=== PATIENT | female | born 1940 | race Caucasian/White ===

== ENCOUNTER 2017-11-17 21:33 | Inpatient (IN) | payer OTHER, MEDICARE ==
[~2017-11-17] VITALS: Ht 152.4 cm; Wt 60.8 kg
[~2017-11-17 21:33] MED LIST: AMLODIPINE-BEN1 EAC3 PO; ATORVASTATIN CA40 M1 PO; LISINOPRIL10 M1 PO; METOPROLOL SUCC25 M1 PO; METOPROLOL TART25 M1 PO; OMEPRAZOLE20 M2 PO; PAROXETINE HC37.5 MG PO; PREDNISONE10 M2 PO
--- NOTE | 2017-11-17 21:35 | ED GENERAL ADULT ---
History of Present Illness General Chief Complaint: General Adult Stated Complaint: RESP DISTRESS Source: EMS Exam Limitations: patient's age, clinical condition, poor historian, physical impairment Vital Signs & Intake/Output Vital Signs & Intake/Output Vital Signs Date Time Temp Pulse Resp B/P B/P Pulse O2 O2 Flow FiO2 Mean Ox Delivery Rate 11/17 2333 97.6 87 18 114/67 94 Nasal 2.0L Cannula 11/17 2305 Nasal 2.0L Cannula 11/17 2145 97.0 63 40 167/65 96 Nasal 2.0L Cannula ED Intake and Output 11/18 0000 11/17 1200 Intake Total 0 Output Total Balance 0 Intake, Oral 0 Patient 145 lb Weight Weight Estimated Measurement Method Allergies Coded Allergies: amoxicillin (From AUGMENTIN) (THRUSH 05/11/16) clavulanic acid (From AUGMENTIN) (THRUSH 05/11/16) Reconcile Medications Acetaminophen (Tylenol Extra Strength) 500 MG TABLET 2 TAB PO Q8 PRN PAIN ( Reported) Atorvastatin Calcium 40 MG TABLET 1 TAB PO DAILY CHOLESTEROL (Reported) Fluticasone/Vilanterol (Breo Ellipta 100-25 Mcg INH) 100 MCG-25 MCG/DOSE BLST.W.DEV 1 INHA PO DAILY COPD (Reported) Gabapentin 100 MG CAPSULE 2 TAB PO TID PAIN (Reported) Lisinopril 10 MG TABLET 1 TAB PO DAILY blood pressure Metoprolol Succinate 25 MG TAB 0.5 TAB PO DAILY HEART Omeprazole 20 MG CAPSULE.DR 1 CAP PO DAILY BOWEL ULCER (Reported) Oxycodone HCl 5 MG TABLET 1 TAB PO QHS PAIN (Reported) Paroxetine HCl 40 MG TABLET 1 TAB PO DAILY MOOD (Reported) Sennosides (Senna) 8.6 MG TABLET 2 TAB PO BID CONSTIPATION (Reported) Tramadol HCl 50 MG TABLET 1 TAB PO BIDP PRN PAIN (Reported) Triage Nurses Notes Reviewed? yes Onset: Abrupt Duration: hour(s): Timing: recent history HPI: 11/17/17 10 PM 77-year-old female was brought to the emergency department from the senior care for difficulty breathing and diaphoresis. According to EMS the patient was profoundly short of breath earlier today. There was no chest pain or fever. She has a past medical history of a perforated duodenal ulcer. She is also status post OR. Her EKG showed a new left bundle branch block. I initially reviewed this with Dr. Houston; who suggested that the patient be cared for by Dr. Orlando as he had seen her on the last admission. I did speak with Dr. Orlando and then later with Dr. Yang who reviewed the EKG and agreed with the plan of care and will follow the patient. Past History Travel History Traveled to [place] past 21 day No Medical History Any Pertinent Medical History? 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 No Review of Systems Review of Systems Constitutional: Denies: fever. EENTM: Reports: no symptoms. Respiratory: Reports: cough, short of breath. Cardiovascular: Denies: chest pain. GI: Denies: abdominal pain. Genitourinary: Reports: no symptoms. Musculoskeletal: Reports: no symptoms. Skin: Denies: rash. Neurological/Psychological: Reports: no symptoms. Hematologic/Endocrine: Reports: no symptoms. Immunologic/Allergic: Reports: no symptoms. Physical Exam Physical Exam General Appearance: alert, awake, anxious, moderate distress Head: atraumatic, normal appearance Eyes: Bilateral: normal appearance, PERRL, EOMI. Ears, Nose, Throat: normal pharynx, normal ENT inspection Neck: supple Respiratory: accessory muscle use, respiratory distress, poor air entry Cardiovascular: tachycardia Peripheral Pulses: 3+ radial (R), 3+ radial (L) Gastrointestinal: soft, non-tender Back: decreased range of motion Extremities: pedal edema Neurologic/Psych: awake, alert, oriented x 3 Skin: intact, normal color, warm/dry Core Measures ACS in differential dx? Yes CVA/TIA Diagnosis: No Sepsis Present: No Sepsis Focused Exam Completed? No Progress Differential Diagnoses I considered the following diagnoses in my evaluation of the patient: [Sepsis, acute non-ST segment elevation OR, pneumonia, pulmonary embolism] Plan of Care: Orders Procedure Date/time Status LACTIC ACID 11/18 0043 Active Patient Data 11/18 0000 Active ARTERIAL BLOOD GAS (GEN) 11/17 2142 Active Saline Lock 11/17 2142 Active BLOOD CULTURE 11/17 2142 Active TROPONIN LEVEL 11/17 2142 Complete LACTIC ACID 11/17 2142 Complete D-DIMER 11/17 2142 Complete COMPREHENSIVE METABOLIC PANEL 11/17 2142 Complete CBC WITHOUT DIFFERENTIAL 11/17 2142 Complete B-TYPE NATRIURETIC PEP (BNP) 11/17 2142 Complete EKG 11/17 2133 Active BLOOD CULTURE 11/17 199 Active Laboratory Tests 11/17/172305: D-Dimer High Sensitivty 9 H 11/17/17 2300: pH 7.36, pCO2 30 L, pO2 76 L, HCO3 17 L, ABG O2 Sat (Measured) 92.0 L, Carboxyhemoglobin 1.5, O2 Concentration % 2L, O2 Delivery Method NC, Phlebotomy Draw Site RIGHT BRACHIAL 11/17/172149: Anion Gap 16, Estimated GFR > 60, BUN/Creatinine Ratio 16.3, Glucose 278 H, Lactic Acid 6.7 H, Calcium 8.8, Total Bilirubin 0.5, AST 31, ALT 20, Alkaline Phosphatase 86, Troponin I 0.60 *H, Gef-S-Zgbvpaghucx Pept 99782 H, Total Protein 6.9, Albumin 3.8, Globulin 3.1, Albumin/Globulin Ratio 1.2, CBC w Diff NO MAN DIFF REQ, RBC 4.17 L, MCV 86.2, MCH 27.3, MCHC 31.7 L, RDW 18.7 H, MPV 8.9, Gran % 58.5, Lymphocytes % 31.4, Monocytes % 7.7, Eosinophils % 1.8, Basophils % 0.6, Absolute Granulocytes 6.4, Absolute Lymphocytes 3.5 H, Absolute Monocytes 0.8 H, Absolute Eosinophils 0.2, Absolute Basophils 0.1 Microbiology 11/17 2305 BLOOD: Blood Culture - RECD 11/17 2254 BLOOD: Blood Culture - RECD CXR Impression: no acute abnormality (CHF, pleural effusion) Initial ED EKG: wandering atrial pacemaker, new left bundle branch block Prior EKG: changed Departure Departure Disposition: STILL A PATIENT Condition: Stable Clinical Impression Primary Impression: CHF (congestive heart failure) Secondary Impressions: Acute non-ST segment elevation myocardial infarction, Lactic acidosis Referrals: Patient Has No Primary Care Dr Departure Forms: Customer Survey General Discharge Information Admission Note Spoke With: Shruthi Momin MD Documentation of Exam: Documentation of any treatments & extenuating circumstances including Concerns Regarding Discharge (functional status, medication knowledge or non-compliance, living conditions, etc.) that warrant an admission rather than observation: [The patient needs admission for CTA, ICU level care, oxygen, cardiology consultation , follow the cultures, repeat lactic acid, anticoagulation.] I discussed with the housestaff the plan for aspirin suppository, heparin, Plavix, and CTA. The patient is being admitted to the ICU. The patient did receive an albuterol and Atrovent nebulizer. IV Lasix, nitroglycerin paste. Her symptoms dramatically improved with improved. The patient refused aspirin secondary to her prior perforated ulcer. I discussed with the housestaff that this should be given by suppository and to discuss with the patient. I do not feel the lactic acid level was related to sepsis, as she is afebrile, has a positive troponin, and a substantially elevated d-dimer. Critical Care Note Critical Care Note Critical Care Time: 30-74 min
--- NOTE | 2017-11-17 22:04 | RADIOLOGY REPORT ---
EXAMINATION: XR PORTABLE CHEST CLINICAL INFORMATION: Shortness of breath. COMPARISON: Chest x-ray 05/20/2016 TECHNIQUE: Portable frontal view of the chest was obtained. 9:42 PM FINDINGS: There is mild pulmonary vascular congestion with prominence of the central hilar vessels and increased lung markings. There is haziness at lung bases probably from early pulmonary edema. There is a right pleural effusion blunting the right costophrenic angle. There is no change of the cardiomediastinal contour. There are vascular wall calcifications of aorta. IMPRESSION: There is pulmonary vascular congestion with haziness at lung bases from early pulmonary edema. There is a right pleural effusion.
[2017-11-17 22:09] LABS: ABSOLUTE BASOPHIL COUNT 0.1 /CUMM (0.0-0.2); ABSOLUTE EOSINOPHIL COUNT 0.2 /CUMM (0.0-0.7); ABSOLUTE GRANULOCYTE CT 6.4 /CUMM (1.4-6.5); ABSOLUTE LYMPH COUNT 3.5 /CUMM (1.2-3.4); ABSOLUTE MONOCYTE COUNT 0.8 /CUMM (0.10-0.60); BASOPHIL % 0.6 % (0.0-2.0); EOSINOPHIL % 1.8 % (0-5); GRANULOCYTE % 58.5 % (42.2-75.2); MEAN CORPUSCULAR HGB 27.3 PG (27.0-31.0); MEAN CORPUSCULAR HGB CONC 31.7 G/DL (33.0-37.0); MEAN CORPUSCULAR VOLUME 86.2 FL (81.0-99.0); MEAN PLATELET VOLUME 8.9 FL (7.4-10.4); PLATELET COUNT 266 /CUMM (130-400); RBC DISTRIBUTION WIDTH 18.7 % (11.5-14.5); RED BLOOD CELL CT 4.17 /CUMM (4.20-5.40)
[2017-11-17] MEDS ORDERED: OMEPRAZOLE20 M2 PO (22:46)
[2017-11-17] MEDS ORDERED: BREO ELLIPTA 11 EACH PO (22:47)
[2017-11-17] MEDS ORDERED: SENNA8.6 M3 PO (22:48)
[2017-11-17] MEDS ORDERED: PAROXETINE HCL40 M1 PO (22:48)
[2017-11-17] MEDS ORDERED: TRAMADOL HCL50 M1 PO (22:49)
[2017-11-17] MEDS ORDERED: TYLENOL EXTRA500 M2 PO (22:49)
[2017-11-17] MEDS ORDERED: GABAPENTIN100 M2 PO (22:50)
[2017-11-17] MEDS ORDERED: OXYCODONE HCL5 M1 PO (22:50)
--- NOTE | 2017-11-18 00:36 | History & Physical ---
Augusto Villasenor MD 11/18/17 0000: General Information and HPI History of Present Illness: 77-year-old woman with past medical history of perforated duodenal ulcer, coronary artery disease status post stent 2, hypertension, hyperlipidemia, osteoarthritis, and depression sent in from [facility] for evaluation of chest pain and shortness breath. Patient reports waking up today in her normal state of health. She had a lunch consisting of general tsos chicken which was very salty. Shortly after dinner she reported sudden onset shortness of breath with left arm pain. She characterized the pain as a 4/10 waxing/waning discomfort with radiation to her left shoulder. The pain was not positional and did not change with respiration. She denied any recent orthopnea, heartburn, or PND. She sleeps flat in bed at night with 2 pillows due to neck discomfort. Review of systems She otherwise denies any headache, fever, chills, blurred/double vision, lightheadedness/dizziness, current chest pain, palpitations, cough, nausea, vomiting, diarrhea, urinary complaints. Past medical history-as above Allergies-Augmentin Medications-reconciled in electronic medical record Family medical history-unknown Surgical history-cardiac stent 2, cholecystectomy Social history Patient denies smoking for the past year and half where she has been a long-term resident at [facility] but prior to this "smoked for a long time".. She denies drinking alcohol or using recreational drugs. She is compliant with her medications which are provided to her at the facility. She ambulates with assistance of a wheelchair and denies any falls in the past year. 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 Fredi Bojorquez and she hasn't seen him in "a while ". Allergies/Medications Allergies: Coded Allergies: amoxicillin (From AUGMENTIN) (THRUSH 05/11/16) clavulanic acid (From AUGMENTIN) (THRUSH 05/11/16) Home Med list Acetaminophen (Tylenol Extra Strength) 500 MG TABLET 2 TAB PO Q8 PRN PAIN ( Reported) Atorvastatin Calcium 40 MG TABLET 1 TAB PO DAILY CHOLESTEROL (Reported) Fluticasone/Vilanterol (Breo Ellipta 100-25 Mcg INH) 100 MCG-25 MCG/DOSE BLST.W.DEV 1 INHA PO DAILY COPD (Reported) Gabapentin 100 MG CAPSULE 2 TAB PO TID PAIN (Reported) Lisinopril 10 MG TABLET 1 TAB PO DAILY blood pressure Metoprolol Succinate 25 MG TAB 0.5 TAB PO DAILY HEART Omeprazole 20 MG CAPSULE.DR 1 CAP PO DAILY BOWEL ULCER (Reported) Oxycodone HCl 5 MG TABLET 1 TAB PO QHS PAIN (Reported) Paroxetine HCl 40 MG TABLET 1 TAB PO DAILY MOOD (Reported) Sennosides (Senna) 8.6 MG TABLET 2 TAB PO BID CONSTIPATION (Reported) Tramadol HCl 50 MG TABLET 1 TAB PO BIDP PRN PAIN (Reported) Past History Travel History Traveled to [place] past 21 day No Medical History Neurological: NONE EENT: NONE Cardiovascular: CAD, hypertension, hyperlipidemia Respiratory: NONE Gastrointestinal: NONE Hepatic: NONE Renal: NONE Musculoskeletal: osteoarthritis Psychiatric: depression Endocrine: NONE Blood Disorders: NONE Cancer(s): NONE 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 Extended Care Facility Who Do You Live With? alone Services at Home: None Primary Language: Faroese Smoking Status: Former Smoker ETOH Use: denies use Living Will? yes Power of Stone Breaker/HCP? yes Name of POA/HCP: Sinan Rossi Functional Ability ADLs Independent: toileting. Needs Assist: eating, bathing. Ambulation: walker IADLs Independent: finances, medication admin. Needs Assist: shopping, food prep, transportation. Review of Systems Review of Systems Constitutional: Reports: see HPI. Exam & Diagnostic Data Last 24 Hrs of Vital Signs/I&O Vital Signs Date Time Temp Pulse Resp B/P B/P Pulse O2 O2 Flow FiO2 Mean Ox Delivery Rate 11/18 0029 98.3 91 18 119/52 98 Room Air 11/17 2333 97.6 87 18 114/67 94 Nasal 2.0L Cannula 11/17 2305 Nasal 2.0L Cannula 11/175 97.0 63 40 167/65 96 Nasal 2.0L Cannula Intake & Output 11/18 0800 11/18 0000 11/17 1600 Intake Total 0 Output Total Balance 0 Intake, Oral 0 Patient 65.771 kg Weight Weight Estimated Measurement Method Physical Exam General Appearance Alert, Oriented X3, Cooperative Skin No Rashes, No Breakdown, No Significant Lesion Skin Temp/Moisture Exam: Warm/Dry Sepsis Skin Exam (color): Normal for Ethnicity HEENT Atraumatic, PERRLA, EOMI, Mucous Membr. moist/pink Neck Supple Cardiovascular Normal S1, Normal S2, irregular rate Lungs Normal airflow, right lower lobe crackles Abdomen Normal Bowel Sounds, Soft, No Tenderness Neurological Normal Speech, Strength at 5/5 X4 Ext, Normal Tone, Sensation Intact, Cranial Nerves 3-12 NL Extremities No Clubbing, No Cyanosis, trace pedal edema Vascular Normal Pulses, Pulses Symmetrical Sepsis Peripheral Pulse Location: Dorsalis Pedis Sepsis Peripheral Pulse Exam: Normal Sepsis Cap Refill Exam: <2 Sec Last 24 Hrs of Labs/Ilya: Laboratory Tests 11/18/17 0030: Lactic Acid Pending 11/17/172305: D-Dimer High Sensitivty 2058 H 11/17/170: pH 7.36, pCO2 30 L, pO2 76 L, HCO3 17 L, ABG O2 Sat (Measured) 92.0 L, Carboxyhemoglobin 1.5, O2 Concentration % 2L, O2 Delivery Method NC, Phlebotomy Draw Site RIGHT BRACHIAL 11/17/172149: Anion Gap 16, Estimated GFR > 60, BUN/Creatinine Ratio 16.3, Glucose 278 H, Lactic Acid 6.7 H, Calcium 8.8, Total Bilirubin 0.5, AST 31, ALT 20, Alkaline Phosphatase 86, Troponin I 0.60 *H, Xlv-X-Rztnycfxawj Pept 97244 H, Total Protein 6.9, Albumin 3.8, Globulin 3.1, Albumin/Globulin Ratio 1.2, CBC w Diff NO MAN DIFF REQ, RBC 4.17 L, MCV 86.2, MCH 27.3, MCHC 31.7 L, RDW 18.7 H, MPV 8.9, Gran % 58.5, Lymphocytes % 31.4, Monocytes % 7.7, Eosinophils % 1.8, Basophils % 0.6, Absolute Granulocytes 6.4, Absolute Lymphocytes 3.5 H, Absolute Monocytes 0.8 H, Absolute Eosinophils 0.2, Absolute Basophils 0.1 Microbiology 11/17 2305 BLOOD: Blood Culture - RECD 11/17 2254 BLOOD: Blood Culture - RECD Assessment/Plan Assessment: 77 year old woman with multiple medical problems significant for coronary artery disease, cardiac stents, hypertension, and hyperlipidemia with a prolonged hospitalization in May 2016 for a perforated duodenal ulcer requiring emergent exploratory laparotomy seen for evaluation of acute onset chest pain with shortness breath. Given that patient's chest pain and shortness of breath were of sudden onset in a patient whom is not very active with elevated troponin, new left bundle branch block, elevated BMP, elevated d-dimer, and elevated lactic acid it is very possible patient suffered an acute pulmonary embolism resulting in acute cardiac strain. Clinically patient meets criteria for acute coronary syndrome; given her new left bundle branch block it is difficult to assess for STEMI vs NSTEMI. Stat CTA chest with PE protocol is to be obtained. Resident Buyer Dr. Preston Yang was contacted from the ED by Dr. Isai Ross whom reportedly recommended starting patient on a heparin drip and loading with Plavix, aspirin, statin, diuresis, and antibiotics if necessary. Given patient' s history of duodenal ulcer patient is declining to take aspirin for fear of further bleeding. Heparin drip and Plavix are started. Patient is to be seen by cardiology in the morning. Echocardiogram should be obtained. Problem List -Chest pain with elevated troponin, probale acute coronary syndrome -Shortness of breath with elevated D-Dimer, possible pulmonary embolism -New Left Bundle Branch Block -CHF exacerbation -Elevated lactic acid -CAD s/p stent x2 -Hypertension -Hyperlipidemia -Depression -Osteoarthritis Plan -Admit to ICU -Strict I & Os -Daily weights -Guaic all stools -TRC with Nebs PRN -Supplemental oxygen, goal > 92%, taper as tolerated -Telemetry monitoring -Lasix 40 mg IV Daily -Plavix 300 mg PO ONCE -Heparin GGT -Protonix 40 mg IV Daily -Continue home meds: atorvastatin, breo, gabapentin, lisinopril, metoprolol, omeprazole, paroxetine, senna, oxycodone, tramadol -Cardiology consult with Dr. Yang/Johanny -Daily BMP -Trend troponin/EKG until peak or three negative sets -Trend lactic acid -Echocardiogram -Obtain CTA with PE Protocol -Pain control with acetaminophen, oxycodone, morphine -NPO for possible cardiac cath -DVT PPx with heparin GGT / ALPS -FULL CODE As Ranked By This Provider Problem List: 1. CHF (congestive heart failure) 2. Acute non-ST segment elevation myocardial infarction Core Measures/Misc (04/26) Acute Coronary Syndrome ACS Diagnosis: Yes Last Known EF % 65 No ASA d/t Medication Refused Congestive Heart Failure Congestive Heart Failure Diagnosis Yes Last Known EF % 65 Cerebrovascular Accident CVA/TIA Diagnosis: No VTE (View Protocol) VTE Risk Factors Age>40 No Mechanical VTE Prophylaxis d/t N/A MechProphylax Ordered No VTE Pharm Prophylaxis d/t NA PharmProphylax ordered Sepsis (View protocol) Sepsis Present: No Shruthi Momin 11/18/17 0458: Attending MD Review Statement Attending Statement Attending MD Statement: examined this patient, discuss w/resident/PA/CASE ASSEMBLER, agreed w/resident/PA/CASE ASSEMBLER, reviewed EMR data (avail), reviewed images, amended to note Attending Assessment/Plan: CC: acute respiratory distress PMH: CAD S/P GA S/P stent, COPD, HTN, HLD, depression, OA, history of perforated duodenal s/p abdo exploration Patient was sent from [facility] for acute respiratory distress. Patient states that she had Montserratian for lunch and Tajik sandwich for dinner and later in the evening noticed respiratory difficulty, breathing very hard. She felt generalized malaise, fatigue, whole body aches and left-sided arm discomfort radiating to left shoulder. Currently she denies any chest pain or discomfort, shoulder pain or arm pain. Patient states that she had been having productive cough since last 1 week with clear sputum but denies any pleuritic nature of chest pain, nasal congestion or discharge, chest congestion, fever, chills, nausea, vomiting, diarrhea, orthopnea or PND. She is wheelchair-bound, could not complete her physical therapy after her previous extended hospitalization, since then bedbound. Vitals: Afebrile, pulse 63, RR 40 on arrival improved to 18, blood pressure 167/ 65, saturating 96% on 2 L nasal cannula. On exam: A O 3, cooperative, no acute distress, neck supple, JVD elevated, no lymphadenopathy, mucosa moist, no focal neurological deficit, no dependent edema , no obvious skin rashes or inflammation CVS: S1-S2, RRR. RS: Crackles bases and midlung zone. Abdomen: Soft, NT, ND, bowel sounds present. CXR: There is pulmonary vascular congestion with haziness at lung bases from early pulmonary edema. There is a right pleural effusion. CTA chest: 1. No pulmonary embolism. 2. Small bilateral pleural effusions. Right lower lobe consolidation and groundglass opacity suspicious for pneumonia. Assessment and plan 77-year-old female with extensive past medical history presented in ER for acute shortness of breath that has happened this evening. Patient was at her usual state of health until dinnertime, had minimal cough with clear sputum production and no complaints then developed acute shortness of breath, generalized malaise, fatigue and left arm and shoulder discomfort which disappeared after coming to ER. Her shortness of breath is much better after treatment in ER. She has elevated JVD, bilateral crackles right more than left, no obvious leg swellings. Labs does not show significant leukocytosis but has mild acidosis with increased lactate, elevated troponin to 0.60 and elevated proBNP 11,800 with d-dimer 9. Her ABG showed respiratory alkalosis with metabolic acidosis. Chest x-ray suggestive of effusion. But acute respiratory symptoms and elevated d-dimer and she being wheelchair-bound CTA chest was obtained which excluded pulmonary embolism and shows groundglass opacification and right lobe suspicion of pneumonia. Currently patient is afebrile, no significant leukocytosis and very minimal cough so we will hold off antibiotics for now. Patient appears to have acute coronary syndrome, given her new left bundle branch block, ST segment changes are difficult to assess for STEMI. Patient will require earlier coronary cath than later given her risk factors. Resident Buyer was called from ER who suggested ICU admission, heparin drip and Plavix. Patient cannot take aspirin because of her perforated duodenal ulcer which required surgery, high risk of bleeding again. + NSTEMI + Lactic acidosis most likely secondary to ACS + Pulmonary edema + Respiratory alkalosis with metabolic acidosis + History of CAD S/P GA S/P stent + History of COPD, HTN, HLD, depression, OA, history of perforated duodenal - Admit to ICU - Continuous telemetry monitoring - Serial troponin and EKGs - 2-D echo in a.m. - Cardiology consult in a.m. - Continue Plavix, atorvastatin, beta vinnie - Continue heparin drip - Lasix 40 mg IV daily - Protonix 40 mg IV daily - Strict I's and O's - Daily weights - Nothing by mouth - Continue O2 by nasal cannula - Start azithromycin and ceftriaxone if significant leukocytosis or fever spike - Critical care consult in a.m. - TRC nebs TTS 30 min
[2017-11-18 01:26] LABS: PTT 27 SEC (25-37)
--- NOTE | 2017-11-18 01:48 | CT SCAN REPORT ---
EXAMINATION: CT ANGIOGRAM OF THE CHEST WITH AND WITHOUT CONTRAST (CT PULMONARY ANGIOGRAM FOR PE) CLINICAL INFORMATION: Acute shortness of breath. EKG change. Positive d-dimer. Chest pain. COMPARISON: 11/17/2017 and 09/12/2016. TECHNIQUE: Prior to contrast administration, noncontrast localization images were obtained. Subsequently, multidetector volumetric imaging was performed from the thoracic inlet to below the diaphragms following the administration of 65 mL Optiray 320 intravenous contrast. No contrast reaction reported. Sagittal, coronal, and MIP oblique sagittal reformatted images were obtained on the CT workstation, uploaded to PACS, and reviewed. Total exam dose-length product 449 mGy-cm. FINDINGS: QUALITY OF STUDY/CONTRAST BOLUS: Satisfactory PULMONARY ARTERIES: No central or segmental pulmonary emboli. THORACIC AORTA: No aneurysm or dissection. Atherosclerotic calcifications present. LUNG: The central airways are patent. Mild centrilobular emphysema. Small bilateral pleural effusions. Patchy consolidation within the right lower lobe with interspersed groundglass opacities. No pneumothorax. Mild interlobular septal thickening. There is an unchanged right middle lobe 0.5 cm pulmonary nodule, series 2 image 245. MEDIASTINUM: The heart is normal in size. Small pericardial effusion. Coronary artery calcifications present. No mediastinal lymphadenopathy. No evidence of septal bowing or right heart strain. CHEST WALL/AXILLA: No axillary or internal mammary lymphadenopathy. OSSEOUS STRUCTURES: No acute or suspicious osseous abnormality. Multilevel degenerative changes of the spine. UPPER ABDOMEN: Cholecystectomy. Vascular calcifications present. No reflux of contrast into the hepatic veins to suggest elevated right heart pressures. IMPRESSION: 1. No pulmonary embolism. 2. Small bilateral pleural effusions. Right lower lobe consolidation and groundglass opacity suspicious for pneumonia. VTE: negative
[2017-11-18 03:00] VITALS: BP 130/74
--- NOTE | 2017-11-18 05:00 | Admission Certification ---
Admission Certification Certification Statement - As attending physician, I certify that at the time of - admission, based on clinical presentation, severity of - symptoms, need for further diagnostic testing and - therapeutic interventions, and risk of adverse outcomes - without in-hospital treatment, in my clinical assessment, - this patient requires an acute hospital stay for a minimum - of two nights or longer. I have also considered psychsocial - factors such as support system, advanced age, financial - issues, cognitive issues, and failed out-patient treatments, - past re-admission history, safety of patient, and lack of - compliance as applicable. Specific rationale supporting this admission is: NSTEMI, pulmonary edema
[2017-11-18 05:29] LABS: ABSOLUTE BASOPHIL COUNT 0 /CUMM (0.0-0.2); ABSOLUTE EOSINOPHIL COUNT 0 /CUMM (0.0-0.7); ABSOLUTE GRANULOCYTE CT 6.9 /CUMM (1.4-6.5); ABSOLUTE LYMPH COUNT 0.5 /CUMM (1.2-3.4); ABSOLUTE MONOCYTE COUNT 0.7 /CUMM (0.10-0.60); BASOPHIL % 0.1 % (0.0-2.0); EOSINOPHIL % 0.2 % (0-5); GRANULOCYTE % 84.3 % (42.2-75.2); MEAN CORPUSCULAR HGB 27.1 PG (27.0-31.0); MEAN CORPUSCULAR HGB CONC 31.8 G/DL (33.0-37.0); MEAN CORPUSCULAR VOLUME 85.4 FL (81.0-99.0); MEAN PLATELET VOLUME 8.3 FL (7.4-10.4); PLATELET COUNT 235 /CUMM (130-400); RBC DISTRIBUTION WIDTH 19.5 % (11.5-14.5); RED BLOOD CELL CT 3.64 /CUMM (4.20-5.40); WHITE BLOOD CELL COUNT 8.1 /CUMM (4.8-10.8)
[2017-11-18 08:00] VITALS: BP 123/61
--- NOTE | 2017-11-18 08:34 | PN- Resident CRCU ---
Objective Exam General Appearance: alert
--- NOTE | 2017-11-18 08:43 | Cons- CRCU ---
General Information and HPI Allergies/Medications Allergies: Coded Allergies: amoxicillin (From AUGMENTIN) ([facility] 05/11/16) clavulanic acid (From AUGMENTIN) ([facility] 05/11/16) Home Med List: Acetaminophen (Tylenol Extra Strength) 500 MG TABLET 2 TAB PO Q8 PRN PAIN ( Reported) Atorvastatin Calcium 40 MG TABLET 1 TAB PO DAILY CHOLESTEROL (Reported) Fluticasone/Vilanterol (Breo Ellipta 100-25 Mcg INH) 100 MCG-25 MCG/DOSE BLST.W.DEV 1 INHA PO DAILY COPD (Reported) Gabapentin 100 MG CAPSULE 2 TAB PO TID PAIN (Reported) Lisinopril 10 MG TABLET 1 TAB PO DAILY blood pressure Metoprolol Succinate 25 MG TAB 0.5 TAB PO DAILY HEART Omeprazole 20 MG CAPSULE.DR 1 CAP PO DAILY BOWEL ULCER (Reported) Oxycodone HCl 5 MG TABLET 1 TAB PO QHS PAIN (Reported) Paroxetine HCl 40 MG TABLET 1 TAB PO DAILY MOOD (Reported) Sennosides (Senna) 8.6 MG TABLET 2 TAB PO BID CONSTIPATION (Reported) Tramadol HCl 50 MG TABLET 1 TAB PO BIDP PRN PAIN (Reported) Past History Travel History Traveled to [place] past 21 day No Medical History Neurological: NONE EENT: NONE Cardiovascular: CAD, hypertension, hyperlipidemia Respiratory: NONE Gastrointestinal: NONE Hepatic: NONE Renal: NONE Musculoskeletal: osteoarthritis Psychiatric: depression Endocrine: NONE Blood Disorders: NONE Cancer(s): NONE MANAGER RISK/Reproductive: NONE Surgical History Surgical History: cholecystectomy (laparoscopic 16 years ago), D&C's coronary angio/stent x2 Psychosocial History Where Do You Live? Extended Care Facility Who Do You Live With? alone Services at Home: None Primary Language: Georgian Smoking Status: Former Smoker ETOH Use: denies use Living Will? yes Power of Outbound Sales Consultant/HCP? yes Name of POA/HCP: Sinan Rossi Functional Ability ADLs Independent: toileting. Needs Assist: eating, bathing. Ambulation: walker IADLs Independent: finances, medication admin. Needs Assist: shopping, food prep, transportation. Assessment/Plan CRCU Consult Acknowledgment - Thank you for your consult request.
--- NOTE | 2017-11-18 08:51 | PN- Resident CRCU ---
Ernestina Johnson 11/18/17 0850: Subjective HPI/CRCU Issues: She is doing well this morning. Did not have any chest pain, or shortness of breath. Vitals remained stable overnight. She is currently on 2 L supplemental oxygen. Overnight, she did have an acute elevation in troponin level, with persistent EKG changes of left axis deviation, left bundle branch block, Q waves in inferior leads. As per the overnight team, the epic beacon analyst was aware of the new left bundle branch block. 24 Hour Events: Vitals- temperature 98.5, pulse rate 74-94, normal sinus rhythm, BP 1:30/74, 2 L nasal cannula oxygen saturation in the range of 94-98%. Ins and outs have not been calculated so far. Objective Vital Signs & I&O Last 8 Hrs of Vitals and I&O: - Exam General Appearance: awake Other Physical Findings: General Exam: AAOx3, No acute distress, Skin: No rashes, no breakdown;HEENT: PERRLA, EOMI;Neck: Supple, No JVD; No cervical lymphadenopathy;CVS: Reg Rate, Normal S1,S2, No MGR;Resp: decreased air entry, b/l rales ;Abdomen: Soft, No tenderness, Normal Bowel Sounds;Neuro: Normal Speech, Strength 4/5 b/l x lower extremities, Sensation intact, CN III-XII NL, Reflexes 2+;Extremities: No cyanosis, no pedal edema Current Medications: Current Medications Sig/Sergey Start time Last Medication Dose Route Stop Time Status Admin Acetaminophen 1,000 MG Q6P PRN 11/18 0015 AC 11/18 IV 1110 Albuterol Sulfate 3 ML Q4P PRN 11/18 0915 AC INH Albuterol Sulfate 3 ML ONCE ONE 11/17 2145 DC 11/17 INH 11/17 214 2214 Aspirin 325 MG ONCE ONE 11/18 0930 DC 11/18 PO 11/18 0931 1109 Atorvastatin Calcium 40 MG DAILY 11/18 1000 AC 11/18 PO 1106 Clopidogrel Bisulfate 75 MG DAILY 11/19 1000 AC PO Clopidogrel Bisulfate 300 MG ONCE ONE 11/18 0045 DC 11/18 PO 11/18 0046 0151 Furosemide 40 MG DAILY 11/18 1000 AC 11/18 IV 1107 Furosemide 0 .STK-MED ONE 11/17 2253 DC IV Furosemide 20 MG ONCE ONE 11/17 2230 DC 11/17 IV PUSH 11/17 2230 2308 Gabapentin 200 MG TID 11/18 1000 AC 11/18 PO 1106 Heparin Sodium/ 25,000 UNIT Q24H 11/18 0045 AC 11/18 Dextrose IV 0145 Dextrose/Water 500 ML Ipratropium [place] 2.5 ML Q6P PRN 11/18 1100 AC INH Ipratropium [place] 2.5 ML ONCE ONE 11/17 2145 DC 11/17 INH 11/17 2146 2213 Lisinopril 10 MG DAILY 11/18 1000 AC 11/18 PO 1107 Metoprolol Succinate 12.5 MG DAILY 11/18 1000 DC PO Metoprolol Tartrate 12.5 MG BID 11/18 1100 AC PO Morphine Sulfate 2 MG Q4P PRN 11/18 0930 AC IV Morphine Sulfate 2 MG Q4P PRN 11/18 0015 DC IV Nitroglycerin 0 .STK-MED ONE 11/17 2253 DC TOP Nitroglycerin 1 GM ONCE ONE 11/17 2230 DC 11/17 TOP 11/17 2230 2308 Oxycodone HCl 0 .STK-MED ONE 11/18 0201 DC PO Oxycodone HCl 5 MG .[QHS] 11/18 0115 AC 11/18 PO 0159 Pantoprazole Sodium 40 MG DAILY 11/18 1000 AC 11/18 IV 1107 Paroxetine HCl 40 MG DAILY 11/18 1000 AC 11/18 PO 1106 Senna/Docusate Sodium 2 TAB DAILY 11/18 1000 AC 11/18 PO 1109 Impression/Plan Impression/Problem List Impression: Ms Juan is a 77 -year-old woman with a past history of coronary artery disease status post PCI stents (1999), hypertension, hyperlipidemia, perforated duodenal ulcer, depression was brought from [facility] after she was found to have acute onset of dyspnea after she had her lunch. She also was concerned about chest discomfort severity 11/17, radiation to left shoulder. At the time of admission-temperature 97.0, pulse rate 63, respiration 40, blood pressure 167/65, pulse ox 96% on 2 L oxygen. Pertinent Findings the BP is 11.0-->8.1 (58.5--> 84.3% granulocytes), hemoglobin 11.4, hematocrit 36.0, platelet 266. Sodium 136, potassium 4.6, bicarbonate 17 (likely metabolic acidosis. Lactic acid), lactic acid 6.7-->2.6-->1.8. Since she has a new LBBB, which would make the evaluation of ST segment evaluation difficult, would treat this as OH until proven otherwise. Follow-up EKGs revealed left bundle branch block, with left axis deviation. Problem list: 1. Acute pulmonary edema 2. New left bundle branch block 3. Lactic acidosis 4. Chronic low back pain 5. History of COPD 6. History of perforated duodenal ulcer Etiology case is likely due to acute OH that may have caused congestive heart failure likely systolic leading to acute pulmonary edema. She has a new left bundle branch block, unsure if she developed recently or has had it in a little while. Until proven otherwise, this has to be treated as myocardial infarction; although she does not have any symptoms of chest pain at this time. Other etiologies such as acute on chronic congestive heart failure is considered in differentials. She also has an evidence of pleural effusion on the right side with radiological findings suggestive of consolidation or pneumonitis; since she does not have any evidence of any infection at this time would not treat her for pneumonia. She was given a loading dose of Plavix and aspirin this morning after discussing with Dr. Yang. Plan: 1. Acute pulmonary edema-could be due to OH given her recent left bundle branch block, making evaluation of ST segment elevation difficult to interpret. She was given Lasix 20 mg while in the ER. She continues to have oxygen saturation in the range of 96-98% on 2 L oxygen, and currently asymptomatic. She was given 1 dose of IV Lasix 40 mg in the a.m, will change to p.o. Lasix in the a.m. after discussing with the strickler attendant. Echocardiogram to be obtained to evaluate systolic versus diastolic heart failure in her case.Continue supplemental oxygen for now, and wean as tolerated. If she develops any fever, or s/s of infection would treat w/ abx. 2. New left bundle branch block-unsure if the patient had a new left bundle branch block or has had it in the recent past. Serial EKGs and troponins until they peak. Last troponin I 2.49.-->2.29. As per the patient, she would like to try conservative management at this time with medications only. If she has any worsening symptoms such as chest pain or shortness of breath, would discuss with epic beacon analyst about transferring to a higher level of care for possible catheterization. Hold daily aspirin, and continue Plavix as per Dr. Orlando. Continue nitro patch with 12 hour on and off.'s. Continue lisinopril 10 mg daily;continue metoprolol 12.5 mg p.o. twice daily since she does not have any active symptoms of CHF at this time. Continue IV heparin for the next 48 hours. 3. History of COPD-continue TRC nebs, including ipratropium and short-acting beta-vinnie. 4. Housekeepin. DVT prophylaxis-IV heparin 2. GI prophylaxis-IV Protonix. 3. CODE STATUS-full code. Problem List: 1. Lactic acidosis 2. CHF (congestive heart failure) 3. Hypertension 4. Coronary artery disease 5. Hyperlipidemia 6. Depression Pain Ratin Tomorrow's Labs & Rationales: back Plan DVT/Prophylaxis: pharmacological Naty MITCHELL,[facility] 11/18/17 1017: Attending MD Review Statement Attending Sign Off Attending Cosign Statement: I have: examined this patient, reviewed [facility] EMR data, personally reviewd images, discussd w/resident/PA/SHORT FILLER BUNCH MACHINE OPERATOR, discussed mgmt plan w/nico, discussed mgmt plan w/CM, discussed mgmt plan w/pt, agreed w/resident/PA/SHORT FILLER BUNCH MACHINE OPERATOR, amended to note. Other Findings: Seen and examined independently. Agree with above history and exam SIGNIFICANT DATA reviewed as noted above BUN/creatinine stable baseline bicarbonate normal, and her anion gap was slightly elevated upon admission but seems to have narrowed. Patient did have lactic acidosis upon admission which has rapidly corrected after she has been admitted to the hospital and resuscitated. She does have chronic anemia with hemoglobin of 9.9 with no significant left shift upon admission with 58% granulocytes. Her INR was not done but her d-dimer was elevated. ABG done upon admission did not reveal hypercarbia showed mild metabolic acidosis with respiratory alkalosis. Cultures so far pending. CTA as noted above. Patient was sleeping when I saw her - but was answering questions appropriately. This is a lady with previous history of duodenal ulcer, coronary artery disease with previous stent, hypertension, hyperlipidemia, osteoarthritis, depression, now is in the shoulder which he, came in for chest discomfort chest pain which started last night. Pain has been waxing and waning since she came in. After she came into the hospital she was found to have a new left bundle branch block and data elevated troponin suggestive of non-ST segment elevation OH now is in intensive care. She did undergo I's chest CT which showed no pulmonary embolism , bilateral small pleural effusion with right lower lobe atelectasis versus groundglass opacity suspicious for pneumonia. But clinically she does not seem to have bacterial pneumonitis at this time. No clear history so far suggestive of aspiration. She has had previous history of small lung nodules, COPD, hypertension, hyperlipidemia and multiple other issues as noted above. ISSUES Non-ST segment elevation OH, chest pain, new left bundle branch block, lady with previous coronary artery disease with stent, now chest pain-free. Patient has now been started on heparin drip and has had received aspirin, low-dose beta vinnie, statin. Patient already has received a loading dose of 300 mg of clopidogrel * Acute pulmonary edema due to ischemic heart disease. Probably acute systolic heart failure with bilateral pleural effusion. Patient has received Lasix and seems to have diuresed and improved. * Metabolic acidosis due to lactic acidosis due to low flow state from acute OH. No evidence suggestive of septic shock. Patient does have a right lower lobe infiltrate which is probably atelectasis, pleural effusion no clinical evidence of bacterial pneumonitis however aspiration may need to be ruled out we'll watch her off antibiotics * Previous history of COPD with no clinical evidence suggestive of significant COPD exacerbation. * Chronic low back pain, chronic anxiety and depression, hypertension, hyperlipidemia appears to be stable * Previous history of perforated duodenal ulcer with no evidence suggestive of active GI bleed. However patient is now on triple medications for anticoagulation including heparin, Plavix, aspirin hence we will treat her aggressively with proton pump inhibitor. RECOMMENDATION * Cardiology is aware * Continue heparin drip * Continue aspirin per cardiology * Hold further Plavix * Continue high-dose statin, low dose betablocker, and if bp permits only use low dose aci * Continue 1 more dose of Lasix today * Intravenous proton pump inhibitor * Discontinue oxycodone and use morphine as needed for her back pain and for her chest pain * Change her to immediate release metoprolol and use low-dose twice a day * Echocardiogram * Continue her other medications * Keep her nothing by mouth in anticipation of probable cardiac cath due to her new findings including left bundle branch block acute pulmonary edema and elevated troponin. * Hold off on antibiotics and intravenous steroids, Use prn ipratropium nebs tid prn for wheezing and hold albuterol nebs unless pt is wheezing significantly * Cont po paxil Patient is critically ill total time spent 40 minutes
[2017-11-18 10:22] LABS: PTT 52 SEC (25-37)
--- NOTE | 2017-11-18 11:22 | Discharge Summary ---
Visit Information Visit Dates Admission Date: 11/18/17 Discharge Date: 11/19/2017 Hospital Course Course Attending Physician: Shruthi Momin MD Primary Care Physician: Lowell MITCHELL,Manuel Louie Consulting Request: Consulting Specialty: Cardiology Hospital Course: Ms Juan is a 77 -year-old woman with a past history of coronary artery disease (s/p RI with culprit PCI/BMS x1; and follow-up PCI/BMS 1 for non-culprit vessel in 1999), hypertension, hyperlipidemia, perforated duodenal ulcer, depression was brought from [facility] after she was found to have acute onset of dyspnea after she had her lunch. She also was concerned about chest discomfort severity 11/17, radiation to left shoulder. She was last admitted to in 05/2016 for sepsis secondary to duodenal ulcer perforation with peritonitis/pneumoperitoneum that required emergent laparotomy with some postoperative short runs of nonsustained ventricular tachycardia (NSVT ) after which she was started on beta vinnie therapy. At the time of admission-temperature 97.0, pulse rate 63, respiration 40, blood pressure 167/65, pulse ox 96% on 2 L oxygen. Pertinent Findings the BP is 11.0-->8.1 (58.5--> 84.3% granulocytes), hemoglobin 11.4, hematocrit 36.0, platelet 266. Sodium 136, potassium 4.6, bicarbonate 17 (likely metabolic acidosis. Lactic acid), lactic acid 6.7-->2.6-->1.8. Since she has a new LBBB, which would make the evaluation of ST segment evaluation difficult, would treat this as RI until proven otherwise. Follow-up EKGs revealed left bundle branch block, with left axis deviation. Echocardiogram 11/18/17 revealed Mild left ventricular dilatation. Mild concentric left ventricular hypertrophy. Mildly reduced global left ventricular systolic function with mildly to moderately hypokinetic septum. Abnormal septal motion consistent with left bundle branch block. Mildly abnormal left ventricular ejection fraction estimated at 40%. Abnormal relaxation filling pattern of the left ventricle for age (stage 1 diastolic dysfunction). Normal right ventricular size and function. Normal right atrial size. Mild to moderate left atrial dilatation. Mild mitral stenosis. Trace mitral regurgitation. No hemodynamically significant aortic stenosis. Mild aortic regurgitation. Trace tricuspid regurgitation. Borderline pulmonary hypertension. Trace pulmonic regurgitation. Dilated inferior vena cava. Problem list: 1. Acute pulmonary edema 2. New left bundle branch block 3. Lactic acidosis 4. Chronic low back pain 5. History of COPD 6. History of perforated duodenal ulcer. She was admitted to ICU given an acute pulmonary edema and possible new LBBB. Etiologywas thought to be due to acute RI that may have caused congestive heart failure likely systolic leading to acute pulmonary edema. She has a new left bundle branch block, unsure if she developed recently or has had it in a little while. Other etiologies such as acute decompensation of chronic congestive heart failure(HFrEF). Troponin I peaked at 2.49-->2.29. She was given a loading dose of Plavix 300 mg po on 11/18/2017, followed by another dose of 300 mg by mouth on 11/19/2017 and aspirin 325 mg. As per the patient, she wanted to try conservative management first, before making a decision to have an active intervention done. Since she had worsening symptoms, with acute onset of dyspnea overnight it was thought prudent to be transfered to a higher level of care for possible catheterization which the patient was agreeable to. Daily ASA was held given her h/o perforated duodenal ulcer, but continued on Plavix. She was started on metoprolol 12.5 mg bid, lisinipril 10 mg daily, and statin. She was also continued on IV heparin, and was planned to be continued for the next 24 hrs. She was also continued on iv PPI given her h/o of perforated duodenal ulcer. She also has an evidence of pleural effusion on the right side with radiological findings suggestive of consolidation or pneumonitis; since she does not have any evidence of any infection at this time would not treat her for pneumonia. In regards to her h/o COPD, she was continued on ipratropium and short acting beta blockers. Vitals remained stable while she was in the hospital. Allergies: Coded Allergies: amoxicillin (From AUGMENTIN) ([facility] 05/11/16) clavulanic acid (From AUGMENTIN) ([facility] 05/11/16) Pertinent Lab Results: Echocardiogram; Mild left ventricular dilatation. Mild concentric left ventricular hypertrophy. Mildly reduced global left ventricular systolic function with mildly to moderately hypokinetic septum. Abnormal septal motion consistent with left bundle branch block. Mildly abnormal left ventricular ejection fraction estimated at 40%. Abnormal relaxation filling pattern of the left ventricle for age (stage 1 diastolic dysfunction). Normal right ventricular size and function. Normal right atrial size. Mild to moderate left atrial dilatation. Mild mitral stenosis. Trace mitral regurgitation. No hemodynamically significant aortic stenosis. Mild aortic regurgitation. Trace tricuspid regurgitation. Borderline pulmonary hypertension. Trace pulmonic regurgitation. Dilated inferior vena cava. Mikhail Orlando M.D. (Electronically Signed) Final Date: 18 November 2017 13:18 CAT - CTA CHEST-PULMONARY EMBOLISM 1. No pulmonary embolism. 2. Small bilateral pleural effusions. Right lower lobe consolidation and groundglass opacity suspicious for pneumonia. VTE: negative RAD - XRY-PORTABLE CHEST XRAYv 11/17/17 There is pulmonary vascular congestion with haziness at lung bases from early pulmonary edema. There is a right pleural effusion. Disposition Summary Disposition Principal Diagnosis: HFrEF Additional Diagnosis: New LBBB Discharge Disposition: other general hospital Discharge Instructions General Discharge Information Code Status: Full Code Patient's Diet: CHF diet Patient's Activity: as tolerated Follow-Up Instructions/Appts: Please follow-up with your primary care provider within the week of discharge Please follow-up with your clinical account liaison within a week of discharge Medications at Discharge Discharge Medications: Stop taking the following medications: Oxycodone HCl (Oxycodone HCl) 5 MG TABLET ORAL TAKE AT BEDTIME Continue taking these medications: Atorvastatin Calcium (Atorvastatin Calcium) 40 MG TABLET 1 Tablet ORAL DAILY Qty = 14 Comments: Last Taken: 11/19/17 Time: 09:40 am Lisinopril (Lisinopril) 10 MG TABLET 1 Tablet ORAL DAILY Days = 30 Comments: Last Taken: 11/19/17 Time: 09:40 am Metoprolol Succinate (Metoprolol Succinate) 25 MG TAB 0.5 Tablet ORAL DAILY Days = 30 Comments: Last Taken: 11/18/17 Time: 09:17 pm Omeprazole (Omeprazole) 20 MG CAPSULE.DR 1 Capsule ORAL DAILY Fluticasone/Vilanterol (Breo Ellipta 100-25 Mcg INH) 100 MCG-25 MCG/DOSE BLST.W.DEV 1 Inhalant ORAL DAILY Paroxetine HCl (Paroxetine HCl) 40 MG TABLET 1 Tablet ORAL DAILY Qty = 30 Comments: Last Taken: 11/19/17 Time: 09:40 am Sennosides (Senna) 8.6 MG TABLET 2 Tablet ORAL TWICE DAILY Comments: Last Taken: 11/19/17 Time: 09:40 am Tramadol HCl (Tramadol HCl) 50 MG TABLET 1 Tablet ORAL 2 x Daily as needed as needed for PAIN Acetaminophen (Tylenol Extra Strength) 500 MG TABLET 2 Tablet ORAL EVERY 8 HOURS as needed for PAIN Gabapentin (Gabapentin) 100 MG CAPSULE 2 Tablet ORAL THREE TIMES DAILY Comments: Last Taken:11/19/17 Time: 02:00 pm Start taking the following new medications: Ipratropium [place] (Ipratropium [place]) 0.2 MG/ML (0.02 %) SOLUTION 2.5 [place] Inhale through mouth EVERY SIX HOURS NEEDED as needed for WHEEZING Qty = 30 Refills = 1 Comments: Last Taken: 11/19/17 Time: 09:40 am Albuterol Sulfate (Albuterol Sulfate) 2.5 MG/3 ML (0.083 %) VIAL.NEB 3 [place] Inhale through mouth EVERY 4 HOURS NEEDED as needed for WHEEZING Qty = 30 No Refills Comments: Last Taken:11/19/17 Time: 09:40 am Clopidogrel Bisulfate (Plavix) 75 MG TABLET 75 Milligram ORAL DAILY Qty = 30 No Refills Comments: 300 mg Last Taken:11/19/17 Time: 03:20 pm Nitroglycerin (Nitroglycerin Patch) 0.4 MG/HOUR PATCH.TD24 0.4 Milligram On the skin DAILY Qty = 10 No Refills Comments: Last REMOVED at: 11/19/17 Time: 07:00 am Due to be PLACED: 11/19/17 Time: 07:00 pm Heparin Sod,Porcine/0.9 % NaCl (Heparin-Ns 25,000 Units/250 Ml) 25,000 UNIT/250 ML (100 UNIT/ML) IV.SOLN 0 INTRAVEN DAILY Qty = 3 No Refills Instructions: PER PROTOCOL PTT < 45 sec 60units/kg bolus-increase 4 units/kg/hr-recheck PTT 6hr PTT 45-55 sec 30 units/kg-increase 2 units/kg/hr-recheck PTT 6 hr PTT 56-80 sec No change- No change- recheck PTT 12 hrs PTT 81-100 sec No change- decrease 2 units/kg/hr-recheck 6 hr PTT > 100 sec- stop drip for 60sec-decrease 4 units/kg/hr-recheck 6hr Comments: Last Taken: 11/19/17 Time: 09:40 am Copies To: Johanny MITCHELL,Mikhail Fine; Lowell MITCHELL,Manuel Louie Attending MD Review Statement Documenting Attending: Naty MITCHELL,Bryant Fine
--- NOTE | 2017-11-18 11:33 | Cons- Cardiology ---
General Information and HPI Consulting Request Date of Consult: 11/18/17 Requested By: hSruthi Momin MD Reason for Consult: Positive troponin I. Source of Information: patient, old records Exam Limitations: poor historian History of Present Illness: Mrs. Margoth Juan is a 77 years old female with history of depression, osteoarthritis, hypertension, hyperlipidemia, coronary artery disease (s/p GA with culprit PCI/BMS x1; and follow-up PCI/BMS 1 for non- culprit vessel) who presented via ambulance from her ECF ([facility]) to the [facility] with complaints of shortness of breath and associated left arm discomfort after having Turkish food for lunch followed by an Malay head grinder for dinner that she states were very salty. The left arm discomfort was described as a waxing and waning, "ache" of mild ("4 /10") intensity without exacerbation or amelioration with change in position or respiration. In the ED the arm discomfort and shortness of breath resolved, but she did have evidence of a "new" LBBB on her ECG. Mrs. Juan was last hospitalized here (05/11-05/28/2016) for sepsis following "spontaneous" duodenal ulcer perforation with peritonitis/pneumoperitoneum that required emergent laparotomy with some postoperative short runs of nonsustained ventricular tachycardia (NSVT) the prompted initiation of beta vinnie therapy. An echocardiogram was performed during that hospitalization (05/19/2016) that revealed a small left ventricle with mild to moderate concentric left ventricular hypertrophy, no regional wall motion abnormalities, and preserved systolic function (EF > 65%), normal right ventricular size and function, normal atrial size, some age-related valvular changes, no pericardial effusion, and a normal size aortic root with Doppler findings of mild aortic and trace tricuspid regurgitation, no evidence of pulmonary hypertension, and stage I diastolic dysfunction. The plan was for outpatient follow-up and an imaging stress test for the NSVT, as outlined in our progress note from 05/19/2016, however, she was lost to follow-up after discharge. Allergies/Medications Allergies: Coded Allergies: amoxicillin (From AUGMENTIN) (THRUSH 05/11/16) clavulanic acid (From AUGMENTIN) (THRUSH 05/11/16) Home Med List: Acetaminophen (Tylenol Extra Strength) 500 MG TABLET 2 TAB PO Q8 PRN PAIN ( Reported) Albuterol Sulfate 2.5 MG/3 ML (0.083 %) VIAL.NEB 3 ML INH Q4P PRN WHEEZING Atorvastatin Calcium 40 MG TABLET 1 TAB PO DAILY CHOLESTEROL (Reported) Clopidogrel Bisulfate (Plavix) 75 MG TABLET 75 MG PO DAILY HEART HEALTH Fluticasone/Vilanterol (Breo Ellipta 100-25 Mcg INH) 100 MCG-25 MCG/DOSE BLST.W.DEV 1 INHA PO DAILY COPD (Reported) Gabapentin 100 MG CAPSULE 2 TAB PO TID PAIN (Reported) Heparin Sod,Porcine/0.9 % NaCl (Heparin-Ns 25,000 Units/250 Ml) 25,000 UNIT/250 ML (100 UNIT/ML) IV.SOLN 0 IV DAILY heart heatlh PER PROTOCOL PTT < 45 sec 60units/kg bolus-increase 4 units/kg/hr-recheck PTT 6hr PTT 45-55 sec 30 units/kg-increase 2 units/kg/hr-recheck PTT 6 hr PTT 56-80 sec No change- No change- recheck PTT 12 hrs PTT 81-100 sec No change- decrease 2 units/kg/hr-recheck 6 hr PTT > 100 sec- stop drip for 60sec-decrease 4 units/kg/hr-recheck 6hr Ipratropium [place] 0.2 MG/ML (0.02 %) SOLUTION 2.5 ML INH Q6P PRN WHEEZING Lisinopril 10 MG TABLET 1 TAB PO DAILY blood pressure Metoprolol Succinate 25 MG TAB 0.5 TAB PO DAILY HEART Nitroglycerin (Nitroglycerin Patch) 0.4 MG/HOUR PATCH.TD24 0.4 MG TOP DAILY DAILY Omeprazole 20 MG CAPSULE.DR 1 CAP PO DAILY BOWEL ULCER (Reported) Oxycodone HCl 5 MG TABLET 1 TAB PO QHS PAIN (Reported) Paroxetine HCl 40 MG TABLET 1 TAB PO DAILY MOOD (Reported) Sennosides (Senna) 8.6 MG TABLET 2 TAB PO BID CONSTIPATION (Reported) Tramadol HCl 50 MG TABLET 1 TAB PO BIDP PRN PAIN (Reported) Review of Systems Review of Systems: A 14 point system review was obtained and was noncontributory, other than as above. Past History Travel History Traveled to [place] past 21 day No Medical History Neurological: NONE EENT: NONE Cardiovascular: CAD, hypertension, hyperlipidemia Respiratory: NONE Gastrointestinal: NONE Hepatic: NONE Renal: NONE Musculoskeletal: osteoarthritis Psychiatric: depression Endocrine: NONE Blood Disorders: NONE Cancer(s): NONE ARTIST WOODBLOCK/Reproductive: NONE Surgical History Surgical History: cholecystectomy (laparoscopic 16 years ago), D&C's coronary angio/stent x2 Psychosocial History Where Do You Live? Extended Care Facility Who Do You Live With? alone Services at Home: None Primary Language: Amharic Smoking Status: Former Smoker ETOH Use: denies use Living Will? yes Power of Securities Clerk/HCP? yes Name of POA/HCP: Sinan Rossi Functional Ability ADLs Independent: toileting. Needs Assist: eating, bathing. Ambulation: walker IADLs Independent: finances, medication admin. Needs Assist: shopping, food prep, transportation. Exam & Diagnostic Data Vital Signs and I&O Vital Signs Date Time Temp Pulse Resp B/P B/P Pulse O2 O2 Flow FiO2 Mean Ox Delivery Rate 11/18 1107 100 133/48 11/18 0908 97 Nasal 2.0L Cannula 11/18 0905 Nasal 2.0L Cannula 11/18 0337 97 Nasal 2.0L Cannula 11/18 0300 98.5 94 18 130/74 98 Nasal 2.0L Cannula 11/18 0300 98 Nasal 2.0L Cannula 11/18 0228 98.0 80 18 140/61 95 Nasal 2.0L Cannula 11/18 0029 98.3 91 18 119/52 98 Room Air 11/17 2333 97.6 87 18 114/67 94 Nasal 2.0L Cannula 11/17 2305 Nasal 2.0L Cannula 11/17 2145 97.0 63 40 167/65 96 Nasal 2.0L Cannula Intake & Output 11/18 1600 11/18 0800 11/18 0000 11/17 1600 11/17 0800 11/17 0000 Intake Total 71 0 Output Total 400 Balance -329 0 Intake, IV 71 Intake, Oral 0 Output, Urine 400 Patient 134 lb 145 lb Weight Weight Estimated Measurement Method Physical Exam: Well-developed, well-nourished elderly female in no acute distress with nasal oxygen in place. Vital signs: See above. HEENT: Normocephalic, atraumatic, EOMI, moist mucous membranes. Neck: No JVD, no bruits. Lungs: Decreased breath sounds at the bases and otherwise clear to auscultation bilaterally. Heart: S1, S2 with soft (grade 1/6) systolic murmur. No gallop or rub. Abdomen: Soft, nontender, positive bowel sounds. Extremities: No edema. Labs/Ilya Results: Laboratory Tests 11/19 11/19 11/19 0940 0205 0205 Chemistry Sodium (137 - 145 mmol/L) 137 Potassium (3.5 - 5.1 mmol/L) 4.1 Chloride (98 - 107 mmol/L) 102 Carbon Dioxide (22 - 30 mmol/L) 24 Anion Gap (5 - 16) 11 BUN (7 - 17 mg/dL) 19 H Creatinine (0.5 - 1.0 mg/dL) 0.8 Estimated GFR (>60 ml/min) > 60 Glucose (65 - 99 mg/dL) 74 Calcium (8.4 - 10.2 mg/dL) 8.2 L Phosphorus (2.5 - 4.5 mg/dL) 4.6 H Magnesium (1.6 - 2.3 mg/dL) 1.9 Total Bilirubin (0.2 - 1.3 mg/dL) 0.4 AST (14 - 36 U/L) 38 H ALT (9 - 52 U/L) 33 Troponin I (< 0.11 ng/ml) 1.01 *H Cancelled 1.21 *H Albumin (3.5 - 5.0 g/dL) 3.0 L Coagulation APTT (25 - 37 SEC) 83 H 95 H Hematology CBC w Diff NO MAN DIFF REQ WBC (4.8 - 10.8 /CUMM) 5.8 RBC (4.20 - 5.40 /CUMM) 3.52 L Hgb (12.0 - 16.0 G/DL) 9.6 L Hct (37 - 47 %) 29.8 L MCV (81.0 - 99.0 FL) 84.6 MCH (27.0 - 31.0 PG) 27.4 MCHC (33.0 - 37.0 G/DL) 32.4 L RDW (11.5 - 14.5 %) 19.4 H Plt Count (130 - 400 /CUMM) 222 MPV (7.4 - 10.4 FL) 8.4 Gran % (42.2 - 75.2 %) 78.2 H Lymphocytes % (20.5 - 51.1 %) 9.4 L Monocytes % (1.7 - 9.3 %) 11.6 H Eosinophils % (0 - 5 %) 0.5 Basophils % (0.0 - 2.0 %) 0.3 Absolute Granulocytes (1.4 - 6.5 /CUMM) 4.5 Absolute Lymphocytes (1.2 - 3.4 /CUMM) 0.5 L Absolute Monocytes (0.10 - 0.60 /CUMM) 0.7 H Absolute Eosinophils (0.0 - 0.7 /CUMM) 0 Absolute Basophils (0.0 - 0.2 /CUMM) 0 11/18 11/18 11/18 11/18 1830 1040 0830 0700 Chemistry Lactic Acid Cancelled Troponin I (< 0.11 ng/ml) 2.24 *H Coagulation APTT (25 - 37 SEC) 89 H 52 H 11/18 11/18 0430 0400 Chemistry Sodium (137 - 145 mmol/L) 137 Potassium (3.5 - 5.1 mmol/L) 4.9 Chloride (98 - 107 mmol/L) 100 Carbon Dioxide (22 - 30 mmol/L) 25 Anion Gap (5 - 16) 11 BUN (7 - 17 mg/dL) 16 Creatinine (0.5 - 1.0 mg/dL) 0.8 Estimated GFR (>60 ml/min) > 60 Glucose (65 - 99 mg/dL) 103 H Lactic Acid (0.7 - 2.1 mmol/L) 1.8 Calcium (8.4 - 10.2 mg/dL) 8.4 Phosphorus (2.5 - 4.5 mg/dL) 4.6 H Magnesium (1.6 - 2.3 mg/dL) 2.1 Total Bilirubin (0.2 - 1.3 mg/dL) 0.3 AST (14 - 36 U/L) 37 H ALT (9 - 52 U/L) 33 Troponin I (< 0.11 ng/ml) 2.49 *H Cancelled Albumin (3.5 - 5.0 g/dL) 3.1 L TSH &T3 &Free T4 Intrp (0.270 - 4.20 uIU/mL) 0.894 Hematology CBC w Diff MAN DIFF ORDERED WBC (4.8 - 10.8 /CUMM) 8.1 RBC (4.20 - 5.40 /CUMM) 3.64 L Hgb (12.0 - 16.0 G/DL) 9.9 L Hct (37 - 47 %) 31.0 L MCV (81.0 - 99.0 FL) 85.4 MCH (27.0 - 31.0 PG) 27.1 MCHC (33.0 - 37.0 G/DL) 31.8 L RDW (11.5 - 14.5 %) 19.5 H Plt Count (130 - 400 /CUMM) 235 MPV (7.4 - 10.4 FL) 8.3 Gran % (42.2 - 75.2 %) 84.3 H Lymphocytes % (20.5 - 51.1 %) 6.7 L Monocytes % (1.7 - 9.3 %) 8.7 Eosinophils % (0 - 5 %) 0.2 Basophils % (0.0 - 2.0 %) 0.1 Absolute Granulocytes (1.4 - 6.5 /CUMM) 6.9 H Segmented Neutrophils (42.2 - 75.2 %) 88 H Absolute Lymphocytes (1.2 - 3.4 /CUMM) 0.5 L Lymphocytes (20.5 - 51.1 %) 8 L Monocytes (1.7 - 9.3 %) 3 Absolute Monocytes (0.10 - 0.60 /CUMM) 0.7 H Absolute Eosinophils (0.0 - 0.7 /CUMM) 0 Basophils (0.0 - 2.0 %) 1 Absolute Basophils (0.0 - 0.2 /CUMM) 0 Platelet Estimate (ADEQUATE) ADEQUATE Polychromasia 1+ Hypochromic-Microcytic 1+ Poikilocytosis 1+ Ovalocytes 1+ Other Body Source Fld Total RBCs Counted (%) 100 11/18 11/18 11/18 11/18 0400 0115 0100 0030 Chemistry Hemoglobin A1c (4.2 - 5.8 %) 5.4 Lactic Acid (0.7 - 2.1 mmol/L) Cancelled 2.6 H Coagulation APTT Cancelled 11/17 11/17 2306 2300 Blood Gas pH (7.35 - 7.45 PH) 7.36 pCO2 (35 - 45 TORR) 30 L pO2 (80 - 100 TORR) 76 L HCO3 (21 - 28 MEQ/L) 17 L ABG O2 Sat (Measured) (>96.0 %) 92.0 L Carboxyhemoglobin (1.5 - 5.0 %) 1.5 O2 Concentration % 2L O2 Delivery Method NC Coagulation APTT (25 - 37 SEC) 27 D-Dimer High Sensitivty (0 - 243 ng/ml) 2058 H Miscellaneous Phlebotomy Draw Site RIGHT BRACHIAL 11/17 2149 Chemistry Sodium (137 - 145 mmol/L) 136 L Potassium (3.5 - 5.1 mmol/L) 4.6 Chloride (98 - 107 mmol/L) 102 Carbon Dioxide (22 - 30 mmol/L) 17 L Anion Gap (5 - 16) 16 BUN (7 - 17 mg/dL) 13 Creatinine (0.5 - 1.0 mg/dL) 0.8 Estimated GFR (>60 ml/min) > 60 BUN/Creatinine Ratio (7 - 25 %) 16.3 Glucose (65 - 99 mg/dL) 278 H Lactic Acid (0.7 - 2.1 mmol/L) 6.7 H Calcium (8.4 - 10.2 mg/dL) 8.8 Total Bilirubin (0.2 - 1.3 mg/dL) 0.5 AST (14 - 36 U/L) 31 ALT (9 - 52 U/L) 20 Alkaline Phosphatase (<127 U/L) 86 Troponin I (< 0.11 ng/ml) 0.60 *H Elk-Q-Titmcapuuvt Pept (<125 pg/mL) 09323 H Total Protein (6.3 - 8.2 g/dL) 6.9 Albumin (3.5 - 5.0 g/dL) 3.8 Globulin (1.9 - 4.2 gm/dL) 3.1 Albumin/Globulin Ratio (1.1 - 2.2 %) 1.2 Hematology CBC w Diff NO MAN DIFF REQ WBC (4.8 - 10.8 /CUMM) 11.0 H RBC (4.20 - 5.40 /CUMM) 4.17 L Hgb (12.0 - 16.0 G/DL) 11.4 L Hct (37 - 47 %) 36.0 L MCV (81.0 - 99.0 FL) 86.2 MCH (27.0 - 31.0 PG) 27.3 MCHC (33.0 - 37.0 G/DL) 31.7 L RDW (11.5 - 14.5 %) 18.7 H Plt Count (130 - 400 /CUMM) 266 MPV (7.4 - 10.4 FL) 8.9 Gran % (42.2 - 75.2 %) 58.5 Lymphocytes % (20.5 - 51.1 %) 31.4 Monocytes % (1.7 - 9.3 %) 7.7 Eosinophils % (0 - 5 %) 1.8 Basophils % (0.0 - 2.0 %) 0.6 Absolute Granulocytes (1.4 - 6.5 /CUMM) 6.4 Absolute Lymphocytes (1.2 - 3.4 /CUMM) 3.5 H Absolute Monocytes (0.10 - 0.60 /CUMM) 0.8 H Absolute Eosinophils (0.0 - 0.7 /CUMM) 0.2 Absolute Basophils (0.0 - 0.2 /CUMM) 0.1 Diagnostic Data EKG Results 11/17/2017: Suspect sinus rhythm, first-degree AV block, LBBB. "New" LBBB since previous tracing from 05/20/2016. CXR Results 11/17/2017: There is pulmonary vascular congestion with haziness at lung bases from early pulmonary edema. There is a right pleural effusion. Assessment/Plan Assessment/Plan 77 [id number]-f-w/ hx of depression, OA, HTN, HLD, CAD (s/p remote GA with PCI/BMS x2 ), who presented w/ c/o SOB & assoc L arm discomfort after earlier having a salty lunch/dinner that improved in the ED, but who was discovered to have a "new" LBBB on ECG and an initial modest troponin I elevation (0.6 ng/ml) that has elevated further (2.49 ng/ml). Fortunately, she her breathing improved following IV diuretic therapy ( furosemide 20 mg 1) and she has been left arm and chest discomfort free since being in the ED, but her presentation is worrisome. The case was discussed with the ED attending (Dominguez Ross D.O.) and she was started on IV UFH and, as mentioned, received IV diuretic therapy and aspirin 325 mg 1. I discussed management options with Mrs. Juan, including transfer for cardiac catheterization, but she would prefer that we attempt medical therapy prior to an invasive strategy. Recommendations: * Continue ICU admission, follow-up troponins, repeat ECG. * Continue IV UFH for 48 hours. * She was previously advised against antiplatelet therapy with aspirin, given her GI issues, but would place on antiplatelet therapy with clopidogrel for probably one year. * Continue long-acting nitrates with a 10-12 hour nitrate free interval. * Continue outpatient cardiac medications (statin, DENISSE inhibitor, beta vinnie). * Echocardiogram to reassess left ventricular function, wall motion, degree of LVH, etc. * Check glycosylated hemoglobin A1c, free T4, TSH, fasting lipid panel, etc. * DVT prophylaxis being addressed by IV anti-thrombin therapy. Further recommendations will follow, Thank you. Consult Acknowledgment - Thank you for your consult request.
--- NOTE | 2017-11-18 13:18 | ECHOCARDIOGRAM REPORT ---
MEGHAN MA Age: 77 : 1940 Gender: F Exam Date: 11/18/2017 10:16 Exam Location: [facility] Ht (in): 62 Wt (lb): 145 BSA: 1.71 BP: 119 / 57 Ordering Physician: Augusto Villasenor MD Referring Physician: Augusto Villasenor MD Technologist: Jose E Navarro [facility] Room Number: 113 Indications: HEART FAILURE Rhythm: Sinus Technical Quality: Fair FINDINGS Left Ventricle Mild left ventricular dilatation. Mild concentric left ventricular hypertrophy. Mildly reduced global left ventricular systolic function with mildly to moderately hypokinetic septum. Abnormal septal motion consistent with left bundle branch block. Mildly abnormal left ventricular ejection fraction estimated at 40%. Abnormal relaxation filling pattern of the left ventricle for age (stage 1 diastolic dysfunction). Right Ventricle Normal right ventricular size and function. Right Atrium Normal right atrial size. Left Atrium Mild to moderate left atrial dilatation. Mitral Valve Mild mitral annular calcification. Mitral valve thickened. Mild mitral stenosis. Trace mitral regurgitation. Aortic Valve Trileaflet aortic valve. Diffuse mild thickening of the aortic valve cusps with mildly reduced excursion. No hemodynamically significant aortic stenosis. Mild aortic regurgitation. Tricuspid Valve Structurally normal tricuspid valve. Trace tricuspid regurgitation. Borderline pulmonary hypertension. Right ventricular systolic pressure is borderline estimated to be elevated at 35 mmHg. Pulmonic Valve Pulmonic valve not well visualized. Trace pulmonic regurgitation. Pericardium No pericardial effusion. Great Vessels Normal size aortic root. Dilated inferior vena cava. CONCLUSIONS Mild left ventricular dilatation. Mild concentric left ventricular hypertrophy. Mildly reduced global left ventricular systolic function with mildly to moderately hypokinetic septum. Abnormal septal motion consistent with left bundle branch block. Mildly abnormal left ventricular ejection fraction estimated at 40%. Abnormal relaxation filling pattern of the left ventricle for age (stage 1 diastolic dysfunction). Normal right ventricular size and function. Normal right atrial size. Mild to moderate left atrial dilatation. Mild mitral stenosis. Trace mitral regurgitation. No hemodynamically significant aortic stenosis. Mild aortic regurgitation. Trace tricuspid regurgitation. Borderline pulmonary hypertension. Trace pulmonic regurgitation. Dilated inferior vena cava. Mikhail Orlando M.D. (Electronically Signed) Final Date: 18 November 2017 13:18 MEASUREMENTS (Male / Female) Normal Values 2D ECHO LV Diastolic Diameter PLAX 5.8 cm 4.2 - 5.9 / 3.9 - 5.3 cm LV Systolic Diameter PLAX 4.3 cm 2.1 - 4.0 cm LV Fractional Shortening PLAX 25.9 % 25 - 46 % LV Ejection Fraction 2D Teich 50.1 % IVS Diastolic Thickness 1.1 cm LVPW Diastolic Thickness 1.1 cm LV Relative Wall Thickness 0.4 RV Internal Dim ED PLAX 2.6 cm 1.9 - 3.8 cm LVOT Diameter 1.7 cm Aortic Root Diameter 3.4 cm LA Systolic Diameter LX 4.8 cm 3.0 - 4.0 / 2.7 - 3.8 cm LA Volume 61.0 cm 18 - 58 / 22 - 52 cm Ascending Aorta Diameter 3.4 cm DOPPLER AV Peak Velocity 181.0 cm/s AV Peak Gradient 13.1 mmHg AV Mean Velocity 122.0 cm/s AV Mean Gradient 7.0 mmHg AV Velocity Time Integral 38.4 cm AI Deceleration [place] 270.0 cm/s AI Peak Velocity 408.0 cm/s AI Pressure Half Time 441.0 ms AI Peak Gradient 66.6 mmHg LVOT Peak Velocity 71.0 cm/s LVOT Peak Gradient 2.0 mmHg LVOT Mean Velocity 46.2 cm/s LVOT Mean Gradient 1.0 mmHg LVOT Velocity Time Integral 15.6 cm LVOT Stroke Volume 35.4 cm AV Area Cont Eq vti 0.9 cm AV Area Cont Eq pk 0.9 cm MV Peak Velocity 168.0 cm/s MV Peak Gradient 11.3 mmHg MV Mean Velocity 79.2 cm/s MV Mean Gradient 3.0 mmHg Mitral E Point Velocity 94.9 cm/s Mitral A Point Velocity 163.0 cm/s Mitral E to A Ratio 0.6 MV PHT Velocity 97.7 cm/s MV Deceleration [place] 276.0 cm/s MV Pressure Half Time 106.2 ms MV Area PHT 2.1 cm MV Deceleration Time 475.0 ms TR Peak Velocity 251.0 cm/s TR Peak Gradient 25.2 mmHg Right Atrial Pressure 10.0 mmHg Pulmonary Artery Systolic Pressu 35.2 mmHg Right Ventricular Systolic Press 35.2 mmHg PV Peak Velocity 125.0 cm/s PV Peak Gradient 6.3 mmHg PV Mean Velocity 79.9 cm/s PV Mean Gradient 3.0 mmHg PV Velocity Time Integral 28.5 cm LV E' Lateral Velocity 3.8 cm/s Mitral E to LV E' Lateral Ratio 25.0 LV E' Septal Velocity 4.8 cm/s Mitral E to LV E' Septal Ratio 19.9
[2017-11-18 16:00] VITALS: BP 133/70
[2017-11-18] MEDS ORDERED: IPRATROPIU0.2 MG/1 M INH (18:47)
[2017-11-18] MEDS ORDERED: ALBUTEROL2.5 MG/3 M INH (18:47)
[2017-11-18] MEDS ORDERED: PLAVIX75 M1 PO (18:47)
--- NOTE | 2017-11-18 18:50 | Patient Discharge Instructions ---
Discharge Instructions General Discharge Information You were seen/treated for: Chest pain, shortness of breath Watch for these problems: 1. Acute onset of chest pain, shortness of breath #2 lightheadedness, dizziness Special Instructions: Please see your primary care physician within one week of discharge Please see your trim machine operator within one week of discharge Acute Coronary Syndrome Inclusion Criteria At DC or during hospital stay patient has or had the following: ACS DIAGNOSIS Yes Discharge Core Measures Meds if any: Prescribed or Continued at Discharge DENISSE/ARB if EF <40% Yes Aspirin No (intolerant, given plavix) Beta-Joel Yes Statin Yes Meds if any: NOT Prescribed or Continued at Discharge Congestive Heart Failure Inclusion Criteria At DC or during hospital stay patient has or had the following: CHF DIAGNOSIS Yes Discharge Core Measures Meds if any: Prescribed or Continued at Discharge DENISSE/ARB for EF <40% Yes Meds if any: NOT Prescribed or Continued at Discharge Cerebrovascular accident Inclusion Criteria At DC or during hospital stay patient has or had the following: CVA/TIA Diagnosis No Discharge Core Measures Meds if any: Prescribed or Continued at Discharge Meds if any: NOT Prescribed or Continued at Discharge Venous thromboembolism Inclusion Criteria VTE Diagnosis No VTE Type NONE VTE Confirmed by (Test) NONE Discharge Core Measures - Per Current guidelines, there needs to be overlap - treatment for the first 5 days of Warfarin therapy. - If discharged on Warfarin prior to 5 days of - overlap therapy, the patient will need to be - assessed for post discharge needs including - *Post discharge parental anticoagulation - *Warfarin and/or parental anticoagulation education - *Follow up date to check INR post discharge At least 5 days overlap therapy as Inpatient No Meds if any: Prescribed or Continued at Discharge Note: Overlap Therapy is Warfarin and Anticoagulant Meds if any: NOT Prescribed or Continued at Discharge
[2017-11-18] MEDS ORDERED: HEPARIN-NS25000 UNIT IV (18:57)
[2017-11-18] MEDS ORDERED: NITROGLYCERIN1 EACH TOP (19:27)
[2017-11-18 20:05] LABS: PTT 89 SEC (25-37)
[2017-11-19] VITALS: BP 147/56
[2017-11-19 02:39] LABS: ABSOLUTE BASOPHIL COUNT 0 /CUMM (0.0-0.2); ABSOLUTE EOSINOPHIL COUNT 0 /CUMM (0.0-0.7); ABSOLUTE GRANULOCYTE CT 4.5 /CUMM (1.4-6.5); ABSOLUTE LYMPH COUNT 0.5 /CUMM (1.2-3.4); ABSOLUTE MONOCYTE COUNT 0.7 /CUMM (0.10-0.60); BASOPHIL % 0.3 % (0.0-2.0); EOSINOPHIL % 0.5 % (0-5); GRANULOCYTE % 78.2 % (42.2-75.2); HEMATOCRIT 29.8 % (37-47); MEAN CORPUSCULAR HGB 27.4 PG (27.0-31.0); MEAN CORPUSCULAR HGB CONC 32.4 G/DL (33.0-37.0); MEAN CORPUSCULAR VOLUME 84.6 FL (81.0-99.0); MEAN PLATELET VOLUME 8.4 FL (7.4-10.4); PLATELET COUNT 222 /CUMM (130-400); RBC DISTRIBUTION WIDTH 19.4 % (11.5-14.5); RED BLOOD CELL CT 3.52 /CUMM (4.20-5.40); WHITE BLOOD CELL COUNT 5.8 /CUMM (4.8-10.8)
[2017-11-19 02:56] LABS: PTT 95 SEC (25-37)
[2017-11-19 08:00] VITALS: BP 158/86
--- NOTE | 2017-11-19 08:21 | PN- Resident CRCU ---
Ernestina Johnson 11/19/17 0815: Subjective HPI/CRCU Issues: She is comfortable. No new complaints. Overnight, she was short of breath and was given 1 dose of Lasix. EKG and troponin was done which revealed new T-wave inversions in V2-V3. And persistent ST segment elevation in V2-V3, with persistent left bundle branch block making ST segment elevation evaluation difficult 24 Hour Events: T-max 98.7, heart rate 55-82, normal sinus rhythm, respiration between 16-22, blood pressure 119-145/diastolic 56-74, currently on 3 L nasal cannula- supplemental oxygen with oxygen saturation between 95-98%, received 40 mg IV furosemide around 10 AM, and 20 mg furosemide around 2 AM. Total input 861 mL, output 550 mL. She has been incontinent, and unable to measure the output easily. Objective Vital Signs & I&O Last 8 Hrs of Vitals and I&O: - Exam General Appearance: awake Other Physical Findings: General Exam: AAOx3, No acute distress, Skin: No rashes, no breakdown;HEENT: PERRLA, EOMI;Neck: Supple, No JVD; No cervical lymphadenopathy;CVS: Reg Rate, Normal S1,S2, No MGR;Resp: decreased air entry, b/l rales ;Abdomen: Soft, No tenderness, Normal Bowel Sounds;Neuro: Normal Speech, Strength 4/5 b/l x lower extremities, Sensation intact, CN III-XII NL, Reflexes 2+;Extremities: No cyanosis, no pedal edema Current Medications: Current Medications Sig/Sergey Start time Last Medication Dose Route Stop Time Status Admin Acetaminophen 1,000 MG Q6P PRN 11/18 0015 AC 11/19 IV 0151 Albuterol Sulfate 3 ML Q4P PRN 11/18 0915 AC INH Aspirin 325 MG ONCE ONE 11/18 0930 DC 11/18 PO 11/18 0931 1109 Atorvastatin Calcium 40 MG DAILY 11/18 1000 AC 11/18 PO 1106 Clopidogrel Bisulfate 75 MG DAILY 11/19 1000 AC PO Furosemide 20 MG ONCE ONE 11/19 0215 DC 11/19 IV 11/19 0216 0221 Furosemide 40 MG DAILY 11/18 1000 AC 11/18 IV 1107 Gabapentin 200 MG TID 11/18 1000 AC 11/18 PO 2115 Heparin Sodium/ 25,000 UNIT Q24H 11/18 0045 AC 11/18 Dextrose IV 0145 Dextrose/Water 500 ML Ipratropium [place] 2.5 ML Q6P PRN 11/18 1100 AC INH Lisinopril 10 MG DAILY 11/19 1000 CAN PO Lisinopril 10 MG DAILY 11/18 1000 AC 11/18 PO 1107 Metoprolol Succinate 12.5 MG DAILY 11/18 1000 DC PO Metoprolol Tartrate 12.5 MG BID 11/18 1100 DC 11/18 PO 2117 Morphine Sulfate 2 MG Q4P PRN 11/18 0930 AC IV Nitroglycerin 0.4 MG DAILY 11/18 1809 AC 11/18 TOP 1900 Oxycodone HCl 5 MG AT BEDTIME 11/18 2200 CAN PO Oxycodone HCl 5 MG .[QHS] 11/18 0115 DC 11/18 PO 0159 Pantoprazole Sodium 40 MG DAILY 11/18 1000 AC 11/18 IV 1107 Paroxetine HCl 40 MG DAILY 11/18 1000 AC 11/18 PO 1106 Senna/Docusate Sodium 2 TAB DAILY 11/18 1000 AC 11/18 PO 1109 Impression/Plan Impression/Problem List Impression: Ms Juan is a 77 -year-old woman with a past history of coronary artery disease status post PCI stents (1999), hypertension, hyperlipidemia, perforated duodenal ulcer, depression was [facility] after she was found to have acute onset of dyspnea after she had her lunch. She also was concerned about chest discomfort severity 11/17, radiation to left shoulder. At the time of admission-temperature 97.0, pulse rate 63, respiration 40, blood pressure 167/65, pulse ox 96% on 2 L oxygen. Pertinent Findings the BP is 11.0-->8.1 (58.5--> 84.3% granulocytes), hemoglobin 11.4, hematocrit 36.0, platelet 266. Sodium 136, potassium 4.6, bicarbonate 17 (likely metabolic acidosis. Lactic acid), lactic acid 6.7-->2.6-->1.8. Echo: Mild left ventricular dilatation. Mild concentric left ventricular hypertrophy. Mildly reduced global left ventricular systolic function with mildly to moderately hypokinetic septum. Abnormal septal motion consistent with left bundle branch block. Mildly abnormal left ventricular ejection fraction estimated at 40%. Abnormal relaxation filling pattern of the left ventricle for age (stage 1 diastolic dysfunction). Normal right ventricular size and function. Normal right atrial size. Mild to moderate left atrial dilatation. Mild mitral stenosis. Trace mitral regurgitation. No hemodynamically significant aortic stenosis. Mild aortic regurgitation. Trace tricuspid regurgitation. Borderline pulmonary hypertension. Trace pulmonic regurgitation. Dilated inferior vena cava. Since she has a new LBBB, which would make the evaluation of ST segment evaluation difficult, would treat this as MA until proven otherwise. Follow-up EKGs revealed left bundle branch block, with left axis deviation. Problem list: 1. Acute pulmonary edema 2. New left bundle branch block 3. Lactic acidosis 4. Chronic low back pain 5. History of COPD 6. History of perforated duodenal ulcer Etiology case is likely due to acute MA that may have caused congestive heart failure likely systolic leading to acute pulmonary edema. She has a new left bundle branch block, unsure if she developed recently or has had it in a little while. Until proven otherwise, this has to be treated as myocardial infarction; although she does not have any symptoms of chest pain at this time. Other etiologies such as acute on chronic congestive heart failure is considered in differentials. She also has an evidence of pleural effusion on the right side with radiological findings suggestive of consolidation or pneumonitis; since she does not have any evidence of any infection at this time would not treat her for pneumonia. She was given a loading dose of Plavix and aspirin this morning after discussing with Dr. Yang. Plan: 1. Acute pulmonary edema-could be due to MA given her recent left bundle branch block, making evaluation of ST segment elevation difficult to interpret. She was given Lasix 20 mg while in the ER. She continues to have oxygen saturation in the range of 96-98% on 2 L oxygen, and currently asymptomatic. She was given 1 dose of IV Lasix 40 mg in the a.m, will change to p.o. Lasix in the a.m. after discussing with the soda fountain operator. Echocardiogram to be obtained to evaluate systolic versus diastolic heart failure in her case.Continue supplemental oxygen for now, and wean as tolerated. If she develops any fever, or s/s of infection would treat w/ abx. 2. New left bundle branch block-unsure if the patient had a new left bundle branch block or has had it in the recent past. Serial EKGs and troponins until they peak. Last troponin I 2.49.-->2.29. As per the patient, she would like to try conservative management at this time with medications only. If she has any worsening symptoms such as chest pain or shortness of breath, would discuss with batch mixing truck driver about transferring to a higher level of care for possible catheterization. Hold daily aspirin, and continue Plavix as per Dr. Orlando. Continue nitro patch with 12 hour on and off.'s. Continue lisinopril 10 mg daily;continue metoprolol 12.5 mg p.o. twice daily since she does not have any active symptoms of CHF at this time. Continue IV heparin for the next 48 hours. A decision was made to transfer the pt to [facility] for a possible catheterization. As per Dr. Orlando, administered another dose of plavix 300 mg x1 for a total of 600mg plavix loading dose. 3. History of COPD-continue C nebs, including ipratropium and short-acting beta-vinnie. Housekeepin. DVT prophylaxis-IV heparin 2. GI prophylaxis-IV Protonix. 3. CODE STATUS-full code. Problem List: 1. Lactic acidosis 2. Acute non-ST segment elevation myocardial infarction 3. CHF (congestive heart failure) Pain Ratin Tomorrow's Labs & Rationales: cbc icu bundle Plan DVT/Prophylaxis: pharmacological Code Status: Full Code Naty MITCHELL,[facility] 11/19/17 1344: Attending MD Review Statement Attending Sign Off Attending Cosign Statement: I have: examined this patient, reviewed [facility] EMR data, personally reviewd images, discussd w/resident/PA/[employer], discussed mgmt plan w/nico, discussed mgmt plan w/CM, discussed mgmt plan w/pt, agreed w/resident/PA/[employer], amended to note. Other Findings: Events and data reviewed Did go into pulm edema ISSUES Non-ST segment elevation MA, chest pain, new left bundle branch block, lady with previous coronary artery disease with stent, now chest pain-free. Patient has now been started on heparin drip and has had received aspirin, low-dose beta vinnie, statin. Patient already has received a loading dose of 300 mg of clopidogrel * REcurrent Acute pulmonary edema due to ischemic heart disease. acute systolic heart failure with bilateral pleural effusion. Patient has received Lasix and being considered for cath * Resolved Metabolic acidosis due to lactic acidosis due to low flow state from acute MA. No evidence suggestive of sepsis. Patient does have a right lower lobe infiltrate which is probably atelectasis, pleural effusion no clinical evidence of bacterial pneumonitis however aspiration may need to be ruled out we 'll watch her off antibiotics * Previous history of COPD with no clinical evidence suggestive of significant COPD exacerbation. * Chronic low back pain, chronic anxiety and depression, hypertension, hyperlipidemia appears to be stable * Previous history of perforated duodenal ulcer with no evidence suggestive of active GI bleed. However patient is now on triple medications for anticoagulation including heparin, Plavix, aspirin hence we will treat her aggressively with proton pump inhibitor. RECOMMENDATION * Cardiology is aware prob cath * Continue heparin drip * Continue aspirin per cardiology * Continue high-dose statin, low dose betablocker, * Continue 1 more dose of Lasix today * Intravenous proton pump inhibitor * morphine as needed for her back pain and for her chest pain * Keep her nothing by mouth in anticipation of probable cardiac cath due to her new findings including left bundle branch block acute pulmonary edema and elevated troponin. * Hold off on antibiotics and intravenous steroids, Use prn ipratropium nebs tid prn for wheezing and hold albuterol nebs unless pt is wheezing significantly * Cont po paxil Patient is critically ill total time spent 40 minutes
--- NOTE | 2017-11-19 09:07 | RADIOLOGY REPORT ---
XR PORTABLE CHEST CLINICAL INFORMATION: Worsening shortness of breath. COMPARISON: Chest CT 11/18/2017 and chest x-ray 11/17/2017. TECHNIQUE: Portable frontal view of the chest was obtained. FINDINGS: Possibly worsening small left pleural effusion with adjacent airspace opacity though assessment is limited given that the patient's hand overlies the left lung base. Hazy opacity at the right lung base is similar to the previous study though there has been a decrease in size of the previously seen small right pleural effusion. There is central vascular congestion. Suspect a few Jahaira B lines within the periphery of the right lung suggesting a component of pulmonary edema. There is no pneumothorax. Cardiac silhouette is enlarged and unchanged. Osseous structures are stable IMPRESSION: - Possibly worsening small left pleural effusion with adjacent airspace opacity though assessment is limited given that the patient's hand overlies the left lung base. - Similar hazy right basilar airspace opacity with a decrease in size of the previously seen small right pleural effusion. - Suspect a few Jahaira B lines within the periphery of the right lung suggesting a component of pulmonary edema.
[2017-11-19 10:39] LABS: PTT 83 SEC (25-37)
--- NOTE | 2017-11-19 12:03 | PN- Cardiology ---
Subjective Subjective: No specific complaints. Denies chest discomfort or shortness of breath. Objective Vital Signs and I&Os Vital Signs Date Time Temp Pulse Resp B/P B/P Pulse O2 O2 Flow FiO2 Mean Ox Delivery Rate 11/19 1056 94 Nasal 2.0L Cannula 11/19 0939 56 158/86 11/19 0400 96 Nasal 2.0L Cannula 11/19 0000 97 Nasal 2.0L Cannula 11/19 0000 98.7 59 18 147/56 97 Nasal 2.0L Cannula 11/18 2117 72 119/62 11/18 2000 96 Nasal 2.0L Cannula 11/18 1910 95 Nasal 2.0L Cannula 11/18 1600 98.0 72 20 133/70 98 Nasal 2.0L Cannula 11/18 1200 68 130/80 11/18 1200 98 Nasal 2.0L Cannula Intake & Output 11/19 1600 11/19 0800 11/19 0000 11/18 1600 11/18 0800 11/18 0000 Intake Total 126 400 200 71 0 Output Total 550 700 400 Balance -424 400 -500 -329 0 Intake, IV 126 80 71 Intake, Oral 0 320 200 0 Number 0 0 Bowel Movements Output, Urine 550 700 400 Patient 134 lb 145 lb Weight Weight Estimated Measurement Method Physical Exam: Well-developed, ill-appearing elderly female in no acute distress with nasal oxygen in place. Vital signs: See above. Neck: No JVD, no bruits. Lungs: Decreased breath sounds at the bases bilaterally. Heart: S1, S2 with grade 1/6 systolic murmur. Extremities: No edema. Current Medications: Current Medications Sig/Sergey Start time Last Medication Dose Route Stop Time Status Admin Acetaminophen 1,000 MG Q6P PRN 11/18 0015 AC 11/19 IV 1004 Albuterol Sulfate 3 ML Q4P PRN 11/18 0815 AC INH Atorvastatin Calcium 40 MG DAILY 11/18 1000 AC 11/19 PO 0939 Clopidogrel Bisulfate 75 MG DAILY 11/19 1000 AC PO Furosemide 20 MG ONCE ONE 11/19 0215 DC 11/19 IV 11/19 0216 0221 Furosemide 40 MG DAILY 11/18 1000 AC 11/19 IV 0940 Gabapentin 200 MG TID 11/18 1000 AC 11/19 PO 0938 Heparin Sodium/ 25,000 UNIT Q24H 11/18 0045 AC 11/19 Dextrose IV 0940 Dextrose/Water 500 ML Ipratropium [place] 2.5 ML Q6P PRN 11/18 1100 AC INH Lisinopril 10 MG DAILY 11/19 1000 CAN PO Lisinopril 10 MG DAILY 11/18 1000 AC 11/19 PO 0939 Metoprolol Tartrate 12.5 MG BID 11/18 1100 DC 11/18 PO 2117 Morphine Sulfate 2 MG Q4P PRN 11/18 0930 AC IV Nitroglycerin 0.4 MG DAILY 11/18 1809 AC 11/18 TOP 1900 Oxycodone HCl 5 MG AT BEDTIME 11/18 2200 CAN PO Oxycodone HCl 5 MG .[QHS] 11/18 0115 DC 11/18 PO 0159 Pantoprazole Sodium 40 MG DAILY 11/18 1000 AC 11/19 IV 0940 Paroxetine HCl 40 MG DAILY 11/18 1000 AC 11/19 PO 0938 Senna/Docusate Sodium 2 TAB DAILY 11/18 1000 AC 11/19 PO 0938 Results Last 48 Hrs of Labs/Mics: Laboratory Tests 11/19/17 0940: Troponin I 1.01 *H, APTT 83 H 11/19/17 0205: Troponin I Cancelled 11/19/17 0205: Anion Gap 11, Estimated GFR > 60, Glucose 74, Calcium 8.2 L, Phosphorus 4.6 H, Magnesium 1.9, Total Bilirubin 0.4, AST 38 H, ALT 33, Troponin I 1.21 *H, Albumin 3.0 L, APTT 95 H, CBC w Diff NO MAN DIFF REQ, RBC 3.52 L, MCV 84.6, MCH 27.4, MCHC 32.4 L, RDW 19.4 H, MPV 8.4, Gran % 78.2 H, Lymphocytes % 9.4 L, Monocytes % 11.6 H, Eosinophils % 0.5, Basophils % 0.3, Absolute Granulocytes 4.5, Absolute Lymphocytes 0.5 L, Absolute Monocytes 0.7 H, Absolute Eosinophils 0, Absolute Basophils 0 11/18/17 1830: APTT 89 H 11/18/17 1040: Troponin I 2.24 *H 11/18/17 0830: APTT 52 H 11/18/17 0700: Lactic Acid Cancelled 11/18/17 0430: Anion Gap 11, Estimated GFR > 60, Glucose 103 H, Lactic Acid 1.8, Calcium 8.4, Phosphorus 4.6 H, Magnesium 2.1, Total Bilirubin 0.3, AST 37 H, ALT 33, Troponin I 2.49 *H, Albumin 3.1 L, TSH &T3 &Free T4 Intrp 0.894, CBC w Diff MAN DIFF ORDERED, RBC 3.64 L, MCV 85.4, MCH 27.1, MCHC 31.8 L, RDW 19.5 H, MPV 8.3, Gran % 84.3 H, Lymphocytes % 6.7 L, Monocytes % 8.7, Eosinophils % 0.2, Basophils % 0.1, Absolute Granulocytes 6.9 H, Segmented Neutrophils 88 H, Absolute Lymphocytes 0.5 L, Lymphocytes 8 L, Monocytes 3, Absolute Monocytes 0.7 H, Absolute Eosinophils 0, Basophils 1, Absolute Basophils 0, Platelet Estimate ADEQUATE, Polychromasia 1+, Hypochromic-Microcytic 1+, Poikilocytosis 1 +, Ovalocytes 1+, Fld Total RBCs Counted 100 11/18/17 0400: Troponin I Cancelled 11/18/17 0400: Hemoglobin A1c 5.4 11/18/17 0115: APTT Cancelled 11/18/17 0100: Lactic Acid Cancelled 11/18/17 0030: Lactic Acid 2.6 H 11/17/17 2306: APTT 27, D-Dimer High Sensitivty 2058 H 11/17/17 2300: pH 7.36, pCO2 30 L, pO2 76 L, HCO3 17 L, ABG O2 Sat (Measured) 92.0 L, Carboxyhemoglobin 1.5, O2 Concentration % 2L, O2 Delivery Method NC, Phlebotomy Draw Site RIGHT BRACHIAL 11/17/170: Anion Gap 16, Estimated GFR > 60, BUN/Creatinine Ratio 16.3, Glucose 278 H, Lactic Acid 6.7 H, Calcium 8.8, Total Bilirubin 0.5, AST 31, ALT 20, Alkaline Phosphatase 86, Troponin I 0.60 *H, [id number] Pept 16802 H, Total Protein 6.9, Albumin 3.8, Globulin 3.1, Albumin/Globulin Ratio 1.2, CBC w Diff NO MAN DIFF REQ, RBC 4.17 L, MCV 86.2, MCH 27.3, MCHC 31.7 L, RDW 18.7 H, MPV 8.9, Gran % 58.5, Lymphocytes % 31.4, Monocytes % 7.7, Eosinophils % 1.8, Basophils % 0.6, Absolute Granulocytes 6.4, Absolute Lymphocytes 3.5 H, Absolute Monocytes 0.8 H, Absolute Eosinophils 0.2, Absolute Basophils 0.1 Microbiology 11/18 429 UPPER RESP: Surveillance Culture - COMP 11/18 429 GI: Surveillance Culture - COMP 11/19 219 NASOPHARYN: Influenza Virus A & B Rapid Smear - COMP Recent Imaging Studies: CXR 11/19/2017: - Possibly worsening small left pleural effusion with adjacent airspace opacity though assessment is limited given that the patient's hand overlies the left lung base. - Similar hazy right basilar airspace opacity with a decrease in size of the previously seen small right pleural effusion. - Suspect a few Jahaira B lines within the periphery of the right lung suggesting a component of pulmonary edema. Echocardiogram 11/18/2017: - Mild left ventricular dilatation. Mild concentric left ventricular hypertrophy. Mildly reduced global left ventricular systolic function with mildly to moderately hypokinetic septum. Abnormal septal motion consistent with left bundle branch block. Mildly abnormal left ventricular ejection fraction estimated at 40%. Abnormal relaxation filling pattern of the left ventricle for age (stage 1 diastolic dysfunction). - Normal right ventricular size and function. - Normal right atrial size. Mild to moderate left atrial dilatation. - Mild mitral stenosis. Trace mitral regurgitation. No hemodynamically significant aortic stenosis. Mild aortic regurgitation. Trace tricuspid regurgitation. Borderline pulmonary hypertension. Trace pulmonic regurgitation. - Dilated inferior vena cava. Assessment/Plan Assessment/Plan 77 [id number]/ hx of depression, OA, HTN, HLD, CAD (s/p remote OH with PCI/BMS x2 ), who presented w/ c/o SOB & assoc L arm discomfort after earlier having a salty lunch/dinner that improved in the ED, but who was discovered to be in heart failure, to have a "new" LBBB on ECG, and a troponin I elevation that is now trending downward after peaking at 2.49 ng/ml and left ventricular dysfunction by echocardiography. Unfortunately, her CXR appears worse, despite a modest diuresis and her electrocardiogram reveals concordant precordial T-wave abnormalities. Will give additional diuresis. Maintain magnesium at or above 2.0 mEq per liter. Check all stools for occult blood. Will discuss the timing of intervention with our interventionalist (Preston Yang M.D., PhD). Continue on present medications. Continue telemetry? Not applicable (In ICU.)
[2017-11-19 15:45] VITALS: BP 146/70
[2017-11-20] MEDS ORDERED: ASPIRIN EC81 M1 PO (14:45)
[2017-11-20] MEDS ORDERED: METOPROLOL TART25 M1 PO (14:47)
== END 2017-11-19 15:48 | disposition short-term general hospital (02) | DRG 280 ==
LOC: ERH 21:33 → ERHI 11-18 01:16 → CRI 11-18 01:16 → ENRESERV 11-18 02:35 → CRI 11-18 03:29
PROVIDERS: Emergency Medicine; Internal Medicine; Internal Medicine Endocrinology, Diabetes & Metabolism; Internal Medicine Interventional Cardiology
DX: I21.4 Non-ST elevation (NSTEMI) myocardial infarction (principal); I50.21 Acute systolic (congestive) heart failure; E87.2 Acidosis; J44.9 Chronic obstructive pulmonary disease, unspecified; I11.0 Hypertensive heart disease with heart failure; I44.7 Left bundle-branch block, unspecified; I25.10 Atherosclerotic heart disease of native coronary artery without angina pectoris; Z95.5 Presence of coronary angioplasty implant and graft; F32.9 Major depressive disorder, single episode, unspecified; E78.5 Hyperlipidemia, unspecified; I25.2 Old myocardial infarction
CPT/HCPCS: CCU; 36415; 71045; 82436; 87040; 87804; 87804-59; 93005; 93010; 93306; 96374; 96375; 99291; J0131; J1644; J1940; J7060

== ENCOUNTER 2017-12-03 02:05 | Inpatient (IN) | payer OTHER, MEDICARE ==
[~2017-12-03] VITALS: Ht 152.4 cm; Wt 58.7 kg
[~2017-12-03 02:05] MED LIST changes: +ALBUTEROL2.5 MG/3 M INH; +ASPIRIN EC81 M1 PO; +BREO ELLIPTA 11 EACH PO; +GABAPENTIN100 M2 PO; +HEPARIN-NS25000 UNIT IV; +IPRATROPIU0.2 MG/1 M INH; +NITROGLYCERIN1 EACH TOP; +OXYCODONE HCL5 M1 PO; +PAROXETINE HCL40 M1 PO; +PLAVIX75 M1 PO; +SENNA8.6 M3 PO; +TRAMADOL HCL50 M1 PO; +TYLENOL EXTRA500 M2 PO
[2017-12-03 02:58] LABS: ABSOLUTE BASOPHIL COUNT 0.1 /CUMM (0.0-0.2); ABSOLUTE EOSINOPHIL COUNT 0.2 /CUMM (0.0-0.7); ABSOLUTE GRANULOCYTE CT 5.9 /CUMM (1.4-6.5); ABSOLUTE LYMPH COUNT 3.7 /CUMM (1.2-3.4); ABSOLUTE MONOCYTE COUNT 0.6 /CUMM (0.10-0.60); BASOPHIL % 0.5 % (0.0-2.0); EOSINOPHIL % 1.8 % (0-5); GRANULOCYTE % 56.8 % (42.2-75.2); HEMATOCRIT 32.9 % (37-47); MEAN CORPUSCULAR HGB 27.3 PG (27.0-31.0); MEAN CORPUSCULAR HGB CONC 32.3 G/DL (33.0-37.0); MEAN CORPUSCULAR VOLUME 84.5 FL (81.0-99.0); MEAN PLATELET VOLUME 8.5 FL (7.4-10.4); PLATELET COUNT 473 /CUMM (130-400); RBC DISTRIBUTION WIDTH 18.4 % (11.5-14.5); RED BLOOD CELL CT 3.89 /CUMM (4.20-5.40); WHITE BLOOD CELL COUNT 10.4 /CUMM (4.8-10.8)
--- NOTE | 2017-12-03 03:06 | RADIOLOGY REPORT ---
EXAMINATION: XR PORTABLE CHEST CLINICAL INFORMATION: Shortness of breath, cough COMPARISON: 11/20/2017 TECHNIQUE: Portable frontal view of the chest was obtained. FINDINGS: Lung volumes are symmetric. Left perihilar airspace opacity is present, new from prior. There is mild interstitial prominence towards the right base, similar to prior. No evidence of pneumothorax or significant pleural effusion. The cardiac silhouette remains prominent. Calcification is present at the aortic arch. Degenerative changes are noted in the left glenohumeral joint. IMPRESSION: Left perihilar airspace opacity, suspicious for pneumonia in the proper clinical setting. Radiographic followup after treatment/resolution of symptoms is recommended.
--- NOTE | 2017-12-03 03:25 | ED DYSPNEA/ASTHMA COMPLAINT ---
History of Present Illness General Chief Complaint: Dyspnea (COPD, CHF, Other) Stated Complaint: SOB Source: patient, old records, EMS Exam Limitations: no limitations Vital Signs & Intake/Output Vital Signs & Intake/Output Vital Signs Date Time Temp Pulse Resp B/P B/P Pulse O2 O2 Flow FiO2 Mean Ox Delivery Rate 12/03 0402 102 24 124/62 97 Nasal 4.0L Cannula 12/03 0257 98 BIPAP 12/03 0232 99 BIPAP 40% 12/03 0214 129 98 12/03 021 98.1 120 24 150/80 98 BIPAP Allergies Coded Allergies: amoxicillin (From AUGMENTIN) ([facility]RUSH 05/11/16) clavulanic acid (From AUGMENTIN) (THRUSH 05/11/16) Reconcile Medications Acetaminophen (Tylenol Extra Strength) 500 MG TABLET 2 TAB PO Q6 PRN PAIN ( Reported) Albuterol Sulfate 2.5 MG/3 ML (0.083 %) VIAL.NEB 3 ML INH Q4P PRN WHEEZING Aspirin (Ecotrin*) 81 MG TABLET.DR 1 TAB PO DAILY HEART HEALTH (Reported) Atorvastatin Calcium 40 MG TABLET 1 TAB PO DAILY CHOLESTEROL (Reported) Clopidogrel Bisulfate (Plavix) 75 MG TABLET 75 MG PO DAILY HEART HEALTH Fluticasone/Vilanterol (Breo Ellipta 100-25 Mcg INH) 100 MCG-25 MCG/DOSE BLST.W.DEV 1 INHA PO DAILY COPD (Reported) Gabapentin 100 MG CAPSULE 2 TAB PO TID PAIN (Reported) Ipratropium Planada 0.2 MG/ML (0.02 %) SOLUTION 2.5 ML INH Q6P PRN WHEEZING Lisinopril 10 MG TABLET 1 TAB PO DAILY blood pressure Metoprolol Tartrate 25 MG TABLET 0.5 TAB PO BID HEART (Reported) Omeprazole 20 MG CAPSULE.DR 1 CAP PO DAILY BOWEL ULCER (Reported) Paroxetine HCl 40 MG TABLET 1 TAB PO QPM MOOD (Reported) Sennosides (Senna) 8.6 MG TABLET 1 TAB PO QPM CONSTIPATION (Reported) Tramadol HCl 50 MG TABLET 1 TAB PO Q8P PRN PAIN (Reported) Triage Note: PT BIBA FROM [facility] FOR SOB STARTING 1 HR AGO. PT PALE AND DIAPHORETIC, ARRIVED ON CPAP. PER EMS PT SATS 80S ON RA ON THEIR ARRIVAL. PT AOX3 AT THIS TIME. HX STENT PLACEMENT LAST WEEK. Triage Nurses Notes Reviewed? yes Onset: Just prior to arrival Duration: hour(s):, constant Timing: recent history Severity: severe Activities at Onset: sleep Prior Episodes/Possible Cause: occasional episodes Associated Symptoms: cough, weakness LMP (ages 10-50): post menopausal : No Patient currently breastfeeds: No HPI: One hour prior to admission patient complains of progressive shortness of breath found to be hypoxic started on CPAP. She reports having a cough over the last day of clear phlegm. She denies fever chills nausea vomiting diarrhea abdominal pain chest pain headache dysuria rash bleeding. Past History Travel History Traveled to [place] past 21 day No Medical History Any Pertinent Medical History? 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 No Review of Systems Review of Systems Constitutional: Reports: no symptoms. EENTM: Reports: no symptoms. Respiratory: Reports: see HPI, short of breath, sputum production. Cardiovascular: Reports: no symptoms. GI: Reports: no symptoms. Genitourinary: Reports: no symptoms. Musculoskeletal: Reports: no symptoms. Skin: Reports: no symptoms. Neurological/Psychological: Reports: no symptoms. Hematologic/Endocrine: Reports: no symptoms. Immunologic/Allergic: Reports: no symptoms. All Other Systems: Reviewed and Negative Physical Exam Physical Exam General Appearance: well developed/nourished, alert, awake, anxious, severe distress Head: atraumatic, normal appearance Eyes: Bilateral: normal appearance, PERRL, EOMI. Ears, Nose, Throat: normal pharynx, normal ENT inspection, moist mucus membranes Neck: normal inspection, supple, full range of motion, no midline tenderness Respiratory: chest non-tender, decreased breath sounds, crackles, respiratory distress Cardiovascular: regular rate/rhythm, normal peripheral pulses, tachycardia, norml femoral pulses equa Peripheral Pulses: 4+ carotid (R), 4+ carotid (L) Gastrointestinal: normal bowel sounds, soft, non-tender, no organomegaly Extremities: normal inspection, normal capillary refill, normal range of motion, no edema Neurologic/Psych: no motor/sensory deficits, awake, alert, oriented x 3, sheet rock layer II- XII nml as tested Skin: intact, normal color, warm/dry Lymphatic: no anterior cervical tom Core Measures ACS in differential dx? No CVA/TIA Diagnosis No Sepsis Present: No Sepsis Focused Exam Completed? No Progress Differential Diagnosis: asthma, bronchitis, CHF, COPD, pneumonia Plan of Care: Orders Procedure Date/time Status Heart Healthy Diet 12/03 B Active ARTERIAL BLOOD GAS (GEN) 12/03 358 Active OXYGEN SETUP (GEN) 12/03 349 Active Saline Lock 12/03 349 Active Admit to inpatient 12/03 349 Active Vital Signs 12/03 349 Active Activity/Ambulation 12/03 349 Active Code Status 12/03 349 Active BLOOD CULTURE 12/03 030 Active TROPONIN LEVEL 12/03 225 Complete MAGNESIUM 12/03 225 Complete COMPREHENSIVE METABOLIC PANEL 12/03 225 Complete CBC WITHOUT DIFFERENTIAL 12/03 225 Complete B-TYPE NATRIURETIC PEP (BNP) 12/03 225 Complete EKG 12/03 214 Active BIPAP 12/03 213 Complete Laboratory Tests 12/03/17 0225: Anion Gap 21 H, Estimated GFR > 60, BUN/Creatinine Ratio 17.5, Glucose 262 H, Calcium 8.3 L, Magnesium 2.0, Total Bilirubin 0.4, AST 25, ALT 15, Alkaline Phosphatase 107, Troponin I 0.06, [id number] Pept 47122 H, Total Protein 6.5, Albumin 3.1 L, Globulin 3.4, Albumin/Globulin Ratio 0.9 L, CBC w Diff NO MAN DIFF REQ, RBC 3.89 L, MCV 84.5, MCH 27.3, MCHC 32.3 L, RDW 18.4 H, MPV 8.5, Gran % 56.8, Lymphocytes % 35.4, Monocytes % 5.5, Eosinophils % 1.8, Basophils % 0.5, Absolute Granulocytes 5.9, Absolute Lymphocytes 3.7 H, Absolute Monocytes 0.6, Absolute Eosinophils 0.2, Absolute Basophils 0.1 Microbiology 12/03 033 BLOOD: Blood Culture - RECD 12/03 031 BLOOD: Blood Culture - RECD Diagnostic Imaging: Viewed by Me: Radiology Read. Discussed w/RAD: Radiology Read. CXR Impression: Left perihilar airspace opacity, suspicious for pneumonia in the proper clinical setting. Radiographic followup after treatment/resolution of symptoms is recommended. Initial ED EKG: rate (sinus tachycardia), LBBB Prior EKG: unchanged Rhythm Strip: sinus tachycardia Departure Departure Disposition: STILL A PATIENT Condition: Stable Clinical Impression Primary Impression: Pneumonia Secondary Impressions: COPD with acute exacerbation Referrals: Lowell MITCHELL,Manuel Louie (PCP/Family) Departure Forms: Customer Survey General Discharge Information Admission Note Spoke With: Shruthi Momin MD Documentation of Exam: Documentation of any treatments & extenuating circumstances including Concerns Regarding Discharge (functional status, medication knowledge or non-compliance, living conditions, etc.) that warrant an admission rather than observation: Supplemental oxygen IV antibiotics cardiac monitoring follow cultures serial EKG serial lab exam pulmonary evaluation continuing care discharge planning Critical Care Note Critical Care Note Critical Care Time: 30-74 min (40) Documentation of any treatments & extenuating circumstances including Concerns Regarding Discharge (functional status, medication knowledge or non-compliance, living conditions, etc.) that warrant an admission rather than observation: Supplemental oxygen IV antibiotics follow cultures serial lab exam pulmonary evaluation continuing care discharge planning Critical Care Note Critical Care Note Critical Care Time: 30-74 min (40)
--- NOTE | 2017-12-03 04:58 | History & Physical ---
Luz Bhatia MD 12/03/17 0457: General Information and HPI MD Statement: I have seen and personally examined MEGHAN MA and documented this H&P. The patient is a 77 year old F who presented with a patient stated chief complaint of [shortness of breath]. Source of Information: patient, old records, EMS Exam Limitations: poor historian History of Present Illness: Patient is a 77-year-old female with past medical history CAD status post NH with PCI and bare metal stents 2 in 1999, hypertension, hyperlipidemia, perforated duodenal ulcer, recent hospitalization on 11/18 initially admitted to the ICU and then transferred for cardiac catheterization presenting this admission with acute dyspnea brought in by rehabilitation center. Patient is a poor historian and information was limited. Patient was brought in from [facility] after complaining of shortness of breath and was found to be diaphoretic, wheezing with pulse ox of 88% on room air. Patient states that she has been having worsening shortness of breath over the past few days along with a productive cough with clear sputum. Patient denies any chest pain or chest pressure. Reports that fever prior to coming in however temperature was 99.6 at the rehabilitation center. Denies chills, abdominal pain, nausea/vomiting, headache, dysuria. Reports feeling tired and having to use 2 pillows to sleep. Patient was recently admitted on 11/18 for acute pulmonary edema, new left bundle branch block, transferred to [facility] for cardiac cath and stent. Patient's senior test engineer is Dr. Orlando. 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 alone Services at Home: None Primary Language: Polish ETOH Use: denies use Living Will? yes Power of Occupational Health Physiotherapist/HCP? yes Name of POA/HCP: Sinan Rossi Functional Ability ADLs Independent: toileting. Needs Assist: eating, bathing. Ambulation: walker IADLs Independent: finances, medication admin. Needs Assist: shopping, food prep, transportation. Review of Systems Review of Systems Constitutional: Reports: see HPI (limited- poor historian). Cardiovascular: Reports: see HPI. Respiratory: Reports: see HPI. Musculoskeletal: Reports: no symptoms. Neurological/Psychological: Reports: see HPI. Exam & Diagnostic Data Last 24 Hrs of Vital Signs/I&O Vital Signs Date Time Temp Pulse Resp B/P B/P Pulse O2 O2 Flow FiO2 Mean Ox Delivery Rate 12/03 1130 100 Nasal 3.0L Cannula 12/03 1130 97.4 116 18 136/90 98 Nasal 3.0L Cannula 12/03 1106 107 120/70 12/03 0820 93 Nasal 5.0L Cannula 12/03 0640 98.1 73 20 110/66 97 Nasal 4.0L Cannula 12/03 0601 97.8 92 20 107/56 98 Nasal 3.0L Cannula 12/03 0439 101 24 113/65 98 Nasal 4.0L Cannula 12/03 0402 102 24 124/62 97 Nasal 4.0L Cannula 12/03 0257 98 BIPAP 12/03 0232 99 BIPAP 40% 12/03 0214 129 98 12/03 0214 98.1 120 24 150/80 98 BIPAP Intake & Output 12/03 1600 12/03 0800 12/03 0000 Intake Total Output Total Balance Patient 129 lb Weight Weight Bed scale Measurement Method Physical Exam General Appearance Alert, Oriented X3, Cooperative, Moderate Distress Skin Temp/Moisture Exam: Cool/Diaphoretic Sepsis Skin Exam (color): livedo reticularis in extremities HEENT Atraumatic, PERRLA, EOMI, dry mucosal membranes Neck No JVD Cardiovascular Regular Rate, Normal S1, Normal S2 Lungs bilateral wheezing and crackles Abdomen Normal Bowel Sounds, Soft, No Tenderness Neurological Normal Speech, Strength at 5/5 X4 Ext, Normal Tone, Sensation Intact, Cranial Nerves 3-12 NL, Reflexes 2+ Extremities extremities cool and clammy to touch, pulses palpable bilaterally Assessment/Plan Assessment: Patient is a 77-year-old female with past medical history CAD status post NH with PCI and bare metal stents 2 in 1999, hypertension, hyperlipidemia, perforated duodenal ulcer, recent hospitalization on 11/18 initially admitted to the ICU and then transferred for cardiac catheterization presenting this admission with acute dyspnea brought in by rehabilitation center. Patient will be admitted to telemetry for management of the followin. Acute hypoxic respiratory failure likely secondary to suspected pneumonia, rule out pulmonary embolism 2. Rule out ACS 3. Acute on chronic CHF Plan: Admitted to telemetry with continuous monitoring Serial EKG and troponins Cardiology consult IV vancomycin and ceftaz Trend lactic acid Repeat CBC and BEP Follow-up blood cultures Oxygen supplementation, wean off as tolerated TRC and DuoNeb's D-dimer elevated, follow-up CTA chest Follow-up with patient's [id number] and morning Hold antihypertensive medications IV fluids held due elevated acute CHF IV lasix held due to hypotension, lactic acidosis DVT PPx: heparin SQ, ALPs Diet: Heart Healthy Code: Full code As Ranked By This Provider Problem List: 1. Pneumonia 2. Lactic acidosis 3. CHF (congestive heart failure) Core Measures/Misc (04/26) Acute Coronary Syndrome ACS Diagnosis: No Congestive Heart Failure Congestive Heart Failure Diagnosis No Cerebrovascular Accident CVA/TIA Diagnosis: No VTE (View Protocol) VTE Risk Factors Age>40 No Mechanical VTE Prophylaxis d/t N/A MechProphylax Ordered No VTE Pharm Prophylaxis d/t NA PharmProphylax ordered Sepsis (View protocol) Sepsis Present: No Shruthi Momin 12/03/17 0525: Attending MD Review Statement Attending Statement Attending MD Statement: examined this patient, discuss w/resident/PA/SUPERVISOR HOME ECONOMICS, agreed w/resident/PA/SUPERVISOR [employer], reviewed EMR data (avail), reviewed images, amended to note Attending Assessment/Plan: CC: Shortness of breath PMH: CAD S/P NH S/P stent, COPD, HTN, HLD, depression, OA, history of perforated duodenal s/p abdo exploration Patient was admitted from November 18 to November 19 for acute pulmonary edema and NSTEMI. New LBBB at that time and left ventricular hypokinesis, patient was transferred for PCI.after the procedure patient was discharged to rehabilitation. According to her she has not been feeling well since the time of discharge, she feels very tired and lethargic, has cough with expectoration and progressive worsening of shortness of breath. Today she developed acute worsening of shortness of breath, looked diaphoretic so EMS was called from rehabilitation and patient was sent to ER. Patient appears in mild to moderate respiratory discomfort and unable to provide all the details. Patient denied any fever at facility but felt extremely cold today. Currently she denies any chest pain, chest tightness, pleuritic nature of chest pain. She endorses orthopnea. Vitals: Temperature 98.1, pulse 129, RR 24, blood pressure 150/80, saturating 98 % on BiPAP at the time of arrival then 98% on on 4 L. On exam: A O 3, cooperative, moderate respiratory distress, accessory muscles in use, neck supple, JVD elevated, no lymphadenopathy, mucosa dry, no focal neurological deficit, no dependent edema, no obvious skin rashes or inflammation CVS: S1-S2, RRR. RS: Bilateral crackles with wheezing. Abdomen: Soft, NT, ND, bowel sounds present. Extremities cold and clammy, peripheral pulses palpable, questionable livedo and extremities CXR: Left perihilar airspace opacity, suspicious for pneumonia in the proper clinical setting. Radiographic followup after treatment/resolution of symptoms is recommended. Assessment and plan 77-year-old female with above-mentioned past medical history and recent NSTEMI s /p stent approximately a week back was, presented in ER from rehabilitation for acute worsening of shortness of breath, appeared diaphoretic and clammy. Patient was placed on BiPAP and was transferred to ER. Patient received nebulization, antibiotics with symptomatic improvement. Currently patient appears in moderate respiratory distress but talking in full sentences. She states that she has not been feeling well since the time of discharge, tired and lethargic, productive cough, shortness of breath. She is not been ambulating much and mostly resting because of the lethargy and tiredness. History is limited. On examination she has mildly elevated JVD, bilateral crackles but extremities are cold and clammy mucosa dry. She did not have a fever spike but she was tachycardic and tachypneic. Chest x-ray suggestive of pneumonia. She does not have any significant leukocytosis. She has mild anion gap metabolic acidosis and her proBNP is elevated to 17,800 as compared to previous admission: 11,800. ABG confirms mild metabolic acidosis. Lactic acid 7.8. Patient appears to have healthcare associated pneumonia, at the same time acute coronary syndrome and asymmetric pulmonary edema cannot be excluded. Patient symptomatically improved with nebulization and antibiotics we will continue the same treatment, hold off diuresis for now, closely evaluate, no hydration for now. + Possible healthcare associated pneumonia + Rule out acute coronary syndrome + Acute on chronic heart failure + History of CAD S/P NH S/P stent, COPD, HTN, HLD, depression, OA, history of perforated duodenal s/p abdo exploration - Admit to telemetry - Continuous telemetry monitoring - Serial troponins and ECGs - IV vancomycin and Ceptaz - Scheduled and when necessary nebulization treatment - Continue aspirin and Plavix and statin - Hold antihypertensives lisinopril and metoprolol - No diuresis for now, reevaluate for volume status and hypoxia - No IV fluids for now given the suspicion of volume overload : repeat lactate , if still juan josé then gentle hydration with Normal Sailne and patient may benefit from transfering to ICU for closer monitoring - Cardiology consult - Check d-dimer, if positive patient may need CTA chest (not ambulating, acute worsening of respiratory distress) Patient suggests that her [id number] should be called in morning to update her clinical status. Jasvir Pritchard 12/03/17 0621: General Information and HPI Allergies/Medications Home Med list Acetaminophen (Tylenol Extra Strength) 500 MG TABLET 2 TAB PO Q6 PRN PAIN ( Reported) Albuterol Sulfate 2.5 MG/3 ML (0.083 %) VIAL.NEB 3 ML INH Q4P PRN WHEEZING Aspirin (Ecotrin*) 81 MG TABLET.DR 1 TAB PO DAILY HEART HEALTH (Reported) Atorvastatin Calcium 40 MG TABLET 1 TAB PO DAILY CHOLESTEROL (Reported) Ceftazidime 1 GRAM VIAL 1,000 MG IV IQ8 pneumonia Clopidogrel Bisulfate (Plavix) 75 MG TABLET 75 MG PO DAILY HEART HEALTH Fluticasone/Vilanterol (Breo Ellipta 100-25 Mcg INH) 100 MCG-25 MCG/DOSE BLST.W.DEV 1 INHA PO DAILY COPD (Reported) Gabapentin 100 MG CAPSULE 2 TAB PO TID PAIN (Reported) Heparin Sod,Porcine/0.9 % NaCl (Heparin 25,000 Unit/500 Ml-Ns) 25,000 UNIT/500 ML (50 UNIT/ML) IV.SOLN 12 MCG IV CONTINOUS INFUSION acs Ipratropium [place] 0.2 MG/ML (0.02 %) SOLUTION 2.5 ML INH Q6P PRN WHEEZING Metoprolol Tartrate 25 MG TABLET 0.5 TAB PO BID HEART (Reported) Omeprazole 20 MG CAPSULE.DR 1 CAP PO DAILY BOWEL ULCER (Reported) Paroxetine HCl 40 MG TABLET 1 TAB PO QPM MOOD (Reported) Sennosides (Senna) 8.6 MG TABLET 1 TAB PO QPM CONSTIPATION (Reported) Tramadol HCl 50 MG TABLET 1 TAB PO Q8P PRN PAIN (Reported) Vancomycin HCl 1 GRAM VIAL 1 G IV DAILY pneumonia Resident Review Statement Resident Statement: examined this patient, discussed with sales and marketing intern, agreed with sales and marketing intern, reviewed EMR data (avail), discussed with nursing, discussed with case mgmt, reviewed images, amended to note Other Findings: This is 77-year-old female with medical history of coronary artery disease with recent NH status post RCA stenting, COPD not on home oxygen, hypertension, hyperlipidemia, depression, osteoarthritis, history of perforated ulcer status post exploration. Patient presented to the emergency department via EMS from patient reports she due to shortness of breath and desaturated to 88%. Patient poor historian, she states that she feels very weak, fatigue and tired and also Due to the patient's shortness of breath. patient complains of progressive shortness of breath found to be hypoxic started on CPAP. She also report having a productive cough with clear sputum with some mild expiratory wheezing. Patient was [facility] to the hospital where she underwent cardiac catheterization that was on November 19. On the emergency department patient's received a dose of azithromycin, Fortaz and the chest x-ray showed a sign of left pneumonia, also proBNP was elevated with a anion gap lactic acidosis. Her most recent echocardiogram that post on on the previous admission showed ejection fraction of 40% with abnormal wall motion that most consistent with a left bundle branch block. Physical examination, lab and imaging as above. Problem list: -Possible HCAP -Rule out acute coronary syndrome -Acute on chronic HFrEF. -Anion gap Lactic acidosis Plan: -Admit patient to telemetry floor -Vitals every shift, monitor in and out -Started the patient on Fortaz and albuterol vancomycin -Follow blood culture obtained urine culture, strep and Legionella antigen, rapid flu -Serial troponins and EKG -Hold off on any oral fluids for now -Hold off any diuretic for now -Continue aspirin and Plavix -TRC nebs as needed -We'll hold her antihypertensive medication during reports borderline blood pressure -Cardiology consultation in a.m. -Trend lactic acid -Obtain d-dimer elevated CTA to rule out PE -Heart healthy diet, platelet oral intake -Pain pathway -DVT prophylaxis subcutaneous heparin -Full code
--- NOTE | 2017-12-03 05:28 | Admission Certification ---
Admission Certification Certification Statement - As attending physician, I certify that at the time of - admission, based on clinical presentation, severity of - symptoms, need for further diagnostic testing and - therapeutic interventions, and risk of adverse outcomes - without in-hospital treatment, in my clinical assessment, - this patient requires an acute hospital stay for a minimum - of two nights or longer. I have also considered psychsocial - factors such as support system, advanced age, financial - issues, cognitive issues, and failed out-patient treatments, - past re-admission history, safety of patient, and lack of - compliance as applicable. Specific rationale supporting this admission is: Pneumonia
[2017-12-03 05:58] LABS: ABSOLUTE BASOPHIL COUNT 0 /CUMM (0.0-0.2); ABSOLUTE EOSINOPHIL COUNT 0 /CUMM (0.0-0.7); ABSOLUTE GRANULOCYTE CT 16.4 /CUMM (1.4-6.5); ABSOLUTE LYMPH COUNT 0.7 /CUMM (1.2-3.4); ABSOLUTE MONOCYTE COUNT 1.3 /CUMM (0.10-0.60); BASOPHIL % 0.2 % (0.0-2.0); EOSINOPHIL % 0 % (0-5); HEMATOCRIT 31.4 % (37-47); MEAN CORPUSCULAR HGB 27.3 PG (27.0-31.0); MEAN CORPUSCULAR HGB CONC 32.2 G/DL (33.0-37.0); MEAN CORPUSCULAR VOLUME 84.8 FL (81.0-99.0); MEAN PLATELET VOLUME 7.9 FL (7.4-10.4); PLATELET COUNT 393 /CUMM (130-400); RBC DISTRIBUTION WIDTH 18.5 % (11.5-14.5)
[2017-12-03 06:09] LABS: WHITE BLOOD CELL COUNT 18.4 /CUMM (4.8-10.8)
[2017-12-03 06:40] VITALS: BP 110/66
--- NOTE | 2017-12-03 07:36 | CT SCAN REPORT ---
EXAMINATION: CTA CHEST PE STUDY CLINICAL INFORMATION: desat to 88% , SOB , tachycardia COMPARISON: Prior studies including the chest x-ray from yesterday and the CT pulmonary embolism study from 11/18/2017. TECHNIQUE: Prior to contrast administration, noncontrast localization images were obtained. After the administration of 95 ml of Optiray 320 IV contrast, contiguous thin slice helical images were obtained through the thorax. Reformatted MIP images in the coronal and sagittal planes were obtained at the acquisition workstation. DLP: 349 mGy-cm. FINDINGS: The bolus timing on this study was acceptable for visualization of the pulmonary arterial tree. There are no intraluminal pulmonary arterial filling defects present within the central vessels to suggest pulmonary embolism. The distal branch vessels are obscured by motion artifact but no definitive intraluminal filling defects seen. Patchy bilateral airspace disease is seen with more focal consolidation in the left upper lobe and left lower lobe. Airspace disease is new from the prior study and in the acute setting infectious causes are strongly favored. Aspiration cannot be excluded with this appearance 1.6 cm pulmonary nodule in the medial aspect of the right lower lobe again seen. On the prior study this is partially obscured by basilar atelectasis. Additional stable 5 mm right middle lobe pulmonary nodule again noted. Small left greater than right pleural effusions. Vascular calcification seen within the aorta and coronary vessels. No bulky hilar or mediastinal adenopathy appreciated The heart is normal in size with stable enlarged prominence of the left ventricle. No evidence of ventricular septal bowing or right heart strain. The mediastinum and great vessels are normal. There is no pericardial effusion or pericardial thickening. Limited evaluation of the upper abdominal viscera is unremarkable. IMPRESSION: New patchy airspace disease seen more so in the left lung. Infectious etiology is strongly suspected in this setting. No evidence for central pulmonary emboli. Distal branch vessels are partially obscured by motion artifact but no discrete filling defects identified. VTE: Negative
--- NOTE | 2017-12-03 07:42 | Event Note ---
Event Note Event Note: [facility] team in telemetry floor, who initially presented with weakness, dyspnea and SpO2 88% at nursing facility ([facility] . Follow-up note: Subjective: Patient seems very lethargic, tired and is breathing fast. She is able to speak in short sentences. Objective: gen- ill-looking, lady, tachypneic, using her accessory muscles as well, JVD present, dry mucosa RS- b/l ronchi and basal crackles heard, no wheezes CVS- S1 S2 no murmur appreciated by me, no orthostats checked (pt cannot stand up rt now) abd- soft, non-tender neuro- grossly intact, no gait checked ext- WNL, pulses normal b/l Pertinent labs/images: Leukocytosis 10.4-->18.4, no bands; anemia 10.1 Na/K normal, but initial anion gap 21-->11; BUN/Cr 14/0.8-->19/0.9 trop: 0.06-->151-->209 Lactic acid: 7.8-->1.7-->1.3 EKG: LBBB old, with high QTc 600+. Patient received Azithromycin, Ceftaz, and Vancomycin in the ED in line for PNA. She was initially on BiPAP and later converted to Nasal Canula. (3-4L/min) Assessment and plan: 77 yo F with pmh of CAD s/p NE s/p stent (earlier this month), HFrEF (EF 40% on 11/18/17), COPD, HTN, HLD, OA, depression, h/o perforated duodenal s/p abd exploration, was brought in from nursing facility for acute dyspnea and hypoxia (SpO2 88% RA). She was found to be in sepsis, with leukocytosis, tachypnea, CXR showing opacities, and a recent exposure to hospitals, she was treated with IV antibiotics for healthcare associated pneumonia. Her O2 saturation was 88% on RA on presentation so was placed on BiPAP initially, and later changed to nasal canula. She also presented with lactic acidosis of 7.8 which trended down to 1.7 and 1.3 without much intervention. She was on lower side of BP and had clinical picture of acute CHF (JVD, b/l crackles and dyspnea) although her CXR was not very evident of it, so Lasix was not given either. Of note, she recently had right coronary stenting (November 2017) and her EF by TTE BEFORE the procedure was low (40%). She started having atrial fibrillation this morning around 7:30 am after her coming back from CTA chest. She was on sinus rhythm prior to this. Later this morning, her lab results came back with troponin value of 0.06 to 151 (high). She was tired/fatigued, but denied chest pain or pressure. She was breathing deep and fast, so a repeat trop was sent which came back 209. Her stat EKG has old LBBB and new atrial fibrialltion with T-wave inversions on V6 and no- specific ST-T changes. Ironworker Apprentice was notified immediately and the decision to transfer made to [facility], and the accepting grain farmworker would be Dr Preston Yang. Her regular grain farmworker is Dr Mikhail Orlando at [facility], [place], [place]. Family member Mateus Rossi ([phone]) was called twice but we received a message that he (his number) is NOT accepting any calls at this time, so only [facility] was infomed about the patient's transfer to [facility]. #Rest of her home medications will be continued, except anti-HTN meds given her BP on the lower side and dehydration. #Diet: Heart healthy diet #DVT ppx: SQ heparin #Code status: Full code
--- NOTE | 2017-12-03 11:26 | Discharge Summary ---
Visit Information Visit Dates Admission Date: 12/03/17 Discharge Date: 12/03/17 Hospital Course Course Attending Physician: Abiodun Hernandez MD Primary Care Physician: Manuel Etienne MD Hospital Course: 77 yo F with pmh of CAD s/p ND s/p stent (earlier this month), HFrEF (EF 40% on 11/18/17), COPD, HTN, HLD, OA, depression, h/o perforated duodenal s/p abd exploration, was brought in from nursing facility for acute dyspnea and hypoxia (SpO2 88% RA). She was found to be in sepsis, with leukocytosis, tachypnea, CXR showing opacities, and a recent exposure to hospitals, she was treated with IV antibiotics for healthcare associated pneumonia. Her O2 saturation was 88% on RA on presentation so was placed on BiPAP initially, and later changed to nasal canula. She also presented with lactic acidosis of 7.8 which trended down to 1.7 and 1.3 without much intervention. She was on lower side of BP and had clinical picture of acute CHF (JVD, b/l crackles and dyspnea) although her CXR was not very evident of it, so Lasix was not given either. Of note, she recently had right coronary stenting (November 2017) and her EF by TTE BEFORE the procedure was low (40%). She started having atrial fibrillation this morning around 7:30 am after her coming back from [facility] chest. She was on sinus rhythm prior to this. Later this morning, her lab results came back with troponin value of 0.06 to 151 (high). She was tired/fatigued, but denied chest pain or pressure. She was breathing deep and fast, so a repeat trop was sent which came back 209. Her stat EKG has old LBBB and new atrial fibrialltion with T-wave inversions on V6 and some non- specific ST-T changes. Spiritual Counselor was notified immediately and given her extensive cardiac history and high risk for ACS, the decision to transfer made to [facility], and the accepting miller head would be Dr Preston Yang. Her regular miller head is Dr Mikhail Orlando at [place], [place]. Allergies: Coded Allergies: amoxicillin (From AUGMENTIN) ([facility] 05/11/16) clavulanic acid (From AUGMENTIN) ([facility] 05/11/16) Pertinent Lab Results: Laboratory Tests 12/03 12/03 12/03 12/03 1045 0830 0830 0549 Chemistry Lactic Acid (0.7 - 2.1 mmol/L) 1.3 1.7 Creatine Kinase (30 - 135 U/L) 6612 H Troponin I (< 0.11 ng/ml) 209.00 *H 151.00 *H 12/03 12/03 0549 0415 Blood Gas pH (7.35 - 7.45 PH) 7.39 pCO2 (35 - 45 TORR) 33 L pO2 (80 - 100 TORR) 118 H HCO3 (21 - 28 MEQ/L) 20 L ABG O2 Sat (Measured) (>96.0 %) 98.0 P-50 (Temp Corrected) N Carboxyhemoglobin (1.5 - 5.0 %) 0.3 L O2 Concentration % 4L O2 Delivery Method N/C Chemistry Sodium (137 - 145 mmol/L) 141 Potassium (3.5 - 5.1 mmol/L) 4.1 Chloride (98 - 107 mmol/L) 105 Carbon Dioxide (22 - 30 mmol/L) 25 Anion Gap (5 - 16) 11 BUN (7 - 17 mg/dL) 19 H Creatinine (0.5 - 1.0 mg/dL) 0.9 Estimated GFR (>60 ml/min) > 60 BUN/Creatinine Ratio (7 - 25 %) 21.1 Hematology CBC w Diff MAN DIFF ORDERED WBC (4.8 - 10.8 /CUMM) 18.4 H RBC (4.20 - 5.40 /CUMM) 3.70 L Hgb (12.0 - 16.0 G/DL) 10.1 L Hct (37 - 47 %) 31.4 L MCV (81.0 - 99.0 FL) 84.8 MCH (27.0 - 31.0 PG) 27.3 MCHC (33.0 - 37.0 G/DL) 32.2 L RDW (11.5 - 14.5 %) 18.5 H Plt Count (130 - 400 /CUMM) 393 MPV (7.4 - 10.4 FL) 7.9 Gran % (42.2 - 75.2 %) 89.0 H Lymphocytes % (20.5 - 51.1 %) 3.9 L Monocytes % (1.7 - 9.3 %) 6.9 Eosinophils % (0 - 5 %) 0 Basophils % (0.0 - 2.0 %) 0.2 Absolute Granulocytes (1.4 - 6.5 /CUMM) 16.4 H Segmented Neutrophils (42.2 - 75.2 %) 90 H Band Neutrophils (0.0 - 5.0 %) 1 Absolute Lymphocytes (1.2 - 3.4 /CUMM) 0.7 L Lymphocytes (20.5 - 51.1 %) 4 L Monocytes (1.7 - 9.3 %) 5 Absolute Monocytes (0.10 - 0.60 /CUMM) 1.3 H Absolute Eosinophils (0.0 - 0.7 /CUMM) 0 Absolute Basophils (0.0 - 0.2 /CUMM) 0 Platelet Estimate (ADEQUATE) ADEQUATE Polychromasia 1+ Hypochromic-Microcytic 1+ Poikilocytosis 1+ Target Cells RARE Ovalocytes 1+ Elliptocytes FEW Miscellaneous Phlebotomy Draw Site LEFT RADIAL Other Body Source Fld Total RBCs Counted (%) 100 12/03 0225 Chemistry Sodium (137 - 145 mmol/L) 139 Potassium (3.5 - 5.1 mmol/L) 4.0 Chloride (98 - 107 mmol/L) 102 Carbon Dioxide (22 - 30 mmol/L) 17 L Anion Gap (5 - 16) 21 H BUN (7 - 17 mg/dL) 14 Creatinine (0.5 - 1.0 mg/dL) 0.8 Estimated GFR (>60 ml/min) > 60 BUN/Creatinine Ratio (7 - 25 %) 17.5 Glucose (65 - 99 mg/dL) 262 H Lactic Acid (0.7 - 2.1 mmol/L) 7.8 H Calcium (8.4 - 10.2 mg/dL) 8.3 L Magnesium (1.6 - 2.3 mg/dL) 2.0 Total Bilirubin (0.2 - 1.3 mg/dL) 0.4 AST (14 - 36 U/L) 25 ALT (9 - 52 U/L) 15 Alkaline Phosphatase (<127 U/L) 107 Troponin I (< 0.11 ng/ml) 0.06 Dpl-F-Tuubjthucic Pept (<125 pg/mL) 00660 H Total Protein (6.3 - 8.2 g/dL) 6.5 Albumin (3.5 - 5.0 g/dL) 3.1 L Globulin (1.9 - 4.2 gm/dL) 3.4 Albumin/Globulin Ratio (1.1 - 2.2 %) 0.9 L Coagulation D-Dimer High Sensitivty (0 - 243 ng/ml) 2728 H Hematology CBC w Diff NO MAN DIFF REQ WBC (4.8 - 10.8 /CUMM) 10.4 RBC (4.20 - 5.40 /CUMM) 3.89 L Hgb (12.0 - 16.0 G/DL) 10.6 L Hct (37 - 47 %) 32.9 L MCV (81.0 - 99.0 FL) 84.5 MCH (27.0 - 31.0 PG) 27.3 MCHC (33.0 - 37.0 G/DL) 32.3 L RDW (11.5 - 14.5 %) 18.4 H Plt Count (130 - 400 /CUMM) 473 H MPV (7.4 - 10.4 FL) 8.5 Gran % (42.2 - 75.2 %) 56.8 Lymphocytes % (20.5 - 51.1 %) 35.4 Monocytes % (1.7 - 9.3 %) 5.5 Eosinophils % (0 - 5 %) 1.8 Basophils % (0.0 - 2.0 %) 0.5 Absolute Granulocytes (1.4 - 6.5 /CUMM) 5.9 Absolute Lymphocytes (1.2 - 3.4 /CUMM) 3.7 H Absolute Monocytes (0.10 - 0.60 /CUMM) 0.6 Absolute Eosinophils (0.0 - 0.7 /CUMM) 0.2 Absolute Basophils (0.0 - 0.2 /CUMM) 0.1 Disposition Summary Disposition Principal Diagnosis: Acute Coronary Syndrome; Healthcare associated pneumonia Additional Diagnosis: CAD s/p ND s/p stent (earlier this month), HFrEF (EF 40% on 11/18/17), COPD, HTN, HLD, OA, depression, h/o perforated duodenal s/p abd exploration Discharge Disposition: other general hospital Discharge Instructions General Discharge Information Code Status: Full Code Patient's Diet: heart healthy Patient's Activity: as tolerated Follow-Up Instructions/Appts: patient is being transfered to other hospital for further possible interventions /management. needs to follow up accordingly. Medications at Discharge Discharge Medications: Stop taking the following medications: Lisinopril (Lisinopril) 10 MG TABLET ORAL DAILY Days = 30 Continue taking these medications: Atorvastatin Calcium (Atorvastatin Calcium) 40 MG TABLET 1 Tablet ORAL DAILY Qty = 14 Comments: DID NOT RECEIVE TODAY Omeprazole (Omeprazole) 20 MG CAPSULE.DR 1 Capsule ORAL DAILY Comments: Last Taken: 12/03/17 Time: 9:00 AM Fluticasone/Vilanterol (Breo Ellipta 100-25 Mcg INH) 100 MCG-25 MCG/DOSE BLST.W.DEV 1 Inhalant ORAL DAILY Comments: DID NOT RECEIVE IN HOSPITAL Paroxetine HCl (Paroxetine HCl) 40 MG TABLET 1 Tablet ORAL Every night Qty = 30 Comments: DID NOT RECEIVE TODAY Sennosides (Senna) 8.6 MG TABLET 1 Tablet ORAL Every night Comments: DID NOT RECEIVE TODAY Tramadol HCl (Tramadol HCl) 50 MG TABLET 1 Tablet ORAL EVERY 8 HOURS NEEDED as needed for PAIN Comments: DID NOT RECEIVE TODAY Acetaminophen (Tylenol Extra Strength) 500 MG TABLET 2 Tablet ORAL EVERY SIX HOURS as needed for PAIN Comments: Last Taken: 12/03/17 Time: 0900 Gabapentin (Gabapentin) 100 MG CAPSULE 2 Tablet ORAL THREE TIMES DAILY Comments: Last Taken: 12/03/17 Time: 9:00 AM Ipratropium [place] (Ipratropium Denver) 0.2 MG/ML (0.02 %) SOLUTION 2.5 Milliliters Inhale through mouth EVERY SIX HOURS NEEDED as needed for WHEEZING Qty = 30 Comments: Last Taken: 12/03/17 Time: 2:00 AM Albuterol Sulfate (Albuterol Sulfate) 2.5 MG/3 ML (0.083 %) VIAL.NEB 3 Milliliters Inhale through mouth EVERY 4 HOURS NEEDED as needed for WHEEZING Qty = 30 Comments: Last Taken: 12/03/17 Time: 2:00 AM Clopidogrel Bisulfate (Plavix) 75 MG TABLET 75 Milligram ORAL DAILY Qty = 30 Comments: 300 mg Last Taken:12/03/17 Time: 9:00 AM Aspirin (Ecotrin*) 81 MG TABLET.DR 1 Tablet ORAL DAILY Comments: Last Taken: 12/03/17 Time: 9:00 AM Metoprolol Tartrate (Metoprolol Tartrate) 25 MG TABLET 0.5 Tablet ORAL TWICE DAILY Comments: Last Taken: 12/03/17 Time: 11:00 AM Start taking the following new medications: Ceftazidime (Ceftazidime) 1 GRAM VIAL 1,000 Milligram INTRAVEN IV EVERY 8 HOURS Qty = 1 No Refills Comments: Last Taken: 12/03/17 Time: 3:00 AM Vancomycin HCl (Vancomycin HCl) 1 GRAM VIAL 1 G INTRAVEN DAILY Qty = 1 No Refills Comments: Last Taken: 12/03/17 Time: 6:00 AM Heparin Sod,Porcine/0.9 % NaCl (Heparin 25,000 Unit/500 Ml-Ns) 25,000 UNIT/500 ML (50 UNIT/ML) IV.SOLN 12 Microgram INTRAVEN CONTINUOUS INFUSION Qty = 1 No Refills Comments: CURRENTLY INFUSING Copies To: Johanny MITCHELL,Mikhail Fine; Lowell MITCHELL,Manuel Louie Attending MD Review Statement Documenting Attending: David MITCHELL,Abiodun Other Findings: Patient transferred to [facility] facility for cardiac catheterisaition concern for type 1 ND and in stent stenosis. Dr Yang closely following patient.
[2017-12-03 11:30] VITALS: BP 136/90
[2017-12-03] MEDS ORDERED: VANCOMYCIN HCL1 G1 IV (11:37)
[2017-12-03] MEDS ORDERED: [UNRECOGNIZED DRUG - CODE] IV (11:37)
[2017-12-03] MEDS ORDERED: CEFTAZIDIME1 G2 IV (11:37)
--- NOTE | 2017-12-03 11:39 | Patient Discharge Instructions ---
Discharge Instructions General Discharge Information You were seen/treated for: HEALTH CARE ASSOCIATED PNEUMONIA MYOCARDIAL INFARCTION Special Instructions: PLZ F/U WITH PRIMARY CARE PHYSICIAN AND CARDIOLOGY AFTER DISCHARGE Diet Recommended Diet: Heart Healthy, NPO FOR NOW Activity Additional ACTIVITY Info: TOLERATED Acute Coronary Syndrome Inclusion Criteria At DC or during hospital stay patient has or had the following: ACS DIAGNOSIS Yes Discharge Core Measures Meds if any: Prescribed or Continued at Discharge DENISSE/ARB if EF <40% Yes Aspirin Yes Beta-Joel Yes Statin Yes Meds if any: NOT Prescribed or Continued at Discharge Congestive Heart Failure Inclusion Criteria At DC or during hospital stay patient has or had the following: CHF DIAGNOSIS No Discharge Core Measures Meds if any: Prescribed or Continued at Discharge Meds if any: NOT Prescribed or Continued at Discharge Cerebrovascular accident Inclusion Criteria At DC or during hospital stay patient has or had the following: CVA/TIA Diagnosis No Discharge Core Measures Meds if any: Prescribed or Continued at Discharge Meds if any: NOT Prescribed or Continued at Discharge Venous thromboembolism Inclusion Criteria VTE Diagnosis No VTE Type NONE VTE Confirmed by (Test) NONE Discharge Core Measures - Per Current guidelines, there needs to be overlap - treatment for the first 5 days of Warfarin therapy. - If discharged on Warfarin prior to 5 days of - overlap therapy, the patient will need to be - assessed for post discharge needs including - *Post discharge parental anticoagulation - *Warfarin and/or parental anticoagulation education - *Follow up date to check INR post discharge At least 5 days overlap therapy as Inpatient No Meds if any: Prescribed or Continued at Discharge Note: Overlap Therapy is Warfarin and Anticoagulant Meds if any: NOT Prescribed or Continued at Discharge
--- NOTE | 2017-12-03 12:33 | Cons- Cardiology ---
General Information and HPI Consulting Request Date of Consult: 12/03/17 Requested By: Abiodun Hernandez MD Reason for Consult: Shortness of breath. Source of Information: patient, old records Exam Limitations: clinical condition, poor historian History of Present Illness: Mrs. Margoth Juan is a 77 years old female with a history of depression, osteoarthritis, hypertension, hyperlipidemia, and coronary artery disease (s/p remote GA w/ culprit PCI/BMS x1 to LAD; and follow-up PCI/BMS 1 for non-culpret LCx stenosis) and recent hospitalization here (11/17-11/19/2017) for shortness of breath and left arm discomfort with positive troponin I, prompting transfer to [facility] where she underwent PCI/LANE (Resolute) of an 80% LCx AV groove artery stenosis with 0% residual stenosis on 11/19/2017 who presented via ambulance from her ECF ([facility]) to the [facility] on 12/03/2017 with complaints of weakness and shortness of breath with room air O2 saturations in the 80s and CXR/Chest CTA consistent with pneumonia who we are asked to evaluate in regard to a markedly elevated troponin I level without any associated chest discomfort. The cardiac catheterization from 11/19/2017 revealed the following: LM-patent, LAD-diffuse luminal irregularities and patency at prior stent site, LCx-80% stenosis in the AV groove after the takeoff of the M1 and M2 branches, RCA- dominant with ectasia and diffuse luminal irregularities, and LV gram-not done. She was initially admitted to telemetry and after returning from a negative CT angiogram and was found to be in atrial fibrillation with a rapid ventricular response. Mrs. Juan was also hospitalized here (05/11-05/28/2016) for sepsis following "spontaneous" duodenal ulcer perforation with peritonitis/pneumoperitoneum that required emergent laparotomy with some postoperative short runs of nonsustained ventricular tachycardia (NSVT) that prompted initiation of beta vinnie therapy. The plan was for outpatient follow-up and an imaging stress test for the NSVT, as outlined in our progress note from 05/19/2016, however, she was lost to follow-up after discharge. Allergies/Medications Allergies: Coded Allergies: amoxicillin (From AUGMENTIN) (THRUSH 05/11/16) clavulanic acid (From AUGMENTIN) (THRUSH 05/11/16) Home Med List: Acetaminophen (Tylenol Extra Strength) 500 MG TABLET 2 TAB PO Q6 PRN PAIN ( Reported) Albuterol Sulfate 2.5 MG/3 ML (0.083 %) VIAL.NEB 3 ML INH Q4P PRN WHEEZING Aspirin (Ecotrin*) 81 MG TABLET.DR 1 TAB PO DAILY HEART HEALTH (Reported) Atorvastatin Calcium 40 MG TABLET 1 TAB PO DAILY CHOLESTEROL (Reported) Ceftazidime 1 GRAM VIAL 1,000 MG IV IQ8 pneumonia Clopidogrel Bisulfate (Plavix) 75 MG TABLET 75 MG PO DAILY HEART HEALTH Fluticasone/Vilanterol (Breo Ellipta 100-25 Mcg INH) 100 MCG-25 MCG/DOSE BLST.W.DEV 1 INHA PO DAILY COPD (Reported) Gabapentin 100 MG CAPSULE 2 TAB PO TID PAIN (Reported) Heparin Sod,Porcine/0.9 % NaCl (Heparin 25,000 Unit/500 Ml-Ns) 25,000 UNIT/500 ML (50 UNIT/ML) IV.SOLN 12 MCG IV CONTINOUS INFUSION acs Ipratropium [place] 0.2 MG/ML (0.02 %) SOLUTION 2.5 ML INH Q6P PRN WHEEZING Metoprolol Tartrate 25 MG TABLET 0.5 TAB PO BID HEART (Reported) Omeprazole 20 MG CAPSULE.DR 1 CAP PO DAILY BOWEL ULCER (Reported) Paroxetine HCl 40 MG TABLET 1 TAB PO QPM MOOD (Reported) Sennosides (Senna) 8.6 MG TABLET 1 TAB PO QPM CONSTIPATION (Reported) Tramadol HCl 50 MG TABLET 1 TAB PO Q8P PRN PAIN (Reported) Vancomycin HCl 1 GRAM VIAL 1 G IV DAILY pneumonia Review of Systems Review of Systems: A 14 point system review was obtained and was noncontributory, other than as above. Past History Travel History Traveled to [place] past 21 day No Medical History Neurological: NONE EENT: NONE Cardiovascular: CAD, hypertension, hyperlipidemia, CARDIAC STENT X1 11/19/17 Respiratory: NONE Gastrointestinal: NONE Hepatic: NONE Renal: NONE Musculoskeletal: osteoarthritis Psychiatric: depression Endocrine: NONE Blood Disorders: NONE Cancer(s): NONE DIRECTOR MEDIA/Reproductive: NONE Surgical History Surgical History: cholecystectomy (laparoscopic 16 years ago), D&C's coronary angio/stent x2 Psychosocial History Where Do You Live? Senior Living Facility Who Do You Live With? alone Services at Home: None Primary Language: Gibraltarian Smoking Status: Unknown If Ever Smoked ETOH Use: denies use Living Will? yes Power of Leach Cell Operator/HCP? yes Name of POA/HCP: Sinan Farnsworthour Functional Ability ADLs Independent: toileting. Needs Assist: eating, bathing. Ambulation: walker IADLs Independent: finances, medication admin. Needs Assist: shopping, food prep, transportation. Exam & Diagnostic Data Vital Signs and I&O Vital Signs Date Time Temp Pulse Resp B/P B/P Pulse O2 O2 Flow FiO2 Mean Ox Delivery Rate 12/03 1106 107 120/70 12/03 0820 93 Nasal 5.0L Cannula 12/03 0640 98.1 73 20 110/66 97 Nasal 4.0L Cannula 12/03 0601 97.8 92 20 107/56 98 Nasal 3.0L Cannula 12/03 0439 101 24 113/65 98 Nasal 4.0L Cannula 12/03 0402 102 24 124/62 97 Nasal 4.0L Cannula 12/03 0257 98 BIPAP 12/03 0232 99 BIPAP 40% 12/03 0214 129 98 12/03 0214 98.1 120 24 150/80 98 BIPAP Intake & Output 12/03 1600 12/03 0800 12/03 0000 12/02 1600 12/02 0800 12/02 0000 Intake Total Output Total Balance Patient 129 lb Weight Weight Bed scale Measurement Method Physical Exam: Chronically ill-appearing elderly female in mild respiratory distress with nasal oxygen in place. Vital signs: See above. HEENT: Normocephalic, atraumatic, EOMI, and slightly dry mucous membranes. Neck: No JVD, no bruits. Lungs: Bibasilar crackles/rhonchi. Heart: S1, S2. Abdomen: Soft, nontender, positive bowel sounds. Extremities: No edema. Labs/Ilya Results: Laboratory Tests 12/03 12/03 12/03 12/03 1045 0830 0830 0549 Chemistry Lactic Acid (0.7 - 2.1 mmol/L) 1.3 1.7 Creatine Kinase (30 - 135 U/L) 6612 H Troponin I (< 0.11 ng/ml) 209.00 *H 151.00 *H 12/03 12/03 0549 0415 Blood Gas pH (7.35 - 7.45 PH) 7.39 pCO2 (35 - 45 TORR) 33 L pO2 (80 - 100 TORR) 118 H HCO3 (21 - 28 MEQ/L) 20 L ABG O2 Sat (Measured) (>96.0 %) 98.0 P-50 (Temp Corrected) N Carboxyhemoglobin (1.5 - 5.0 %) 0.3 L O2 Concentration % 4L O2 Delivery Method N/C Chemistry Sodium (137 - 145 mmol/L) 141 Potassium (3.5 - 5.1 mmol/L) 4.1 Chloride (98 - 107 mmol/L) 105 Carbon Dioxide (22 - 30 mmol/L) 25 Anion Gap (5 - 16) 11 BUN (7 - 17 mg/dL) 19 H Creatinine (0.5 - 1.0 mg/dL) 0.9 Estimated GFR (>60 ml/min) > 60 BUN/Creatinine Ratio (7 - 25 %) 21.1 Hematology CBC w Diff MAN DIFF ORDERED WBC (4.8 - 10.8 /CUMM) 18.4 H RBC (4.20 - 5.40 /CUMM) 3.70 L Hgb (12.0 - 16.0 G/DL) 10.1 L Hct (37 - 47 %) 31.4 L MCV (81.0 - 99.0 FL) 84.8 MCH (27.0 - 31.0 PG) 27.3 MCHC (33.0 - 37.0 G/DL) 32.2 L RDW (11.5 - 14.5 %) 18.5 H Plt Count (130 - 400 /CUMM) 393 MPV (7.4 - 10.4 FL) 7.9 Gran % (42.2 - 75.2 %) 89.0 H Lymphocytes % (20.5 - 51.1 %) 3.9 L Monocytes % (1.7 - 9.3 %) 6.9 Eosinophils % (0 - 5 %) 0 Basophils % (0.0 - 2.0 %) 0.2 Absolute Granulocytes (1.4 - 6.5 /CUMM) 16.4 H Segmented Neutrophils (42.2 - 75.2 %) 90 H Band Neutrophils (0.0 - 5.0 %) 1 Absolute Lymphocytes (1.2 - 3.4 /CUMM) 0.7 L Lymphocytes (20.5 - 51.1 %) 4 L Monocytes (1.7 - 9.3 %) 5 Absolute Monocytes (0.10 - 0.60 /CUMM) 1.3 H Absolute Eosinophils (0.0 - 0.7 /CUMM) 0 Absolute Basophils (0.0 - 0.2 /CUMM) 0 Platelet Estimate (ADEQUATE) ADEQUATE Polychromasia 1+ Hypochromic-Microcytic 1+ Poikilocytosis 1+ Target Cells RARE Ovalocytes 1+ Elliptocytes FEW Miscellaneous Phlebotomy Draw Site LEFT RADIAL Other Body Source Fld Total RBCs Counted (%) 100 12/03 0225 Chemistry Sodium (137 - 145 mmol/L) 139 Potassium (3.5 - 5.1 mmol/L) 4.0 Chloride (98 - 107 mmol/L) 102 Carbon Dioxide (22 - 30 mmol/L) 17 L Anion Gap (5 - 16) 21 H BUN (7 - 17 mg/dL) 14 Creatinine (0.5 - 1.0 mg/dL) 0.8 Estimated GFR (>60 ml/min) > 60 BUN/Creatinine Ratio (7 - 25 %) 17.5 Glucose (65 - 99 mg/dL) 262 H Lactic Acid (0.7 - 2.1 mmol/L) 7.8 H Calcium (8.4 - 10.2 mg/dL) 8.3 L Magnesium (1.6 - 2.3 mg/dL) 2.0 Total Bilirubin (0.2 - 1.3 mg/dL) 0.4 AST (14 - 36 U/L) 25 ALT (9 - 52 U/L) 15 Alkaline Phosphatase (<127 U/L) 107 Troponin I (< 0.11 ng/ml) 0.06 [id number] Pept (<125 pg/mL) 11664 H Total Protein (6.3 - 8.2 g/dL) 6.5 Albumin (3.5 - 5.0 g/dL) 3.1 L Globulin (1.9 - 4.2 gm/dL) 3.4 Albumin/Globulin Ratio (1.1 - 2.2 %) 0.9 L Coagulation D-Dimer High Sensitivty (0 - 243 ng/ml) 2728 H Hematology CBC w Diff NO MAN DIFF REQ WBC (4.8 - 10.8 /CUMM) 10.4 RBC (4.20 - 5.40 /CUMM) 3.89 L Hgb (12.0 - 16.0 G/DL) 10.6 L Hct (37 - 47 %) 32.9 L MCV (81.0 - 99.0 FL) 84.5 MCH (27.0 - 31.0 PG) 27.3 MCHC (33.0 - 37.0 G/DL) 32.3 L RDW (11.5 - 14.5 %) 18.4 H Plt Count (130 - 400 /CUMM) 473 H MPV (7.4 - 10.4 FL) 8.5 Gran % (42.2 - 75.2 %) 56.8 Lymphocytes % (20.5 - 51.1 %) 35.4 Monocytes % (1.7 - 9.3 %) 5.5 Eosinophils % (0 - 5 %) 1.8 Basophils % (0.0 - 2.0 %) 0.5 Absolute Granulocytes (1.4 - 6.5 /CUMM) 5.9 Absolute Lymphocytes (1.2 - 3.4 /CUMM) 3.7 H Absolute Monocytes (0.10 - 0.60 /CUMM) 0.6 Absolute Eosinophils (0.0 - 0.7 /CUMM) 0.2 Absolute Basophils (0.0 - 0.2 /CUMM) 0.1 Diagnostic Data EKG Results 12/03/2017: Sinus tachycardia with APCs, large Q waves and ST segment elevation in leads III and aVF and high lateral ST segment depression. CXR Results 12/03/2017: Left perihilar airspace opacity, suspicious for pneumonia in the proper clinical setting. Radiographic followup after treatment/resolution of symptoms is recommended. Other Results Chest CTA 12/03/2017: New patchy airspace disease seen more so in the left lung. Infectious etiology is strongly suspected in this setting. No evidence for central pulmonary emboli. Distal branch vessels are partially obscured by motion artifact but no discrete filling defects identified. VTE: Negative Assessment/Plan Assessment/Plan [id number] w/ hx depression, OA, HTN, HLD, & CAD (s/p remote GA w/ culprit PCI/ BMS x1 to LAD; and follow-up PCI/BMS 1 for non-culpret LCx stenosis) and recent adm (11/17-11/19/2017) w/ SOB & L arm discomfort prompting transfer to [facility] where she underwent PCI/LANE (Resolute) of an 80% LCx AV groove artery stenosis with 0% residual stenosis on 11/19/2017 and who presented via ambulance from her ECF to the ED on 12/02/2017 w/ c/o of weakness & SOB w/ room air O2 saturations in the 80s and who we are asked to evaluate in regard to a markedly elevated troponin I level w/o any assoc chest discomfort. Suspect that her presentation is secondary to in stent stenosis which will require coronary intervention which was discussed with our interventionalist ( Preston Yang MD, PhD). Additionally, she has a suspected pneumonia with antimicrobial therapy initiated , negative Quik Flu AB, and cultures pending. Recommendations: * ICU transfer, follow-up troponins, follow-up ECGs. * Transfer from ICU to [facility] for emergent cardiac catheterization by her interventionalist, Preston Yang MD, PhD. * Continue IV heparin, dual antiplatelet therapy, statin, beta-vinnie, DENISSE inhibitor, etc. for now. * Stat echocardiogram. * Continue TRC/oxygen, antimicrobial therapy, etc. as per hospitalist. * DVT prophylaxis being addressed by the IV heparin. Consult Acknowledgment - Thank you for your consult request.
--- NOTE | 2017-12-03 12:51 | Event Note ---
Event Note Event Note: Ms Juan was transferred to the ICU briefly for hemodynamic monitoring, after it was found that she had elevated troponins upot 150. She was in mild distress when we saw her, and vitals remained stable. Arrangements were being made to transfer her to [facility], for a possible cardiac cath. Evaluated by Dr. Orlando and Dr. Yang. Echocardiogram was done. Reviewing the electrocardiograms, she developed t wave inversions in lateral leads. But wouldnt explain the level of troponin elevation that she currently has. She apparently had stents placed in both circs, which would explain why the EKGs could be silent, if her Left LCx was involved this time. Cosnent forms signed for her to be transfered. Explained to her about the managment plan.
--- NOTE | 2017-12-04 08:07 | ECHOCARDIOGRAM REPORT ---
MEGHAN MA Age: 77 : 1940 Gender: F Exam Date: 12/03/2017 11:23 Exam Location: [facility] Ht (in): 60 Wt (lb): 129 BSA: 1.59 BP: 106 / 64 Ordering Physician: SYMONE AHN MD Referring Physician: SYMONE AHN MD Technologist: Jose E Navarro RDCS Room Number: 113 Indications: SHORTNESS OF BREATH Rhythm: Technical Quality: fair FINDINGS Left Ventricle Normal left ventricular size and wall thickness. Moderately decreased systolic function with severe inferior and anteroseptal hypokinesis superimposed on global hypokinesis. The ejection fraction is visually estimated at 35-40%. Right Ventricle The right ventricle is normal in size and function. Right Atrium The right atrium is normal in size. Left Atrium The left atrium is moderately enlarged. The interatrial septum is intact. Mitral Valve The mitral valve is normal in structure and function. There is moderate mitral regurgitation. Aortic Valve Structurally normal aortic valve without significant sclerosis or stenosis. There is mild aortic regurgitation. Tricuspid Valve The tricuspid valve is normal in structure and function. There is mild tricuspid regurgitation. Pulmonary artery systolic pressure is mildly elevated to 40mmHg. Pulmonic Valve Structurally normal pulmonic valve. There is no pulmonic regurgitation. Pericardium Normal pericardium without effusion. No pleural effusion. Great Vessels Normal aortic root dimension. The aortic arch and great vessels are well seen and are normal. CONCLUSIONS 1. Moderately decreased EF of 35-40% with regional wall motion abnormalities as above. 2. Moderate left atrial enlargement. 3. Moderate mitral regurgitation. 4. Mild tricuspid regurgitation. 5. Mild aortic regurgitation. Preston Yang M.D. (Electronically Signed) Final Date: 04 December 2017 08:06 MEASUREMENTS (Male / Female) Normal Values 2D ECHO LV Diastolic Diameter PLAX 5.6 cm 4.2 - 5.9 / 3.9 - 5.3 cm LV Systolic Diameter PLAX 4.4 cm 2.1 - 4.0 cm LV Fractional Shortening PLAX 21.4 % 25 - 46 % LV Ejection Fraction 2D Teich 42.9 % IVS Diastolic Thickness 1.1 cm LVPW Diastolic Thickness 1.0 cm LV Relative Wall Thickness 0.4 RV Internal Dim ED PLAX 3.3 cm 1.9 - 3.8 cm LVOT Diameter 1.8 cm Aortic Root Diameter 3.3 cm LA Systolic Diameter LX 4.5 cm 3.0 - 4.0 / 2.7 - 3.8 cm Ascending Aorta Diameter 3.3 cm DOPPLER AV Peak Velocity 108.0 cm/s AV Peak Gradient 4.7 mmHg AV Mean Velocity 65.0 cm/s AV Mean Gradient 2.0 mmHg AV Velocity Time Integral 15.0 cm LVOT Peak Velocity 84.2 cm/s LVOT Peak Gradient 2.8 mmHg LVOT Mean Velocity 49.3 cm/s LVOT Mean Gradient 1.0 mmHg LVOT Velocity Time Integral 14.2 cm LVOT Stroke Volume 36.1 cm AV Area Cont Eq vti 2.4 cm AV Area Cont Eq pk 2.0 cm MV Peak Velocity 152.0 cm/s MV Peak Gradient 9.2 mmHg MV Mean Velocity 90.9 cm/s MV Mean Gradient 4.0 mmHg Mitral E Point Velocity 114.0 cm/s Mitral A Point Velocity 103.0 cm/s Mitral E to A Ratio 1.1 MV PHT Velocity 149.0 cm/s MV Deceleration Morgan 751.0 cm/s MV Pressure Half Time 59.5 ms MV Area PHT 3.7 cm MV Deceleration Time 204.0 ms MR Peak Velocity 389.0 cm/s MR Peak Gradient 60.5 mmHg TR Peak Velocity 295.0 cm/s TR Peak Gradient 34.8 mmHg Right Atrial Pressure 5.0 mmHg Pulmonary Artery Systolic Pressu 39.8 mmHg Right Ventricular Systolic Press 39.8 mmHg PV Peak Velocity 102.0 cm/s PV Peak Gradient 4.2 mmHg PV Mean Velocity 65.2 cm/s PV Mean Gradient 2.0 mmHg PV Velocity Time Integral 16.0 cm LV E' Lateral Velocity 3.7 cm/s Mitral E to LV E' Lateral Ratio 30.8 LV E' Septal Velocity 4.0 cm/s Mitral E to LV E' Septal Ratio 28.5
== END 2017-12-03 12:15 | disposition short-term general hospital (02) | DRG 871 ==
LOC: ERH 02:05 → ERHI 03:50 → ENRESERV 05:37 → CRI 06:30 → 1NO 06:30 → CRI 11:15
PROVIDERS: Emergency Medicine; Student in an Organized Health Care Education/Training Program
DX: A41.9 Sepsis, unspecified organism (principal); J18.9 Pneumonia, unspecified organism; J96.01 Acute respiratory failure with hypoxia; I21.9 Acute myocardial infarction, unspecified; I50.23 Acute on chronic systolic (congestive) heart failure; E87.2 Acidosis; I11.0 Hypertensive heart disease with heart failure; I48.91 Unspecified atrial fibrillation; J44.1 Chronic obstructive pulmonary disease with (acute) exacerbation; T82.855A Stenosis of coronary artery stent, initial encounter; I25.10 Atherosclerotic heart disease of native coronary artery without angina pectoris; Z95.5 Presence of coronary angioplasty implant and graft; Z90.49 Acquired absence of other specified parts of digestive tract; E78.5 Hyperlipidemia, unspecified; F32.9 Major depressive disorder, single episode, unspecified; Z98.61 Coronary angioplasty status; I44.7 Left bundle-branch block, unspecified; Z79.82 Long term (current) use of aspirin; Z79.51 Long term (current) use of inhaled steroids; Z88.1 Allergy status to other antibiotic agents; R00.0 Tachycardia, unspecified; M19.91 Primary osteoarthritis, unspecified site
CPT/HCPCS: CCU; 36592; 71045; 82436; 87040; 87086; 87449; 87450; 87804; 87804-59; 93005; 93010; 93306; 94799; 96374; 96375; 99291; J0713; J1644; J3370; J3490; J7040

== ENCOUNTER 2017-12-21 05:40 | Inpatient (IN) | payer OTHER, MEDICARE ==
[~2017-12-21] VITALS: Ht 152.4 cm; Wt 46.7 kg
[~2017-12-21 05:40] MED LIST changes: +CEFTAZIDIME1 G2 IV; +METOPROLOL SUC100 M2 PO; +VANCOMYCIN HCL1 G1 IV; +[UNRECOGNIZED DRUG - CODE] IV
--- NOTE | 2017-12-21 05:49 | ED DYSPNEA/ASTHMA COMPLAINT ---
History of Present Illness General Chief Complaint: Dyspnea (COPD, CHF, Other) Stated Complaint: BIBA SOB Source: patient Exam Limitations: no limitations Vital Signs & Intake/Output Vital Signs & Intake/Output Vital Signs Date Time Temp Pulse Resp B/P B/P Pulse O2 O2 Flow FiO2 Mean Ox Delivery Rate 12/21 0605 97 Nasal 3.0L Cannula 12/21 0550 18 97 Nasal 3.0L Cannula 12/21 0548 97.7 81 18 155/74 89 Room Air Allergies Coded Allergies: amoxicillin (From AUGMENTIN) (THRUSH 12/21/17) clavulanic acid (From AUGMENTIN) (THRUSH 12/21/17) Reconcile Medications Acetaminophen (Tylenol Extra Strength) 500 MG TABLET 2 TAB PO Q6 PRN PAIN ( Reported) Albuterol Sulfate 2.5 MG/3 ML (0.083 %) VIAL.NEB 3 ML INH Q4P PRN WHEEZING Aspirin (Ecotrin*) 81 MG TABLET.DR 1 TAB PO DAILY HEART HEALTH (Reported) Atorvastatin Calcium 40 MG TABLET 1 TAB PO DAILY CHOLESTEROL (Reported) Ceftazidime 1 GRAM VIAL 1,000 MG IV IQ8 pneumonia Clopidogrel Bisulfate (Plavix) 75 MG TABLET 75 MG PO DAILY HEART HEALTH Fluticasone/Vilanterol (Breo Ellipta 100-25 Mcg INH) 100 MCG-25 MCG/DOSE BLST.W.DEV 1 INHA PO DAILY COPD (Reported) Gabapentin 100 MG CAPSULE 2 TAB PO TID PAIN (Reported) Heparin Sod,Porcine/0.9 % NaCl (Heparin 25,000 Unit/500 Ml-Ns) 25,000 UNIT/500 ML (50 UNIT/ML) IV.SOLN 12 MCG IV CONTINOUS INFUSION acs Ipratropium [place] 0.2 MG/ML (0.02 %) SOLUTION 2.5 ML INH Q6P PRN WHEEZING Metoprolol Tartrate 25 MG TABLET 0.5 TAB PO BID HEART (Reported) Omeprazole 20 MG CAPSULE.DR 1 CAP PO DAILY BOWEL ULCER (Reported) Paroxetine HCl 40 MG TABLET 1 TAB PO QPM MOOD (Reported) Sennosides (Senna) 8.6 MG TABLET 1 TAB PO QPM CONSTIPATION (Reported) Tramadol HCl 50 MG TABLET 1 TAB PO Q8P PRN PAIN (Reported) Vancomycin HCl 1 GRAM VIAL 1 G IV DAILY pneumonia Triage Note: PT BIBA FROM [facility] C/O SOB X1 HR UPON ECF VITALS. PT IS A&0X3. PT ARRIVED ON 2LNC. ON RA 89% 02. PT STATES SHE HAS BEEN OFF THE 02 FOR A FEW DAYS BECAUSE SATS HAVE BEEN GOOD. PT ABLE TO SPEAK FULL SENTENCES WITHOUT DIFFICULTY. DR HICKMAN AT BEDSIDE FOR EVAL Triage Nurses Notes Reviewed? yes Onset: Gradual Duration: minute(s): Timing: recent history Severity: moderate Activities at Onset: none, sleep Prior Episodes/Possible Cause: occasional episodes Modifying Factors: Improves With: rest. Associated Symptoms: cough, wheezing HPI: 77 yo woman h/o copd, h/o cardiac stent re-done at [facility] 2-3 weeks ago, presents with 40 minutes of wheezing, cough, dyspnea while sleeping from the ECF. 911 called. 02 sat 71% on room air, with improvement to 96% on 6 LNC. She has no fever, chills, chest pain, swelling of lower extremities. She is otherwise well. Past History Travel History Traveled to [place] past 21 day No Medical History Any Pertinent Medical History? 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 No Review of Systems Review of Systems Constitutional: Reports: no symptoms. EENTM: Reports: no symptoms. Respiratory: Reports: no symptoms. Cardiovascular: Reports: no symptoms. GI: Reports: no symptoms. Genitourinary: Reports: no symptoms. Musculoskeletal: Reports: no symptoms. Skin: Reports: no symptoms. Neurological/Psychological: Reports: no symptoms. Hematologic/Endocrine: Reports: no symptoms. Immunologic/Allergic: Reports: no symptoms. All Other Systems: Reviewed and Negative Physical Exam Physical Exam General Appearance: well developed/nourished, moderate distress Head: atraumatic, normal appearance Eyes: Bilateral: normal appearance. Ears, Nose, Throat: normal pharynx, normal ENT inspection Neck: normal inspection, supple, full range of motion Respiratory: wheezing, prolonged expiratory phase Cardiovascular: regular rate/rhythm Gastrointestinal: normal bowel sounds, soft, non-tender, no organomegaly Extremities: normal inspection, normal capillary refill, normal range of motion, no edema Neurologic/Psych: no motor/sensory deficits, awake, alert, oriented x 3 Skin: intact, normal color, warm/dry Core Measures ACS in differential dx? No CVA/TIA Diagnosis No Sepsis Present: No Sepsis Focused Exam Completed? No Progress Differential Diagnosis: asthma, bronchitis, CHF, COPD, pneumonia Plan of Care: Orders Procedure Date/time Status Patient Data 12/21 1644 Active Admit to inpatient 12/21 0650 Active AEROSOL (GEN) 12/21 0626 Complete ARTERIAL BLOOD GAS (GEN) 12/21 0550 Complete BLOOD CULTURE 12/21 0550 Active TROPONIN LEVEL 12/21 0550 Complete LIPASE 12/21 0550 Complete HEPATIC FUNCTION PANEL 12/21 0550 Complete CBC WITHOUT DIFFERENTIAL 12/21 0550 Complete B-TYPE NATRIURETIC PEP (BNP) 12/21 0550 Complete BASIC METABOLIC PANEL 12/21 0550 Complete AMYLASE 12/21 0550 Complete EKG 12/21 0543 Active Laboratory Tests 12/21/17 0610: pH 7.39, pCO2 36, pO2 95, HCO3 21, ABG O2 Sat (Measured) 96.0, Carboxyhemoglobin 0.5 L, O2 Concentration % 3.5L, O2 Delivery Method NC, Phlebotomy Draw Site LEFT BRACHIAL 12/21/17 0555: Anion Gap 14, Estimated GFR > 60, BUN/Creatinine Ratio 28.8 H, Glucose 186 H, Calcium 8.1 L, Total Bilirubin 0.2, Direct Bilirubin 0.2, AST 32, ALT 20, Alkaline Phosphatase 90, Troponin I 0.74 *H, [id number]-D-Hhbvvcmytlx Pept 63365 H, Total Protein 6.4, Albumin 2.9 L, Amylase 99, Lipase 542 H, CBC w Diff MAN DIFF ORDERED, RBC 3.51 L, MCV 85.1, MCH 26.3 L, MCHC 30.9 L, RDW 19.1 H, MPV 8.0, Gran % 83.9 H, Lymphocytes % 10.0 L, Monocytes % 2.1, Eosinophils % 3.9, Basophils % 0.1, Absolute Granulocytes 9.5 H, Segmented Neutrophils 85 H, Absolute Lymphocytes 1.1 L, Lymphocytes 8 L, Monocytes 2, Absolute Monocytes 0.2, Eosinophils 3, Absolute Eosinophils 0.4, Basophils 2, Absolute Basophils 0, Platelet Estimate INCREASED, Polychromasia 1+, Hypochromic-Microcytic 1+, Poikilocytosis 1+, Ovalocytes 1+, Elliptocytes FEW, Fld Total RBCs Counted 100 Microbiology 12/21 621 BLOOD: Blood Culture - RECD 12/21 554 BLOOD: Blood Culture - RECD Diagnostic Imaging: Viewed by Me: Radiology Read. Discussed w/RAD: Radiology Read. CXR Impression: PATIENT: MEGHAN MA PRESENT AGE: 77 PATIENT ACCOUNT NO: [id number] : 42 LOCATION: [facility] ORDERING PHYSICIAN: Andrew Hickman MD SERVICE DATE: 12/21/17 EXAM TYPE: RAD - XRY- PORTABLE CHEST XRAY EXAMINATION: CHEST 1 VIEW CLINICAL INFORMATION: Dyspnea. Hypoxia. COMPARISON: December 03, 2017. TECHNIQUE: An AP view of the chest is provided. FINDINGS: The cardiac silhouette is not enlarged. The mediastinal and hilar contours are unremarkable. There are neither pleural effusions nor pneumothoraces. There is been development of ill-defined patchy mixed interstitial and airspace opacity throughout the majority of the left hemithorax with preserved aeration at the left lung base. There is mild streaky opacification at the right lung base. The osseous structures are stable. IMPRESSION: Interval development of diffuse mixed interstitial airspace opacification throughout the left lung suspicious for atypical pneumonia. DICTATED BY: Shailesh Maxwell MD DATE/TIME DICTATED:12/21/17619 MOTOR AND CONTROLS TESTER:MARCOS DATE/TIME TRANSCRIBED:12/21/17619 CONFIDENTIAL, DO NOT COPY WITHOUT APPROPRIATE AUTHORIZATION. <Electronically signed in Other Vendor System> SIGNED BY: Shailesh Maxwell MD 12/21/17624 Initial ED EKG: AFIB, LBBB, negative sgarbossa criteria when compared to prior Departure Departure Disposition: STILL A PATIENT Condition: Stable Clinical Impression Primary Impression: COPD exacerbation Secondary Impressions: Elevated troponin Referrals: Lowell MITCHELL,Manuel Louie (PCP/Family) Departure Forms: Customer Survey General Discharge Information Admission Note Spoke With: Naty MITCHELL,Bryant Fine Documentation of Exam: Documentation of any treatments & extenuating circumstances including Concerns Regarding Discharge (functional status, medication knowledge or non-compliance, living conditions, etc.) that warrant an admission rather than observation: PT WITH elevated troponin in context of atypical pneumonia/copd exacerbation... now stable on 2-3 l nc 02... elevated troponin is likely in decline from the troponin of 200 in November 2017.... pt since has had cardiac stent revision. pt given aspirin... will hold heparin given pt's eliquis and plavix and unchanged ekg... discussed with dr. xavier. Critical Care Note Critical Care Note Critical Care Time: 30-74 min
[2017-12-21 06:11] LABS: ABSOLUTE BASOPHIL COUNT 0 /CUMM (0.0-0.2); ABSOLUTE EOSINOPHIL COUNT 0.4 /CUMM (0.0-0.7); ABSOLUTE GRANULOCYTE CT 9.5 /CUMM (1.4-6.5); ABSOLUTE LYMPH COUNT 1.1 /CUMM (1.2-3.4); ABSOLUTE MONOCYTE COUNT 0.2 /CUMM (0.10-0.60); BASOPHIL % 0.1 % (0.0-2.0); EOSINOPHIL % 3.9 % (0-5); GRANULOCYTE % 83.9 % (42.2-75.2); HEMATOCRIT 29.9 % (37-47); MEAN CORPUSCULAR HGB 26.3 PG (27.0-31.0); MEAN CORPUSCULAR HGB CONC 30.9 G/DL (33.0-37.0); MEAN CORPUSCULAR VOLUME 85.1 FL (81.0-99.0); PLATELET COUNT 429 /CUMM (130-400); RBC DISTRIBUTION WIDTH 19.1 % (11.5-14.5); RED BLOOD CELL CT 3.51 /CUMM (4.20-5.40); WHITE BLOOD CELL COUNT 11.3 /CUMM (4.8-10.8)
--- NOTE | 2017-12-21 06:25 | RADIOLOGY REPORT ---
EXAMINATION: CHEST 1 VIEW CLINICAL INFORMATION: Dyspnea. Hypoxia. COMPARISON: December 03, 2017. TECHNIQUE: An AP view of the chest is provided. FINDINGS: The cardiac silhouette is not enlarged. The mediastinal and hilar contours are unremarkable. There are neither pleural effusions nor pneumothoraces. There is been development of ill-defined patchy mixed interstitial and airspace opacity throughout the majority of the left hemithorax with preserved aeration at the left lung base. There is mild streaky opacification at the right lung base. The osseous structures are stable. IMPRESSION: Interval development of diffuse mixed interstitial airspace opacification throughout the left lung suspicious for atypical pneumonia.
--- NOTE | 2017-12-21 07:41 | History & Physical ---
Telly MITCHELL,Melissa 12/21/17 0740: General Information and HPI MD Statement: I have seen and personally examined MEGHAN MA and documented this H&P. The patient is a 77 year old F who presented with a patient stated chief complaint of []. Source of Information: old records, EMS, FACILITY Exam Limitations: unable to give history, clinical condition History of Present Illness: Patient is a 77-year-old female with past medical history significant for COPD, Paroxysmal A.fib, CAD s/p MO recent stenting twice in , HFrEF, COPD, HTN , HLD, OA, depression, SBO s/p repair presented to [facility] after found to have sudden onset of diaphoresis, dyspneic saturating 70% on RA only improved to 81% on 3L supplementation. She was also found to be tachypneic with RR 30, BP 160/90 mmHg. She was sent to ER as her saturation did not improve with supplementation. By the time of my interview - patient is very sleepy and unable to provide any history. She reports she is short of breath and could not recall more. Baseline She was recently discharged with oxygen to [facility], taperred off by thursday. She is off oxygen since last thursday. Usually wheel chair bound with assist of two. Continent with her urine and bowel movements. Active till lately. Reportedly complaint with medications. Allergies/Medications Allergies: Coded Allergies: amoxicillin (From AUGMENTIN) (THRUSH 12/21/17) clavulanic acid (From AUGMENTIN) (THRUSH 12/21/17) Home Med list Acetaminophen (Tylenol Extra Strength) 500 MG TABLET 2 TAB PO TID PAIN ( Reported) Apixaban (Eliquis) 5 MG TABLET 1 TAB PO BID BLOOD THINNER (Reported) Atorvastatin Calcium 40 MG TABLET 1 TAB PO QPM CHOLESTEROL (Reported) Clopidogrel Bisulfate (Plavix) 75 MG TABLET 75 MG PO DAILY HEART HEALTH Fluticasone/Vilanterol (Breo Ellipta 100-25 Mcg INH) 100 MCG-25 MCG/DOSE BLST.W.DEV 1 INHA PO DAILY COPD (Reported) Furosemide 40 MG TABLET 1 TAB PO DAILY WATER RETENTION (Reported) Lactobacillus Acidophilus (Acidophilus) 1 EACH CAPSULE 1 CAP PO BID GI ( Reported) Lisinopril 2.5 MG TABLET 1 TAB PO DAILY HEART (Reported) Metoprolol Succinate 100 MG TAB.ER.24H 1 TAB PO DAILY HEART (Reported) Omeprazole 20 MG CAPSULE.DR 1 CAP PO DAILY BOWEL ULCER (Reported) Paroxetine HCl 40 MG TABLET 1 TAB PO DAILY MOOD (Reported) Sennosides (Senna) 8.6 MG TABLET 2 TAB PO BID CONSTIPATION (Reported) Compliance With Home Meds: FAIR Past History Travel History Traveled to [place] past 21 day No Medical History Any Pertinent Medical History? 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 Acute [facility] Who Do You Live With? alone Services at Home: None Primary Language: Luxembourgish Living Will? yes Power of Body Former/HCP? yes Name of POA/HCP: Sinan Rossi Functional Ability ADLs Independent: toileting. Needs Assist: eating, bathing. Ambulation: walker IADLs Independent: finances, medication admin. Needs Assist: shopping, food prep, transportation. Review of Systems Review of Systems Constitutional: Reports: see HPI. EENTM: Reports: see HPI. Exam & Diagnostic Data Last 24 Hrs of Vital Signs/I&O Vital Signs Date Time Temp Pulse Resp B/P B/P Pulse O2 O2 Flow FiO2 Mean Ox Delivery Rate 12/21 0605 97 Nasal 3.0L Cannula 12/21 0550 18 97 Nasal 3.0L Cannula 12/21 0548 97.7 81 18 155/74 89 Room Air Intake & Output 12/21 0800 12/21 0000 12/20 1600 Intake Total Output Total Balance Patient 68.039 kg Weight Weight Reported by Patient Measurement Method Physical Exam General Appearance Alert, Mild Distress Skin No Rashes, breakdown at the left lateral ankle region Skin Temp/Moisture Exam: Warm/Dry HEENT Atraumatic, PERRLA, EOMI Neck Supple Cardiovascular Normal S1, Normal S2, No Murmurs Lungs decreased breath sounds bilateral bases, L > R. Abdomen Normal Bowel Sounds, Soft, No Tenderness Extremities No Clubbing, No Cyanosis, No Edema, area of small skin breakdown and ulceration on left lateral ankle region Vascular Normal Pulses Body Front and Back (Adult) 1) small ulceration Last 24 Hrs of Labs/Ilya: Laboratory Tests 12/21/17 0610: pH 7.39, pCO2 36, pO2 95, HCO3 21, ABG O2 Sat (Measured) 96.0, Carboxyhemoglobin 0.5 L, O2 Concentration % 3.5L, O2 Delivery Method NC, Phlebotomy Draw Site LEFT BRACHIAL 12/21/17 0555: Anion Gap 14, Estimated GFR > 60, BUN/Creatinine Ratio 28.8 H, Glucose 186 H, Calcium 8.1 L, Magnesium 1.8, Total Bilirubin 0.2, Direct Bilirubin 0.2, AST 32 , ALT 20, Alkaline Phosphatase 90, Troponin I 0.74 *H, Dnv-Y-Ruqhvtlvzby Pept 16475 H, Total Protein 6.4, Albumin 2.9 L, Amylase 99, Lipase 542 H, CBC w Diff MAN DIFF ORDERED, RBC 3.51 L, MCV 85.1, MCH 26.3 L, MCHC 30.9 L, RDW 19.1 H, MPV 8.0, Gran % 83.9 H, Lymphocytes % 10.0 L, Monocytes % 2.1, Eosinophils % 3.9, Basophils % 0.1, Absolute Granulocytes 9.5 H, Segmented Neutrophils 85 H, Absolute Lymphocytes 1.1 L, Lymphocytes 8 L, Monocytes 2, Absolute Monocytes 0.2, Eosinophils 3, Absolute Eosinophils 0.4, Basophils 2, Absolute Basophils 0, Platelet Estimate INCREASED, Polychromasia 1+, Hypochromic -Microcytic 1+, Poikilocytosis 1+, Ovalocytes 1+, Elliptocytes FEW, Fld Total RBCs Counted 100 Microbiology 12/21 902 URINE ROUT: Legionella Antigen - ORD 12/21 902 URINE ROUT: Streptococcus pneumoniae Antigen (M - ORD 12/21 902 LOWER RESP: Respiratory Culture - ORD 12/21 902 LOWER RESP: Gram Stain - ORD 12/21 899 UPPER RESP: Surveillance Culture - RECD 12/21 899 GI: Surveillance Culture - RECD 12/21 621 BLOOD: Blood Culture - RECD 12/21 554 BLOOD: Blood Culture - RECD Assessment/Plan Assessment: Patient is a 77-year-old female with past medical history significant for COPD not on oxygen, CAD s/p MO recent stenting twice in , HFrEF, COPD, HTN, HLD, OA, depression, SBO s/p repair presented to [facility] after found to have sudden onset of diaphoresis, dyspneic saturating 70% on RA only improved to 81% on 3L supplementation. She was also found to be tachypneic with RR 30, BP 160/90 mmHg. VS at admission are Temp 97.7, Pulse 81, BP 155/74mmHg, 89% on 3L oxygen. Labs did show white count of 11.3 with left shift (segmented neutrophils 85) , H &H 9.2/29.9, platelets 429, chem panel Na 142, K 3.8, cl 105, BUN/Cr 23/0.8, Trop 0.74. ProBNP 13k. EKG - A.flutter/fib with LBBB, no new ST T wave changes, Imaging with CXR significant for Interval development of diffuse mixed interstitial airspace opacification throughout the left lung suspicious for atypical pneumonia. Differential Patient did have sudden onset of symptoms - it could be aspiration, interstitial disease, heart failure, atypical pneumonia - multilobar. Plan Admitted to ICU Problem list 1. Diffuse mixed interstitial airspace opacification 2. Elevated Troponin 3. Paroxysmal A.fib 4. CAD s/p MO recent stenting twice in and HFrEF 5. COPD not on oxygen 6. HTN 7. HLD 8. OA 9. Depression Diffuse mixed interstitial airspace opacification Differential includes - atypical pna, worsening of cardiopulmonary disease in the setting of HFrEF and pulm HTN. Sudden onset dyspnea could be due to severe orthopnea, chemical pneumonitis due to microaspriation. * A single dose of azithromycin and ceftriaxone along with stress dose of steroids given in ER * IV furosemide - elevated proBNP * Sputum culture/legionella/strep antigen to rule out remote possibility of infection * Aspiration precautions * TRC/Nebs Paroxysmal A.fib Patient is in A.fib now, NSR in november. 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 * Continue apixaban and metoprolol for now * Serial trops and EKG * Cardiology - on board. Elevated Troponin Likley demand. * serial EKG and Trop * Cardio consult - for further evaluation * ECHO COPD not on oxygen Patient was on Breo, albuterol * TRC/Nebs CAD s/p MO recent stenting twice in - EF 40% Patient is currently on ASA, plavix, metoprolol 100mg daily, lisinopril 2.5mg daily, Atorvastatin 40mg daily. * we will continue for now. OA On tylenol. we will continue. Depression On paroxetine, we will continue. DVT prophylaxis Eliquis Code status Full code - she had a living will and it states full code As Ranked By This Provider Problem List: 1. Elevated troponin 2. CHF (congestive heart failure) 3. Depression 4. Osteoarthritis Core Measures/Misc (04/26) Acute Coronary Syndrome ACS Diagnosis: Yes Congestive Heart Failure Congestive Heart Failure Diagnosis Yes Last Known EF % 40 Cerebrovascular Accident CVA/TIA Diagnosis: No VTE (View Protocol) VTE Risk Factors Acute Medical Illness No Mechanical VTE Prophylaxis d/t N/A MechProphylax Ordered No VTE Pharm Prophylaxis d/t NA PharmProphylax ordered Sepsis (View protocol) Sepsis Present: No Naty MITCHELL,[facility] 12/21/17 1351: Attending MD Review Statement Attending Statement Attending MD Statement: examined this patient, discuss w/resident/PA/ENVIRONMENTAL PERMITTING SPECIALIST, agreed w/resident/PA/ENVIRONMENTAL PERMITTING SPECIALIST, discussed with family, reviewed EMR data (avail), discussed with nursing, discussed with case mgmt, reviewed images, amended to note Attending Assessment/Plan: Full note as above ISsues Acute dyspnea with hypoxia c/w HFrEF Has chronic lung disease without emphysema with poor performance status Elevated troponin mild REC IV lasix bid Cont other meds PT is on anticoag and antiplatelet rx Watch crit No need for steroid or antibiotics for now Will follow TTS 37 mins
[2017-12-21] MEDS ORDERED: FUROSEMIDE40 M1 PO (07:50)
[2017-12-21] MEDS ORDERED: ELIQUIS5 M1 PO (07:50)
[2017-12-21] MEDS ORDERED: LISINOPRIL2.5 M1 PO (07:51)
[2017-12-21] MEDS ORDERED: ACIDOPHILUS1 EACH PO (07:54)
[2017-12-21 09:00] VITALS: BP 110/64
--- NOTE | 2017-12-21 11:48 | Cons- Cardiology ---
General Information and HPI Consulting Request Date of Consult: 12/21/17 Requested By: Bryant Alfonso MD Reason for Consult: Positive troponin I. Source of Information: patient, old records Exam Limitations: poor historian History of Present Illness: Mrs. Margoth Juan is a 77 years old female with a history of depression, osteoarthritis, hypertension, hyperlipidemia, paroxysmal atrial fibrillation, and coronary artery disease (s/p remote AR w/ culprit PCI/BMS x1 to LAD; and follow-up PCI/BMS 1 for non-culpret LCx stenosis; PCI/LANE [[facility] ] of an 80% LCx AV groove artery stenosis on 11/19/2017; in stent restenosis of LCx AV groove artery s/p POBA on 12/03/2017) who presented 12/21/2017 with complaints of weakness and shortness of breath with an elevated troponin I level without any associated chest discomfort. The cardiac catheterization from 12/03/2017 revealed the following: LM-patent, LAD-diffuse luminal irregularities and patency at prior stent site, LCx-100% occlusion at the beginning of the previously placed stent with normal flow into the M1, RCA-dominant with ectasia and diffuse luminal irregularities, and LV gram-not done. Mrs. Juan was also hospitalized here (05/11-05/28/2016) for sepsis following "spontaneous" duodenal ulcer perforation with peritonitis/pneumoperitoneum that required emergent laparotomy with some postoperative short runs of nonsustained ventricular tachycardia (NSVT) that prompted initiation of beta vinnie therapy and planned outpatient follow-up and an imaging stress test for the NSVT, as outlined in our progress note from 05/19/2016, however, she was lost to follow- up after discharge. Allergies/Medications Allergies: Coded Allergies: amoxicillin (From AUGMENTIN) (THRUSH 12/21/17) clavulanic acid (From AUGMENTIN) (THRUSH 12/21/17) Home Med List: Acetaminophen (Tylenol Extra Strength) 500 MG TABLET 2 TAB PO TID PAIN ( Reported) Apixaban (Eliquis) 5 MG TABLET 1 TAB PO BID BLOOD THINNER (Reported) Atorvastatin Calcium 40 MG TABLET 1 TAB PO QPM CHOLESTEROL (Reported) Clopidogrel Bisulfate (Plavix) 75 MG TABLET 75 MG PO DAILY HEART HEALTH Fluticasone/Vilanterol (Breo Ellipta 100-25 Mcg INH) 100 MCG-25 MCG/DOSE BLST.W.DEV 1 INHA PO DAILY COPD (Reported) Furosemide 40 MG TABLET 1 TAB PO DAILY WATER RETENTION (Reported) Lactobacillus Acidophilus (Acidophilus) 1 EACH CAPSULE 1 CAP PO BID GI ( Reported) Lisinopril 2.5 MG TABLET 1 TAB PO DAILY HEART (Reported) Metoprolol Succinate 100 MG TAB.ER.24H 1 TAB PO DAILY HEART (Reported) Omeprazole 20 MG CAPSULE.DR 1 CAP PO DAILY BOWEL ULCER (Reported) Paroxetine HCl 40 MG TABLET 1 TAB PO DAILY MOOD (Reported) Sennosides (Senna) 8.6 MG TABLET 2 TAB PO BID CONSTIPATION (Reported) Review of Systems Review of Systems: 14 point system review was obtained and was noncontributory, other than as above. 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 Acute Rehab Who Do You Live With? alone Services at Home: None Primary Language: Japanese Smoking Status: Unknown If Ever Smoked Living Will? yes Power of Lcac Radar Operator/Navigator/HCP? yes Name of POA/HCP: Sinan Rossi Functional Ability ADLs Independent: toileting. Needs Assist: eating, bathing. Ambulation: walker IADLs Independent: finances, medication admin. Needs Assist: shopping, food prep, transportation. Exam & Diagnostic Data Vital Signs and I&O Vital Signs Date Time Temp Pulse Resp B/P B/P Pulse O2 O2 Flow FiO2 Mean Ox Delivery Rate 12/21 1127 70 109/55 12/21 1056 74 112/54 12/21 1016 Nasal 2.0L Cannula 12/21 0900 98 Nasal 3.5L Cannula 12/21 0900 98.6 76 26 110/64 98 Nasal 3.5L Cannula 12/21 0837 97.6 75 20 106/60 100 Nasal 3.5L Cannula 12/21 0739 97.4 77 20 102/67 100 Nasal 3.5L Cannula 12/21 0615 96 Nasal 3.5L Cannula 12/21 0605 97 Nasal 3.0L Cannula 12/21 0550 18 97 Nasal 3.0L Cannula 12/21 0548 97.7 81 18 155/74 89 Room Air Intake & Output 12/21 0800 12/21 0000 12/20 0812/20 0000 Intake Total Output Total Balance Patient 120 lb 150 lb Weight Weight Bed scale Reported by Patient Measurement Method Physical Exam: Chronically ill-appearing elderly female in mild respiratory distress with nasal oxygen in place. Vital signs: See above. HEENT: Normocephalic, atraumatic, EOMI, and slightly dry mucous membranes. Neck: No JVD, no bruits. Lungs: Poor inspiratory effort, occasional rhonchi. Heart: S1, S2. Abdomen: Soft, nontender, positive bowel sounds. Extremities: No edema. Labs/Ilya Results: Laboratory Tests 12/21 12/21 0610 0555 Blood Gas pH (7.35 - 7.45 PH) 7.39 pCO2 (35 - 45 TORR) 36 pO2 (80 - 100 TORR) 95 HCO3 (21 - 28 MEQ/L) 21 ABG O2 Sat (Measured) (>96.0 %) 96.0 Carboxyhemoglobin (1.5 - 5.0 %) 0.5 L O2 Concentration % 3.5L O2 Delivery Method NC Chemistry Sodium (137 - 145 mmol/L) 142 Potassium (3.5 - 5.1 mmol/L) 3.8 Chloride (98 - 107 mmol/L) 105 Carbon Dioxide (22 - 30 mmol/L) 23 Anion Gap (5 - 16) 14 BUN (7 - 17 mg/dL) 23 H Creatinine (0.5 - 1.0 mg/dL) 0.8 Estimated GFR (>60 ml/min) > 60 BUN/Creatinine Ratio (7 - 25 %) 28.8 H Glucose (65 - 99 mg/dL) 186 H Calcium (8.4 - 10.2 mg/dL) 8.1 L Magnesium (1.6 - 2.3 mg/dL) 1.8 Total Bilirubin (0.2 - 1.3 mg/dL) 0.2 Direct Bilirubin (< 0.4 mg/dL) 0.2 AST (14 - 36 U/L) 32 ALT (9 - 52 U/L) 20 Alkaline Phosphatase (<127 U/L) 90 Troponin I (< 0.11 ng/ml) 0.74 *H [id number] Pept (<125 pg/mL) 93160 H Total Protein (6.3 - 8.2 g/dL) 6.4 Albumin (3.5 - 5.0 g/dL) 2.9 L Amylase (30 - 110 U/L) 99 Lipase (23 - 300 U/L) 542 H Hematology CBC w Diff MAN DIFF ORDERED WBC (4.8 - 10.8 /CUMM) 11.3 H RBC (4.20 - 5.40 /CUMM) 3.51 L Hgb (12.0 - 16.0 G/DL) 9.2 L Hct (37 - 47 %) 29.9 L MCV (81.0 - 99.0 FL) 85.1 MCH (27.0 - 31.0 PG) 26.3 L MCHC (33.0 - 37.0 G/DL) 30.9 L RDW (11.5 - 14.5 %) 19.1 H Plt Count (130 - 400 /CUMM) 429 H MPV (7.4 - 10.4 FL) 8.0 Gran % (42.2 - 75.2 %) 83.9 H Lymphocytes % (20.5 - 51.1 %) 10.0 L Monocytes % (1.7 - 9.3 %) 2.1 Eosinophils % (0 - 5 %) 3.9 Basophils % (0.0 - 2.0 %) 0.1 Absolute Granulocytes (1.4 - 6.5 /CUMM) 9.5 H Segmented Neutrophils (42.2 - 75.2 %) 85 H Absolute Lymphocytes (1.2 - 3.4 /CUMM) 1.1 L Lymphocytes (20.5 - 51.1 %) 8 L Monocytes (1.7 - 9.3 %) 2 Absolute Monocytes (0.10 - 0.60 /CUMM) 0.2 Eosinophils (0 - 5.0 %) 3 Absolute Eosinophils (0.0 - 0.7 /CUMM) 0.4 Basophils (0.0 - 2.0 %) 2 Absolute Basophils (0.0 - 0.2 /CUMM) 0 Platelet Estimate (ADEQUATE) INCREASED Polychromasia 1+ Hypochromic-Microcytic 1+ Poikilocytosis 1+ Ovalocytes 1+ Elliptocytes FEW Miscellaneous Phlebotomy Draw Site LEFT BRACHIAL Other Body Source Fld Total RBCs Counted (%) 100 Diagnostic Data EKG Results 12/21/2017: Sinus rhythm, multiple APCs, & LBBB. Note written change when compared to previous tracing from 12/03/2017. CXR Results 12/21/2017: Interval development of diffuse mixed interstitial airspace opacification throughout the left lung suspicious for atypical pneumonia. Assessment/Plan Assessment/Plan [id number] w/ hx of depression, OA, HTN, HLD, PAF, & CAD as described above who presented from her SNF who presented 12/21/2017 w/ c/o weakness & SOB w/ an elevated troponin I level w/o any associated chest discomfort. Suspect the troponin I elevation reflects residual enzyme elevation from her previous STEMI and not an ACS. Recommendations: * ICU admission and follow-up troponins. * Echocardiogram to reassess her left ventricular function in light of her previous STEMI. * Continue her present cardiac medications. * DVT prophylaxis. Further recommendations will follow, * Thank you. Consult Acknowledgment - Thank you for your consult request.
[2017-12-21 16:00] VITALS: BP 124/60
--- NOTE | 2017-12-21 19:03 | ECHOCARDIOGRAM REPORT ---
MEGHAN MA Age: 77 : 1940 Gender: F Exam Date: 12/21/2017 16:49 Exam Location: [facility] Ht (in): 60 Wt (lb): 120 BSA: 1.53 BP: 109 / 55 Ordering Physician: Melissa Varner MD Referring Physician: Mikhail Orlando MD Technologist: Sofie Severino [facility] Room Number: 108 Indications: HEART FAILURE Rhythm: Sinus Technical Quality: Fair FINDINGS Left Ventricle Normal size left ventricle. Mild concentric left ventricular hypertrophy. Abnormal septal motion consistent with left bundle branch block. Markedly hypokinetic to akinetic inferior and lateral castro. Moderately abnormal left ventricular ejection fraction estimated at 25-30%. Mildly increased resting left ventricular outflow tract velocity (1.35 m/s). False chordae in the left ventricle (normal variant). Right Ventricle Normal right ventricular size and function. Right Atrium Normal right atrial size. Left Atrium Mild left atrial dilatation. Mitral Valve Mild mitral annular calcification. Mild mitral regurgitation. Aortic Valve Trileaflet aortic valve. Mild aortic sclerosis. No hemodynamically significant aortic stenosis. Mild aortic regurgitation. Tricuspid Valve Structurally normal tricuspid valve. Mild tricuspid regurgitation. No evidence of pulmonary hypertension. Right ventricular systolic pressure estimated to be within the normal range at 15 mmHg. Pulmonic Valve Pulmonic valve not well visualized, grossly normal. No pulmonic regurgitation. Pericardium No pericardial effusion. Great Vessels Normal size aortic root. Mildly dilated proximal ascending aorta (tube). CONCLUSIONS Normal size left ventricle. Mild concentric left ventricular hypertrophy. Abnormal septal motion consistent with left bundle branch block. Markedly hypokinetic to akinetic inferior and lateral castro. Moderately abnormal left ventricular ejection fraction estimated at 25-30%. Mildly increased resting left ventricular outflow tract velocity (1.35 m/s). Normal right ventricular size and function. Normal right atrial size. Mild left atrial dilatation. Mild mitral regurgitation. Mild aortic regurgitation. Mild tricuspid regurgitation. No evidence of pulmonary hypertension. Mildly dilated proximal ascending aorta (tube). Mikhail Orlando M.D. (Electronically Signed) Final Date: 21 Dec 2017 19:02 MEASUREMENTS (Male / Female) Normal Values 2D ECHO LV Diastolic Diameter PLAX 5.0 cm 4.2 - 5.9 / 3.9 - 5.3 cm LV Systolic Diameter PLAX 4.4 cm 2.1 - 4.0 cm LV Fractional Shortening PLAX 12.0 % 25 - 46 % LV Ejection Fraction 2D Teich 25.8 % IVS Diastolic Thickness 1.3 cm LVPW Diastolic Thickness 1.1 cm LV Relative Wall Thickness 0.5 RV Internal Dim ED PLAX 2.7 cm 1.9 - 3.8 cm LVOT Diameter 1.8 cm Aortic Root Diameter 3.3 cm LA Systolic Diameter LX 4.5 cm 3.0 - 4.0 / 2.7 - 3.8 cm LA Volume 70.0 cm 18 - 58 / 22 - 52 cm Ascending Aorta Diameter 3.7 cm DOPPLER AV Peak Velocity 175.0 cm/s AV Peak Gradient 12.3 mmHg AV Mean Velocity 110.0 cm/s AV Mean Gradient 6.0 mmHg AV Velocity Time Integral 39.3 cm LVOT Peak Velocity 135.0 cm/s LVOT Peak Gradient 7.3 mmHg LVOT Mean Velocity 75.7 cm/s LVOT Mean Gradient 3.0 mmHg LVOT Velocity Time Integral 26.3 cm LVOT Stroke Volume 66.9 cm AV Area Cont Eq vti 1.7 cm AV Area Cont Eq pk 2.0 cm MV Peak Velocity 149.0 cm/s MV Peak Gradient 8.9 mmHg MV Mean Velocity 96.5 cm/s MV Mean Gradient 4.0 mmHg Mitral E Point Velocity 132.0 cm/s Mitral A Point Velocity 129.0 cm/s Mitral E to A Ratio 1.0 MV PHT Velocity 147.0 cm/s MV Deceleration Bacon 393.0 cm/s MV Pressure Half Time 112.2 ms MV Area PHT 2.0 cm MV Deceleration Time 206.0 ms TR Peak Velocity 112.0 cm/s TR Peak Gradient 5.0 mmHg Right Atrial Pressure 10.0 mmHg Pulmonary Artery Systolic Pressu 15.0 mmHg Right Ventricular Systolic Press 15.0 mmHg PV Peak Velocity 127.0 cm/s PV Peak Gradient 6.5 mmHg PV Mean Velocity 84.8 cm/s PV Mean Gradient 3.0 mmHg PV Velocity Time Integral 33.7 cm LV E' Lateral Velocity 4.9 cm/s Mitral E to LV E' Lateral Ratio 27.1 LV E' Septal Velocity 4.1 cm/s Mitral E to LV E' Septal Ratio 32.3
[2017-12-22] VITALS: BP 110/50
[2017-12-22 04:21] LABS: ABSOLUTE BASOPHIL COUNT 0 /CUMM (0.0-0.2); ABSOLUTE EOSINOPHIL COUNT 0 /CUMM (0.0-0.7); ABSOLUTE GRANULOCYTE CT 3.8 /CUMM (1.4-6.5); ABSOLUTE LYMPH COUNT 1.8 /CUMM (1.2-3.4); ABSOLUTE MONOCYTE COUNT 0.7 /CUMM (0.10-0.60); BASOPHIL % 0.4 % (0.0-2.0); EOSINOPHIL % 0.3 % (0-5); GRANULOCYTE % 59.4 % (42.2-75.2); MEAN CORPUSCULAR HGB 26.1 PG (27.0-31.0); MEAN PLATELET VOLUME 7.8 FL (7.4-10.4); PLATELET COUNT 402 /CUMM (130-400); WHITE BLOOD CELL COUNT 6.3 /CUMM (4.8-10.8)
[2017-12-22 04:26] LABS: HEMATOCRIT 24.4 % (37-47)
[2017-12-22 05:45] LABS: ABSOLUTE BASOPHIL COUNT 0 /CUMM (0.0-0.2); ABSOLUTE EOSINOPHIL COUNT 0 /CUMM (0.0-0.7); ABSOLUTE GRANULOCYTE CT 3.5 /CUMM (1.4-6.5); ABSOLUTE LYMPH COUNT 1.8 /CUMM (1.2-3.4); ABSOLUTE MONOCYTE COUNT 0.8 /CUMM (0.10-0.60); BASOPHIL % 0.6 % (0.0-2.0); EOSINOPHIL % 0.7 % (0-5); GRANULOCYTE % 56.5 % (42.2-75.2); MEAN CORPUSCULAR HGB CONC 31.1 G/DL (33.0-37.0); MEAN CORPUSCULAR VOLUME 83.6 FL (81.0-99.0); MEAN PLATELET VOLUME 7.9 FL (7.4-10.4); PLATELET COUNT 381 /CUMM (130-400); RBC DISTRIBUTION WIDTH 18.9 % (11.5-14.5); RED BLOOD CELL CT 2.87 /CUMM (4.20-5.40); WHITE BLOOD CELL COUNT 6.1 /CUMM (4.8-10.8)
--- NOTE | 2017-12-22 07:23 | PN- Resident CRCU ---
Waqar MITCHELL,[facility] 12/22/17 0722: Subjective HPI/CRCU Issues: No acute events overnight. Complaining of superficial chest pain today. There is some skin irritation and excoriation from EKG lead. No cp, sob, or sputum production. Scheduled for lateral decubitus xray however patient had bigeminy and PVC. Will await until patient is more stable. Objective Vital Signs & I&O Last 8 Hrs of Vitals and I&O: Laboratory Tests 12/22/17 0531: CBC w Diff NO MAN DIFF REQ, RBC 2.87 L, MCV 83.6, MCH 26.0 L, MCHC 31.1 L, RDW 18.9 H, MPV 7.9, Gran % 56.5, Lymphocytes % 29.6, Monocytes % 12.6 H, Eosinophils % 0.7, Basophils % 0.6, Absolute Granulocytes 3.5, Absolute Lymphocytes 1.8, Absolute Monocytes 0.8 H, Absolute Eosinophils 0, Absolute Basophils 0 12/22/17 0400: Anion Gap 9, Estimated GFR > 60, BUN/Creatinine Ratio 32.5 H, Calcium Pending, Phosphorus Pending, Magnesium Pending, CBC w Diff NO MAN DIFF REQ, RBC 2.90 L, MCV 84.0, MCH 26.1 L, MCHC 31.0 L, RDW 19.0 H, MPV 7.8, Gran % 59.4, Lymphocytes % 28.3, Monocytes % 11.6 H, Eosinophils % 0.3, Basophils % 0.4, Absolute Granulocytes 3.8, Absolute Lymphocytes 1.8, Absolute Monocytes 0.7 H, Absolute Eosinophils 0, Absolute Basophils 0 12/21/17 1805: Troponin I 1.11 *H 12/21/17 1210: Troponin I 1.24 *H Vital Signs Date Time Temp Pulse Resp B/P B/P Pulse O2 O2 Flow FiO2 Mean Ox Delivery Rate 12/22 0800 97.5 59 20 122/68 97 Nasal 3.0L Cannula 12/22 040 98 Nasal 3.0L Cannula Exam General Appearance: alert, awake, anxious Neck: no JVD noted Respiratory: diffuse left resp crackles and mild wheezing. R coarse breath sounds., area of chest skin excoriation/inflmmation from reaction with lead tape Cardiovascular: afib Gastrointestinal: soft, non-tender, decreased bowel sounds Extremities: 2+ radial pulses, trace LE edema Current Medications: Current Medications Sig/Sergey Start time Last Medication Dose Route Stop Time Status Admin Albuterol Sulfate 3 ML Q4P PRN 12/21 1045 AC INH Apixaban 5 MG BID 12/21 0900 AC 12/21 PO 2104 Atorvastatin Calcium 40 MG 1700 12/21 1700 AC 12/21 PO 1739 Azithromycin 500 MG DAILY 12/22 0900 CAN Sodium Chloride 250 ML IV Clopidogrel Bisulfate 75 MG DAILY 12/21 0900 AC 12/21 PO 1053 Furosemide 40 MG BID 12/21 2100 AC 12/21 IV 2104 Furosemide 40 MG DAILY 12/21 1045 DC 12/21 IV 1129 Furosemide 40 MG DAILY 12/21 0900 DC PO Lactobacillus 1 CAP BID 12/21 0900 AC 12/21 Acidophilus PO 210 Lisinopril 2.5 MG DAILY 12/21 0900 AC 12/21 PO 1127 Metoprolol Succinate 100 MG DAILY 12/21 0900 AC 12/21 PO 1056 Omeprazole 20 MG DAILY AC 12/21 0900 AC 12/22 PO 0704 Paroxetine HCl 40 MG DAILY 12/22 0900 AC PO Potassium Chloride 40 MEQ ONCE ONE 12/22 0900 UNVr PO 12/22 0901 Potassium Chloride 20 MEQ ONCE ONE 12/21 1100 DC 12/21 PO 12/21 1101 1127 Potassium Chloride 10 MEQ Q1H 12/21 0930 DC IV 12/21 1031 Impression/Plan Impression/Problem List Impression: 77-year-old female with past medical history significant for CAD s/p NE recent stenting twice in , COPD not on oxygen, HFrEF, HTN, HLD, OA, depression , SBO s/p repair presented to [facility] after found to have sudden onset of diaphoresis, dyspneic saturating 70% on RA only improved to 81% on 3L supplementation. She was also found to be tachypneic with RR 30, BP 160/90 mmHg. VS at admission are Temp 97.7, Pulse 81, BP 155/74mmHg, 89% on 3L oxygen. Labs did show white count of 11.3 with left shift (segmented neutrophils 85) , H&H 9.2/29.9, platelets 429, chem panel Na 142, K 3.8, cl 105, BUN/Cr 23/0.8, Trop 0.74. ProBNP 13k. EKG - A.flutter/fib with LBBB, no new ST T wave changes. Problem list 1. Diffuse mixed interstitial airspace opacification 2. Elevated Troponin 3. Paroxysmal A.fib 4. CAD s/p NE recent stenting twice in and HFrEF 5. COPD not on oxygen 6. HTN 7. HLD 8. OA 9. Depression 10. Anemia #Acute dyspnea with hypoxia more likely secondary to HR rather than infection Pt presented with sudden onset of diaphoresis and dyspnea, saturating 70% on RA. She improved to 81% on 3L supplementation. Differential includes: atypical pna, worsening HFrEF in the setting of pulm HTN, aspiration,interstitial disease lung disease. Azithromycin and ceftriaxone x1 and 125mg solumedrol were give in the ER. Recently had CAD s/p NE recent stenting twice in November. Reported no chest discomfort upon admission. Initial WBC 11.3 but patient has been afebrile. Probnp elevated 61400. CXR: Interval development of diffuse mixed interstitial airspace opacificatiob throughout the left lung suspicious for atypical pneumonia. Echo revealed abnormal septal motion consistent with left bundle branch block. Markedly hypokinetic to akinetic inferior and lateral castro. Moderately abnormal left ventricular ejection fraction estimated at 25-30%. -f/u lateral decubitus films when patient stable from bigeminy -leukocytosis now resolved -f/u cultures to r/o pna -cont plavix, metoprolol, lisinopril, Atorvastatin -cont lasix IV BID -TRC/Nebs #Elevated Troponin most likely demand Recently had CAD s/p NE recent stenting twice in November. Most likley demand. Trops: 0.74, 1.24, 1.11 -f/u cardio recommendations #Anemia with h/h drop Baseline h/h 9-06/05/30 Current h/h 7.5/24 -> 9.4/29.3 s/p 1 unit -patient refusing manual guaiac test at this time. requesting to wait for BM. -f.u hemooccult -HOLDING apixaban, need cardiology input regarding restart. #Paroxysmal A.fib Currently in afib. -Continue metoprolol -holding apixaban #COPD not on oxygen Patient was on Breo, albuterol -cont TRC/Nebs #Htn -cont metorpolol,lisinopril #OA -On tylenol. we will continue. #Depression -cont paroxetine #GERD -cont omeprazole #DVT prophylaxis -HOLDING Apixaban FOR H/H drop #FULL CODE Problem List: 1. Afib 2. Elevated troponin 3. Anemia 4. History of CHF (congestive heart failure) 5. Acute respiratory failure with hypoxia Pain Ratin Pain Location: superficial chest Tomorrow's Labs & Rationales: cbc icu bundle Plan DVT/Prophylaxis: mechanical Naty MITCHELL,[facility] 12/22/17 1252: Objective Vital Signs & I&O Last 8 Hrs of Vitals and I&O: Intake & Output 12/22 1600 Intake Total Output Total Balance Patient 121 lb Weight Weight Bed scale Measurement Method Attending MD Review Statement Attending Sign Off Attending Cosign Statement: I have: examined this patient, reviewed [employer] EMR data, personally reviewd images, discussd w/resident/PA/RUG MEASURER, discussed mgmt plan w/nico, discussed mgmt plan w/CM, discussed mgmt plan w/pt, agreed w/resident/PA/RUG MEASURER, amended to note. Other Findings: ISsues Acute dyspnea with hypoxia c/w HFrEF Has chronic lung disease without emphysema with poor performance status Elevated troponin mild Incontinent to urine Low ef Anemia REC check stool for heme lasix to continue increase to bid frey check cbc regularly OOB to chair No indication for abx will follow
[2017-12-22 08:00] VITALS: BP 122/68
[2017-12-22 11:52] LABS: ABSOLUTE BASOPHIL COUNT 0 /CUMM (0.0-0.2); ABSOLUTE EOSINOPHIL COUNT 0 /CUMM (0.0-0.7); MEAN PLATELET VOLUME 7.9 FL (7.4-10.4); PLATELET COUNT 379 /CUMM (130-400)
[2017-12-22 11:57] LABS: ABSOLUTE LYMPH COUNT 1.7 /CUMM (1.2-3.4); ABSOLUTE MONOCYTE COUNT 0.8 /CUMM (0.10-0.60); BASOPHIL % 0.6 % (0.0-2.0); EOSINOPHIL % 0.6 % (0-5); GRANULOCYTE % 65.8 % (42.2-75.2); MEAN CORPUSCULAR HGB 27.1 PG (27.0-31.0); MEAN CORPUSCULAR HGB CONC 32.1 G/DL (33.0-37.0); MEAN CORPUSCULAR VOLUME 84.4 FL (81.0-99.0); RBC DISTRIBUTION WIDTH 18.3 % (11.5-14.5); RED BLOOD CELL CT 3.47 /CUMM (4.20-5.40); WHITE BLOOD CELL COUNT 7.6 /CUMM (4.8-10.8)
[2017-12-22 12:01] LABS: HEMATOCRIT 29.3 % (37-47)
--- NOTE | 2017-12-22 14:20 | RADIOLOGY REPORT ---
EXAMINATION: XR PORTABLE CHEST CLINICAL INFORMATION: CHF. Diaphoresis. COMPARISON: 12/21/2017. TECHNIQUE: Portable frontal view of the chest was obtained. FINDINGS: Cardiac leads overlie the chest. The lungs are well expanded. There is redemonstration of a prominent left midlung airspace opacity. Aeration is partially improved since the previous study. Minimal blunting at the right costophrenic angle. No pneumothorax. The cardiomediastinal silhouette is normal in size, with a calcified aorta. IMPRESSION: Persistent left midlung airspace opacity with partially improved aeration since the previous study. The appearance is most suggestive of pneumonia, although asymmetric edema is possible.
[2017-12-22 16:00] VITALS: BP 114/60
--- NOTE | 2017-12-22 18:27 | PN- Cardiology ---
Subjective Subjective: No complaints. Had ventricular bigeminy earlier, but rhythm now improved. Drop in H/H prompted transfusion of 1 unit packed RBCs. Eliquis on hold. Objective Vital Signs and I&Os Vital Signs Date Time Temp Pulse Resp B/P B/P Pulse O2 O2 Flow FiO2 Mean Ox Delivery Rate 12/22 1703 94 Nasal 2.0L Cannula 12/22 1600 97.2 67 26 114/60 98 Nasal 3.0L Cannula 12/22 1600 97 Nasal 3.0L Cannula 12/22 1321 97 Nasal 2.0L Cannula 12/22 1200 98 Nasal 3.0L Cannula 12/22 0948 62 107/69 12/22 0948 63 107/59 12/22 0930 95 Nasal 2.0L Cannula 12/22 0800 97.5 59 20 122/68 97 Nasal 3.0L Cannula 12/22 0800 97 Nasal 3.0L Cannula 12/22 0400 98 Nasal 3.0L Cannula 12/22 0000 98 Nasal 3.0L Cannula 12/22 0000 98.2 68 25 110/50 97 Nasal 3.0L Cannula 12/21 2000 97 Nasal 3.0L Cannula Intake & Output 12/22 1600 12/22 0800 12/22 0000 12/21 1600 12/21 0800 12/21 0000 Intake Total 830 50 360 240 Output Total 550 Balance 280 50 360 240 Intake, Blood 350 Product Intake, IV 0 Intake, Oral 480 50 360 240 Number 0 0 Bowel Movements Output, Urine 550 Patient 121 lb 120 lb 150 lb Weight Weight Bed scale Bed scale Reported by Patient Measurement Method Physical Exam: Chronically ill-appearing elderly female in mild respiratory distress with nasal oxygen in place. Vital signs: See above. HEENT: Normocephalic, atraumatic, EOMI, and slightly dry mucous membranes. Neck: No JVD, no bruits. Lungs: Poor inspiratory effort, occasional rhonchi. Heart: S1, S2. Abdomen: Soft, nontender, positive bowel sounds. Extremities: No edema. Current Medications: Current Medications Sig/Sergey Start time Last Medication Dose Route Stop Time Status Admin Albuterol Sulfate 3 ML Q4P PRN 12/21 1045 AC 12/22 INH 1658 Apixaban 5 MG BID 12/21 0900 DC 12/21 PO 2104 Atorvastatin Calcium 40 MG 1700 12/21 1700 AC 12/22 PO 1746 Clopidogrel Bisulfate 75 MG DAILY 12/21 09 AC 12/22 PO 1017 Furosemide 40 MG BID 12/21 2100 AC 12/22 IV 1017 Lactobacillus 1 CAP BID 12/21 09 AC 12/22 Acidophilus PO 0948 Lisinopril 2.5 MG DAILY 12/21 899 AC 12/22 PO 0948 Magnesium Oxide 400 MG 12/22 DC 12/22 PO 12/22 0931 1109 Metoprolol Succinate 100 MG DAILY 12/21 899 AC 12/22 PO 0948 Omeprazole 20 MG DAILY AC 12/21 09 AC 12/22 PO 0704 Paroxetine HCl 40 MG DAILY 12/22 899 AC 12/22 PO 0914 Potassium Chloride 40 MEQ ONCE ONE 12/22 09 DC 12/22 PO 12/22 0901 1109 Trimethobenzamide HCl 200 MG ONCE ONE 12/22 1330 DC 12/22 IM 12/22 1331 1322 Results Last 48 Hrs of Labs/Mics: Laboratory Tests 12/22/17 1250: Troponin I 0.65 *H, TSH 4.420 H, Free T4 1.09 12/22/17 1130: CBC w Diff NO MAN DIFF REQ, RBC 3.47 L, MCV 84.4, MCH 27.1, MCHC 32.1 L, RDW 18.3 H, MPV 7.9, Gran % 65.8, Lymphocytes % 22.7, Monocytes % 10.3 H, Eosinophils % 0.6, Basophils % 0.6, Absolute Granulocytes 5.0, Absolute Lymphocytes 1.7, Absolute Monocytes 0.8 H, Absolute Eosinophils 0, Absolute Basophils 0 12/22/17 0531: CBC w Diff NO MAN DIFF REQ, RBC 2.87 L, MCV 83.6, MCH 26.0 L, MCHC 31.1 L, RDW 18.9 H, MPV 7.9, Gran % 56.5, Lymphocytes % 29.6, Monocytes % 12.6 H, Eosinophils % 0.7, Basophils % 0.6, Absolute Granulocytes 3.5, Absolute Lymphocytes 1.8, Absolute Monocytes 0.8 H, Absolute Eosinophils 0, Absolute Basophils 0 12/22/17 0400: Anion Gap 9, Estimated GFR > 60, BUN/Creatinine Ratio 32.5 H, Calcium 8.2 L, Phosphorus 3.6, Magnesium 1.7, CBC w Diff NO MAN DIFF REQ, RBC 2.90 L, MCV 84.0 , MCH 26.1 L, MCHC 31.0 L, RDW 19.0 H, MPV 7.8, Gran % 59.4, Lymphocytes % 28.3, Monocytes % 11.6 H, Eosinophils % 0.3, Basophils % 0.4, Absolute Granulocytes 3.8, Absolute Lymphocytes 1.8, Absolute Monocytes 0.7 H, Absolute Eosinophils 0, Absolute Basophils 0 12/21/17 1805: Troponin I 1.11 *H 12/21/17 1210: Troponin I 1.24 *H 12/21/17 0610: pH 7.39, pCO2 36, pO2 95, HCO3 21, ABG O2 Sat (Measured) 96.0, Carboxyhemoglobin 0.5 L, O2 Concentration % 3.5L, O2 Delivery Method NC, Phlebotomy Draw Site LEFT BRACHIAL 12/21/17 0555: Anion Gap 14, Estimated GFR > 60, BUN/Creatinine Ratio 28.8 H, Glucose 186 H, Calcium 8.1 L, Magnesium 1.8, Total Bilirubin 0.2, Direct Bilirubin 0.2, AST 32 , ALT 20, Alkaline Phosphatase 90, Troponin I 0.74 *H, Vph-E-[id number] Pept 91499 H, Total Protein 6.4, Albumin 2.9 L, Amylase 99, Lipase 542 H, CBC w Diff MAN DIFF ORDERED, RBC 3.51 L, MCV 85.1, MCH 26.3 L, MCHC 30.9 L, RDW 19.1 H, MPV 8.0, Gran % 83.9 H, Lymphocytes % 10.0 L, Monocytes % 2.1, Eosinophils % 3.9, Basophils % 0.1, Absolute Granulocytes 9.5 H, Segmented Neutrophils 85 H, Absolute Lymphocytes 1.1 L, Lymphocytes 8 L, Monocytes 2, Absolute Monocytes 0.2, Eosinophils 3, Absolute Eosinophils 0.4, Basophils 2, Absolute Basophils 0, Platelet Estimate INCREASED, Polychromasia 1+, Hypochromic -Microcytic 1+, Poikilocytosis 1+, Ovalocytes 1+, Elliptocytes FEW, Fld Total RBCs Counted 100 Microbiology 12/21 0900 UPPER RESP: Surveillance Culture - COMP 12/21 09 GI: Surveillance Culture - COMP Recent Imaging Studies: CXR 12/22/2017: Persistent left midlung airspace opacity with partially improved aeration since the previous study. The appearance is most suggestive of pneumonia, although asymmetric edema is possible. Echocardiogram 12/21/2017: Normal size left ventricle. Mild concentric left ventricular hypertrophy. Abnormal septal motion consistent with left bundle branch block. Markedly hypokinetic to akinetic inferior and lateral castro. Moderately abnormal left ventricular ejection fraction estimated at 25-30%. Mildly increased resting left ventricular outflow tract velocity (1.35 m/s). Normal right ventricular size and function. Normal right atrial size. Mild left atrial dilatation. Mild mitral regurgitation. Mild aortic regurgitation. Mild tricuspid regurgitation. No evidence of pulmonary hypertension. Mildly dilated proximal ascending aorta (tube). Assessment/Plan Assessment/Plan [id number] w/ hx of depression, OA, HTN, HLD, PAF, & CAD as described above who presented from her SNF who presented 12/21/2017 w/ c/o weakness & SOB w/ an elevated troponin I level w/o any associated chest discomfort. Suspected that the troponin I elevation reflected residual enzyme elevation from her previous STEMI, but would not expect to elevate further. We may be dealing with a type II PR, but will continue to monitor closely. No role for repeat cardiac catheterization at this juncture. Recommendations: * ICU admission and follow-up troponins. * Continue her present cardiac medications, except Eliquis. * Check all stool for occult blood. * Maintain hemoglobin above 8.0 g/dl given known CAD. * DVT prophylaxis. Continue telemetry? Yes
[2017-12-23] VITALS: BP 128/72
[2017-12-23 04:42] LABS: ABSOLUTE BASOPHIL COUNT 0.1 /CUMM (0.0-0.2); ABSOLUTE EOSINOPHIL COUNT 0.1 /CUMM (0.0-0.7); ABSOLUTE GRANULOCYTE CT 5.9 /CUMM (1.4-6.5); ABSOLUTE LYMPH COUNT 1.3 /CUMM (1.2-3.4); ABSOLUTE MONOCYTE COUNT 0.7 /CUMM (0.10-0.60); BASOPHIL % 0.8 % (0.0-2.0); EOSINOPHIL % 1.8 % (0-5); GRANULOCYTE % 72.5 % (42.2-75.2); HEMATOCRIT 29.8 % (37-47); MEAN CORPUSCULAR HGB 27.2 PG (27.0-31.0); MEAN CORPUSCULAR HGB CONC 32.1 G/DL (33.0-37.0); MEAN CORPUSCULAR VOLUME 84.7 FL (81.0-99.0); MEAN PLATELET VOLUME 8.2 FL (7.4-10.4); PLATELET COUNT 375 /CUMM (130-400); RBC DISTRIBUTION WIDTH 17.8 % (11.5-14.5); RED BLOOD CELL CT 3.52 /CUMM (4.20-5.40); WHITE BLOOD CELL COUNT 8.1 /CUMM (4.8-10.8)
--- NOTE | 2017-12-23 07:30 | PN- Resident CRCU ---
See Addendum Subjective HPI/CRCU Issues: No acute events overnight. No pain. No complaints. No SOB or palpitations. States she slept throughout the night. She did receive IV lasix 20mg extra dose last night but does not remember receiving it. Objective Vital Signs & I&O Last 8 Hrs of Vitals and I&O: Laboratory Tests 12/23/17 0347: Anion Gap 9, Estimated GFR > 60, Glucose 87, Calcium 8.3 L, Phosphorus 3.3, Magnesium 1.6, Total Bilirubin 0.3, AST 25, ALT 24, Nya-J-Fdbycrpbgfa Pept Pending, Albumin 2.8 L, CBC w Diff NO MAN DIFF REQ, RBC 3.52 L, MCV 84.7, MCH 27.2, MCHC 32.1 L, RDW 17.8 H, MPV 8.2, Gran % 72.5, Lymphocytes % 16.2 L, Monocytes % 8.7, Eosinophils % 1.8, Basophils % 0.8, Absolute Granulocytes 5.9, Absolute Lymphocytes 1.3, Absolute Monocytes 0.7 H, Absolute Eosinophils 0.1, Absolute Basophils 0.1 12/22/17 1250: Troponin I 0.65 *H, TSH 4.420 H, Free T4 1.09 12/22/17 1130: CBC w Diff NO MAN DIFF REQ, RBC 3.47 L, MCV 84.4, MCH 27.1, MCHC 32.1 L, RDW 18.3 H, MPV 7.9, Gran % 65.8, Lymphocytes % 22.7, Monocytes % 10.3 H, Eosinophils % 0.6, Basophils % 0.6, Absolute Granulocytes 5.0, Absolute Lymphocytes 1.7, Absolute Monocytes 0.8 H, Absolute Eosinophils 0, Absolute Basophils 0 Vital Signs Date Time Temp Pulse Resp B/P B/P Pulse O2 O2 Flow FiO2 Mean Ox Delivery Rate 12/23 0933 58 12/23 0800 97.4 57 23 118/60 97 Nasal 3.0L Cannula 12/23 0800 97 Nasal 3.0L Cannula 12/23 0400 99 Nasal 3.0L Cannula Intake & Output 12/23 1600 Intake Total Output Total Balance Patient 115 lb Weight Weight Bed scale Measurement Method Intake & Output 12/23 1600 Intake Total Output Total Balance Patient 115 lb Weight Weight Bed scale Measurement Method Exam General Appearance: alert, awake Respiratory: L sided wheezing, decreased breath sounds on LM LL and RL bases, diffuse inspiratory rhonchi b/l Cardiovascular: RRR Extremities: skin exocriation on chest from lead, no LE pitting edema Current Medications: Current Medications Sig/Sergey Start time Last Medication Dose Route Stop Time Status Admin Albuterol Sulfate 3 ML Q4P PRN 12/21 1045 AC 12/22 INH 2118 Apixaban 5 MG BID 12/21 0900 DC 12/21 PO 2104 Atorvastatin Calcium 40 MG 1700 12/21 1700 AC 12/22 PO 1746 Clopidogrel Bisulfate 75 MG DAILY 12/21 0900 AC 12/23 PO 0919 Furosemide 20 MG ONCE ONE 12/22 2145 DC 12/22 IV 12/22 2146 2135 Furosemide 40 MG BID 12/21 2100 AC 12/23 IV 0914 Lactobacillus 1 CAP BID 12/21 0900 AC 12/23 Acidophilus PO 0918 Lisinopril 2.5 MG DAILY 12/21 0900 AC 12/23 PO 0918 Magnesium Oxide 400 MG ONE ONE 12/23 0545 DC 12/23 PO 12/23 0546 0608 Metoprolol Succinate 100 MG DAILY 12/21 0900 AC 12/22 PO 0948 Omeprazole 20 MG DAILY AC 12/21 0900 AC 12/23 PO 0608 Paroxetine HCl 40 MG DAILY 12/22 0900 AC 12/23 PO 0919 Trimethobenzamide HCl 200 MG .STK-MED ONE 12/22 192 DC IM 12/22 1930 Trimethobenzamide HCl 200 MG ONCE ONE 12/22 1330 DC 12/22 IM 12/22 1331 1322 Impression/Plan Impression/Problem List Impression: 77-year-old female with past medical history significant for CAD s/p MA recent stenting twice in , COPD not on oxygen, HFrEF, HTN, HLD, OA, depression , SBO s/p repair presented to [place] after found to have sudden onset of diaphoresis, dyspneic saturating 70% on RA only improved to 81% on 3L supplementation. She was also found to be tachypneic with RR 30, BP 160/90 mmHg. VS at admission are Temp 97.7, Pulse 81, BP 155/74mmHg, 89% on 3L oxygen. Labs did show white count of 11.3 with left shift (segmented neutrophils 85) , H&H 9.2/29.9, platelets 429, chem panel Na 142, K 3.8, cl 105, BUN/Cr 23/0.8, Trop 0.74. ProBNP 13k. EKG - A.flutter/fib with LBBB, no new ST T wave changes. Problem list 1. Diffuse mixed interstitial airspace opacification 2. Elevated Troponin 3. Paroxysmal A.fib 4. CAD s/p MA recent stenting twice in and HFrEF 5. COPD not on oxygen 6. HTN 7. HLD 8. OA 9. Depression 10. Anemia #Acute dyspnea with hypoxia more likely secondary to HR rather than infection Pt presented with sudden onset of diaphoresis and dyspnea, saturating 70% on RA. She improved to 81% on 3L supplementation. Differential includes: atypical pna, worsening HFrEF in the setting of pulm HTN, aspiration,interstitial disease lung disease. Azithromycin and ceftriaxone x1 and 125mg solumedrol were give in the ER. Recently had CAD s/p MA recent stenting twice in November. Reported no chest discomfort upon admission. Initial WBC 11.3 but patient has been afebrile and leukocytosis now resolved. Probnp elevated 00955. CXR: Interval development of diffuse mixed interstitial airspace opacificatiob throughout the left lung suspicious for atypical pneumonia. Echo revealed abnormal septal motion consistent with left bundle branch block. Markedly hypokinetic to akinetic inferior and lateral castro. Moderately abnormal left ventricular ejection fraction estimated at 25-30%. Repeat CXR continues to reveal L sided dependent edema consistent with prior CT. Repeat proBNP worst @ 20,500. -f/u cultures to r/o pna -cont plavix, metoprolol, lisinopril, Atorvastatin -cont lasix IV BID -TRC/Nebs #Elevated Troponin most likely residual from her previous STEMI vs demand ischemia. Recently had CAD s/p MA recent stenting twice in November. Trops: 0.74, 1.24, 1.11, 0.65 -f/u cardio recommendations #Anemia with h/h drop Baseline h/h 9-//30 Current h/h 7.5/24 -> 9.4/29.3 s/p 1 unit -patient refusing manual guaiac test at this time. requesting to wait for BM. -f.u hemooccult -HOLDING apixaban, f/u cardiology recommendations regarding restarting #Paroxysmal A.fib Currently in bigeminiy and rate controlled -Continue metoprolol but holding today as she is borderline bradycardic in 50s -holding apixaban until further recommenations from cardiology #COPD not on oxygen Patient was on Breo, albuterol -cont TRC/Nebs #Htn -cont metorpolol,lisinopril #OA -On tylenol. we will continue. #Depression -cont paroxetine #GERD -cont omeprazole #DVT prophylaxis -HOLDING Apixaban FOR H/H drop #FULL CODE Problem List: 1. Acute respiratory failure with hypoxia 2. History of CHF (congestive heart failure) 3. Anemia 4. Elevated troponin Pain Ratin Tomorrow's Labs & Rationales: cbc icu Plan DVT/Prophylaxis: mechanical
[2017-12-23 08:00] VITALS: BP 118/60
[2017-12-23 12:00] VITALS: BP 110/60
[2017-12-23 16:00] VITALS: BP 98/60
--- NOTE | 2017-12-23 19:50 | PN- Cardiology ---
Subjective Subjective: No complaints. Denies any chest discomfort, palpitations, or shortness of breath. Objective Vital Signs and I&Os Vital Signs Date Time Temp Pulse Resp B/P B/P Pulse O2 O2 Flow FiO2 Mean Ox Delivery Rate 12/23 1600 98.6 58 26 98/60 95 Nasal 2.0L Cannula 12/23 1600 95 Nasal 2.0L Cannula 12/23 1245 97 Nasal 2.0L Cannula 12/23 1200 94 Nasal 2.0L Cannula 12/23 1200 98.4 62 26 110/60 94 Nasal 2.0L Cannula 12/23 0933 58 12/23 0800 97.4 57 23 118/60 97 Nasal 3.0L Cannula 12/23 0800 97 Nasal 3.0L Cannula 12/23 0400 99 Nasal 3.0L Cannula 12/23 0000 99 Nasal 3.0L Cannula 12/23 0000 97.7 60 23 128/72 99 Nasal 3.0L Cannula 12/22 2000 93 Nasal 3.0L Cannula Intake & Output 12/23 1600 12/23 0800 12/23 0000 12/22 1600 12/22 0800 12/22 0000 Intake Total 710 200 370 830 50 360 Output Total 625 650 600 550 Balance 85 -450 -230 280 50 360 Intake, Blood 350 Product Intake, IV 10 0 30 0 Intake, Oral 700 200 340 480 50 360 Number 0 0 0 0 Bowel Movements Output, Urine 625 650 600 550 Patient 115 lb 121 lb Weight Weight Bed scale Bed scale Measurement Method Physical Exam: Chronically ill-appearing elderly female in no acute distress with nasal oxygen in place. Vital signs: See above. Neck: No JVD, no bruits. Lungs: Decreased breath sounds bilaterally. Heart: S1, S2 with no murmur, gallop, or rub. Abdomen: Soft, nontender, positive bowel sounds. Extremities: No edema. Current Medications: Current Medications Sig/Sergey Start time Last Medication Dose Route Stop Time Status Admin Albuterol Sulfate 3 ML Q4P PRN 12/21 1045 AC 12/22 INH 2118 Atorvastatin Calcium 40 MG 1700 12/21 1700 AC 12/23 PO 1608 Clopidogrel Bisulfate 75 MG DAILY 12/21 0900 AC 12/23 PO 0919 Furosemide 20 MG ONCE ONE 12/22 2144 DC 12/22 IV 12/22 2145 213 Furosemide 40 MG BID 12/21 2100 AC 05/16 IV 0914 Lactobacillus 1 CAP BID 12/21 899 AC 12/23 Acidophilus PO 917 Lisinopril 2.5 MG DAILY 12/21 899 AC 12/23 PO 0918 Magnesium Oxide 400 MG ONE ONE 12/23 0545 DC 12/23 PO 12/23 0546 0608 Metoprolol Succinate 100 MG DAILY 12/21 899 AC 12/22 PO 0948 Omeprazole 20 MG DAILY AC 12/21 899 AC 12/23 PO 0608 Paroxetine HCl 40 MG DAILY 12/22 899 AC 12/23 PO 0919 Results Last 48 Hrs of Labs/Mics: Laboratory Tests 12/23/17 0347: Anion Gap 9, Estimated GFR > 60, Glucose 87, Calcium 8.3 L, Phosphorus 3.3, Magnesium 1.6, Total Bilirubin 0.3, AST 25, ALT 24, Ydj-Z-Ldieqanfloe Pept 52172 H, Albumin 2.8 L, CBC w Diff NO MAN DIFF REQ, RBC 3.52 L, MCV 84.7, MCH 27.2, MCHC 32.1 L, RDW 17.8 H, MPV 8.2, Gran % 72.5, Lymphocytes % 16.2 L, Monocytes % 8.7, Eosinophils % 1.8, Basophils % 0.8, Absolute Granulocytes 5.9, Absolute Lymphocytes 1.3, Absolute Monocytes 0.7 H, Absolute Eosinophils 0.1, Absolute Basophils 0.1 12/22/17 1250: Troponin I 0.65 *H, TSH 4.420 H, Free T4 1.09 12/22/17 1130: CBC w Diff NO MAN DIFF REQ, RBC 3.47 L, MCV 84.4, MCH 27.1, MCHC 32.1 L, RDW 18.3 H, MPV 7.9, Gran % 65.8, Lymphocytes % 22.7, Monocytes % 10.3 H, Eosinophils % 0.6, Basophils % 0.6, Absolute Granulocytes 5.0, Absolute Lymphocytes 1.7, Absolute Monocytes 0.8 H, Absolute Eosinophils 0, Absolute Basophils 0 12/22/17 0531: CBC w Diff NO MAN DIFF REQ, RBC 2.87 L, MCV 83.6, MCH 26.0 L, MCHC 31.1 L, RDW 18.9 H, MPV 7.9, Gran % 56.5, Lymphocytes % 29.6, Monocytes % 12.6 H, Eosinophils % 0.7, Basophils % 0.6, Absolute Granulocytes 3.5, Absolute Lymphocytes 1.8, Absolute Monocytes 0.8 H, Absolute Eosinophils 0, Absolute Basophils 0 12/22/17 0400: Anion Gap 9, Estimated GFR > 60, BUN/Creatinine Ratio 32.5 H, Calcium 8.2 L, Phosphorus 3.6, Magnesium 1.7, CBC w Diff NO MAN DIFF REQ, RBC 2.90 L, MCV 84.0 , MCH 26.1 L, MCHC 31.0 L, RDW 19.0 H, MPV 7.8, Gran % 59.4, Lymphocytes % 28.3, Monocytes % 11.6 H, Eosinophils % 0.3, Basophils % 0.4, Absolute Granulocytes 3.8, Absolute Lymphocytes 1.8, Absolute Monocytes 0.7 H, Absolute Eosinophils 0, Absolute Basophils 0 Microbiology 12/23 0755 URINE ROUT: Legionella Antigen - COMP 12/23 0755 URINE ROUT: Streptococcus pneumoniae Antigen (M - COMP Recent Imaging Studies: CXR 12/22/2017: Persistent left midlung airspace opacity with partially improved aeration since the previous study. The appearance is most suggestive of pneumonia, although asymmetric edema is possible. Assessment/Plan Assessment/Plan 77-[id number]-w-f w/ hx of depression, OA, HTN, HLD, PAF, & CAD as described above who presented from her SNF who presented 12/21/2017 w/ c/o weakness & SOB w/ an elevated troponin I level w/o any associated chest discomfort. Suspected that the troponin I elevation reflected residual enzyme elevation from her previous STEMI, but would not have expected to elevate further. We are likely dealing with a type II AR, but will continue to monitor closely. No role for repeat cardiac catheterization at this juncture. Continue present management. Continue telemetry? Not applicable (In ICU.)
[2017-12-24] VITALS: BP 104/60
[2017-12-24 05:55] LABS: ABSOLUTE BASOPHIL COUNT 0 /CUMM (0.0-0.2); ABSOLUTE EOSINOPHIL COUNT 0.3 /CUMM (0.0-0.7); ABSOLUTE GRANULOCYTE CT 3.3 /CUMM (1.4-6.5); ABSOLUTE LYMPH COUNT 1.3 /CUMM (1.2-3.4); ABSOLUTE MONOCYTE COUNT 0.6 /CUMM (0.10-0.60); BASOPHIL % 0.5 % (0.0-2.0); EOSINOPHIL % 5.9 % (0-5); GRANULOCYTE % 58.5 % (42.2-75.2); HEMATOCRIT 30.3 % (37-47); MEAN CORPUSCULAR HGB 27.2 PG (27.0-31.0); MEAN CORPUSCULAR HGB CONC 32.1 G/DL (33.0-37.0); MEAN CORPUSCULAR VOLUME 84.7 FL (81.0-99.0); MEAN PLATELET VOLUME 8.2 FL (7.4-10.4); PLATELET COUNT 350 /CUMM (130-400); RBC DISTRIBUTION WIDTH 18.1 % (11.5-14.5); RED BLOOD CELL CT 3.58 /CUMM (4.20-5.40); WHITE BLOOD CELL COUNT 5.6 /CUMM (4.8-10.8)
--- NOTE | 2017-12-24 07:37 | PN- Resident CRCU ---
Waqar MITCHELL,[facility] 12/24/17 0737: Subjective HPI/CRCU Issues: No acute events overnight. Held metoprolol yesterday as HR was in the 50-60s. No complaints. Objective Vital Signs & I&O Last 8 Hrs of Vitals and I&O: Laboratory Tests 12/24/17 0500: Anion Gap 9, Estimated GFR > 60, BUN/Creatinine Ratio 20.0, CBC w Diff NO MAN DIFF REQ, RBC 3.58 L, MCV 84.7, MCH 27.2, MCHC 32.1 L, RDW 18.1 H, MPV 8.2, Gran % 58.5, Lymphocytes % 23.9, Monocytes % 11.2 H, Eosinophils % 5.9 H, Basophils % 0.5, Absolute Granulocytes 3.3, Absolute Lymphocytes 1.3, Absolute Monocytes 0.6, Absolute Eosinophils 0.3, Absolute Basophils 0 Vital Signs Date Time Temp Pulse Resp B/P B/P Pulse O2 O2 Flow FiO2 Mean Ox Delivery Rate 12/24 08 98 Nasal 2.0L Cannula 12/24 08 97.4 60 20 120/70 98 Room Air Intake & Output 12/24 1600 Intake Total 494 Output Total Balance 494 Intake, IV 14 Intake, Oral 480 Patient 114 lb Weight Intake & Output 12/24 1600 Intake Total 494 Output Total Balance 494 Intake, IV 14 Intake, Oral 480 Patient 114 lb Weight Exam General Appearance: alert, awake, mildly anxious Respiratory: mild wheezing b/l. diffuse decreased breath sounds. diffuse rhonchi b/l Cardiovascular: regular rate/rhythm Gastrointestinal: normal bowel sounds, soft, non-tender Extremities: no LE edema, unable to palpate radial pulses. cap refill <2 seconds Current Medications: Current Medications Sig/Sergey Start time Last Medication Dose Route Stop Time Status Admin Albuterol Sulfate 3 ML Q4P PRN 12/21 1045 AC 12/22 INH 2118 Atorvastatin Calcium 40 MG 1700 12/21 1700 AC 12/23 PO 1608 Clopidogrel Bisulfate 75 MG DAILY 12/21 0900 AC 12/24 PO 0853 Furosemide 40 MG BID 12/21 2100 AC 12/24 IV 0854 Lactobacillus 1 CAP BID 12/21 0900 AC 12/24 Acidophilus PO 0853 Lisinopril 2.5 MG DAILY 12/21 0900 AC 12/23 PO 0918 Metoprolol Succinate 100 MG DAILY 12/21 0900 AC 12/22 PO 0948 Omeprazole 20 MG DAILY AC 12/21 0900 AC 12/24 PO 0619 Paroxetine HCl 40 MG DAILY 12/22 0900 AC 12/24 PO 0853 Potassium Chloride 40 MEQ ONCE ONE 12/24 0745 DC 12/24 PO 12/24 0746 0853 Impression/Plan Impression/Problem List Impression: 77-year-old female with past medical history significant for CAD s/p [place] recent stenting twice in , COPD not on oxygen, HFrEF, HTN, HLD, OA, depression , SBO s/p repair presented to [place] after found to have sudden onset of diaphoresis, dyspneic saturating 70% on RA only improved to 81% on 3L supplementation. She was also found to be tachypneic with RR 30, BP 160/90 mmHg. VS at admission are Temp 97.7, Pulse 81, BP 155/74mmHg, 89% on 3L oxygen. Labs did show white count of 11.3 with left shift (segmented neutrophils 85) , H&H 9.2/29.9, platelets 429, chem panel Na 142, K 3.8, cl 105, BUN/Cr 23/0.8, Trop 0.74. ProBNP 13k. EKG - A.flutter/fib with LBBB, no new ST T wave changes. Problem list 1. Diffuse mixed interstitial airspace opacification 2. Elevated Troponin 3. Paroxysmal A.fib 4. CAD s/p FL recent stenting twice in and HFrEF 5. COPD not on oxygen 6. HTN 7. HLD 8. OA 9. Depression 10. Anemia #Acute dyspnea with hypoxia more likely secondary to HR rather than infection Pt presented with sudden onset of diaphoresis and dyspnea, saturating 70% on RA. She improved to 81% on 3L supplementation. Differential includes: atypical pna, worsening HFrEF in the setting of pulm HTN, aspiration,interstitial disease lung disease. Azithromycin and ceftriaxone x1 and 125mg solumedrol were give in the ER. Urinary leigonella and strep pneumo antigens negative. Recently had CAD s/p FL recent stenting twice in November. Reported no chest discomfort upon admission. Initial WBC 11.3 but patient has been afebrile and leukocytosis now resolved. Probnp elevated 25954. CXR: Interval development of diffuse mixed interstitial airspace opacificatiob throughout the left lung suspicious for atypical pneumonia. Echo revealed abnormal septal motion consistent with left bundle branch block. Markedly hypokinetic to akinetic inferior and lateral castro. Moderately abnormal left ventricular ejection fraction estimated at 25-30%. Repeat CXR continues to reveal L sided dependent edema consistent with prior CT. Repeat proBNP worst @ 20,500. -f/u cultures to r/o pna -cont plavix, metoprolol, lisinopril, Atorvastatin -cont lasix IV BID -TRC/Nebs #Elevated Troponin most likely residual from her previous STEMI vs demand ischemia. Recently had CAD s/p FL recent stenting twice in November. Trops: 0.74, 1.24, 1.11, 0.65 -f/u cardio recommendations #Anemia with h/h drop Baseline h/h 9-06/05/30 Current h/h 7.5/24 -> 9.4/29.3 s/p 1 unit -patient refusing manual guaiac test at this time. requesting to wait for BM. -f.u hemooccult -HOLDING apixaban, f/u cardiology recommendations regarding restarting #Paroxysmal A.fib Currently in bigeminiy and rate controlled -Held metroprolol xl yesterday as she was radha in the 50s yesterday. Will restart @ 25 as she was bradys in 50s this AM and currently in the 70s-80s. -holding apixaban until further recommenations from cardiology #COPD not on HOME oxygen Patient was on Breo, albuterol -cont TRC/Nebs #Htn -cont metorpolol,lisinopril #OA -On tylenol. we will continue. #Depression -cont paroxetine #GERD -cont omeprazole #DVT prophylaxis -HOLDING Apixaban FOR H/H drop #FULL CODE Problem List: 1. Acute respiratory failure with hypoxia 2. History of CHF (congestive heart failure) 3. Elevated troponin 4. Anemia 5. Afib Pain Ratin Tomorrow's Labs & Rationales: cbc icu bundle Plan DVT/Prophylaxis: mechanical Naty MITCHELL,[facility] 12/24/17 1351: Attending MD Review Statement Attending Sign Off Attending Cosign Statement: I have: examined this patient, reviewed al EMR data, personally reviewd images, discussd w/resident/PA/ENDOSCOPY TECHNICAN, discussed mgmt plan w/nico, discussed mgmt plan w/CM, discussed mgmt plan w/pt, agreed w/resident/PA/ENDOSCOPY TECHNICAN, amended to note. Other Findings: Chronically ill-appearing elderly female in no acute distress with nasal oxygen in place. Vital signs: See above. Neck: No JVD, no bruits. Lungs: Decreased breath sounds bilaterally. Heart: S1, S2 with no murmur, gallop, or rub. Abdomen: Soft, nontender, positive bowel sounds. Extremities: No edema. Unilateral pulmonary edema improving Ongoing drop in hematocrit status post PRBC. Now hgb 9.7 Ongoing increasing troponin leak ISsues Resolving Acute dyspnea with hypoxia c/w HFrEF, unilateral pulmonary edema which is improving, continue diuresis Has chronic lung disease without emphysema with poor performance status Elevated troponin mild Incontinent to urine Low ef Anemia REC Hemoglobin goal is 8 g as she has ischemic heart lasix to continue increase to bid frey can be dcd check cbc regularly OOB to chair No indication for abx will follow Okay to go to telemetry
[2017-12-24 08:00] VITALS: BP 120/70
[2017-12-24 16:00] VITALS: BP 152/80
--- NOTE | 2017-12-24 18:53 | PN- Cardiology ---
Subjective Subjective: No specific complaints. Feels as though her breathing is better today and when she came in. Objective Vital Signs and I&Os Vital Signs Date Time Temp Pulse Resp B/P B/P Pulse O2 O2 Flow FiO2 Mean Ox Delivery Rate 12/24 1600 97.5 102 18 152/80 98 Room Air 12/24 1451 79 120/76 12/24 1450 74 120/76 12/24 1347 98 Nasal 2.0L Cannula 12/24 1330 62 12/24 0800 98 Nasal 2.0L Cannula 12/24 0800 97.4 60 20 120/70 98 Room Air 12/24 0000 97.2 60 28 104/60 97 Nasal 2.0L Cannula 12/24 0000 97 Nasal 2.0L Cannula 12/23 2030 97 Nasal 2.0L Cannula Intake & Output 12/24 1600 12/24 0800 12/24 0000 12/23 1600 12/23 0800 12/23 0000 Intake Total 1454 100 400 710 200 370 Output Total 450 450 175 625 650 600 Balance 1004 -350 225 85 -450 -230 Intake, IV 14 10 0 30 Intake, Oral 1440 100 400 700 200 340 Number 0 0 0 Bowel Movements Output, Urine 450 450 175 625 650 600 Patient 114 lb 115 lb Weight Weight Bed scale Measurement Method Physical Exam: Chronically ill-appearing elderly female in no acute distress with nasal oxygen in place. Vital signs: See above. Neck: No JVD, no bruits. Lungs: Decreased breath sounds bilaterally. Heart: S1, S2 with no murmur, gallop, or rub. Abdomen: Soft, nontender, positive bowel sounds. Extremities: No edema. Current Medications: Current Medications Sig/Sergey Start time Last Medication Dose Route Stop Time Status Admin Albuterol Sulfate 3 ML Q4P PRN 12/21 1045 AC 12/22 INH 2118 Atorvastatin Calcium 40 MG 1700 12/21 1700 AC 12/24 PO 1709 Clopidogrel Bisulfate 75 MG DAILY 12/21 0900 AC 12/24 PO 0853 Furosemide 40 MG BID 12/21 2100 AC 12/24 IV 0854 Lactobacillus 1 CAP BID 12/21 0900 AC 12/24 Acidophilus PO 0853 Lisinopril 2.5 MG DAILY 12/21 0900 AC 12/24 PO 1450 Metoprolol Succinate 50 MG DAILY 12/25 0900 CAN PO Metoprolol Succinate 25 MG DAILY 12/24 1345 AC 12/24 PO 1451 Metoprolol Succinate 100 MG DAILY 12/21 0900 DC 12/22 PO 0948 Omeprazole 20 MG DAILY AC 12/21 0900 AC 12/24 PO 0619 Paroxetine HCl 40 MG DAILY 12/22 09 AC 12/24 PO 0853 Potassium Chloride 40 MEQ ONCE ONE 12/24 0745 DC 12/24 PO 12/24 0746 0853 Results Last 48 Hrs of Labs/Mics: Laboratory Tests 12/24/17 0500: Anion Gap 9, Estimated GFR > 60, BUN/Creatinine Ratio 20.0, CBC w Diff NO MAN DIFF REQ, RBC 3.58 L, MCV 84.7, MCH 27.2, MCHC 32.1 L, RDW 18.1 H, MPV 8.2, Gran % 58.5, Lymphocytes % 23.9, Monocytes % 11.2 H, Eosinophils % 5.9 H, Basophils % 0.5, Absolute Granulocytes 3.3, Absolute Lymphocytes 1.3, Absolute Monocytes 0.6, Absolute Eosinophils 0.3, Absolute Basophils 0 12/23/17 0347: Anion Gap 9, Estimated GFR > 60, Glucose 87, Calcium 8.3 L, Phosphorus 3.3, Magnesium 1.6, Total Bilirubin 0.3, AST 25, ALT 24, Kan-Q-Uffjprsazjc Pept 37137 H, Albumin 2.8 L, CBC w Diff NO MAN DIFF REQ, RBC 3.52 L, MCV 84.7, MCH 27.2, MCHC 32.1 L, RDW 17.8 H, MPV 8.2, Gran % 72.5, Lymphocytes % 16.2 L, Monocytes % 8.7, Eosinophils % 1.8, Basophils % 0.8, Absolute Granulocytes 5.9, Absolute Lymphocytes 1.3, Absolute Monocytes 0.7 H, Absolute Eosinophils 0.1, Absolute Basophils 0.1 Microbiology 12/23 754 URINE ROUT: Legionella Antigen - COMP 12/23 754 URINE ROUT: Streptococcus pneumoniae Antigen (M - COMP Assessment/Plan Assessment/Plan [id number] w/ hx of depression, OA, HTN, HLD, PAF, & CAD as described above who [facility] from [facility]/2017 w/ c/o weakness & SOB an elevated troponin I level w/o any assoc CP. Suspected that the troponin I elevation reflected residual enzyme elevation from her previous STEMI, but would not expected it toelevate further. We may be dealing with a type II [place], but will continue to monitor closely. No role for repeat cardiac catheterization, at this juncture. Modest diuresis over the past 24 hours. Would repeat CXR in AM. Need to discuss whether or not she wants to be considered for a life vest in anticipation of an AICD requirement, given her compromised left ventricular systolic function Continue telemetry? Not applicable (In ICU.)
[2017-12-24 22:50] VITALS: BP 100/68
[2017-12-25 06:24] VITALS: BP 108/54
--- NOTE | 2017-12-25 07:03 | PN- Housestaff ---
See Addendum Subjective Follow-up For: elevated troponins nstemi cad Tele-Events Since Last Visit: sinus rhythm, no events on telemetry overnight Subjective: no complaints of chest pain or dyspnea no overnight events Review of Systems Constitutional: Reports: see HPI. Objective Last 24 Hrs of Vital Signs/I&O Vital Signs Date Time Temp Pulse Resp B/P B/P Pulse O2 O2 Flow FiO2 Mean Ox Delivery Rate 12/25 0624 97.8 68 20 108/54 97 12/25 0000 Nasal 2.0L Cannula 12/24 2250 97.7 71 20 100/68 98 12/24 1600 97.5 102 18 152/80 98 Room Air 12/24 1451 79 120/76 12/24 1450 74 120/76 12/24 1347 98 Nasal 2.0L Cannula 12/24 1330 62 Intake & Output 12/25 1600 12/25 0800 12/25 0000 Intake Total 140 Output Total Balance 140 Intake, IV 20 Intake, Oral 120 Number 0 Bowel Movements Patient 50.916 kg Weight Physical Exam General Appearance: Alert, Oriented X3, Cooperative, No Acute Distress Cardiovascular: Regular Rate, Normal S1, Normal S2, No Murmurs Lungs: Clear to Auscultation, Normal Air Movement Abdomen: Normal Bowel Sounds, Soft, No Tenderness, No Masses Extremities: No Clubbing, No Cyanosis, No Edema, Normal Pulses Current Medications: Current Medications Sig/Sergey Start time Last Medication Dose Route Stop Time Status Admin Albuterol Sulfate 3 ML Q4P PRN 12/21 1045 AC 12/22 INH 2118 Apixaban 2.5 MG BID 12/25 2100 UNVr PO Atorvastatin Calcium 40 MG 1700 12/21 1700 AC 12/24 PO 1709 Budesonide/ 2 PUF BID 12/25 0900 AC 12/25 Formoterol Fumarate INH 1007 Clopidogrel Bisulfate 75 MG DAILY 12/21 0900 AC 12/25 PO 1006 Furosemide 40 MG BID 12/21 2100 AC 12/25 IV 1006 Lactobacillus 1 CAP BID 12/21 09 AC 12/25 Acidophilus PO 1007 Lisinopril 2.5 MG DAILY 12/21 0900 AC 12/25 PO 1006 Metoprolol Succinate 25 MG DAILY 12/24 1345 AC 12/25 PO 1006 Omeprazole 20 MG DAILY AC 12/21 0900 AC 12/25 PO 1008 Paroxetine HCl 40 MG DAILY 12/22 0900 AC 12/25 PO 1006 Last 24 Hrs of Lab/Ilya Results Last 24 Hrs of Labs/Mics: Laboratory Tests 12/25/17 0633: CBC w Diff NO MAN DIFF REQ, RBC 3.61 L, MCV 85.0, MCH 27.2, MCHC 32.0 L, RDW 18.0 H, MPV 8.4, Gran % 59.7, Lymphocytes % 23.2, Monocytes % 10.9 H, Eosinophils % 5.4 H, Basophils % 0.8, Absolute Granulocytes 3.5, Absolute Lymphocytes 1.4, Absolute Monocytes 0.6, Absolute Eosinophils 0.3, Absolute Basophils 0 Assessment/Plan Assessment: 77 year old female with PMH of depression, HTN, HLD, CAD and paroxysmal atrial fibrillation admitted with complaints of weakness, dyspnea, and elevated troponins. CAD with recent stenting and elevated troponins: Continue plavix, eliquis, atorvastatin, and metoprolol No complaints of chest pain No arrhythmias on telemetry Type II NSTEMI or residual elevation from recent STEMI Recent STEMI with cardiac cath and stent placements in November 2017 Continue plavix Troponins 0.74-> 1.24-> 1.11-> 0.65 Monitor on telemetry Cardiology consulted, follow up recommendations No role for repeat coronary angiography at this time Echocardiogram 12/2017 Normal size left ventricle. Mild concentric left ventricular hypertrophy. Abnormal septal motion consistent with left bundle branch block. Markedly hypokinetic to akinetic inferior and lateral castro. Moderately abnormal left ventricular ejection fraction estimated at 25-30%. Mildly increased resting left ventricular outflow tract velocity (1.35 m/s). Normal right ventricular size and function. Normal right atrial size. Mild left atrial dilatation. Mild mitral regurgitation. Mild aortic regurgitation. Mild tricuspid regurgitation. No evidence of pulmonary hypertension. Mildly dilated proximal ascending aorta (tube). HFrEF: LVEF 25-30% Chest x-ray-mixed interstitial airspace opacity improved with diuresis on repeat chest x-ray probnp 20,000 AICD evaluation May need life vest pending AICD evaluation Continue diuresis with 40mg iv lasix bid Strict I/Os, daily weights pAfib: Currently rate controlled Metroprolol 50mg xl held yesterday for bradycardia in the 50s Restarted at 25mg Eliquis held for anemia Acute blood loss anemia: Transfused 1 u pRBC CBC stable Refused ALEE for guiaic testing Restart eliquis at half dose HTN: Continue metoprolol and lisinopril HLD: Continue atorvastatin COPD: On Breo at home Start symbicort TRC evaluation Heart healthy diet DVT ppx-restart eliquis Full code Problem List: 1. Elevated troponin 2. History of CHF (congestive heart failure) 3. Coronary artery disease 4. Hypertension 5. Hyperlipidemia 6. Anemia Pain Ratin Pain Location: n/a Pain Goal: Pain 4 or less Pain Plan: prn Tomorrow's Labs & Rationales: bep, cbc
[2017-12-25 08:14] LABS: ABSOLUTE BASOPHIL COUNT 0 /CUMM (0.0-0.2); ABSOLUTE EOSINOPHIL COUNT 0.3 /CUMM (0.0-0.7); ABSOLUTE GRANULOCYTE CT 3.5 /CUMM (1.4-6.5); ABSOLUTE LYMPH COUNT 1.4 /CUMM (1.2-3.4); ABSOLUTE MONOCYTE COUNT 0.6 /CUMM (0.10-0.60); BASOPHIL % 0.8 % (0.0-2.0); EOSINOPHIL % 5.4 % (0-5); GRANULOCYTE % 59.7 % (42.2-75.2); HEMATOCRIT 30.7 % (37-47); MEAN CORPUSCULAR HGB 27.2 PG (27.0-31.0); MEAN PLATELET VOLUME 8.4 FL (7.4-10.4); PLATELET COUNT 360 /CUMM (130-400); RED BLOOD CELL CT 3.61 /CUMM (4.20-5.40); WHITE BLOOD CELL COUNT 5.8 /CUMM (4.8-10.8)
--- NOTE | 2017-12-25 10:23 | RADIOLOGY REPORT ---
EXAMINATION: XR PORTABLE CHEST CLINICAL INFORMATION: Shortness of breath. COMPARISON: Chest done on 12/22/2017. TECHNIQUE: Portable frontal view of the chest was obtained. FINDINGS: There is marked improved aeration noted throughout the entire left lung and right lung base since prior study dated 12/22/2017. Residual airspace disease is still noted around the left hilar, perihilar region. The cardiomediastinal silhouette is within normal limits. There is no pleural effusion present. No new abnormality. IMPRESSION: 1. Marked improved aeration throughout the entire left lung and right lung base since the prior study dated 12/22/2017. 2. Residual airspace disease is still noted around the left hilum and perihilar region. Continued follow-up to complete resolution is recommended.
--- NOTE | 2017-12-25 13:08 | Transfer of Care Summary ---
Hospital Course Course Hospital Course: Reason for transfer to ICU: Elevated troponins Acute dyspnea with hypoxia HPI: 77-year-old female with past medical history significant for CAD s/p [place] recent stenting twice in , COPD not on oxygen, HFrEF, HTN, HLD, OA, depression , SBO s/p repair presented to [place] after found to have sudden onset of diaphoresis, dyspneic saturating 70% on RA only improved to 81% on 3L supplementation. She was also found to be tachypneic with RR 30, BP 160/90 mmHg found to have elevated troponins. VS at admission are Temp 97.7, Pulse 81, BP 155/74mmHg, 89% on 3L oxygen. Labs did show white count of 11.3 with left shift (segmented neutrophils 85) , H&H 9.2/29.9, platelets 429, chem panel Na 142, K 3.8, cl 105, BUN/Cr 23/0.8, Trop 0.74. ProBNP 13k. EKG - A.flutter/fib with LBBB, no new ST T wave changes. Problem list 1. Acute hypoxia most likely due to HF rather than infectious process 2. Elevated Troponin 3. Paroxysmal A.fib 4. CAD s/p [place] recent stenting twice in and HFrEF 5. COPD not on oxygen 6. HTN 7. HLD 8. OA 9. Depression 10. Anemia Interval events in the Floor: #Acute dyspnea with hypoxia more likely secondary to HF rather than infection Pt presented with sudden onset of diaphoresis and dyspnea, saturating 70% on RA. She only improved to 81% on 3L supplementation and was admitted to the ICU. Azithromycin and ceftriaxone x1 and 125mg solumedrol were give in the ER for concerns for pna as she had leukocytosis and cxr revealed diffuse mixed interstitial airspace opacification throughout the left lung suspicious for atypical pneumonia. Urinary leigonella and strep pneumo antigens negative. She recently had CAD s/p [place] recent stenting twice in November. Reported no chest discomfort upon admission. Initial WBC 11.3 but patient has been afebrile and leukocytosis now resolved. Probnp elevated 32050. Echo revealed abnormal septal motion consistent with left bundle branch block, markedly hypokinetic to akinetic inferior and lateral castro, and moderately abnormal left ventricular ejection fraction estimated at 25-30%. Repeat CXR continues to reveal L sided dependent edema consistent with prior CT. Repeat proBNP worst @ 20,500. -f/u cultures to r/o pna -cont plavix, metoprolol, lisinopril, Atorvastatin -cont lasix IV BID -TRC/Nebs #Elevated Troponin most likely residual from her previous STEMI vs demand ischemia. Recently had CAD s/p NC recent stenting twice in November. Trops: 0.74, 1.24, 1.11, 0.65 -f/u cardio recommendations #Anemia with h/h drop Baseline h/h 9-06/05/30 Current h/h 7.5/24 -> 9.4/29.3 s/p 1 unit. H/H stable since transfusion. Patient refusing manual guaiac test at this time. requesting to wait for BM. Currently holding apixaban -f.u hemooccult -f/u cardiology recommendations regarding restarting apixaban #Paroxysmal A.fib Currently in bigeminiy and rate controlled Restarted metroprolol xl @ 25mg daily as she found found bradycardic in the AM to the 50s and later improved to 80s. -uptitrate metoprolol xl as approriate. home dose is 100mg daily. #COPD not on HOME oxygen Patient was on Breo, albuterol -cont TRC/Nebs #Htn -cont metorpolol,lisinopril #OA -cont tylenol #Depression -cont paroxetine #GERD -cont omeprazole NIPPV: Yes/ No (details if Yes) Antibiotics: None Catheters/ IV access: Peripheral Things to follow up (Blood Cx, Imaging, ABG etc...): Please see above in events DVT prophylaxis: Holding apixaban for h/h drop Consultants: Cardiology Code status: FULL CODE Family updated: Yes/ No Assessment/Plan: See above
[2017-12-25 14:11] VITALS: BP 92/52
--- NOTE | 2017-12-25 17:03 | PN- Cardiology ---
Subjective Subjective: Continues to feel improved. Objective Vital Signs and I&Os Vital Signs Date Time Temp Pulse Resp B/P B/P Pulse O2 O2 Flow FiO2 Mean Ox Delivery Rate 12/25 1411 97.5 62 20 92/52 97 Nasal 2.0L Cannula 12/25 1006 97.8 68 20 108/54 12/25 1006 97.8 68 20 108/54 12/25 0856 96 Nasal 2.0L Cannula 12/25 0800 94 Nasal 2.0L Cannula 12/25 0624 97.8 68 20 108/54 97 12/25 0000 Nasal 2.0L Cannula 12/24 2250 97.7 71 20 100/68 98 Intake & Output 12/25 1600 12/25 0800 12/25 0000 12/24 1600 12/24 0800 12/24 0000 Intake Total 236 102 2456 100 400 Output Total 450 450 175 Balance 952 961 2094 -350 225 Intake, IV 20 14 Intake, Oral 619 194 7299 100 400 Number 0 0 Bowel Movements Output, Urine 450 450 175 Patient 112 lb 114 lb Weight Physical Exam: Chronically ill-appearing elderly female in no acute distress with nasal oxygen in place. Vital signs: See above. Neck: No JVD, no bruits. Lungs: Decreased breath sounds bilaterally. Heart: S1, S2 with no murmur, gallop, or rub. Abdomen: Soft, nontender, positive bowel sounds. Extremities: No edema. Current Medications: Current Medications Sig/Sergey Start time Last Medication Dose Route Stop Time Status Admin Albuterol Sulfate 3 ML Q4P PRN 12/21 1045 AC 12/22 INH 2118 Apixaban 2.5 MG BID 12/25 2100 DC PO Apixaban 5 MG BID 12/25 2100 AC PO Atorvastatin Calcium 40 MG 1700 12/21 1700 AC 12/25 PO 1618 Budesonide/ 2 PUF BID 12/25 0900 AC 12/25 Formoterol Fumarate INH 1007 Clopidogrel Bisulfate 75 MG DAILY 12/21 0900 AC 12/25 PO 1006 Furosemide 40 MG DAILY 12/26 0900 AC PO Furosemide 40 MG BID 12/21 2100 DC 12/25 IV 1006 Lactobacillus 1 CAP BID 12/21 0900 AC 12/25 Acidophilus PO 1007 Lisinopril 2.5 MG DAILY 12/21 0900 AC 12/25 PO 1006 Metoprolol Succinate 25 MG DAILY 12/24 1345 AC 12/25 PO 1006 Omeprazole 20 MG DAILY AC 12/21 0900 AC 12/25 PO 1008 Paroxetine HCl 40 MG DAILY 12/22 0900 AC 12/25 PO 1006 Patient Medication 1 ED ONE ONE 12/25 1500 DC 12/25 Teaching ED 12/25 1501 1510 Polyethylene Glycol 17 GM DAILY 12/25 1430 AC PO Senna/Docusate Sodium 2 TAB DAILY 12/25 1430 AC 12/25 PO 1510 Results Last 48 Hrs of Labs/Mics: Laboratory Tests 12/25/17 0633: CBC w Diff NO MAN DIFF REQ, RBC 3.61 L, MCV 85.0, MCH 27.2, MCHC 32.0 L, RDW 18.0 H, MPV 8.4, Gran % 59.7, Lymphocytes % 23.2, Monocytes % 10.9 H, Eosinophils % 5.4 H, Basophils % 0.8, Absolute Granulocytes 3.5, Absolute Lymphocytes 1.4, Absolute Monocytes 0.6, Absolute Eosinophils 0.3, Absolute Basophils 0 12/25/17 0500: Sodium Cancelled, Potassium Cancelled, Chloride Cancelled, Carbon Dioxide Cancelled, Anion Gap Cancelled, BUN Cancelled, Creatinine Cancelled, Glucose Cancelled, Calcium Cancelled, Phosphorus Cancelled, Magnesium Cancelled, Total Bilirubin Cancelled, AST Cancelled, ALT Cancelled, Albumin Cancelled 12/24/17 0500: Anion Gap 9, Estimated GFR > 60, BUN/Creatinine Ratio 20.0, CBC w Diff NO MAN DIFF REQ, RBC 3.58 L, MCV 84.7, MCH 27.2, MCHC 32.1 L, RDW 18.1 H, MPV 8.2, Gran % 58.5, Lymphocytes % 23.9, Monocytes % 11.2 H, Eosinophils % 5.9 H, Basophils % 0.5, Absolute Granulocytes 3.3, Absolute Lymphocytes 1.3, Absolute Monocytes 0.6, Absolute Eosinophils 0.3, Absolute Basophils 0 Recent Imaging Studies: CXR 12/25/2017: 1. Marked improved aeration throughout the entire left lung and right lung base since the prior study dated 12/22/2017. 2. Residual airspace disease is still noted around the left hilum and perihilar region. Continued follow-up to complete resolution is recommended. Assessment/Plan Assessment/Plan [id number] w/ hx of depression, OA, HTN, HLD, PAF, & CAD s/p recent OH w/ PCI/ LANE who presented from her [facility] on 12/[facility]/2017 w/ c/o weakness & SOB and an elevated troponin I level w/o any assoc CP. Initially suspected that the troponin I elevation reflected residual enzyme elevation from her previous STEMI, but would not have expected it to elevate further. Likely dealing with a type II OH, but will continue to monitor closely. Fortunately, she continues to slowly improve. Continue present medical regimen (apixaban, atorvastatin, clopidogrel, furosemide, lisinopril, metoprolol). Discussed the pros and cons of life vest placement and she is willing to have one placed. This will be set up. Continue telemetry? Yes
[2017-12-25 22:08] VITALS: BP 118/76
[2017-12-26 06:27] VITALS: BP 106/50
[2017-12-26 08:37] LABS: ABSOLUTE BASOPHIL COUNT 0 /CUMM (0.0-0.2); ABSOLUTE EOSINOPHIL COUNT 0.3 /CUMM (0.0-0.7); ABSOLUTE GRANULOCYTE CT 2.6 /CUMM (1.4-6.5); ABSOLUTE LYMPH COUNT 1.3 /CUMM (1.2-3.4); ABSOLUTE MONOCYTE COUNT 0.6 /CUMM (0.10-0.60); EOSINOPHIL % 6.6 % (0-5); GRANULOCYTE % 52.5 % (42.2-75.2); HEMATOCRIT 31.5 % (37-47); MEAN CORPUSCULAR HGB 27.6 PG (27.0-31.0); MEAN CORPUSCULAR HGB CONC 32.3 G/DL (33.0-37.0); MEAN CORPUSCULAR VOLUME 85.3 FL (81.0-99.0); MEAN PLATELET VOLUME 8.2 FL (7.4-10.4); PLATELET COUNT 341 /CUMM (130-400); RBC DISTRIBUTION WIDTH 18.4 % (11.5-14.5); RED BLOOD CELL CT 3.69 /CUMM (4.20-5.40); WHITE BLOOD CELL COUNT 4.9 /CUMM (4.8-10.8)
--- NOTE | 2017-12-26 08:52 | PN- Housestaff ---
Vamsi Anderson 12/26/17 0852: Subjective Follow-up For: elevated troponins nstemi cad Tele-Events Since Last Visit: Sinus radha 56-48 Subjective: seen and examined patient, offers not complaints, no acute events overnight. Denies fever, chills, shortness of breath, chest pain, active bleeding. Review of Systems Constitutional: Reports: see HPI. Objective Last 24 Hrs of Vital Signs/I&O Vital Signs Date Time Temp Pulse Resp B/P B/P Pulse O2 O2 Flow FiO2 Mean Ox Delivery Rate 12/26 1017 50 106/50 12/26 1017 50 106/50 12/26 0627 50 18 106/50 99 Nasal 2.0L Cannula 12/25 2208 98.8 64 20 118/76 98 12/25 1600 Nasal 2.0L Cannula 12/25 1411 97.5 62 20 92/52 97 Nasal 2.0L Cannula Intake & Output 12/26 1600 12/26 0800 12/26 0000 Intake Total 50 120 Output Total Balance 50 120 Intake, Oral 50 120 Patient 102 lb Weight Physical Exam General Appearance: Alert, Oriented X3, Cooperative, No Acute Distress Cardiovascular: Normal S1, Normal S2, No Murmurs Lungs: Clear to Auscultation, Normal Air Movement Abdomen: Soft, No Tenderness Extremities: No Edema Current Medications: Current Medications Sig/Sergey Start time Last Medication Dose Route Stop Time Status Admin Albuterol Sulfate 3 ML Q4P PRN 12/21 1045 AC 12/22 INH 2118 Apixaban 2.5 MG BID 12/25 2100 DC PO Apixaban 5 MG BID 12/25 2100 AC 12/26 PO 1016 Atorvastatin Calcium 40 MG 1700 12/21 1700 AC 12/25 PO 1618 Budesonide/ 2 PUF BID 12/25 0900 AC 12/26 Formoterol Fumarate INH 1014 Clopidogrel Bisulfate 75 MG DAILY 12/21 0900 AC 12/26 PO 1016 Furosemide 40 MG DAILY 12/26 0900 AC 12/26 PO 1016 Furosemide 40 MG BID 12/21 2100 DC 12/25 IV 1006 Lactobacillus 1 CAP BID 12/21 0900 AC 12/26 Acidophilus PO 1017 Lisinopril 2.5 MG DAILY 12/21 0900 AC 12/26 PO 1017 Metoprolol Succinate 25 MG DAILY 12/24 1345 AC 12/26 PO 1017 Omeprazole 20 MG DAILY AC 12/21 0900 AC 12/25 PO 1008 Paroxetine HCl 40 MG DAILY 12/22 0900 AC 12/26 PO 1016 Patient Medication 1 ED ONE ONE 12/25 1500 DC 12/25 Teaching ED 12/25 1501 1510 Polyethylene Glycol 17 GM DAILY 12/25 1430 AC PO Senna/Docusate Sodium 2 TAB DAILY 12/25 1430 AC 12/26 PO 1017 Last 24 Hrs of Lab/Ilya Results Last 24 Hrs of Labs/Mics: Laboratory Tests 12/26/17 0705: Anion Gap 9, Estimated GFR > 60, BUN/Creatinine Ratio 24.3, Magnesium 1.7, CBC w Diff NO MAN DIFF REQ, RBC 3.69 L, MCV 85.3, MCH 27.6, MCHC 32.3 L, RDW 18.4 H , MPV 8.2, Gran % 52.5, Lymphocytes % 27.0, Monocytes % 12.9 H, Eosinophils % 6.6 H, Basophils % 1.0, Absolute Granulocytes 2.6, Absolute Lymphocytes 1.3, Absolute Monocytes 0.6, Absolute Eosinophils 0.3, Absolute Basophils 0 Assessment/Plan Assessment: 77 year old woman from [facility] with PMH of depression, HTN, HLD, CAD s/p recent LA w / PCI/LANE CAD , PAF, presented from [facility] on initially admitted to ICU for weakness, dyspnea, and elevated troponins. Echo revealed abnormal septal motion consistent with left bundle branch block, markedly hypokinetic to akinetic inferior and lateral castro, and moderately abnormal left ventricular ejection fraction estimated at 25-30%. No issues overnight. HR Sinus bradycardia. CAD with recent stenting and elevated troponins: Continue plavix, eliquis, atorvastatin, and metoprolol Type II NSTEMI or residual elevation from recent STEMI Troponins 0.74-> 1.24-> 1.11-> 0.65 Monitor on telemetry Cardiology consulted, follow up recommendations No role for repeat coronary angiography at this time Anemia with h/h drop Baseline h/h -06/05/30 Current h/h 7.5/24 -> 9.4/29.3 s/p 1 unit. H/H stable since transfusion. restarted apixaban at full dose yesterday guaic all stools HFrEF LVEF 25-30% Chest x-ray-mixed interstitial airspace opacity improved with diuresis on repeat chest x-ray probnp 20,000 will need AICD evaluation, life vest being arranged in the interim Continue diuresis with 40mg po lasix Strict I/Os, daily weights pAfib: Currently rate controlled Metroprolol 50mg xl held yesterday for bradycardia in the 50s Restarted at 25mg HTN: Continue metoprolol and lisinopril HLD: Continue atorvastatin COPD: On Breo at home continue symbicort TRC evaluation Heart healthy diet DVT ppx-restart eliquis Full code Problem List: 1. Acute respiratory failure with hypoxia 2. Acute non-ST segment elevation myocardial infarction 3. History of CHF (congestive heart failure) Pain Ratin Pain Location: na Pain Goal: Pain 4 or less Pain Plan: current regimen Tomorrow's Labs & Rationales: Shailesh Solano MD 12/26/17 1405: Attending MD Review Statement Attending Statement Attending MD Statement: examined this patient, discuss w/resident/PA/PROPERTY ASSISTANT, agreed w/resident/PA/PROPERTY ASSISTANT, reviewed EMR data (avail), amended to note Attending Assessment/Plan: The patient was seen and discussed with house staff. Agree with plan of care. Await decision regarding AICD/Vest?
[2017-12-26 14:03] VITALS: BP 104/60
--- NOTE | 2017-12-26 14:19 | PN- Cardiology ---
Subjective Subjective: Shortness of breath improving. No chest pain. No palpitations. No diaphoresis. No nausea or vomiting. Objective Vital Signs and I&Os Vital Signs Date Time Temp Pulse Resp B/P B/P Pulse O2 O2 Flow FiO2 Mean Ox Delivery Rate 12/26 1403 98.4 69 20 104/60 97 Room Air 12/26 1242 98 Nasal 2.0L Cannula 12/26 1017 50 106/50 12/26 1017 50 106/50 12/26 0800 99 Nasal 2.0L Cannula 12/26 0627 50 18 106/50 99 Nasal 2.0L Cannula 12/25 2208 98.8 64 20 118/76 98 12/25 1600 Nasal 2.0L Cannula Intake & Output 12/26 1600 12/26 0800 12/26 0000 12/25 1600 12/25 0800 12/25 0000 Intake Total 360 50 120 860 140 Output Total Balance 360 50 120 860 140 Intake, IV 20 Intake, Oral 360 50 120 860 120 Number 0 Bowel Movements Patient 102 lb 112 lb Weight Physical Exam: Gen: NAD HEENT: normal Lungs: clear to auscultation, normal resp. effort Heart: RRR, S1, S2, no murmurs Abdomen: Soft, nontender, no masses Extremities: No clubbing, cyanosis, or edema. Neuro: Alert and oriented x 3, cranial nerves intact Current Medications: Current Medications Sig/Sergey Start time Last Medication Dose Route Stop Time Status Admin Albuterol Sulfate 3 ML Q4P PRN 12/21 1045 AC 12/22 INH 2118 Apixaban 2.5 MG BID 12/25 2100 DC PO Apixaban 5 MG BID 12/25 2100 AC 12/26 PO 1016 Atorvastatin Calcium 40 MG 1700 12/21 1700 AC 12/25 PO 1618 Budesonide/ 2 PUF BID 12/25 0900 AC 12/26 Formoterol Fumarate INH 1014 Clopidogrel Bisulfate 75 MG DAILY 12/21 0900 AC 12/26 PO 1016 Furosemide 40 MG DAILY 12/26 09 AC 12/26 PO 1016 Furosemide 40 MG BID 12/21 2100 DC 12/25 IV 1006 Lactobacillus 1 CAP BID 12/21 0900 AC 12/26 Acidophilus PO 1017 Lisinopril 2.5 MG DAILY 12/21 0900 AC 12/26 PO 1017 Metoprolol Succinate 25 MG DAILY 12/24 1345 AC 12/26 PO 1017 Omeprazole 20 MG DAILY AC 12/21 0900 AC 12/25 PO 1008 Paroxetine HCl 40 MG DAILY 12/22 0900 AC 12/26 PO 1016 Patient Medication 1 ED ONE ONE 12/25 1500 DC 12/25 [facility] ED 12/25 1501 1510 Polyethylene Glycol 17 GM DAILY 12/25 1430 AC PO Senna/Docusate Sodium 2 TAB DAILY 12/25 1430 AC 12/26 PO 1017 Results Last 48 Hrs of Labs/Mics: Laboratory Tests 12/26/17 0705: Anion Gap 9, Estimated GFR > 60, BUN/Creatinine Ratio 24.3, Magnesium 1.7, CBC w Diff NO MAN DIFF REQ, RBC 3.69 L, MCV 85.3, MCH 27.6, MCHC 32.3 L, RDW 18.4 H , MPV 8.2, Gran % 52.5, Lymphocytes % 27.0, Monocytes % 12.9 H, Eosinophils % 6.6 H, Basophils % 1.0, Absolute Granulocytes 2.6, Absolute Lymphocytes 1.3, Absolute Monocytes 0.6, Absolute Eosinophils 0.3, Absolute Basophils 0 12/25/17 0633: CBC w Diff NO MAN DIFF REQ, RBC 3.61 L, MCV 85.0, MCH 27.2, MCHC 32.0 L, RDW 18.0 H, MPV 8.4, Gran % 59.7, Lymphocytes % 23.2, Monocytes % 10.9 H, Eosinophils % 5.4 H, Basophils % 0.8, Absolute Granulocytes 3.5, Absolute Lymphocytes 1.4, Absolute Monocytes 0.6, Absolute Eosinophils 0.3, Absolute Basophils 0 12/25/17 0500: Sodium Cancelled, Potassium Cancelled, Chloride Cancelled, Carbon Dioxide Cancelled, Anion Gap Cancelled, BUN Cancelled, Creatinine Cancelled, Glucose Cancelled, Calcium Cancelled, Phosphorus Cancelled, Magnesium Cancelled, Total Bilirubin Cancelled, AST Cancelled, ALT Cancelled, Albumin Cancelled Assessment/Plan Assessment/Plan Assessment: 1. CAD, status post DC 2. Hypertension 3. Paroxysmal atrial fibrillation 4. Elevated troponin, likely secondary to recent DC 5. Acute on chronic systolic heart failure, LVEF 25-30% Plan: * Continue p.o. Lasix * Continue other cardiac medications * Continue telemetry monitoring * LifeVest to be placed prior to discharge Continue telemetry? Yes
[2017-12-26 22:18] VITALS: BP 100/56
[2017-12-27 06:56] VITALS: BP 106/64
--- NOTE | 2017-12-27 09:05 | PN- Housestaff ---
See Addendum Subjective Follow-up For: NSTEMI CHF Tele-Events Since Last Visit: wandering atrial pacemaker Subjective: no new complaints or overnight events Review of Systems Constitutional: Reports: see HPI. Objective Last 24 Hrs of Vital Signs/I&O Vital Signs Date Time Temp Pulse Resp B/P B/P Pulse O2 O2 Flow FiO2 Mean Ox Delivery Rate 12/27 0915 98.2 63 20 106/64 12/27 0913 98.2 63 20 106/64 12/27 0800 94 Nasal 2.0L Cannula 12/27 0656 98.2 63 20 106/64 96 Nasal Cannula 12/27 0000 94 Nasal 2.0L Cannula 12/26 2218 98.4 62 20 100/56 94 Nasal Cannula 12/26 2004 97 Nasal 2.0L Cannula 12/26 1600 98 Nasal 2.0L Cannula 12/26 1403 98.4 69 20 104/60 97 Room Air 12/26 1242 98 Nasal 2.0L Cannula Intake & Output 12/27 1600 12/27 0800 12/27 0000 Intake Total 0 50 Output Total Balance 0 50 Intake, IV 0 Intake, Oral 0 50 Number 1 0 Bowel Movements Patient 47.174 kg Weight Weight Bed scale Measurement Method Physical Exam General Appearance: Alert, Oriented X3, Cooperative, No Acute Distress Cardiovascular: Regular Rate, Normal S1, Normal S2, No Murmurs Lungs: Clear to Auscultation Abdomen: Normal Bowel Sounds, Soft, No Tenderness, No Masses Extremities: No Clubbing, No Cyanosis, No Edema, Normal Pulses Current Medications: Current Medications Sig/Sergey Start time Last Medication Dose Route Stop Time Status Admin Albuterol Sulfate 3 ML Q4P PRN 12/21 1045 AC 12/22 INH 2118 Apixaban 5 MG BID 12/25 2100 AC 12/27 PO 0914 Atorvastatin Calcium 40 MG 1700 12/21 1700 AC 12/26 PO 1623 Budesonide/ 2 PUF BID 12/25 09 AC 12/27 Formoterol Fumarate INH 0914 Clopidogrel Bisulfate 75 MG DAILY 12/21 09 AC 12/27 PO 0913 Furosemide 40 MG DAILY 12/26 0900 AC 12/27 PO 0914 Lactobacillus 1 CAP BID 12/21 09 AC 12/27 Acidophilus PO 09 Lisinopril 2.5 MG DAILY 12/21 09 AC 12/27 PO 0915 Metoprolol Succinate 25 MG DAILY 12/24 1345 AC 12/27 PO 0913 Omeprazole 20 MG DAILY AC 12/21 0900 AC 12/27 PO 0915 Paroxetine HCl 40 MG DAILY 12/22 0900 AC 12/27 PO 0914 Polyethylene Glycol 17 GM DAILY 12/25 1430 AC PO Senna/Docusate Sodium 2 TAB DAILY 12/25 1430 AC 12/26 PO 1017 Tramadol HCl 50 MG ONCE ONE 12/26 2245 DC 12/26 PO 12/26 2246 2235 Last 24 Hrs of Lab/Ilya Results Last 24 Hrs of Labs/Mics: Laboratory Tests 12/27/17 0615: Anion Gap 7, Estimated GFR > 60, BUN/Creatinine Ratio 31.7 H, Magnesium 1.7 Assessment/Plan Assessment: 77 year old female with PMH of depression, HTN, HLD, CAD and paroxysmal atrial fibrillation admitted with complaints of weakness, dyspnea, and elevated troponins. CAD with recent stenting and elevated troponins: Continue plavix, eliquis, atorvastatin, and metoprolol No complaints of chest pain No arrhythmias on telemetry Type II NSTEMI or residual elevation from recent STEMI Recent STEMI with cardiac cath and stent placements in November 2017 Continue plavix, not on aspirin because of history of PUD Troponins 0.74-> 1.24-> 1.11-> 0.65 Monitor on telemetry Cardiology consulted, follow up recommendations No role for repeat coronary angiography at this time Echocardiogram 12/2017 Normal size left ventricle. Mild concentric left ventricular hypertrophy. Abnormal septal motion consistent with left bundle branch block. Markedly hypokinetic to akinetic inferior and lateral castro. Moderately abnormal left ventricular ejection fraction estimated at 25-30%. Mildly increased resting left ventricular outflow tract velocity (1.35 m/s). Normal right ventricular size and function. Normal right atrial size. Mild left atrial dilatation. Mild mitral regurgitation. Mild aortic regurgitation. Mild tricuspid regurgitation. No evidence of pulmonary hypertension. Mildly dilated proximal ascending aorta (tube). HFrEF: LVEF 25-30% Chest x-ray-mixed interstitial airspace opacity improved with diuresis on repeat chest x-ray probnp 20,000 Awaiting life vest vs AICD Continue diuresis with 40mg iv lasix bid Strict I/Os, daily weights pAfib: Currently rate controlled Metroprolol 50mg xl held yesterday for bradycardia in the 50s Restarted at 25mg On eliquis Acute blood loss anemia: Transfused 1 u pRBC CBC stable Restarted eliquis HTN: Continue metoprolol and lisinopril HLD: Continue atorvastatin COPD: On Breo at home Start symbicort TRC evaluation Heart healthy diet DVT ppx-on eliquis Full code Problem List: 1. Acute respiratory failure with hypoxia 2. History of CHF (congestive heart failure) 3. Elevated troponin 4. CHF (congestive heart failure) Pain Ratin Pain Location: n/a Pain Goal: Pain 4 or less Pain Plan: prn Tomorrow's Labs & Rationales: bep
--- NOTE | 2017-12-27 13:54 | PN- Cardiology ---
Subjective Subjective: Feeling well. Shortness of breath improving. No chest pain. No palpitations. No diaphoresis Objective Vital Signs and I&Os Vital Signs Date Time Temp Pulse Resp B/P B/P Pulse O2 O2 Flow FiO2 Mean Ox Delivery Rate 12/27 0915 98.2 63 20 106/64 12/27 0913 98.2 63 20 106/64 12/27 0800 94 Nasal 2.0L Cannula 12/27 0656 98.2 63 20 106/64 96 Nasal Cannula 12/27 0000 94 Nasal 2.0L Cannula 12/26 2218 98.4 62 20 100/56 94 Nasal Cannula 12/26 2004 97 Nasal 2.0L Cannula 12/26 1600 98 Nasal 2.0L Cannula 12/26 1403 98.4 69 20 104/60 97 Room Air Intake & Output 12/27 0800 12/27 0000 12/26 1600 12/26 0812/26 0000 Intake Total 0 50 660 50 120 Output Total Balance 0 50 660 50 120 Intake, IV 0 Intake, Oral 0 50 660 50 120 Number 1 0 1 Bowel Movements Patient 104 lb 102 lb Weight Weight Bed scale Measurement Method Physical Exam: Gen: NAD HEENT: normal Lungs: clear to auscultation, normal resp. effort Heart: RRR, S1, S2, no murmurs Abdomen: Soft, nontender, no masses Extremities: No clubbing, cyanosis, or edema. Neuro: Alert and oriented x 3, cranial nerves intact Current Medications: Current Medications Sig/Sergey Start time Last Medication Dose Route Stop Time Status Admin Albuterol Sulfate 3 ML Q4P PRN 12/21 1045 AC 12/22 INH 2118 Apixaban 5 MG BID 12/25 2100 AC 12/27 PO 0914 Atorvastatin Calcium 40 MG 1700 12/21 1700 AC 12/26 PO 1623 Budesonide/ 2 PUF BID 12/25 09 AC 12/27 Formoterol Fumarate INH 0914 Clopidogrel Bisulfate 75 MG DAILY 12/21 09 AC 12/27 PO 0913 Furosemide 40 MG DAILY 12/26 0900 AC 12/27 PO 0914 Lactobacillus 1 CAP BID 12/21 09 AC 12/27 Acidophilus PO 0913 Lisinopril 2.5 MG DAILY 12/21 09 AC 12/27 PO 0915 Metoprolol Succinate 25 MG DAILY 12/24 1345 AC 05/20 PO 0913 Omeprazole 20 MG DAILY AC 12/21 0900 AC 12/27 PO 0915 Paroxetine HCl 40 MG DAILY 12/22 0900 AC 12/27 PO 0914 Polyethylene Glycol 17 GM DAILY 12/25 1430 AC PO Senna/Docusate Sodium 2 TAB DAILY 12/25 1430 AC 12/26 PO 1017 Tramadol HCl 50 MG ONCE ONE 12/26 2245 DC 12/26 PO 12/26 2246 2235 Results Last 48 Hrs of Labs/Mics: Laboratory Tests 12/27/17 0615: Anion Gap 7, Estimated GFR > 60, BUN/Creatinine Ratio 31.7 H, Magnesium 1.7 12/26/17 0705: Anion Gap 9, Estimated GFR > 60, BUN/Creatinine Ratio 24.3, Magnesium 1.7, CBC w Diff NO MAN DIFF REQ, RBC 3.69 L, MCV 85.3, MCH 27.6, MCHC 32.3 L, RDW 18.4 H , MPV 8.2, Gran % 52.5, Lymphocytes % 27.0, Monocytes % 12.9 H, Eosinophils % 6.6 H, Basophils % 1.0, Absolute Granulocytes 2.6, Absolute Lymphocytes 1.3, Absolute Monocytes 0.6, Absolute Eosinophils 0.3, Absolute Basophils 0 Assessment/Plan Assessment/Plan Assessment: 1. CAD, status post MA 2. Hypertension 3. Paroxysmal atrial fibrillation 4. Elevated troponin, likely secondary to recent MA 5. Acute on chronic systolic heart failure, LVEF 25-30% Plan: * Continue p.o. Lasix * Continue other cardiac medications * Continue telemetry monitoring * LifeVest to be placed prior to discharge Continue telemetry? Yes
[2017-12-27 14:25] VITALS: BP 110/60
[2017-12-27 22:13] VITALS: BP 116/72
[2017-12-28 06:56] VITALS: BP 108/50
--- NOTE | 2017-12-28 07:05 | PN- Housestaff ---
See Addendum Subjective Follow-up For: CHF NSTEMI Tele-Events Since Last Visit: hr 60s-70s Subjective: complaing of fatigue this morning, on 1L oxygen Review of Systems Constitutional: Reports: see HPI. Objective Last 24 Hrs of Vital Signs/I&O Vital Signs Date Time Temp Pulse Resp B/P B/P Pulse O2 O2 Flow FiO2 Mean Ox Delivery Rate 12/28 0940 59 108/50 12/28 0939 59 108/50 12/28 0656 18.0 59 18 108/50 94 Nasal 1.0L Cannula 12/28 0000 Nasal 1.0L Cannula 12/27 2213 98.2 58 18 116/72 92 Nasal 1.0L Cannula 12/27 2009 96 Nasal 1.0L Cannula 12/27 1600 94 Nasal 1.0L Cannula 12/27 1425 98.1 68 20 110/60 96 Nasal 1.0L Cannula 12/27 1358 98 Nasal 1.0L Cannula Intake & Output 12/28 1600 12/28 0800 12/28 0000 Intake Total 50 160 Output Total Balance 50 160 Intake, Oral 50 160 Patient 49.13 kg Weight Weight Bed scale Measurement Method Physical Exam General Appearance: Alert, Oriented X3, Cooperative, No Acute Distress Cardiovascular: Regular Rate, Normal S1, Normal S2, No Murmurs Lungs: diminished bibasilarly Abdomen: Normal Bowel Sounds, Soft, No Tenderness, No Masses Extremities: No Clubbing, No Cyanosis, No Edema, Normal Pulses Current Medications: Current Medications Sig/Sergey Start time Last Medication Dose Route Stop Time Status Admin Albuterol Sulfate 3 ML Q4P PRN 12/21 1045 DC 12/22 INH 2118 Apixaban 5 MG BID 12/25 2100 AC 12/28 PO 0938 Atorvastatin Calcium 40 MG 1700 12/21 1700 AC 12/27 PO 1705 Budesonide/ 2 PUF BID 12/25 0900 AC 12/28 Formoterol Fumarate INH 1001 Clopidogrel Bisulfate 75 MG DAILY 12/21 09 AC 12/28 PO 0939 Furosemide 40 MG DAILY 12/26 0900 AC 12/28 PO 0939 Lactobacillus 1 CAP BID 12/21 09 AC 12/28 Acidophilus PO 0940 Lisinopril 2.5 MG DAILY 12/21 09 AC 12/28 PO 0939 Metoprolol Succinate 25 MG DAILY 05/17 1345 AC 12/28 PO 0940 Omeprazole 20 MG DAILY AC 12/21 0900 AC 12/28 PO 0618 Paroxetine HCl 40 MG DAILY 12/22 0900 AC 12/28 PO 0939 Polyethylene Glycol 17 GM DAILY 12/25 1430 AC PO Senna/Docusate Sodium 2 TAB DAILY 12/25 1430 AC 12/26 PO 1017 Tramadol HCl 50 MG ONCE ONE 12/27 2044 DC 12/27 PO 12/27 Last 24 Hrs of Lab/Ilya Results Last 24 Hrs of Labs/Mics: Laboratory Tests 12/28/17 0630: Anion Gap 6, Estimated GFR > 60, BUN/Creatinine Ratio 24.3 Assessment/Plan Assessment: 77 year old female with PMH of depression, HTN, HLD, CAD and paroxysmal atrial fibrillation admitted with complaints of weakness, dyspnea, and elevated troponins. CAD with recent stenting and elevated troponins: Continue plavix, eliquis, atorvastatin, and metoprolol No complaints of chest pain No arrhythmias on telemetry Type II NSTEMI or residual elevation from recent STEMI Recent STEMI with cardiac cath and stent placements in November 2017 Continue plavix, not on aspirin because of history of PUD Troponins 0.74-> 1.24-> 1.11-> 0.65 Monitor on telemetry Cardiology consulted, follow up recommendations No role for repeat coronary angiography at this time Echocardiogram 12/2017 Normal size left ventricle. Mild concentric left ventricular hypertrophy. Abnormal septal motion consistent with left bundle branch block. Markedly hypokinetic to akinetic inferior and lateral castro. Moderately abnormal left ventricular ejection fraction estimated at 25-30%. Mildly increased resting left ventricular outflow tract velocity (1.35 m/s). Normal right ventricular size and function. Normal right atrial size. Mild left atrial dilatation. Mild mitral regurgitation. Mild aortic regurgitation. Mild tricuspid regurgitation. No evidence of pulmonary hypertension. Mildly dilated proximal ascending aorta (tube). HFrEF: LVEF 25-30% Chest x-ray-mixed interstitial airspace opacity improved with diuresis on repeat chest x-ray probnp 20,000 Awaiting life vest before discharge or AICD Continue diuresis with 40mg iv lasix bid Strict I/Os, daily weights pAfib: Currently rate controlled Toprol reduced from 50mg xl to 25mg xl for bradycardia in the 50s On eliquis Acute blood loss anemia: Transfused 1 u pRBC CBC stable Restarted eliquis HTN: Continue metoprolol and lisinopril HLD: Continue atorvastatin COPD: On Breo at home Start symbicort TRC evaluation Heart healthy diet DVT ppx-on eliquis Full code Awaiting transfer Problem List: 1. Acute respiratory failure with hypoxia 2. History of CHF (congestive heart failure) 3. Elevated troponin Pain Ratin Pain Location: n/a Pain Goal: Pain 4 or less Pain Plan: prn Tomorrow's Labs & Rationales: none
--- NOTE | 2017-12-28 08:45 | Discharge Summary ---
Visit Information Visit Dates Admission Date: 12/21/17 Discharge Date: 12/29/17 Hospital Course Course Attending Physician: Scarlett Delong MD Primary Care Physician: Manuel Etienne MD Hospital Course: 77-year-old woman with past medical history significant for, CAD s/p UT recent stenting twice in , COPD not on oxygen, HFrEF, HTN, HLD, OA, depression , SBO s/p repair admitted to [facility] for sudden onset of diaphoresis, dyspneic and desaturation of 70% on RA VS at admission are Temp 97.7, Pulse 81, BP 155/74mmHg, 89% on 3L oxygen. Labs did show white count of 11.3 with left shift (segmented neutrophils 85) , H&H 9.2/29.9, platelets 429, chem panel Na 142, K 3.8, cl 105, BUN/Cr 23/0.8, Trop 0.74. ProBNP 13k. EKG - A.flutter/fib with LBBB, no new ST T wave changes. Azithromycin and ceftriaxone x1 and 125mg solumedrol were give in the ER for concerns for pna as she had leukocytosis and cxr revealed diffuse mixed interstitial airspace opacification throughout the left lung suspicious for atypical pneumonia. Acute hypoxic respiratory failure Initially admitted to the ICU , Acute dyspnea with hypoxia thought to secondary to HF rather than infection. Urinary leigonella and strep pneumo antigens negative. Transferred to telemetry floor when she was more stable. CAD with recent stenting and elevated troponins: Extensive cardiac history(s/p remote UT w/ culprit PCI/BMS x1 to LAD; and follow -up PCI/BMS 1 for non-culpret LCx stenosis; PCI/LANE [[facility]] of an 80% LCx AV groove artery stenosis on 11/19/2017; in stent restenosis of LCx AV groove artery s/p POBA on 12/03/2017). Cardiac catheterization from 12/03/2017 revealed the following: LM-patent, LAD-diffuse luminal irregularities and patency at prior stent site, LCx-100% occlusion at the beginning of the previously placed stent with normal flow into the M1, RCA-dominant with ectasia and diffuse luminal irregularities, and LV gram-not done. Per Cardiology elevated troponins thought to be most likely residual from her previous STEMI vs demand ischemia and not an ACS. Troponins peaked at 1.24. she was continued plavix, eliquis, atorvastatin, and metoprolol. No role for repeat coronary angiography at this time. Acute on chronic anemia Her baseline h/h 9-10/, dropped to h/h 7.5/24 and was transfused with 1 unit PRBC. Patient declined a rectal exam and further workup at the time of drop in H&H. Apixaban was held for a few days and restarted. H/H remained stable for the rest of her hospital course. Stool was guaic negative. Acute on chronic systolic heart failure Echo Abnormal septal motion consistent with left bundle branch block. Markedly hypokinetic to akinetic inferior and lateral castro. Moderately abnormal left ventricular ejection fraction estimated at 25-30%. Mildly increased resting left ventricular outflow tract velocity (1.35 m/s). False chordae in the left ventricle (normal variant). Chest x-ray-mixed interstitial airspace opacity improved with diuresis on repeat chest x-ray. Probnp 20,000. Will need AICD evaluation. Life vest was arranged in the interim but refused by the patient as [facility] would not accept her with the life vest and patient did not wish to go to any other facility. Dr. Etienne will f/u with the patient regarding further goals of care. Continued diuresis with 40mg po lasix Paroxysmal Atrial fibrillation: Metroprolol 50mg xl held for bradycardia in the 50s, Restarted at 25mg. HTN: Continued metoprolol and lisinopril HLD: Continued atorvastatin COPD: On Breo at home Started on symbicort Allergies: Coded Allergies: amoxicillin (From AUGMENTIN) ([facility] 12/21/17) clavulanic acid (From AUGMENTIN) ([facility] 12/21/17) Significant Procedures: XRY-PORTABLE CHEST XRAY FINDINGS: The cardiac silhouette is not enlarged. The mediastinal and hilar contours are unremarkable. There are neither pleural effusions nor pneumothoraces. There is been development of ill-defined patchy mixed interstitial and airspace opacity throughout the majority of the left hemithorax with preserved aeration at the left lung base. There is mild streaky opacification at the right lung base. The osseous structures are stable. IMPRESSION: Interval development of diffuse mixed interstitial airspace opacification throughout the left lung suspicious for atypical pneumonia. ECHOCARDIOGRAM FINDINGS Left Ventricle Normal size left ventricle. Mild concentric left ventricular hypertrophy. Abnormal septal motion consistent with left bundle branch block. Markedly hypokinetic to akinetic inferior and lateral castro. Moderately abnormal left ventricular ejection fraction estimated at 25-30%. Mildly increased resting left ventricular outflow tract velocity (1.35 m/s). False chordae in the left ventricle (normal variant). Right Ventricle Normal right ventricular size and function. Right Atrium Normal right atrial size. Left Atrium Mild left atrial dilatation. Mitral Valve Mild mitral annular calcification. Mild mitral regurgitation. Aortic Valve Trileaflet aortic valve. Mild aortic sclerosis. No hemodynamically significant aortic stenosis. Mild aortic regurgitation. Tricuspid Valve Structurally normal tricuspid valve. Mild tricuspid regurgitation. No evidence of pulmonary hypertension. Right ventricular systolic pressure estimated to be within the normal range at 15 mmHg. Pulmonic Valve Pulmonic valve not well visualized, grossly normal. No pulmonic regurgitation. Pericardium No pericardial effusion. Great Vessels Normal size aortic root. Mildly dilated proximal ascending aorta (tube). CONCLUSIONS Normal size left ventricle. Mild concentric left ventricular hypertrophy. Abnormal septal motion consistent with left bundle branch block. Markedly hypokinetic to akinetic inferior and lateral castro. Moderately abnormal left ventricular ejection fraction estimated at 25-30%. Mildly increased resting left ventricular outflow tract velocity (1.35 m/s). Normal right ventricular size and function. Normal right atrial size. Mild left atrial dilatation. Mild mitral regurgitation. Mild aortic regurgitation. Mild tricuspid regurgitation. No evidence of pulmonary hypertension. Mildly dilated proximal ascending aorta (tube). Disposition Summary Disposition Principal Diagnosis: Acute on chronic systolic heart failure Additional Diagnosis: CAD with recent stenting and elevated troponins Acute on chronic anemia Paroxysmal Atrial fibrillation Hypertension Discharge Disposition: SNF Discharge Instructions General Discharge Information Code Status: Full Code Patient's Diet: Heart Healthy Patient's Activity: As tolerated Follow-Up Instructions/Appts: Follow-up with primary care physician within 1 week of discharge Follow-up with back tender cylinder within 1 week of discharge We have decreased your dose of metoprolol from 50mg to 25mg Medications at Discharge Discharge Medications: Stop taking the following medications: Metoprolol Succinate (Metoprolol Succinate) 100 MG TAB.ER.24H ORAL DAILY Continue taking these medications: Atorvastatin Calcium (Atorvastatin Calcium) 40 MG TABLET 1 Tablet ORAL Every night Qty = 14 Comments: Last Taken: 12/28/17 Time: 4:30 PM Omeprazole (Omeprazole) 20 MG CAPSULE.DR 1 Capsule ORAL DAILY Comments: Last Taken: 12/29/17 Time: 5:30 AM Fluticasone/Vilanterol (Breo Ellipta 100-25 Mcg INH) 100 MCG-25 MCG/DOSE BLST.W.DEV 1 Inhalant ORAL DAILY Comments: Last Taken: 12/29/17 Time: 10:00 AM SYMBICORT GIVEN SUBSTITUTE Paroxetine HCl (Paroxetine HCl) 40 MG TABLET 1 Tablet ORAL DAILY Qty = 30 Comments: Last Taken: 12/29/17 Time: 10:00 AM Sennosides (Senna) 8.6 MG TABLET 2 Tablet ORAL TWICE DAILY Comments: Last Taken: 12/26/17 Time: 10:15 AM Acetaminophen (Tylenol Extra Strength) 500 MG TABLET 2 Tablet ORAL THREE TIMES DAILY Comments: NOT GIVEN IN HOSPITAL Clopidogrel Bisulfate (Plavix) 75 MG TABLET 75 Milligram ORAL DAILY Qty = 30 Comments: Last Taken: 12/29/17 Time: 10:00 AM Apixaban (Eliquis) 5 MG TABLET 1 Tablet ORAL TWICE DAILY Comments: Last Taken: 12/29/17 Time: 10:00 AM Furosemide (Furosemide) 40 MG TABLET 1 Tablet ORAL DAILY Comments: Last Taken: 12/29/17 Time: 10:00 AM Lisinopril (Lisinopril) 2.5 MG TABLET 1 Tablet ORAL DAILY Comments: Last Taken: 12/29/17 Time: 10:00 AM Lactobacillus Acidophilus (Acidophilus) 1 EACH CAPSULE 1 Capsule ORAL TWICE DAILY Comments: Last Taken: 12/29/17 Time: 10:00 AM Start taking the following new medications: Metoprolol Succ XL (Toprol XL) 25 MG TAB 1 Tablet ORAL DAILY Qty = 30 No Refills Comments: Last Taken: 12/29/17 Time: 10:00 AM Copies To: Johanny MITCHELL,Mikhail Fine; Lowell MITCHELL,Manuel Louie
[2017-12-28] MEDS ORDERED: TOPROL XL25 M1 PO (10:52)
--- NOTE | 2017-12-28 11:02 | Patient Discharge Instructions ---
Discharge Instructions General Discharge Information You were seen/treated for: Worsening shortness of breath Watch for these problems: Severe chest pain, difficulty breathing Special Instructions: Follow-up with primary care physician within 1 week of discharge Follow-up with police judge within 1 week of discharge We have decreased your dose of metoprolol from 50mg to 25mg Diet Continue normal diet: No Recommended Diet: Heart Healthy Acute Coronary Syndrome Inclusion Criteria At DC or during hospital stay patient has or had the following: ACS DIAGNOSIS No Discharge Core Measures Meds if any: Prescribed or Continued at Discharge Meds if any: NOT Prescribed or Continued at Discharge Congestive Heart Failure Inclusion Criteria At DC or during hospital stay patient has or had the following: CHF DIAGNOSIS Yes Discharge Core Measures Meds if any: Prescribed or Continued at Discharge DENISSE/ARB for EF <40% Yes Meds if any: NOT Prescribed or Continued at Discharge Cerebrovascular accident Inclusion Criteria At DC or during hospital stay patient has or had the following: CVA/TIA Diagnosis No Discharge Core Measures Meds if any: Prescribed or Continued at Discharge Meds if any: NOT Prescribed or Continued at Discharge Venous thromboembolism Inclusion Criteria VTE Diagnosis No VTE Type NONE VTE Confirmed by (Test) NONE Discharge Core Measures - Per Current guidelines, there needs to be overlap - treatment for the first 5 days of Warfarin therapy. - If discharged on Warfarin prior to 5 days of - overlap therapy, the patient will need to be - assessed for post discharge needs including - *Post discharge parental anticoagulation - *Warfarin and/or parental anticoagulation education - *Follow up date to check INR post discharge At least 5 days overlap therapy as Inpatient No Meds if any: Prescribed or Continued at Discharge Note: Overlap Therapy is Warfarin and Anticoagulant Meds if any: NOT Prescribed or Continued at Discharge
[2017-12-28 14:41] VITALS: BP 116/60
--- NOTE | 2017-12-28 18:28 | PN- Cardiology ---
Subjective Subjective: No complaints. Denies chest discomfort, palpitations, shortness of breath per Objective Vital Signs and I&Os Vital Signs Date Time Temp Pulse Resp B/P B/P Pulse O2 O2 Flow FiO2 Mean Ox Delivery Rate 12/28 1441 98.0 60 16 116/60 96 Nasal 1.0L Cannula 12/28 0940 59 108/50 12/28 0939 59 108/50 12/28 0800 Nasal 1.0L Cannula 12/28 0656 18.0 59 18 108/50 94 Nasal 1.0L Cannula 12/28 0000 Nasal 1.0L Cannula 12/27 2213 98.2 58 18 116/72 92 Nasal 1.0L Cannula 12/27 2009 96 Nasal 1.0L Cannula Intake & Output 12/28 1600 12/28 0800 12/28 0000 12/27 1600 12/27 0800 12/27 0000 Intake Total 550 50 160 820 0 50 Output Total Balance 550 50 160 820 0 50 Intake, IV 0 Intake, Oral 550 50 160 820 0 50 Number 1 0 Bowel Movements Patient 108 lb 104 lb Weight Weight Bed scale Bed scale Measurement Method Physical Exam: Chronically ill-appearing elderly female in no acute distress with nasal oxygen in place. Vital signs: See above. Neck: No JVD, no bruits. Lungs: Decreased breath sounds bilaterally. Heart: S1, S2 with no murmur, gallop, or rub. Abdomen: Soft, nontender, positive bowel sounds. Extremities: No edema. Current Medications: Current Medications Sig/Sergey Start time Last Medication Dose Route Stop Time Status Admin Albuterol Sulfate 3 ML Q4P PRN 12/21 1045 DC 12/22 INH 2118 Apixaban 5 MG BID 12/25 2100 AC 12/28 PO 0938 Atorvastatin Calcium 40 MG 1700 12/21 1700 AC 12/28 PO 1628 Budesonide/ 2 PUF BID 12/25 0900 AC 12/28 Formoterol Fumarate INH 1001 Clopidogrel Bisulfate 75 MG DAILY 12/21 09 AC 12/28 PO 0939 Docusate Sodium 100 MG BID 12/28 1615 AC PO Furosemide 40 MG DAILY 12/26 09 AC 12/28 PO 0939 Lactobacillus 1 CAP BID 12/21 0900 AC 12/28 Acidophilus PO 0940 Lisinopril 2.5 MG DAILY 12/21 09 AC 12/28 PO 0939 Metoprolol Succinate 25 MG DAILY 12/24 1345 AC 12/28 PO 0940 Omeprazole 20 MG DAILY AC 12/21 0900 AC 12/28 PO 0618 Paroxetine HCl 40 MG DAILY 12/22 0900 AC 12/28 PO 0939 Polyethylene Glycol 17 GM DAILY 12/25 1430 AC PO Senna/Docusate Sodium 2 TAB DAILY 12/25 1430 AC 12/26 PO 1017 Tramadol HCl 50 MG ONCE ONE 12/27 2044 DC 12/27 PO 12/27 Results Last 48 Hrs of Labs/Mics: Laboratory Tests 12/28/17 0630: Anion Gap 6, Estimated GFR > 60, BUN/Creatinine Ratio 24.3 12/27/17 0615: Anion Gap 7, Estimated GFR > 60, BUN/Creatinine Ratio 31.7 H, Magnesium 1.7 Assessment/Plan Assessment/Plan Ms. Juan is a 77-year-old female with long-standing history of coronary artery disease who was recently hospitalized for ST elevation myocardial infarction that led to decreased systolic function and an estimated ejection fraction of 25-30%. The plan was to contact [email or web address] to have a LifeVest placed. The LifeVest should be placed shortly. Mrs. Juan is willing to have this placed and realizes that this will be in place for approximately 3 months at which time we will reassess her left ventricular function to determine if a permanent defibrillator is required. Naturally if her ejection fraction has improved this will not be necessary, but we will continue with medical management in the hope of further improved LV function. Continue present medical regimen. Continue telemetry? Yes
[2017-12-28 22:18] VITALS: BP 124/76
[2017-12-29 06:31] VITALS: BP 116/64
--- NOTE | 2017-12-29 07:13 | PN- Housestaff ---
Heide MITCHELL,[facility] 12/29/17 0713: Subjective Follow-up For: CHF Exacerbation NSTEMI Tele-Events Since Last Visit: Erin Castano HR 54-63 Subjective: Patient states she would like to go home soon and if life vest will make her hospital stay longer she does not want to have the life vest. Otherwise deneis any active complaints. Review of Systems Constitutional: Reports: no symptoms. EENTM: Reports: no symptoms. Cardiovascular: Reports: no symptoms. Respiratory: Reports: no symptoms. Gastrointestinal: Reports: no symptoms. Genitourinary: Reports: no symptoms. Musculoskeletal: Reports: no symptoms. Skin: Reports: no symptoms. Neurological/Psychological: Reports: no symptoms. Hematologic/Endocrine: Reports: no symptoms. Immunologic/Allergic: Reports: no symptoms. Objective Last 24 Hrs of Vital Signs/I&O Vital Signs Date Time Temp Pulse Resp B/P B/P Pulse O2 O2 Flow FiO2 Mean Ox Delivery Rate 12/29 0631 97.9 50 20 116/64 95 Nasal 1.0L Cannula 12/29 0000 Nasal 1.0L Cannula 12/28 2218 98.2 65 20 124/76 94 12/28 1441 98.0 60 16 116/60 96 Nasal 1.0L Cannula 12/28 0940 59 108/50 12/28 0939 59 108/50 Intake & Output 12/29 1600 12/29 0800 12/29 0000 Intake Total 120 120 Output Total Balance 120 120 Intake, Oral 120 120 Patient 103 lb Weight Physical Exam General Appearance: Alert, Oriented X3, Cooperative Skin: No Rashes, No Breakdown Cardiovascular: Regular Rate, Normal S1, Normal S2 Lungs: Normal Air Movement Abdomen: Normal Bowel Sounds, Soft, No Tenderness Extremities: No Clubbing, No Cyanosis, No Edema Current Medications: Current Medications Sig/Sergey Start time Last Medication Dose Route Stop Time Status Admin Apixaban 5 MG BID 12/25 2100 AC 12/28 PO 2026 Atorvastatin Calcium 40 MG 1700 12/21 1700 AC 12/28 PO 1628 Budesonide/ 2 PUF BID 12/25 09 AC 12/28 Formoterol Fumarate INH 2026 Clopidogrel Bisulfate 75 MG DAILY 12/21 09 AC 12/28 PO 0939 Docusate Sodium 100 MG BID 12/28 1615 AC 12/28 PO 2026 Furosemide 40 MG DAILY 12/26 0900 AC 12/28 PO 0939 Lactobacillus 1 CAP BID 12/21 0900 AC 12/28 Acidophilus PO 2026 Lisinopril 2.5 MG DAILY 12/21 0900 AC 12/28 PO 0939 Metoprolol Succinate 25 MG DAILY 12/24 1345 AC 12/28 PO 0940 Omeprazole 20 MG DAILY AC 12/21 0900 AC 12/29 PO 0530 Paroxetine HCl 40 MG DAILY 12/22 0900 AC 12/28 PO 0939 Polyethylene Glycol 17 GM DAILY 12/25 1430 AC PO Senna/Docusate Sodium 2 TAB DAILY 12/25 1430 AC 12/26 PO 1017 Assessment/Plan Assessment: 77 year old female with PMH of depression, HTN, HLD, CAD and paroxysmal atrial fibrillation admitted with complaints of weakness, dyspnea, and elevated troponins. A/P 1. CAD with recent stenting and elevated troponins: * Continue plavix, eliquis, atorvastatin, and metoprolol * No complaints of chest pain * No arrhythmias on telemetry * Type II NSTEMI or residual elevation from recent STEMI * Recent STEMI with cardiac cath and stent placements in November 2017 * Continue plavix, not on aspirin because of history of PUD * Troponins 0.74-> 1.24-> 1.11-> 0.65 * Monitor on telemetry * Cardiology consulted, follow up recommendations * No role for repeat coronary angiography at this time * Echocardiogram 12/2017 showed Normal size left ventricle, Mild concentric left ventricular hypertrophy. Abnormal septal motion consistent with left bundle branch block with markedly hypokinetic to akinetic inferior and lateral castro. Moderately abnormal left ventricular ejection fraction estimated at 25-30%. Also shows mildly dilated proximal ascending aorta (tube). HFrEF: * LVEF 25-30% * Chest x-ray-mixed interstitial airspace opacity improved with diuresis on repeat chest x-ray * probnp 20,000 * Awaiting life vest before discharge or AICD. Patient currently denying life as vest as she wants to go to [facility] only but they do not accept patient with life vest. * Continue diuresis with 40mg PO daily. * Strict I/Os(unable to measure output as the patient is incontinent), daily weights pAfib: * Currently rate controlled * Toprol reduced from 50mg xl to 25mg xl for bradycardia in the 50s * On eliquis Acute blood loss anemia: * Transfused 1 u PRBC on December 22 * CBC stable * Eliquis resumed. HTN: * Continue metoprolol and lisinopril HLD: * Continue atorvastatin COPD: * On Breo at home * Started on symbicort * TRC evaluation Heart healthy diet DVT ppx-on eliquis Full code Problem List: 1. CHF (congestive heart failure) 2. Elevated troponin Pain Ratin Pain Location: NA Pain Goal: Remain pain free Pain Plan: NA Tomorrow's Labs & Rationales: None Scarlett Delong MD 12/29/17 1106: Attending MD Review Statement Attending Statement Attending MD Statement: examined this patient, discuss w/resident/PA/DIRECTOR OF GRANTS, agreed w/resident/PA/DIRECTOR OF GRANTS, reviewed EMR data (avail) Attending Assessment/Plan: 77F PMH CAD s/p IN recent stenting twice in , COPD not on oxygen, HFrEF , HTN, HLD, OA, depression, SBO s/p repair admitted to ICU with acute hypoxemic respiratory failure secondary to acute on chronic CHF with elevated troponin. Patient has been aggressively diuresed and breathing is improved, reflected in improved CXR. Troponin was elevated, thought initially to be residual from prior IN, however it has peaked at 1.24, so suspect Type 2 IN. Course complicated by anemia requiring transfusion and Eliquis held, currently only on Plavix. 1. Acute on chronic systolic CHF 2. Type 2 myocardial infarction 3. Acute blood loss anemia 4. Acute hypoxemic respiratory failure 5. History of CAD Plan - Continue on telemetry - Continue Lasix - Continue Plavix and Eliquis - Life vest for today - Cardiology recommendations for further management - Continue home medications - Once Life Vest is placed, can be discharged to [facility]. Will speak with case management regarding discharge planning.
[2017-12-29 13:46] VITALS: BP 116/64
--- NOTE | 2017-12-29 19:07 | PN- Cardiology ---
Subjective Subjective: No complaints. While she agreed to have the LifeVest placed, this should week he will not accept her with the LifeVest. Patient does not want to be in any other SNF. Objective Vital Signs and I&Os Vital Signs Date Time Temp Pulse Resp B/P B/P Pulse O2 O2 Flow FiO2 Mean Ox Delivery Rate 12/29 1346 97.9 68 20 116/64 12/29 1011 68 116/64 12/29 1011 68 116/64 12/29 0800 95 Nasal 1.0L Cannula 12/29 0631 97.9 50 20 116/64 95 Nasal 1.0L Cannula 12/29 0000 Nasal 1.0L Cannula 12/28 2218 98.2 65 20 124/76 94 Intake & Output 12/29 1600 12/29 0800 12/29 0000 12/28 1600 12/28 0800 12/28 0000 Intake Total 480 120 120 550 50 160 Output Total Balance 480 120 120 550 50 160 Intake, Oral 480 120 120 550 50 160 Patient 103 lb 108 lb Weight Weight Bed scale Measurement Method Physical Exam: Chronically ill-appearing elderly female in no acute distress with nasal oxygen in place. Vital signs: See above. Neck: No JVD, no bruits. Lungs: Decreased breath sounds bilaterally. Heart: S1, S2 with no murmur, gallop, or rub appreciated. Abdomen: Soft, nontender, positive bowel sounds. Extremities: No edema. Current Medications: Current Medications Sig/Sergey Start time Last Medication Dose Route Stop Time Status Admin Apixaban 5 MG BID 12/25 2100 DCD 12/29 PO 1010 Atorvastatin Calcium 40 MG 1700 12/21 1700 DCD 12/28 PO 1628 Budesonide/ 2 PUF BID 12/25 09 DCD 12/29 Formoterol Fumarate INH 1021 Clopidogrel Bisulfate 75 MG DAILY 12/21 09 DCD 12/29 PO 1010 Docusate Sodium 100 MG BID 12/28 1615 DCD 12/28 PO 2027 Furosemide 40 MG DAILY 12/26 899 DCD 12/29 PO 1010 Lactobacillus 1 CAP BID 12/21 09 DCD 12/29 Acidophilus PO 1011 Lisinopril 2.5 MG DAILY 12/21 09 DCD 12/29 PO 1011 Metoprolol Succinate 25 MG DAILY 12/24 1345 DCD 12/29 PO 1011 Omeprazole 20 MG DAILY AC 12/21 0900 DCD 12/29 PO 0530 Paroxetine HCl 40 MG DAILY 12/22 0900 DCD 12/29 PO 1010 Polyethylene Glycol 17 GM DAILY 12/25 1430 DCD PO Senna/Docusate Sodium 2 TAB DAILY 12/25 1430 DCD 12/26 PO 1017 Results Last 48 Hrs of Labs/Mics: Laboratory Tests 12/28/17 0630: Anion Gap 6, Estimated GFR > 60, BUN/Creatinine Ratio 24.3 Assessment/Plan Assessment/Plan Ms. Juan is a 77-year-old female with long-standing history of coronary artery disease who was recently hospitalized for ST elevation myocardial infarction that led to decreased systolic function and an estimated ejection fraction of 25-30%. The plan was to have a LifeVest placed, but she will not be able to go to the only SNF she is willing to go to. She is competent to make this decision, so for now the LifeVest is on hold. Continue present medical regimen. Continue telemetry? No
== END 2017-12-29 14:00 | DRG 280 ==
LOC: ERH 05:40 → CRI 06:50 → ERHI 06:50 → 1NO 06:50 → ENRESERV 07:37 → ENTRNSPT 08:35 → EDTRNSPT 08:38 → EDTRNSPTSTS 08:38 → CMPTRNSPT 08:59 → CRI 09:03 → DELTRNSPT 12-24 22:13 → 1NO 12-24 22:46 → ENPENDDIS 12-29 14:01
PROVIDERS: Internal Medicine; Pediatrics; Preventive Medicine Public Health & General Preventive Medicine; Student in an Organized Health Care Education/Training Program
PROC: 30233N1 Transfusion of Nonautologous Red Blood Cells into Peripheral Vein, Percutaneous Approach (ICD-10-PCS; principal; 2017-12-25)
DX: I11.0 Hypertensive heart disease with heart failure (principal); I21.3 ST elevation (STEMI) myocardial infarction of unspecified site; J96.01 Acute respiratory failure with hypoxia; I48.92 Unspecified atrial flutter; I48.0 Paroxysmal atrial fibrillation; D62 Acute posthemorrhagic anemia; J44.9 Chronic obstructive pulmonary disease, unspecified; I50.23 Acute on chronic systolic (congestive) heart failure; Z79.01 Long term (current) use of anticoagulants; I25.10 Atherosclerotic heart disease of native coronary artery without angina pectoris; I25.2 Old myocardial infarction; Z98.61 Coronary angioplasty status; E78.5 Hyperlipidemia, unspecified; F32.9 Major depressive disorder, single episode, unspecified; Z88.1 Allergy status to other antibiotic agents; Z90.49 Acquired absence of other specified parts of digestive tract; K21.9 Gastro-esophageal reflux disease without esophagitis
CPT/HCPCS: 1NP; CCU; 36415; 36592; 71045; 82436; 86920; 87040; 87070; 87449; 87450; 93005; 93010; 93306; 96365; 96375; 99291; J0456; J0696; J1940; J2930; J3250; J3490; J7040; J7508; P9016

== ENCOUNTER 2018-02-28 05:36 | Inpatient (IN) | payer OTHER, MEDICARE ==
[~2018-02-28] VITALS: Ht 152.4 cm; Wt 60.3 kg
[~2018-02-28 05:36] MED LIST changes: +ACIDOPHILUS1 EACH PO; +ELIQUIS5 M1 PO; +FUROSEMIDE40 M1 PO; +LISINOPRIL2.5 M1 PO; +TOPROL XL25 M1 PO
--- NOTE | 2018-02-28 05:57 | ED DYSPNEA/ASTHMA COMPLAINT ---
History of Present Illness General Chief Complaint: Dyspnea (COPD, CHF, Other) Stated Complaint: BIBA FOR DIFF BREATHING Source: patient, old records, EMS, W10 Exam Limitations: unable to give history Vital Signs & Intake/Output Vital Signs & Intake/Output Vital Signs Date Time Temp Pulse Resp B/P B/P Pulse O2 O2 Flow FiO2 Mean Ox Delivery Rate 02/28 0732 96.0 88 26 96 Nasal Cannula 02/28 0724 87 20 128/70 97 Nasal 2.0L Cannula 02/28 0648 96.2 82 28 113/53 98 Nasal 2.0L Cannula 02/28 0605 100 Nasal 4.0L Cannula 02/28 0540 96.1 88 26 136/74 93 CPAP 100% Allergies Coded Allergies: amoxicillin (From AUGMENTIN) (THRUSH 12/21/17) clavulanic acid (From AUGMENTIN) (THRUSH 12/21/17) Reconcile Medications Acetaminophen (Tylenol Extra Strength) 500 MG TABLET 2 TAB PO TID PAIN ( Reported) Apixaban (Eliquis) 5 MG TABLET 1 TAB PO BID BLOOD THINNER (Reported) Atorvastatin Calcium 40 MG TABLET 1 TAB PO QPM CHOLESTEROL (Reported) Clopidogrel Bisulfate (Plavix) 75 MG TABLET 75 MG PO DAILY HEART HEALTH Fluticasone/Vilanterol (Breo Ellipta 100-25 Mcg INH) 100 MCG-25 MCG/DOSE BLST.W.DEV 1 INHA PO DAILY COPD (Reported) Furosemide 40 MG TABLET 1 TAB PO DAILY WATER RETENTION (Reported) Lactobacillus Acidophilus (Acidophilus) 1 EACH CAPSULE 1 CAP PO BID GI ( Reported) Lisinopril 2.5 MG TABLET 1 TAB PO DAILY HEART (Reported) Metoprolol Succ XL (Toprol XL) 25 MG TAB 1 TAB PO DAILY CAD Omeprazole 20 MG CAPSULE.DR 1 CAP PO DAILY BOWEL ULCER (Reported) Paroxetine HCl 40 MG TABLET 1 TAB PO DAILY MOOD (Reported) Sennosides (Senna) 8.6 MG TABLET 2 TAB PO BID CONSTIPATION (Reported) Core Measure Meds Pre-Hospital apixaban Triage Nurses Notes Reviewed? yes Onset: Just prior to arrival Duration: minute(s):, constant, continues in ED Timing: recent history Severity: severe Activities at Onset: sleep Prior Episodes/Possible Cause: frequent episodes Associated Symptoms: weakness LMP (ages 10-50): post menopausal : No Patient currently breastfeeds: No HPI: Prior to admission patient was found by skilled nursing staff increased work of breathing and decreased oxygen saturation. EMS was called and found her oxygen saturation to be 60-80%. She denies fever chills nausea vomiting diarrhea abdominal pain chest pain headache dysuria rash bleeding. (Williams Cruz MD) Past History Travel History Traveled to [place] past 21 day No Medical History Any Pertinent Medical History? 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 No (Williams Cruz MD) Review of Systems Review of Systems Constitutional: Reports: see HPI, weakness. EENTM: Reports: no symptoms. Respiratory: Reports: see HPI, short of breath. Cardiovascular: Reports: no symptoms. GI: Reports: no symptoms. Genitourinary: Reports: no symptoms. Musculoskeletal: Reports: no symptoms. Skin: Reports: no symptoms. Neurological/Psychological: Reports: no symptoms. Hematologic/Endocrine: Reports: no symptoms. Immunologic/Allergic: Reports: no symptoms. All Other Systems: Reviewed and Negative (Williams Cruz MD) Physical Exam Physical Exam General Appearance: well developed/nourished, alert, awake, anxious, moderate distress Head: atraumatic, normal appearance Eyes: Bilateral: normal appearance, PERRL, EOMI. Ears, Nose, Throat: normal pharynx, normal ENT inspection Neck: normal inspection, supple, full range of motion, no midline tenderness Respiratory: chest non-tender, rhonchi, rales, respiratory distress Cardiovascular: regular rate/rhythm, normal peripheral pulses, norml femoral pulses equa Peripheral Pulses: 4+ carotid (R), 4+ carotid (L) Gastrointestinal: normal bowel sounds, soft, non-tender, no organomegaly Extremities: normal inspection, normal capillary refill, normal range of motion, no edema Neurologic/Psych: awake, normal mood/affect, quality assurance representative II-XII nml as tested, disoriented x 3 Skin: intact, normal color, warm/dry Lymphatic: no anterior cervical tom Core Measures ACS in differential dx? No CVA/TIA Diagnosis No Sepsis Present: No Sepsis Focused Exam Completed? No (Nancy MITCHELL,Williams) Progress Differential Diagnosis: bronchitis, CHF, COPD, pneumonia Plan of Care: Orders Procedure Date/time Status Regular Diet 02/28 B Active OXYGEN SETUP (GEN) 02/28 723 Active Saline Lock 02/28 723 Active Admit to inpatient 02/28 723 Active Vital Signs 02/28 723 Active Activity/Ambulation 02/28 723 Active Code Status 02/28 723 Active EKG 02/28 554 Active ARTERIAL BLOOD GAS (GEN) 02/28 545 Complete TROPONIN LEVEL 02/28 545 Complete MAGNESIUM 02/28 545 Complete COMPREHENSIVE METABOLIC PANEL 02/28 545 Complete CBC WITHOUT DIFFERENTIAL 02/28 545 Complete B-TYPE NATRIURETIC PEP (BNP) 02/28 545 Complete Laboratory Tests 02/28/18 0645: pH 7.37, pCO2 37, pO2 99, HCO3 21, ABG O2 Sat (Measured) 97.0, P-50 (Temp Corrected) Y, Carboxyhemoglobin 0.2 L, O2 Concentration % 4 LPM, Temperature 96.1 L, O2 Delivery Method N/C, Phlebotomy Draw Site RIGHT BRACHIAL 02/28/18 0610: Anion Gap 15, Estimated GFR > 60, BUN/Creatinine Ratio 23.8, Glucose 142 H, Calcium 8.9, Magnesium 2.4 H, Total Bilirubin 0.3, AST 41 H, ALT 28, Alkaline Phosphatase 78, Troponin I 0.05, Hjv-L-Dptdetczsiy Pept 6840 H, Total Protein 6.5, Albumin 3.5, Globulin 3.0, Albumin/Globulin Ratio 1.2, CBC w Diff NO MAN DIFF REQ, RBC 3.96 L, MCV 84.5, MCH 27.2, MCHC 32.2 L, RDW 19.1 H, MPV 7.9, Gran % 88.1 H, Lymphocytes % 5.7 L, Monocytes % 5.3, Eosinophils % 0.8, Basophils % 0.1, Absolute Granulocytes 13.8 H, Absolute Lymphocytes 0.9 L, Absolute Monocytes 0.8 H, Absolute Eosinophils 0.1, Absolute Basophils 0 Diagnostic Imaging: Viewed by Me: Radiology Read. Discussed w/RAD: Radiology Read. Initial ED EKG: LBBB Prior EKG: unchanged Rhythm Strip: normal sinus rhythm Hand-Off Endorsed To: Brandon Orourke MD Endorsed Time: 717 Pending: other (admit), Xray (Williams Cruz MD) CXR Impression: PATIENT: MEGHAN MA PRESENT AGE: 77 PATIENT ACCOUNT NO: [id number] : 42 LOCATION: [facility] ORDERING PHYSICIAN: Williams Cruz MD SERVICE DATE: 02/28/18 EXAM TYPE: RAD - XRY-PORTABLE CHEST XRAY EXAMINATION: XR PORTABLE CHEST CLINICAL INFORMATION: Shortness of breath. Rhonchi. Hypoxia. COMPARISON: Previous chest x-ray December 2017 TECHNIQUE: Portable frontal view of the chest was obtained. FINDINGS: The cardiac silhouette is slightly enlarged. There is pulmonary venous redistribution and bilateral predominantly perihilar airspace disease. Findings are most suggestive of CHF/pulmonary edema. Differential would include pneumonia. There is no significant pleural effusion. There are degenerative changes of the spine and shoulder joints. IMPRESSION: Probable CHF. DICTATED BY: Carmen Hui MD DATE /TIME DICTATED:02/28/18725 CERTIFIED TUMOR REGISTRAR:MARCOS DATE/TIME TRANSCRIBED: 02/28/18725 CONFIDENTIAL, DO NOT COPY WITHOUT APPROPRIATE AUTHORIZATION. < Electronically signed in Other Vendor System> SIGNED BY: Carmen Hui MD 02/28/18731 (Brandon Orourke MD) Departure Departure Disposition: STILL A PATIENT Condition: Stable Clinical Impression Primary Impression: CHF (congestive heart failure) Referrals: Manuel Etienne MD (PCP/Family) Departure Forms: Customer Survey General Discharge Information Admission Note Documentation of Exam: Documentation of any treatments & extenuating circumstances including Concerns Regarding Discharge (functional status, medication knowledge or non-compliance, living conditions, etc.) that warrant an admission rather than observation: Supplemental oxygen IV diuresis serial lab exam cardiac monitoring physical therapy continuing care discharge planning (Williams Cruz MD) Admission Note Spoke With: Marry Israel MD (Brandon Orourke MD) Critical Care Note Critical Care Note Critical Care Time: non-applicable (Williams Cruz MD)
[2018-02-28 06:27] LABS: ABSOLUTE BASOPHIL COUNT 0 /CUMM (0.0-0.2); ABSOLUTE EOSINOPHIL COUNT 0.1 /CUMM (0.0-0.7); ABSOLUTE GRANULOCYTE CT 13.8 /CUMM (1.4-6.5); ABSOLUTE LYMPH COUNT 0.9 /CUMM (1.2-3.4); ABSOLUTE MONOCYTE COUNT 0.8 /CUMM (0.10-0.60); BASOPHIL % 0.1 % (0.0-2.0); EOSINOPHIL % 0.8 % (0-5); HEMATOCRIT 33.5 % (37-47); MEAN CORPUSCULAR HGB 27.2 PG (27.0-31.0); MEAN CORPUSCULAR HGB CONC 32.2 G/DL (33.0-37.0); MEAN CORPUSCULAR VOLUME 84.5 FL (81.0-99.0); MEAN PLATELET VOLUME 7.9 FL (7.4-10.4); PLATELET COUNT 354 /CUMM (130-400); RBC DISTRIBUTION WIDTH 19.1 % (11.5-14.5); RED BLOOD CELL CT 3.96 /CUMM (4.20-5.40)
[2018-02-28 06:36] LABS: GRANULOCYTE % 88.1 % (42.2-75.2)
[2018-02-28 07:00] LABS: WHITE BLOOD CELL COUNT 15.7 /CUMM (4.8-10.8)
--- NOTE | 2018-02-28 07:32 | RADIOLOGY REPORT ---
EXAMINATION: XR PORTABLE CHEST CLINICAL INFORMATION: Shortness of breath. Rhonchi. Hypoxia. COMPARISON: Previous chest x-ray December 2017 TECHNIQUE: Portable frontal view of the chest was obtained. FINDINGS: The cardiac silhouette is slightly enlarged. There is pulmonary venous redistribution and bilateral predominantly perihilar airspace disease. Findings are most suggestive of CHF/pulmonary edema. Differential would include pneumonia. There is no significant pleural effusion. There are degenerative changes of the spine and shoulder joints. IMPRESSION: Probable CHF.
--- NOTE | 2018-02-28 08:53 | History & Physical ---
Irene MITCHELL,Diamante 02/28/18 0853: General Information and HPI MD Statement: I have seen and personally examined MEGHAN MA and documented this H&P. The patient is a 77 year old F who presented with a patient stated chief complaint of []. Source of Information: patient, old records Exam Limitations: no limitations History of Present Illness: Patient is a 77-year-old female BIBA from [facility] after an episode of shortness of breath. Patient is a very poor historian, to be talked to [facility], according to them patient was on right in the morning. Denies any nausea, vomiting, shortness of breath, fever, chills, loss of appetite. In the night around 4:00 she started having shortness of breath become diaphoretic with cool and clammy skin leading to transfer to [facility]. During transportation by EMS her saturation was between 60-80% on 4 L of nasal cannula.She was kept on CPAP leading to improvement in oxygen saturation to 98%.At the time of ED presentation her oxygen saturation was 93%, on CPAP 100%. She was diaphoretic, fatigued, tachypneic, and skin was cool and moist. Past medical history - * Coronary artery disease, (s/p remote [place] w/ culprit PCI/BMS x1 to LAD; and follow-up PCI/BMS 1 for non-culpret LCx stenosis; PCI/LANE [Resolute] of an 80% LCx AV groove artery stenosis on 11/19/2017; in stent restenosis of LCx AV groove artery s/p POBA on 12/03/2017) * Congestive heart failure, ejection fraction 25-30%(December 2017) * Paroxysmal atrial fibrillation * History of spontaneous perforated duodenal ulcer hospitalized here (05/11-) for sepsis, with peritonitis/pneumoperitoneum that required emergent laparotomy with some postoperative short runs of nonsustained ventricular tachycardia (NSVT) * COPD * Hypertension * Hyperlipidemia * History of osteoarthritis * History of depression Allergies-amoxicillin and clavulanic acid Surgical history-cholecystectomy(laparoscopic, 16 years ago), Family history-noncontributory Allergies/Medications Allergies: Coded Allergies: amoxicillin (From AUGMENTIN) ([facility] 12/21/17) clavulanic acid (From AUGMENTIN) ([facility]RUSH 12/21/17) Home Med list Acetaminophen (Tylenol Extra Strength) 500 MG TABLET 2 TAB PO TID PAIN ( Reported) Apixaban (Eliquis) 5 MG TABLET 1 TAB PO BID BLOOD THINNER (Reported) Atorvastatin Calcium 40 MG TABLET 1 TAB PO QPM CHOLESTEROL (Reported) Clopidogrel Bisulfate (Plavix) 75 MG TABLET 75 MG PO DAILY HEART HEALTH Fluticasone/Vilanterol (Breo Ellipta 100-25 Mcg INH) 100 MCG-25 MCG/DOSE BLST.W.DEV 1 INHA PO DAILY COPD (Reported) Furosemide 40 MG TABLET 1 TAB PO DAILY WATER RETENTION (Reported) Lactobacillus Acidophilus (Acidophilus) 1 EACH CAPSULE 1 CAP PO BID GI ( Reported) Lisinopril 2.5 MG TABLET 1 TAB PO DAILY HEART (Reported) Metoprolol Succ XL (Toprol XL) 25 MG TAB 1 TAB PO DAILY CAD Omeprazole 20 MG CAPSULE.DR 1 CAP PO DAILY BOWEL ULCER (Reported) Paroxetine HCl 40 MG TABLET 1 TAB PO DAILY MOOD (Reported) Sennosides (Senna) 8.6 MG TABLET 2 TAB PO BID CONSTIPATION (Reported) Past History Travel History Traveled to [place] past 21 day No Medical History Neurological: NONE EENT: NONE Cardiovascular: CAD, hypertension, hyperlipidemia, CARDIAC STENT NOVEMBER 2018 Respiratory: COPD Gastrointestinal: DUODONAL ULCER Hepatic: NONE Renal: NONE Musculoskeletal: osteoarthritis Psychiatric: depression Endocrine: NONE Blood Disorders: NONE Cancer(s): NONE 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 alone Services at Home: None Primary Language: Bulgarian Living Will? yes Power of Security Assurance Analyst/HCP? yes Name of POA/HCP: Sinan Rossi Functional Ability ADLs Independent: toileting. Needs Assist: eating, bathing. Ambulation: walker IADLs Independent: finances, medication admin. Needs Assist: shopping, food prep, transportation. Review of Systems Review of Systems Constitutional: Reports: no symptoms, malaise, weakness. Cardiovascular: Denies: no symptoms, chest pain, edema, orthopena, palpitations, peripheral edema. Musculoskeletal: Denies: no symptoms. Exam & Diagnostic Data Last 24 Hrs of Vital Signs/I&O Vital Signs Date Time Temp Pulse Resp B/P B/P Pulse O2 O2 Flow FiO2 Mean Ox Delivery Rate 02/28 0855 96.8 74 22 115/85 96 Nasal 3.0L Cannula 02/28 0732 96.0 88 26 96 Nasal Cannula 02/28 0724 87 20 128/70 97 Nasal 2.0L Cannula 02/28 0648 96.2 82 28 113/53 98 Nasal 2.0L Cannula 02/28 0605 100 Nasal 4.0L Cannula 02/28 0540 96.1 88 26 136/74 93 CPAP 100% Intake & Output 02/28 1600 02/28 0800 02/28 0000 Intake Total 0 Output Total Balance 0 Intake, Oral 0 Patient 74.843 kg Weight Weight Estimated Measurement Method Physical Exam General Appearance Alert, Oriented X3, Cooperative, No Acute Distress HEENT Atraumatic, PERRLA, EOMI Neck Supple, No JVD Cardiovascular Normal S1, Normal S2 Lungs bilateral basal crackles, fine Abdomen Soft, No Tenderness Neurological Normal Speech Extremities contracted knee joint probably due to long standing osteoarthritis, poor peripheral pulses, Last 24 Hrs of Labs/Ilya: Laboratory Tests 02/28/18 0645: pH 7.37, pCO2 37, pO2 99, HCO3 21, ABG O2 Sat (Measured) 97.0, P-50 (Temp Corrected) Y, Carboxyhemoglobin 0.2 L, O2 Concentration % 4 LPM, Temperature 96.1 L, O2 Delivery Method N/C, Phlebotomy Draw Site RIGHT BRACHIAL 02/28/18 0610: Anion Gap 15, Estimated GFR > 60, BUN/Creatinine Ratio 23.8, Glucose 142 H, Calcium 8.9, Magnesium 2.4 H, Total Bilirubin 0.3, AST 41 H, ALT 28, Alkaline Phosphatase 78, Troponin I 0.05, Dgv-D-Jgzynjaclue Pept 6840 H, Total Protein 6.5, Albumin 3.5, Globulin 3.0, Albumin/Globulin Ratio 1.2, CBC w Diff NO MAN DIFF REQ, RBC 3.96 L, MCV 84.5, MCH 27.2, MCHC 32.2 L, RDW 19.1 H, MPV 7.9, Gran % 88.1 H, Lymphocytes % 5.7 L, Monocytes % 5.3, Eosinophils % 0.8, Basophils % 0.1, Absolute Granulocytes 13.8 H, Absolute Lymphocytes 0.9 L, Absolute Monocytes 0.8 H, Absolute Eosinophils 0.1, Absolute Basophils 0 Assessment/Plan Assessment: Patient is a 77-year-old female BIBA from [facility] after an episode of shortness of breath. Vital signs at the time of admission-temperature 96.1, pulse 88, respiratory 26, blood pressure 136/74, SPO2 93% on CPAP 100%. Currently she is having temperature 96.0 pulse 88, respiration 26, SPO2 96% on 2 L nasal cannula Blood workup showed WBC 15.7, hemoglobin 10.8, hematocrit 33.5, platelet count 354, granulocyte 88.1%, lymphocyte 5.7, no band cells,Sodium 140, potassium 4.9, chloride 105, carbon dioxide 20, anion gap 15, BUN 19, creatinine 0.8, glucose 142, HbA1c 5.1, calcium 8.9, magnesium 2.4, total bilirubin 0.8, AST 41, ALT 28, alkaline phosphatase 78, troponin I 0.05, proBNP 6840, total protein 6.5, albumin 3.5, globulin 3.0. ABG showed pH 7.37, PCO2 37, PO2 99, bicarbonate 21, cxr -The cardiac silhouette is slightly enlarged. There is pulmonary venous redistribution and bilateral predominantly perihilar airspace disease.Findings are most suggestive of CHF/pulmonary edema. Echo(December 2017) -CONCLUSIONS Normal size left ventricle. Mild concentric LVH,Abnormal septal motion consistent with LBBB.Markedly hypokinetic to akinetic inferior and lateral castro.Moderately abnormal IPNH63-50%. Mildly increased resting left ventricular outflow tract velocity (1.35 m/s). Mild left atrial dilatation. Mild mitral regurgitation. Mild aortic regurgitation.Mild tricuspid regurgitation. No evidence of pulmonary hypertension.Mildly dilated proximal ascending aorta (tube). Assessment and plan Acute on chronic systolic CHF - * Admitted to telemetry floor * Strict intake output charting * IV Lasix; she was on 40 mg of PO Lasix we will start with 40 mg IV twice daily and decide according to the patient's response * Keep head end of the bed elevated * Will follow cardiology recommendation * Serial troponins and EKGs leukocytosis may be due to reactionary or Possibility of community-acquired pneumonia cannt r/o, pt is afebrile - will treat off antibioitcs, * Although patient proBNP is in the range of 6000 but from his last admission it was in the range of 13,000 and currently she is having leukocytosis that suggest that it can be of pneumonia leading to COPD exacerbation. We will watch off antibiotic. We will do a urinary strep and Legionella and if she started having fever then we will start her on antibiotic. Anemia -RDW 19.1, MCV 84 -possibly iron deficiency anemia * We will check the Hemoccult blood as patient is on anticoagulation, and iron panel. Chronic medical condition-hypertension, hyperlipidemia, coronary artery disease, paroxysmal atrial fibrillation, depression, COPD- * We will continue on her home medication -apixaban, clopidogrel, metoprolol, lisinopril, paroxetine, fluticasone inhaler. Diet -heart healthy diet with fluid restriction to 1200 cc CODE STATUS-full code DVT prophylaxis -patient is already on apixaban and clopidogrel As Ranked By This Provider Problem List: 1. Acute respiratory failure with hypoxia 2. History of CHF (congestive heart failure) 3. Anemia Core Measures/Misc (04/26) Acute Coronary Syndrome ACS Diagnosis: No Congestive Heart Failure Congestive Heart Failure Diagnosis Yes Last Known EF % 25 Comment PT IS ON ACEI Cerebrovascular Accident CVA/TIA Diagnosis: No VTE (View Protocol) VTE Risk Factors Age>40 No Mechanical VTE Prophylaxis d/t N/A MechProphylax Ordered No VTE Pharm Prophylaxis d/t NA PharmProphylax ordered Comment: PT HAS PVD/ SO NO ALPS Sepsis (View protocol) Sepsis Present: No If YES complete Sepsis Event Note If YES complete Sepsis Event Note Jhonatan MITCHELL,Amir 02/28/18 1548: Core Measures/Misc (04/26) Sepsis (View protocol) If YES complete Sepsis Event Note If YES complete Sepsis Event Note Attending MD Review Statement Attending Statement Attending MD Statement: examined this patient, discuss w/resident/PA/RESEARCH QUALITY ASSURANCE ANALYST, agreed w/resident/PA/RESEARCH QUALITY ASSURANCE ANALYST, reviewed EMR data (avail), discussed with nursing Attending Assessment/Plan: Ms. Ma was seen and evaluated, Chart reviewed. Briefly, she is a 77 yo F, PMH of CAD s/p stents, CHF (EF=25-30%~2018), Paroxysmal atrial fibrillation, COPD, spontaneous perforated duodenal ulcer hospitalized here (05/11-05/28/2016) for sepsis, with peritonitis/pneumoperitoneum that required emergent laparotomy with some postoperative short runs of nonsustained ventricular tachycardia (NSVT ), BIBA from [facility] after an episode of shortness of breath. CXR c/w CHF --Tele admit, Diuretics, strict I/Os, daily weight. --Cards consult
[2018-02-28 10:05] VITALS: BP 118/60
--- NOTE | 2018-02-28 13:10 | Cons- Cardiology ---
General Information and HPI Consulting Request Date of Consult: 02/28/18 Requested By: Marry Israel MD Reason for Consult: Shortness of breath. Source of Information: patient, old records Exam Limitations: poor historian History of Present Illness: Mrs. Margoth Juan is a 77 years old female with a history of depression, osteoarthritis, hypertension, hyperlipidemia, paroxysmal atrial fibrillation, and coronary artery disease (s/p remote MD w/ culprit PCI/BMS x1 to LAD; and follow-up PCI/BMS 1 for non-culpret LCx stenosis; PCI/LANE [Resolute ] of an 80% LCx AV groove artery stenosis on 11/19/2017; in stent restenosis of LCx AV groove artery s/p POBA on 12/03/2017) who presented to the ED 2017 with weakness, diaphoresis, and shortness of breath with initial O2 sats of 60-80% on 4 L nasal O2 prompting placement of CPAP by first responders with improved overall status and the ability to wean her down to nasal oxygen 2 L for presumed acute on chronic systolic heart failure (HFrEF). She was last hospitalized here 12/21-12/29/2017 with complaints of weakness and shortness of breath with an elevated troponin I level without any associated chest discomfort. She was felt to have an atypical pneumonia plus/minus a component of acute on chronic systolic heart failure. It was felt that the modest troponin elevation was on the basis of a type II MD. An echocardiogram was performed during the hospitalization on 12/21/2017 and revealed a normal size left ventricle with mild concentric left ventricular hypertrophy, segmental wall motion abnormalities and an EF of 25-30%, mildly increased LVOT velocity of 1.35 m/s, normal right ventricular size and function, normal right and mildly dilated left atria, some age-related valvular changes, no pericardial effusion, and a mildly dilated proximal descending aorta. The Doppler portion of the study revealed mild mitral, mild aortic, and mild tricuspid regurgitation. The plan was to have her fitted for a LifeVest to protect her against malignant dysrhythmias, but her SNF did not feel comfortable taking responsibility for the LifeVest and the patient did not want to be transferred to a different SNF, so the device was never placed. The cardiac catheterization from 12/03/2017 revealed the following: LM-patent, LAD-diffuse luminal irregularities and patency at prior stent site, LCx-100% occlusion at the beginning of the previously placed stent with normal flow into the M1, RCA-dominant with ectasia and diffuse luminal irregularities, and LV gram-not done. Mrs. Juan was also hospitalized here (05/11-05/28/2016) for sepsis following "spontaneous" duodenal ulcer perforation with peritonitis/pneumoperitoneum that required emergent laparotomy with some postoperative short runs of nonsustained ventricular tachycardia (NSVT) that prompted initiation of beta vinnie therapy and planned outpatient follow-up and an imaging stress test for the NSVT, as outlined in our progress note from 05/19/2016, however, she was lost to follow- up after discharge. Allergies/Medications Allergies: Coded Allergies: amoxicillin (From AUGMENTIN) ([facility] 12/21/17) clavulanic acid (From AUGMENTIN) ([facility]RUSH 12/21/17) Home Med List: Acetaminophen (Tylenol Extra Strength) 500 MG TABLET 2 TAB PO TID PAIN ( Reported) Apixaban (Eliquis) 5 MG TABLET 1 TAB PO BID BLOOD THINNER (Reported) Atorvastatin Calcium 40 MG TABLET 1 TAB PO QPM CHOLESTEROL (Reported) Clopidogrel Bisulfate (Plavix) 75 MG TABLET 75 MG PO DAILY HEART HEALTH Fluticasone/Vilanterol (Breo Ellipta 100-25 Mcg INH) 100 MCG-25 MCG/DOSE BLST.W.DEV 1 INHA PO DAILY COPD (Reported) Furosemide 40 MG TABLET 1 TAB PO DAILY WATER RETENTION (Reported) Lactobacillus Acidophilus (Acidophilus) 1 EACH CAPSULE 1 CAP PO BID GI ( Reported) Lisinopril 2.5 MG TABLET 1 TAB PO DAILY HEART (Reported) Metoprolol Succ XL (Toprol XL) 25 MG TAB 1 TAB PO DAILY CAD Omeprazole 20 MG CAPSULE.DR 1 CAP PO DAILY BOWEL ULCER (Reported) Paroxetine HCl 40 MG TABLET 1 TAB PO DAILY MOOD (Reported) Sennosides (Senna) 8.6 MG TABLET 2 TAB PO BID CONSTIPATION (Reported) Review of Systems Review of Systems: A 14 point system review was obtained was noncontributory, other than as above. Past History Travel History Traveled to [place] past 21 day No Medical History Neurological: NONE EENT: NONE Cardiovascular: CAD, hypertension, hyperlipidemia, CARDIAC STENT NOVEMBER 2018 Respiratory: COPD Gastrointestinal: DUODONAL ULCER Hepatic: NONE Renal: NONE Musculoskeletal: osteoarthritis Psychiatric: depression Endocrine: NONE Blood Disorders: NONE Cancer(s): NONE DIRECTOR OF PROGRAM MANAGEMENT/Reproductive: NONE Surgical History Surgical History: cholecystectomy (laparoscopic 16 years ago), D&C's coronary angio/stent x2 Psychosocial History Who Do You Live With? alone Services at Home: None Primary Language: Bulgarian Smoking Status: Former Smoker Living Will? yes Power of Senior Landscape Architect/HCP? yes Name of POA/HCP: Soumyaronit Rossi Functional Ability ADLs Independent: toileting. Needs Assist: eating, bathing. Ambulation: walker IADLs Independent: finances, medication admin. Needs Assist: shopping, food prep, transportation. Exam & Diagnostic Data Vital Signs and I&O Vital Signs Date Time Temp Pulse Resp B/P B/P Pulse O2 O2 Flow FiO2 Mean Ox Delivery Rate 02/28 1220 71 118/60 02/28 1005 98.0 71 20 118/60 100 Nasal 2.0L Cannula 02/28 0950 100 Nasal 2.0L Cannula 02/28 0855 96.8 74 22 115/85 96 Nasal 3.0L Cannula 02/28 0732 96.0 88 26 96 Nasal Cannula 02/28 0724 87 20 128/70 97 Nasal 2.0L Cannula 02/28 0648 96.2 82 28 113/53 98 Nasal 2.0L Cannula 02/28 0605 100 Nasal 4.0L Cannula 02/28 0540 96.1 88 26 136/74 93 CPAP 100% Intake & Output 02/28 1600 02/28 0800 02/28 0000 02/27 1600 02/27 0800 02/27 0000 Intake Total 0 Output Total Balance 0 Intake, Oral 0 Patient 134 lb 165 lb Weight Weight Bed scale Estimated Measurement Method Physical Exam: Frail appearing elderly female in no acute distress with nasal oxygen in place. Vital signs: See above. Neck: No JVD, no bruits. Lungs: Bilateral rhonchi. Heart: S1, S2 with no murmur, gallop, or rub. Abdomen: Soft, nontender, positive bowel sounds. Extremities: No edema. Diagnostic Data EKG Results 02/28/2018 Sinus rhythm, probable left atrial abnormality, and left bundle branch block. CXR Results 02/28/2018 The cardiac silhouette is slightly enlarged. There is pulmonary venous redistribution and bilateral predominantly perihilar airspace disease. Findings are most suggestive of CHF/pulmonary edema. Differential would include pneumonia. There is no significant pleural effusion. There are degenerative changes of the spine and shoulder joints. Assessment/Plan Assessment/Plan 77 y-o-w-f w/ hx of depression, KATHYA, HTN, HLD, PAF, & CAD w/ an ICM (s/p remote MD w/ culprit PCI/BMS x1 to LAD; and follow-up PCI/BMS 1 for non-culpret LCx stenosis; PCI/LANE [Resolute] of an 80% LCx AV groove artery stenosis on 2017; in stent restenosis of LCx AV groove artery s/p POBA on 12/03/2017) who presented to the ED 02/28/2018 with weakness, diaphoresis, & SOB w/ initial O2 sats of 60-80% on 4 L nasal O2 prompting placement of CPAP by first responders w/ improved overall status and the ability to wean her down to nasal oxygen 2 L for presumed acute on chronic HFrEF. Recommendations: * Admit to telemetry, follow-up troponins, follow-up ECG in a.m. * IV furosemide 40 mg twice daily for now, and reassess the need for further IV diuresis in the a.m. * Strict inputs/outputs, daily weights, etc. * Repeat CXR in a.m. * Check free T4, TSH. * DVT prophylaxis. Consult Acknowledgment - Thank you for your consult request. - Thank you for your consult request.
[2018-02-28 15:23] VITALS: BP 120/60
--- NOTE | 2018-02-28 15:45 | Admission Certification ---
Admission Certification Certification Statement - As attending physician, I certify that at the time of - admission, based on clinical presentation, severity of - symptoms, need for further diagnostic testing and - therapeutic interventions, and risk of adverse outcomes - without in-hospital treatment, in my clinical assessment, - this patient requires an acute hospital stay for a minimum - of two nights or longer. I have also considered psychsocial - factors such as support system, advanced age, financial - issues, cognitive issues, and failed out-patient treatments, - past re-admission history, safety of patient, and lack of - compliance as applicable. Specific rationale supporting this admission is: SOB likely due to CHF, COPD
--- NOTE | 2018-02-28 19:57 | RADIOLOGY REPORT ---
EXAMINATION: XR CHEST CLINICAL INFORMATION: Congestive heart failure. COMPARISON: Chest x-ray 02/28/2018. 6:56 AM TECHNIQUE: AP lateral view of chest 7:24 PM FINDINGS: There has been improvement since prior exam today. The pulmonary vascular congestion has substantially reduced. Haziness at the lung bases have improved. There is still some hazy opacity in the retrocardiac area yet remaining. There is no significant pleural effusion IMPRESSION: Improved congestive heart failure.
[2018-02-28 21:55] VITALS: BP 122/56
[2018-03-01 06:49] VITALS: BP 132/56
--- NOTE | 2018-03-01 07:30 | PN- Housestaff ---
Ebenezer Man 03/01/18 0729: Subjective Follow-up For: Acute on chronic systolic heart failure Acute respiratory failure with hypoxia Anemia Tele-Events Since Last Visit: Overnight, patient in normal sinus rhythm with rates from 60-81 Subjective: Patient seen resting in the bed, no acute events overnight. Patient is on 2L nasal cannula, denies chest pain, headache, palpitations. Some shortness of breath, but patient uses the wheelchair for mobility at baseline so unable to ascertain dyspnea with ambulation. Patient afebrile, denies productive cough. Review of Systems Constitutional: Reports: weakness. Denies: chills, fever. Cardiovascular: Denies: chest pain, palpitations, syncope. Respiratory: Reports: short of breath. Denies: cough. Gastrointestinal: Denies: abdominal pain, nausea, vomiting. Objective Last 24 Hrs of Vital Signs/I&O Vital Signs Date Time Temp Pulse Resp B/P B/P Pulse O2 O2 Flow FiO2 Mean Ox Delivery Rate 03/01 0649 98.3 74 20 132/56 96 03/01 0000 97 Nasal 2.0L Cannula 02/28 2155 98.5 64 20 122/56 92 Nasal Cannula 02/28 1523 98.1 80 20 120/60 96 02/28 1220 71 118/60 02/28 1005 98.0 71 20 118/60 100 Nasal 2.0L Cannula 02/28 0950 100 Nasal 2.0L Cannula 02/28 0855 96.8 74 22 115/85 96 Nasal 3.0L Cannula 02/28 0732 96.0 88 26 96 Nasal Cannula Intake & Output 03/01 0800 03/01 0000 02/28 1600 Intake Total 108 410 270 Output Total 500 Balance 108 -90 270 Intake, IV 8 10 20 Intake, Oral 100 400 250 Number 0 Bowel Movements Output, Urine 500 Patient 60.328 kg 60.895 kg Weight Weight Bed scale Measurement Method Physical Exam General Appearance: Alert, Oriented X3, Cooperative, No Acute Distress HEENT: Atraumatic, PERRLA Cardiovascular: Regular Rate, Normal S1, Normal S2 Lungs: Clear to Auscultation Abdomen: Normal Bowel Sounds, Soft, No Tenderness Extremities: No Clubbing, No Cyanosis Current Medications: Current Medications Sig/Sergey Start time Last Medication Dose Route Stop Time Status Admin Acetaminophen 650 MG ONCE ONE 03/01 630 DC 03/01 PO 03/01 631 0624 Acetaminophen 650 MG ONCE ONE 02/28 2100 DC 02/28 PO 02/28 Apixaban 5 MG BID 02/28 0959 AC 02/28 PO 212 Atorvastatin Calcium 40 MG QPM 02/28 2100 AC 02/28 PO 212 Clopidogrel Bisulfate 75 MG DAILY 02/28 0959 AC 02/28 PO 1220 Fluticasone 2 PUF BID 02/28 1000 AC 02/28 Propionate INH 2120 Furosemide 40 MG 7:30 AM, & 4:30 PM 02/28 1630 AC 03/01 IV 0621 Furosemide 0 .STK-MED ONE 02/28 0739 DC IV Furosemide 40 MG ONCE ONE 02/28 0730 DC 02/28 IV 02/28 731 0739 Lactobacillus 1 CAP DAILY 02/28 1000 AC 02/28 Acidophilus PO 1220 Lisinopril 2.5 MG DAILY 02/28 1000 AC 02/28 PO 1220 Metoprolol Succinate 25 MG DAILY 03/01 0900 AC PO Paroxetine HCl 40 MG DAILY 03/01 09 AC PO Ramelteon 8 MG ONCE ONE 02/28 2100 DC 03/01 PO 02/28 2101 0113 Last 24 Hrs of Lab/Ilya Results Last 24 Hrs of Labs/Mics: Laboratory Tests 02/28/18 1825: Troponin I 0.13 *H 02/28/18 1245: Troponin I 0.14 *H Microbiology 02/28 1046 URINE ROUT: Legionella Antigen - COLB 02/28 104 URINE ROUT: Streptococcus pneumoniae Antigen (M - COLB 02/28 104 URINE ROUT: Urine Culture - COLB Assessment/Plan Assessment: 77 year old female with history of HFrEF, paroxysmal a-fib, COPD and anemia presents with shortness of breath and weakness. An echocardiogram done in December showed the patient has an EF 25-30%, and the patient is on PO lasix at [facility]. She has been switched to Lasix 40mg IV BID here for diuresis to treat her CHF exacerbation. When the patient first was admitted, CBC showed a leukocytosis of 15.7 and pneumonia was suspected, however this morning that number dropped to 4.7 and since the patient has remained afebrile, without radiological evidence of consolidation, pneumonia is no longer suspected. The patient's HgB this morning was 9.1, down from 10.8 yesterday, but the patient has been chronically anemic when compared to prior admissions, and we will continue to monitor the CBC. Problems: 1. Acute CHF exacerbation 2. COPD & acute hypoxic respiratory failure 3. Anemia (likely chronic) 4. Pneumonia (ruled-out) Plan: * Monitor strict I's & O's and daily weights * Continue IV Lasix today, discuss switching to PO Lasix tomorrow with cardiology * Follow-up Respiratory recommendations * Follow-up BEP & CBC tomorrow Problem List: 1. Acute respiratory failure with hypoxia 2. CHF (congestive heart failure) 3. Anemia Pain Ratin Pain Location: legs Pain Goal: Pain 4 or less Pain Plan: per pathway Tomorrow's Labs & Rationales: CBC & BEP Aura Thompson MD 03/01/18 1326: Attending MD Review Statement Attending Statement Attending MD Statement: examined this patient, discuss w/resident/PA/MOLDING MANAGER, agreed w/resident/PA/MOLDING MANAGER, reviewed EMR data (avail), discussed with nursing, discussed with case mgmt, amended to note Attending Assessment/Plan: Patient seen and examined. Resting comfortably and not in any acute distress. No issues overnight reported by nursing staff. No events on telemetry monitoring. On examination she has adequate entry bilaterally with no added sounds. She has no peripheral edema on examination. We will continue diuresis with Lasix IV today. We will reevaluate her tomorrow. If she remains clinically stable we will transition her back to oral diuretics. She does have a history of Heart failure with reduced ejection fraction. She has had runs of nonsustained ventricular tachycardia in the past. Follow-up with the cardiology service regarding the need for reassessment of her LV function and consideration of AICD placement.
[2018-03-01 09:06] LABS: ABSOLUTE BASOPHIL COUNT 0 /CUMM (0.0-0.2); ABSOLUTE EOSINOPHIL COUNT 0.1 /CUMM (0.0-0.7); ABSOLUTE GRANULOCYTE CT 2.8 /CUMM (1.4-6.5); ABSOLUTE MONOCYTE COUNT 0.8 /CUMM (0.10-0.60); BASOPHIL % 0.6 % (0.0-2.0); GRANULOCYTE % 59.2 % (42.2-75.2); MEAN CORPUSCULAR HGB 27.4 PG (27.0-31.0); MEAN CORPUSCULAR HGB CONC 32.3 G/DL (33.0-37.0); MEAN CORPUSCULAR VOLUME 84.8 FL (81.0-99.0); MEAN PLATELET VOLUME 8.1 FL (7.4-10.4); PLATELET COUNT 296 /CUMM (130-400); RBC DISTRIBUTION WIDTH 18.5 % (11.5-14.5); RED BLOOD CELL CT 3.32 /CUMM (4.20-5.40)
[2018-03-01 09:34] LABS: HEMATOCRIT 28.1 % (37-47); WHITE BLOOD CELL COUNT 4.7 /CUMM (4.8-10.8)
--- NOTE | 2018-03-01 11:16 | Discharge Summary ---
Visit Information Visit Dates Admission Date: 02/28/18 Discharge Date: 03/02/18 Hospital Course Course Attending Physician: Aura Thompson MD Primary Care Physician: Manuel Etienne MD Hospital Course: Patient is a 77-year-old female BIBA from [facility], after an episode of shortness of breath. Patient is a very poor historian, to be talked to [facility], according to them patient was on right in the morning. Denies any nausea, vomiting, shortness of breath, fever, chills, loss of appetite. In the night around 4:00 she started having shortness of breath become diaphoretic with cool and clammy skin leading to transfer to [facility]. During transportation by EMS her saturation was between 60-80% on 4 L of nasal cannula.She was kept on CPAP leading to improvement in oxygen saturation to 98%.At the time of ED presentation her oxygen saturation was 93%, on CPAP 100%. She was diaphoretic, fatigued, tachypneic, and skin was cool and moist. She was last hospitalized here 12/21-12/29/2017 with complaints of weakness and shortness of breath with an elevated troponin I level without any associated chest discomfort. She was felt to have an atypical pneumonia plus/minus a component of acute on chronic systolic heart failure. It was felt that the modest troponin elevation was on the basis of a type II VT. Past medical history - * Coronary artery disease, (s/p remote VT w/ culprit PCI/BMS x1 to LAD; and follow-up PCI/BMS 1 for non-culpret LCx stenosis; PCI/LANE [[facility]] of an 80% LCx AV groove artery stenosis on 11/19/2017; in stent restenosis of LCx AV groove artery s/p POBA on 12/03/2017) * Congestive heart failure, ejection fraction 25-30%(December 2017) * Paroxysmal atrial fibrillation * History of spontaneous perforated duodenal ulcer hospitalized here (05/11-) for sepsis, with peritonitis/pneumoperitoneum that required emergent laparotomy with some postoperative short runs of nonsustained ventricular tachycardia (NSVT) * COPD * Hypertension * Hyperlipidemia * History of osteoarthritis * History of depression Hospital course Acute on chronic congestive heart failure: Patient was admitted to telemetry in view of acute on chronic congestive heart failure and treated with IV Lasix. Strict input and output and daily weights was done. Patient had a mildly elevated troponins which was secondary due to type II VT. Her thyroid levels were normal. Patient initially was on 4 L of nasal oxygen which was eventually tapered to 2 L of oxygen. Patient condition improved well. Patient's Lasix dose was changed from 40 daily to 40 twice daily. Patient will be sent to short-term rehab on 2 L of nasal oxygen and eventually taper at the rehab center. Allergies: Coded Allergies: amoxicillin (From AUGMENTIN) ([facility] 12/21/17) clavulanic acid (From AUGMENTIN) ([facility] 12/21/17) Pertinent Lab Results: Chest x-ray February 28 Probable CHF. Chest x-ray March 01. Cardiomegaly. 2. Again, there is interval improvement compared to 02/28/2018 at 6:56 AM. No recurrent pulmonary edema. Disposition Summary Disposition Principal Diagnosis: Acute on chronic systolic heart Acute on chronic hypoxic respiratory failure. Additional Diagnosis: COPD. Chronic anemia. Paroxysmal atrial fibrillation. Coronary artery disease. 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 Medications at Discharge Discharge Medications: Stop taking the following medications: Furosemide (Lasix) 40 MG TABLET ORAL DAILY Continue taking these medications: Atorvastatin Calcium (Atorvastatin Calcium) 40 MG TABLET 1 Tablet ORAL Every night Qty = 14 Comments: Last Taken: 12/28/17 Time: 4:30 PM Omeprazole (Omeprazole) 20 MG CAPSULE.DR 1 Capsule ORAL DAILY Comments: Last Taken: 12/29/17 Time: 5:30 AM Fluticasone/Vilanterol (Breo Ellipta 100-25 Mcg INH) 100 MCG-25 MCG/DOSE BLST.W.DEV 1 Inhalant ORAL DAILY Comments: Last Taken: 12/29/17 Time: 10:00 AM SYMBICORT GIVEN SUBSTITUTE Paroxetine HCl (Paroxetine HCl) 40 MG TABLET 1 Tablet ORAL DAILY Qty = 30 Comments: Last Taken: 12/29/17 Time: 10:00 AM Sennosides (Senna) 8.6 MG TABLET 2 Tablet ORAL TWICE DAILY Comments: Last Taken: 12/26/17 Time: 10:15 AM Acetaminophen (Tylenol Extra Strength) 500 MG TABLET 2 Tablet ORAL THREE TIMES DAILY Comments: NOT GIVEN IN HOSPITAL Clopidogrel Bisulfate (Plavix) 75 MG TABLET 75 Milligram ORAL DAILY Qty = 30 Comments: Last Taken: 12/29/17 Time: 10:00 AM Apixaban (Eliquis) 5 MG TABLET 1 Tablet ORAL TWICE DAILY Comments: Last Taken: 12/29/17 Time: 10:00 AM Lisinopril (Lisinopril) 2.5 MG TABLET 1 Tablet ORAL DAILY Comments: Last Taken: 12/29/17 Time: 10:00 AM Lactobacillus Acidophilus (Acidophilus) 1 EACH CAPSULE 1 Capsule ORAL TWICE DAILY Comments: Last Taken: 12/29/17 Time: 10:00 AM Metoprolol Succ XL (Toprol XL) 25 MG TAB 1 Tablet ORAL DAILY Qty = 30 Comments: Last Taken: 12/29/17 Time: 10:00 AM Start taking the following new medications: Furosemide (Lasix) 40 MG TABLET 40 Milligram ORAL TWICE DAILY Qty = 60 No Refills Copies To: Johanny MITCHELL,Mikhail Fine; Lowell MITCHELL,Manuel Louie Attending MD Review Statement Documenting Attending: Aura Thompson MD Other Findings: Medically stable to be discharged today.
[2018-03-01 14:16] VITALS: BP 104/50
--- NOTE | 2018-03-01 14:20 | RADIOLOGY REPORT ---
EXAMINATION: XR PORTABLE CHEST CLINICAL INFORMATION: Shortness of breath COMPARISON: 02/28/2018 TECHNIQUE: Portable frontal view of the chest was obtained. FINDINGS: Interval resolution of pulmonary edema observed on prior exam of 02/28/2018 at 6:56 AM. The lungs are symmetrically expanded and grossly clear. No significant pleural fluid is detected on this single view examination. Mild cardiomegaly. Atherosclerotic calcification of the aorta. Bones appear diffusely osteopenic. Moderate osteoarthritis of glenohumeral joints. IMPRESSION: 1. Cardiomegaly. 2. Again, there is interval improvement compared to 02/28/2018 at 6:56 AM. No recurrent pulmonary edema.
[2018-03-01 21:37] VITALS: BP 114/56
--- NOTE | 2018-03-01 23:04 | Patient Discharge Instructions ---
Discharge Instructions General Discharge Information You were seen/treated for: Congestive heart failure, respiratory failure with hypoxia, COPD, paroxysmal a- fib Watch for these problems: With shortness of breath, sudden chest pain, dizziness, excessive tiredness, increased leg swelling, please go to your nearest emergency room. Special Instructions: Please follow-up with your primary care doctor, health and wellness instructor and CHF Wellness clinic about your recent hospitalization. Diet Continue normal diet: Yes Activity Full Activity/No Limits: No Activity Self Limited: Yes Acute Coronary Syndrome Inclusion Criteria At DC or during hospital stay patient has or had the following: ACS DIAGNOSIS No Discharge Core Measures Meds if any: Prescribed or Continued at Discharge Meds if any: NOT Prescribed or Continued at Discharge Congestive Heart Failure Inclusion Criteria At DC or during hospital stay patient has or had the following: CHF DIAGNOSIS Yes Discharge Core Measures Meds if any: Prescribed or Continued at Discharge DENISSE/ARB for EF <40% Yes Meds if any: NOT Prescribed or Continued at Discharge Cerebrovascular accident Inclusion Criteria At DC or during hospital stay patient has or had the following: CVA/TIA Diagnosis No Discharge Core Measures Meds if any: Prescribed or Continued at Discharge Meds if any: NOT Prescribed or Continued at Discharge Venous thromboembolism Inclusion Criteria VTE Diagnosis Yes VTE Type NONE VTE Confirmed by (Test) NONE Discharge Core Measures - Per Current guidelines, there needs to be overlap - treatment for the first 5 days of Warfarin therapy. - If discharged on Warfarin prior to 5 days of - overlap therapy, the patient will need to be - assessed for post discharge needs including - *Post discharge parental anticoagulation - *Warfarin and/or parental anticoagulation education - *Follow up date to check INR post discharge At least 5 days overlap therapy as Inpatient No Meds if any: Prescribed or Continued at Discharge Note: Overlap Therapy is Warfarin and Anticoagulant Meds if any: NOT Prescribed or Continued at Discharge
[2018-03-02 06:22] VITALS: BP 126/60
--- NOTE | 2018-03-02 07:24 | PN- Housestaff ---
Ebenezer Man 03/02/1824: Subjective Follow-up For: Acute exacerbation of CHF Acute hypoxic respiratory failure Anemia Tele-Events Since Last Visit: Overnight, patient in sinus bradycardia from rates 50-55, normal sinus rhythm rate of 62 Subjective: Patient seen resting comfortably in the bed, she is on 2 L of oxygen with a nasal cannula. Prior to today she had required up to 3 L on the nasal cannula, but currently she is not complaining of shortness of breath. Patient does complain of fatigue and being tired, but denies chest pain, palpitations, peripheral edema, or cough. Review of Systems Constitutional: Reports: weakness. Denies: chills, fever. Cardiovascular: Denies: chest pain, edema, palpitations. Respiratory: Denies: cough, short of breath. Gastrointestinal: Denies: abdominal pain, nausea, vomiting. Objective Last 24 Hrs of Vital Signs/I&O Vital Signs Date Time Temp Pulse Resp B/P B/P Pulse O2 O2 Flow FiO2 Mean Ox Delivery Rate 03/02 0622 97.5 56 20 126/60 99 03/02 0000 Nasal 2.0L Cannula 03/01 2137 98.3 64 22 114/56 98 03/01 1623 94 Nasal 2.0L Cannula 03/01 1416 98.1 62 20 104/50 97 Nasal Cannula 03/01 1110 Nasal 2.0L Cannula 03/01 0805 124/62 03/01 0805 124/62 03/01 0800 94 Nasal 2.0L Cannula Intake & Output 03/02 0800 03/02 0000 03/01 1600 Intake Total 240 120 400 Output Total 1250 Balance 240 120 -850 Intake, Oral 240 120 400 Output, Urine 1250 Patient 60.328 kg Weight Physical Exam General Appearance: Alert, Oriented X3, Cooperative, No Acute Distress HEENT: Atraumatic, PERRLA Cardiovascular: Regular Rate, Normal S1, Normal S2, No Murmurs Lungs: Clear to Auscultation Abdomen: Normal Bowel Sounds, Soft Extremities: No Clubbing, No Cyanosis, No Edema Current Medications: Current Medications Sig/Sergey Start time Last Medication Dose Route Stop Time Status Admin Acetaminophen 650 MG Q6 03/01 1200 AC 03/02 PO 0544 Apixaban 5 MG BID 02/28 0959 AC 03/01 PO 2057 Atorvastatin Calcium 40 MG QPM 02/28 2100 AC 03/01 PO 2057 Clopidogrel Bisulfate 75 MG DAILY 02/28 0959 AC 03/01 PO 08 Fluticasone 2 PUF BID 02/28 1000 AC 03/01 Propionate INH 2105 Furosemide 40 MG 7:30 AM, & 4:30 PM 03/01 1630 CAN IV Furosemide 40 MG 7:30 AM, & 4:30 PM 02/28 1630 DC 03/01 IV 0621 Lactobacillus 1 CAP DAILY 02/28 1000 AC 03/01 Acidophilus PO 0805 Lisinopril 2.5 MG DAILY 02/28 1000 AC 03/01 PO 0805 Metoprolol Succinate 25 MG DAILY 03/01 0900 AC 03/01 PO 0805 Paroxetine HCl 40 MG DAILY 03/01 0900 AC 03/01 PO 0804 Tramadol HCl 50 MG Q8 PRN 03/01 1400 AC 03/02 PO 0051 Last 24 Hrs of Lab/Ilya Results Last 24 Hrs of Labs/Mics: Laboratory Tests 03/02/18 0607: Sodium Pending, Potassium Pending, Chloride Pending, Carbon Dioxide Pending, Anion Gap Pending, BUN Pending, Creatinine Pending, BUN/Creatinine Ratio Pending , CBC w Diff Pending, WBC Pending, RBC Pending, Hgb Pending, Hct Pending, MCV Pending, MCH Pending, MCHC Pending, RDW Pending, Plt Count Pending, MPV Pending 03/01/18 0758: Anion Gap 9, Estimated GFR > 60, BUN/Creatinine Ratio 22.5, TSH &T3 &Free T4 Intrp 1.580, CBC w Diff NO MAN DIFF REQ, RBC 3.32 L, MCV 84.8, MCH 27.4, MCHC 32.3 L, RDW 18.5 H, MPV 8.1, Gran % 59.2, Lymphocytes % 21.3, Monocytes % 16.9 H, Eosinophils % 2.0, Basophils % 0.6, Absolute Granulocytes 2.8, Absolute Lymphocytes 1.0 L, Absolute Monocytes 0.8 H, Absolute Eosinophils 0.1, Absolute Basophils 0 Assessment/Plan Assessment: 77 year old female with PMH of HTN, COPD, CHF, presented with shortness of breath and weakness. Initially, pneumonia was suspected, but the patient's WBC count this morning was 4.7, as it was yesterday, casting doubt on the initial leukocytosis upon admission, and in the absence of fever or radiological signs, this makes pneumonia less likely. More likely is that the patient experienced an acute exacerbation of CHF that led to her acute hypoxic respiratory failure. Upon presentation she required up to 3L of oxygen to maintain saturation and was very short of breath. Since then she has been improving and we are attempting to wean her off supplemental oxygen today. Over the 24 hours prior to seeing her this morning, the patient is documented as having 400mL of intake and 1250mL of output, which along with her clinical exam suggest adequate diuresis and we will change her Lasix to PO for discharge. The patient's WBC's today were 9.0, holding stable in the setting of chronic anemia. Problems: 1. Acute CHF exacerbation 2. COPD & acute hypoxic respiratory failure (improved) 3. Anemia (likely chronic) 4. Pneumonia (ruled-out) Plan: * Continue monitoring strict I's & O's and daily weights * Change Lasix to 40mg PO BID * Wean patient off nasal cannula as tolerated, was saturating 99% on 2L this morning * Referral made to CHF Wellness clinic for patient post-discharge Problem List: 1. Acute respiratory failure with hypoxia 2. History of CHF (congestive heart failure) 3. Anemia 4. CHF (congestive heart failure) Pain Ratin Pain Location: none Pain Goal: Pain 4 or less Pain Plan: per pathway Tomorrow's Labs & Rationales: none Aura Thmopson MD 03/02/18 1046: Attending MD Review Statement Attending Statement Attending MD Statement: examined this patient, discuss w/resident/PA/STEAM SHOVEL OPERATING ENGINEER, agreed w/resident/PA/STEAM SHOVEL OPERATING ENGINEER, reviewed EMR data (avail), discussed with nursing, discussed with case mgmt, amended to note Attending Assessment/Plan: Patient seen and examined. Resting comfortably not in acute distress. No issues overnight reported by nursing staff. This morning she is lying in bed. The lethargic she is not in any acute distress. She does not appear to be in any respiratory discomfort. She does admit that her respiration has improved compared to presentation. She is afebrile. She is hemodynamically stable. She is saturating 92% on room air. She is wheelchair-bound at baseline. With diuresis she maintained a negative fluid balance of just over 600 cc yesterday. On examination liquid entry bilateral. She has no peripheral edema. Problems: 1. Acute on chronic hypoxic respiratory failure. 2. Acute on chronic systolic heart failure. 3. Paroxysmal atrial fibrillation 4. Coronary artery disease 5. History of nonsustained ventricular tachycardia Plan: -Patient has improved with diuresis and can be transitioned to oral diuretics today. -She was admitted in December with exacerbation of her congestive heart failure and was discharged on her home dose of Lasix 40 mg daily. She presented on his home dose again with an exacerbation of her heart failure. Recommend increasing the dose of Lasix to 40 mg twice daily. -She should be followed closely in the congestive heart failure clinic. -Renal function should be monitored weekly. It has been stable with aggressive diuresis here. -Patient to follow-up with the cardiology service as an outpatient for repeat echocardiogram and decision making regarding AICD placement. Per her leather cleaner a LifeVest will be placed at this time as the facility will not accept this and patient had declined to have this on. -She is medically stable to be discharged today.
[2018-03-02 07:45] LABS: ABSOLUTE BASOPHIL COUNT 0 /CUMM (0.0-0.2); ABSOLUTE EOSINOPHIL COUNT 0.2 /CUMM (0.0-0.7); ABSOLUTE GRANULOCYTE CT 2.2 /CUMM (1.4-6.5); ABSOLUTE LYMPH COUNT 1.5 /CUMM (1.2-3.4); ABSOLUTE MONOCYTE COUNT 0.8 /CUMM (0.10-0.60); BASOPHIL % 0.9 % (0.0-2.0); EOSINOPHIL % 3.7 % (0-5); GRANULOCYTE % 47.6 % (42.2-75.2); MEAN CORPUSCULAR HGB 27.3 PG (27.0-31.0); MEAN CORPUSCULAR HGB CONC 32.3 G/DL (33.0-37.0); MEAN CORPUSCULAR VOLUME 84.6 FL (81.0-99.0); MEAN PLATELET VOLUME 8.2 FL (7.4-10.4); PLATELET COUNT 285 /CUMM (130-400); RBC DISTRIBUTION WIDTH 18.5 % (11.5-14.5); RED BLOOD CELL CT 3.31 /CUMM (4.20-5.40); WHITE BLOOD CELL COUNT 4.7 /CUMM (4.8-10.8)
[2018-03-02 09:43] VITALS: BP 130/58
[2018-03-02] MEDS ORDERED: LASIX40 M1 PO ×4 (11:21→11:55)
[2018-03-02] MEDS ORDERED: FUROSEMIDE40 M1 PO (11:34)
== END 2018-03-02 14:35 | DRG 291 ==
LOC: ERH 05:36 → ERHI 07:23 → 1NO 07:23 → ENRESERV 08:53 → ENTRNSPT 09:30 → 1NO 09:40 → CMPTRNSPT 10:01 → 1NO 17:02 → ENPENDDIS 03-02 12:14 → 1NO 03-02 14:35
PROVIDERS: Emergency Medicine; Internal Medicine Adolescent Medicine; Student in an Organized Health Care Education/Training Program
DX: I11.0 Hypertensive heart disease with heart failure (principal); J96.01 Acute respiratory failure with hypoxia; I50.23 Acute on chronic systolic (congestive) heart failure; J44.9 Chronic obstructive pulmonary disease, unspecified; I48.0 Paroxysmal atrial fibrillation; D64.9 Anemia, unspecified; E78.5 Hyperlipidemia, unspecified; F32.9 Major depressive disorder, single episode, unspecified; I25.2 Old myocardial infarction; I25.10 Atherosclerotic heart disease of native coronary artery without angina pectoris; D72.829 Elevated white blood cell count, unspecified; Z88.8 Allergy status to other drugs, medicaments and biological substances; Z88.1 Allergy status to other antibiotic agents; Z90.49 Acquired absence of other specified parts of digestive tract; Z95.818 Presence of other cardiac implants and grafts
CPT/HCPCS: 1NP; 36592; 71045; 71046; 82436; 87086; 87449; 87450; 93005; 93010; J1940; J3490

== ENCOUNTER 2018-04-30 05:15 | Inpatient (IN) | payer OTHER, MEDICARE ==
[~2018-04-30] VITALS: Ht 152.4 cm; Wt 61.4 kg
[~2018-04-30 05:15] MED LIST changes: +LASIX40 M1 PO
[2018-04-30] MEDS ORDERED: NEURONTIN100 M1 PO (05:28)
[2018-04-30] MEDS ORDERED: TRAMADOL HCL50 M1 PO (05:29)
[2018-04-30 05:39] LABS: ABSOLUTE BASOPHIL COUNT 0 /CUMM (0.0-0.2); ABSOLUTE EOSINOPHIL COUNT 0.1 /CUMM (0.0-0.7); ABSOLUTE GRANULOCYTE CT 2.1 /CUMM (1.4-6.5); ABSOLUTE LYMPH COUNT 1.9 /CUMM (1.2-3.4); ABSOLUTE MONOCYTE COUNT 0.3 /CUMM (0.10-0.60); BASOPHIL % 0.4 % (0.0-2.0); EOSINOPHIL % 2.8 % (0-5); GRANULOCYTE % 46.5 % (42.2-75.2); MEAN CORPUSCULAR HGB 26.1 PG (27.0-31.0); MEAN CORPUSCULAR HGB CONC 31.7 G/DL (33.0-37.0); MEAN CORPUSCULAR VOLUME 82.2 FL (81.0-99.0); MEAN PLATELET VOLUME 7.8 FL (7.4-10.4); PLATELET COUNT 386 /CUMM (130-400); RBC DISTRIBUTION WIDTH 17.4 % (11.5-14.5); RED BLOOD CELL CT 3.77 /CUMM (4.20-5.40); WHITE BLOOD CELL COUNT 4.5 /CUMM (4.8-10.8)
--- NOTE | 2018-04-30 05:41 | ED DYSPNEA/ASTHMA COMPLAINT ---
History of Present Illness General Chief Complaint: Dyspnea (COPD, CHF, Other) Stated Complaint: BIBA SOB Source: patient, old records, EMS Exam Limitations: clinical condition Vital Signs & Intake/Output Vital Signs & Intake/Output Vital Signs Date Time Temp Pulse Resp B/P B/P Pulse O2 O2 Flow FiO2 Mean Ox Delivery Rate 04/30 0630 89 97 04/30 0550 75 97 04/30 0542 99 Part 100% ReBreather 04/30 522 97.2 87 28 139/68 98 Non 100% ReBreather Allergies Coded Allergies: amoxicillin (From AUGMENTIN) (THRUSH 04/30/18) clavulanic acid (From AUGMENTIN) (THRUSH 04/30/18) Reconcile Medications Acetaminophen (Tylenol Extra Strength) 500 MG TABLET 2 TAB PO TID PAIN ( Reported) Apixaban (Eliquis) 5 MG TABLET 1 TAB PO BID BLOOD THINNER (Reported) Atorvastatin Calcium 40 MG TABLET 1 TAB PO QPM CHOLESTEROL (Reported) Clopidogrel Bisulfate (Plavix) 75 MG TABLET 75 MG PO DAILY HEART HEALTH Fluticasone/Vilanterol (Breo Ellipta 100-25 Mcg INH) 100 MCG-25 MCG/DOSE BLST.W.DEV 1 INHA PO DAILY COPD (Reported) Furosemide (Lasix) 40 MG TABLET 40 MG PO BID heart failure Gabapentin (Neurontin) 100 MG CAPSULE 1 CAP PO Q8H (Reported) Lactobacillus Acidophilus (Acidophilus) 1 EACH CAPSULE 1 CAP PO BID GI ( Reported) Lisinopril 2.5 MG TABLET 1 TAB PO DAILY HEART (Reported) Metoprolol Succ XL (Toprol XL) 25 MG TAB 1 TAB PO DAILY CAD Omeprazole 20 MG CAPSULE.DR 1 CAP PO DAILY BOWEL ULCER (Reported) Paroxetine HCl 40 MG TABLET 1 TAB PO DAILY MOOD (Reported) Sennosides (Senna) 8.6 MG TABLET 2 TAB PO BID CONSTIPATION (Reported) Tramadol HCl 50 MG TABLET 1 TAB PO QPM (Reported) Core Measure Meds Pre-Hospital Eliquis Triage Note: TRIAGE: BIBA FROM [facility] W/ +SOB AND CP JUST [employer]ER AIR CONDITIONING, HX COPD/ CHF/ NSTEMI. PREHOSP IV EST #22 RIGHT FOREARM. PATIENT MEDICATED W/ NITRO SL X2, NITRO PATCH TO CHEST, DUONEB X1 AND CPAP PREHOSP. SAT 78% 6LNC (BASELINE NOT O2 DEPENDENT) ON EMS ARRIVAL. +DIAPHORESIS. SINUS TACH W/ PVCS PER EMS. RESP TO BEDSIDE ON ARRIVAL. Triage Nurses Notes Reviewed? yes Onset: Just prior to arrival Duration: minute(s):, constant, continues in ED Timing: recent history Severity: severe Activities at Onset: sleep Prior Episodes/Possible Cause: occasional episodes Associated Symptoms: weakness LMP (ages 10-50): post menopausal : No Patient currently breastfeeds: No HPI: Prior to admission patient awoke with diaphoresis shortness of breath substernal chest pain prescription as heavy tight moderate in severity constant nonradiating. She also complains of joint pain especially in the knees. There's been no fever chills nausea vomiting diarrhea abdominal pain headache dysuria rash bleeding. Past History Travel History Traveled to [place] past 21 day No Medical History Any Pertinent Medical History? 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 No Review of Systems Review of Systems Constitutional: Reports: see HPI, diaphoresis. EENTM: Reports: no symptoms. Respiratory: Reports: see HPI, short of breath. Cardiovascular: Reports: see HPI. GI: Reports: no symptoms. Genitourinary: Reports: no symptoms. Musculoskeletal: Reports: no symptoms. Skin: Reports: no symptoms. Neurological/Psychological: Reports: no symptoms. Hematologic/Endocrine: Reports: no symptoms. Immunologic/Allergic: Reports: no symptoms. All Other Systems: Reviewed and Negative Physical Exam Physical Exam General Appearance: well developed/nourished, alert, awake, anxious, severe distress Head: atraumatic, normal appearance Eyes: Bilateral: normal appearance, PERRL, EOMI. Ears, Nose, Throat: normal pharynx, normal ENT inspection, hearing grossly normal Neck: normal inspection, supple, full range of motion Respiratory: chest non-tender, crackles, respiratory distress Cardiovascular: normal peripheral pulses, irregularly irregular, norml femoral pulses equa Peripheral Pulses: 4+ carotid (R), 4+ carotid (L) Gastrointestinal: normal bowel sounds, soft, non-tender, no organomegaly Extremities: normal inspection, normal capillary refill, normal range of motion, no edema Neurologic/Psych: awake, alert, ux information architect II-XII nml as tested Skin: intact, normal color, warm/dry Lymphatic: no anterior cervical tom Core Measures ACS in differential dx? Yes No ASA d/t Pharmacological CI CVA/TIA Diagnosis No Sepsis Present: No Sepsis Focused Exam Completed? No Progress Differential Diagnosis: CHF, COPD, pneumonia Plan of Care: Orders Procedure Date/time Status LACTIC ACID 04/30 08 Active Patient Data 04/30 652 Active Admit to inpatient 04/30 0639 Active Linder, Insertion/Removal/Asses 04/30 06 Active CULTURE,URINE 04/30 0633 Active MIXED VENOUS BLOOD GAS (GEN) 04/30 0553 Complete BIPAP 04/30 0552 Complete BLOOD CULTURE 04/30 0539 Active LACTIC ACID 04/30 0529 Complete ARTERIAL BLOOD GAS (GEN) 04/30 0527 Complete TROPONIN LEVEL 04/30 0527 Complete PARTIAL THROMBOPLASTIN TIME 04/30 0527 Complete PROTHROMBIN TIME 04/30 0527 Complete MAGNESIUM 04/30 0527 Complete COMPREHENSIVE METABOLIC PANEL 04/30 0527 Complete CBC WITHOUT DIFFERENTIAL 04/30 0527 Complete B-TYPE NATRIURETIC PEP (BNP) 04/30 0527 Complete EKG 04/30 0527 Active Current Medications Sig/Sergey Start time Last Medication Dose Stop Time Status Admin Azithromycin 500 MG ONCE ONE 04/30 0645 UNVr (Zithromax) 04/30 0744 Sodium Chloride 250 ML (Normal Saline 0.9%) Ceftazidime 1,000 MG ONCE ONE 04/30 0645 UNVr (Fortaz) 04/30 0646 Furosemide 40 MG ONCE ONE 04/30 0645 UNVr 04/30 (Lasix) 04/30 0646 0648 Morphine Sulfate 2 MG ONCE ONE 04/30 0645 UNVr 04/30 (MORPHINE SULFATE) 04/30 06 0648 Laboratory Tests 04/30/18 0635: pH 7.39, pCO2 35, pO2 85, HCO3 21, ABG O2 Sat (Measured) 96.0, P-50 (Temp Corrected) Y, Carboxyhemoglobin 0.4 L, O2 Concentration % 30%, Temperature 97.2 , Respiration Rate 18, O2 Delivery Method VISION-FFM, Vent Mode ST, Expiratory Pressure 6, Inspiratory Pressure 16, Phlebotomy Draw Site RIGHT BRACHIAL 04/30/18 0530: Bicarbonate Actual 16 L, Mixed VBG pH 7.22 L, Mixed VBG pCO2 36 L, Mixed VBG O2 Saturation 31 L, P-50 (Temp Corrected) Y, Carboxyhemoglobin 0.1 L, O2 Concentration % 60%, Temperature 97.2, O2 Delivery Method PRB, Phlebotomy Draw Site RIGHT BRACHIAL 04/30/18 0528: Lactic Acid 5.4 H 04/30/18 0528: Anion Gap 15, Estimated GFR 54 L, BUN/Creatinine Ratio 18.0, Glucose 214 H, Calcium 8.6, Magnesium 2.4 H, Total Bilirubin 0.2, AST 26, ALT 17, Alkaline Phosphatase 87, Troponin I 0.03, [id number] Pept 5830 H, Total Protein 6.3, Albumin 3.5, Globulin 2.8, Albumin/Globulin Ratio 1.3, PT 13.9 H, INR 1.27 H, APTT 28, CBC w Diff NO MAN DIFF REQ, RBC 3.77 L, MCV 82.2, MCH 26.1 L, MCHC 31.7 L, RDW 17.4 H, MPV 7.8, Gran % 46.5, Lymphocytes % 42.8, Monocytes % 7.5, Eosinophils % 2.8, Basophils % 0.4, Absolute Granulocytes 2.1, Absolute Lymphocytes 1.9, Absolute Monocytes 0.3, Absolute Eosinophils 0.1, Absolute Basophils 0 Microbiology 04/30 633 URINE ROUT: Urine Culture - ORD 04/30 542 BLOOD: Blood Culture - RECD 04/30 540 BLOOD: Blood Culture - RECD Diagnostic Imaging: Viewed by Me: Radiology Read. Discussed w/RAD: Radiology Read. CXR Impression: Central vascular and interstitial prominence, suspicious for congestion and interstitial edema. Possible developing superimposed left perihilar consolidation. Initial ED EKG: AFIB, LBBB, nonspecific ST T wave chg Prior EKG: unchanged Rhythm Strip: atrial fibrillation Comments: No sepsis fluid bolus administered due to right heart failure and potential worsening of volume overlladoad / CHF. Departure Departure Disposition: STILL A PATIENT Condition: Stable Clinical Impression Primary Impression: Respiratory failure Secondary Impressions: Chest pain, CHF (congestive heart failure), Lactic acidosis, Pneumonia Referrals: Lowell MITCHELL,Manuel Louie (PCP/Family) Departure Forms: Customer Survey General Discharge Information Admission Note Spoke With: Scarlett Delong MD Documentation of Exam: Documentation of any treatments & extenuating circumstances including Concerns Regarding Discharge (functional status, medication knowledge or non-compliance, living conditions, etc.) that warrant an admission rather than observation: BiPAP ICU monitoring monitor I&O IV diuresis IV antibiotics medication adjustment cardiology evaluation patient ICU evaluation physical therapy continuing care discharge planning. Critical Care Note Critical Care Note Critical Care Time: 30-74 min (45)
[2018-04-30 05:48] LABS: PT 13.9 SEC (9.4-12.5); PTT 28 SEC (25-37)
--- NOTE | 2018-04-30 06:38 | RADIOLOGY REPORT ---
EXAMINATION: XR PORTABLE CHEST CLINICAL INFORMATION: Shortness of breath, history of CHF, atrial fibrillation COMPARISON: 03/01/2018 TECHNIQUE: Portable frontal view of the chest was obtained. FINDINGS: Lung volumes are symmetric. There is prominence of the central vasculature and perihilar interstitium. There is mild asymmetric haziness in the left perihilar region. No evidence of pneumothorax. Trace left pleural effusion may be present. The cardiac silhouette is mildly enlarged for technique. Calcification is present at the aortic arch. No acute osseous findings are seen. IMPRESSION: Central vascular and interstitial prominence, suspicious for congestion and interstitial edema. Possible developing superimposed left perihilar consolidation.
--- NOTE | 2018-04-30 07:38 | History & Physical ---
Vamsi Anderson 04/30/18 0738: General Information and HPI MD Statement: I have seen and personally examined MEGHAN MA and documented this H&P. The patient is a 77 year old F who presented with a patient stated chief complaint of [desaturation]. Source of Information: patient, old records Exam Limitations: clinical condition History of Present Illness: 77-year-old woman from [facility], with past medical history significant for, CAD s/p AK recent stenting twice in , COPD not on oxygen, HFrEF, HTN, HLD, OA, depression, SBO s/p repair sent from [facility] to [place] ED for chest pain and desaturation of 78% on 6L NC. On interview patient complained of bilateral leg pain which is a chronic issue for her. Denies any fever chills, nausea, vomiting, abdominal pain. Allergies/Medications Allergies: Coded Allergies: amoxicillin (From AUGMENTIN) (THRUSH 04/30/18) clavulanic acid (From AUGMENTIN) (THRUSH 04/30/18) Home Med list Acetaminophen (Tylenol Extra Strength) 500 MG TABLET 2 TAB PO TID PAIN ( Reported) Apixaban (Eliquis) 5 MG TABLET 1 TAB PO BID BLOOD THINNER (Reported) Atorvastatin Calcium 40 MG TABLET 1 TAB PO QPM CHOLESTEROL (Reported) Clopidogrel Bisulfate (Plavix) 75 MG TABLET 75 MG PO DAILY HEART HEALTH Fluticasone/Vilanterol (Breo Ellipta 100-25 Mcg INH) 100 MCG-25 MCG/DOSE BLST.W.DEV 1 INHA PO DAILY COPD (Reported) Furosemide (Lasix) 40 MG TABLET 40 MG PO BID heart failure Gabapentin (Neurontin) 100 MG CAPSULE 1 CAP PO Q8H (Reported) Lactobacillus Acidophilus (Acidophilus) 1 EACH CAPSULE 1 CAP PO BID GI ( Reported) Lisinopril 2.5 MG TABLET 1 TAB PO DAILY HEART (Reported) Metoprolol Succ XL (Toprol XL) 25 MG TAB 1 TAB PO DAILY CAD Omeprazole 20 MG CAPSULE.DR 1 CAP PO DAILY BOWEL ULCER (Reported) Paroxetine HCl 40 MG TABLET 1 TAB PO DAILY MOOD (Reported) Sennosides (Senna) 8.6 MG TABLET 2 TAB PO BID CONSTIPATION (Reported) Tramadol HCl 50 MG TABLET 1 TAB PO QPM (Reported) Compliance With Home Meds: GOOD Past History Travel History Traveled to [place] past 21 day No Medical History Neurological: NONE EENT: NONE Cardiovascular: CAD, CHF, hypertension, hyperlipidemia, NSTEMI, CARDIAC STENT NOVEMBER 2018 Respiratory: COPD Gastrointestinal: DUODONAL ULCER Hepatic: NONE Renal: NONE Musculoskeletal: osteoarthritis Psychiatric: depression Endocrine: NONE Blood Disorders: NONE Cancer(s): NONE 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 alone Services at Home: None Primary Language: Tamazight Living Will? yes Power of Electrical/Instrument Technician/HCP? yes Name of POA/HCP: Sinan Rossi Functional Ability ADLs Independent: toileting. Needs Assist: eating, bathing. Ambulation: walker IADLs Independent: finances, medication admin. Needs Assist: shopping, food prep, transportation. Review of Systems Review of Systems Constitutional: Denies: see HPI. Exam & Diagnostic Data Last 24 Hrs of Vital Signs/I&O Vital Signs Date Time Temp Pulse Resp B/P B/P Pulse O2 O2 Flow FiO2 Mean Ox Delivery Rate 04/30 0748 97.0 79 20 90/42 95 BIPAP 30% 04/30 0630 89 97 04/30 0550 75 97 04/30 0542 99 Part 100% ReBreather 04/30 0522 97.2 87 28 139/68 98 Non 100% ReBreather Intake & Output 04/30 1600 04/30 0800 04/30 0000 Intake Total Output Total 100 Balance -100 Output, Urine 100 Physical Exam General Appearance Alert, Oriented X3, Mild Distress Skin No Rashes HEENT Atraumatic, PERRLA, dry mucous membranes Neck No JVD Cardiovascular Regular Rate, Normal S1, Normal S2 Lungs quiet respiration Abdomen Normal Bowel Sounds, Soft, No Tenderness Extremities No Edema Last 24 Hrs of Labs/Ilya: Laboratory Tests 04/30/18 0910: Lactic Acid 1.6 04/30/18 0635: pH 7.39, pCO2 35, pO2 85, HCO3 21, ABG O2 Sat (Measured) 96.0, P-50 (Temp Corrected) Y, Carboxyhemoglobin 0.4 L, O2 Concentration % 30%, Temperature 97.2 , Respiration Rate 18, O2 Delivery Method VISION-FFM, Vent Mode ST, Expiratory Pressure 6, Inspiratory Pressure 16, Phlebotomy Draw Site RIGHT BRACHIAL 04/30/18 0530: Bicarbonate Actual 16 L, Mixed VBG pH 7.22 L, Mixed VBG pCO2 36 L, Mixed VBG O2 Saturation 31 L, P-50 (Temp Corrected) Y, Carboxyhemoglobin 0.1 L, O2 Concentration % 60%, Temperature 97.2, O2 Delivery Method PRB, Phlebotomy Draw Site RIGHT BRACHIAL 04/30/18 0528: Lactic Acid 5.4 H 04/30/18 0528: Anion Gap 15, Estimated GFR 54 L, BUN/Creatinine Ratio 18.0, Glucose 214 H, Calcium 8.6, Magnesium 2.4 H, Total Bilirubin 0.2, AST 26, ALT 17, Alkaline Phosphatase 87, Troponin I 0.03, Zti-S-Vwqfuzpxans Pept 5830 H, Total Protein 6.3, Albumin 3.5, Globulin 2.8, Albumin/Globulin Ratio 1.3, PT 13.9 H, INR 1.27 H, APTT 28, CBC w Diff NO MAN DIFF REQ, RBC 3.77 L, MCV 82.2, MCH 26.1 L, MCHC 31.7 L, RDW 17.4 H, MPV 7.8, Gran % 46.5, Lymphocytes % 42.8, Monocytes % 7.5, Eosinophils % 2.8, Basophils % 0.4, Absolute Granulocytes 2.1, Absolute Lymphocytes 1.9, Absolute Monocytes 0.3, Absolute Eosinophils 0.1, Absolute Basophils 0 Microbiology 04/30 900 UPPER RESP: Surveillance Culture - RECD 04/30 09 GI: Surveillance Culture - RECD 04/30 0740 URINE ROUT: Urine Culture - RECD 04/30 0542 BLOOD: Blood Culture - RECD 04/30 540 BLOOD: Blood Culture - RECD Diagnostic Data EKG Results afib, NSR, chronic LBBB CXR Results 04/30/18-526 IMPRESSION: Central vascular and interstitial prominence, suspicious for congestion and interstitial edema. Possible developing superimposed left perihilar consolidation. Assessment/Plan Assessment: 77-year-old woman from [facility], with past medical history significant for, CAD s/p AK recent stenting (s/p remote AK w/ culprit PCI/BMS x1 to LAD; and follow-up PCI/BMS 1 for non-culpret LCx stenosis; PCI/LANE [[facility]olute] of an 80% LCx AV groove artery stenosis on 11/19/2017; in stent restenosis of LCx AV groove artery s/p POBA on 12/03/2017, COPD not on oxygen, HFrEF, HTN, HLD, OA, depression, SBO s/p repair admitted to [facility] for sudden onset of diaphoresis, dyspneic and desaturation of 78% on 6L NC. CXR : Central vascular and interstitial prominence, suspicious for congestion and interstitial edema Placed on BiPap in the ED and given IV 40mg of lasix assessment and plan: Acute hypoxic respiratory failure Admitted to the ICU for first time Bipap usage, by the she was transferred up to ICU, she was stable to be on NC Acute on chronic systolic heart failure Last echocardiogram in 12/2017: Markedly hypokinetic to akinetic inferior and lateral castro. Moderately abnormal left ventricular ejection fraction estimated at 25-30%. Mildly increased resting left ventricular outflow tract velocity ( 1.35 m/s). Cardiology consult f/up cxr in am, will trop/EKG strict I/Os CAD with recent stenting and elevated troponins: continue plavix Paroxysmal Atrial fibrillation: Continue Metroprolol and eliquis. HTN: Continued metoprolol and lisinopril HLD: Continued atorvastatin COPD: On Breo at home Started on symbicort heart healthy diet dvt ppx sofiya spoke to patient about goals of care and she expressed that she did not wish to be intubated or resusitated code status: DNR/DNI As Ranked By This Provider Problem List: 1. Hyperlipidemia 2. Coronary artery disease 3. Hypertension 4. Acute respiratory failure with hypoxia Core Measures/Misc (04/26) Acute Coronary Syndrome ACS Diagnosis: No Congestive Heart Failure Congestive Heart Failure Diagnosis Yes Last Known EF % 25 Cerebrovascular Accident CVA/TIA Diagnosis: No VTE (View Protocol) VTE Risk Factors Acute Medical Illness No Mechanical VTE Prophylaxis d/t N/A MechProphylax Ordered No VTE Pharm Prophylaxis d/t NA PharmProphylax ordered Sepsis (View protocol) Sepsis Present: No If YES complete Sepsis Event Note If YES complete Sepsis Event Note Gurdeep Heredia MD 04/30/18 1829: Core Measures/Misc (04/26) Sepsis (View protocol) If YES complete Sepsis Event Note If YES complete Sepsis Event Note Attending MD Review Statement Attending Statement Attending MD Statement: examined this patient, discuss w/resident/PA/ANTHROPOLOGIST, agreed w/resident/PA/ANTHROPOLOGIST, reviewed EMR data (avail), reviewed images
[2018-04-30 09:00] VITALS: BP 98/60
--- NOTE | 2018-04-30 09:53 | Admission Certification ---
Admission Certification Certification Statement - As attending physician, I certify that at the time of - admission, based on clinical presentation, severity of - symptoms, need for further diagnostic testing and - therapeutic interventions, and risk of adverse outcomes - without in-hospital treatment, in my clinical assessment, - this patient requires an acute hospital stay for a minimum - of two nights or longer. I have also considered psychsocial - factors such as support system, advanced age, financial - issues, cognitive issues, and failed out-patient treatments, - past re-admission history, safety of patient, and lack of - compliance as applicable. Specific rationale supporting this admission is: Acute respiratory failure secondary to CHF. The patient will require admission to the critical care unit for BiPAP, telemetry monitoring, diuresis, and close monitoring.
--- NOTE | 2018-04-30 10:16 | Cons- Cardiology ---
General Information and HPI Consulting Request Date of Consult: 04/30/18 Requested By: Scarlett Delong MD Reason for Consult: CHF History of Present Illness: 77 year old patient with history of CAD, s/p [place]+PCI 03/2018 (NSTEMI?, which coronary?), systolic heart failure, COPD, sent to the ED last night for acute shortness of breath: patient awoke with diaphoresis shortness of breath substernal chest pain prescription as heavy tight moderate in severity constant nonradiating. Upon arrival, patient was saturating at 78% on room air, normal HCO3 and PCO2, lactic acid was 5.4, BNP 5800, negative troponins X 3. CXR showed pulmonary congestion as well as a possible left perihilar consolidation, prompting antibiotic treatment for possible pneumonia. Last echocardiogram in 12/2017: : Normal size left ventricle. Mild concentric left ventricular hypertrophy. Abnormal septal motion consistent with left bundle branch block. Markedly hypokinetic to akinetic inferior and lateral castro. Moderately abnormal left ventricular ejection fraction estimated at 25-30%. Mildly increased resting left ventricular outflow tract velocity (1.35 m/s). Normal right ventricular size and function. Normal right atrial size. Mild left atrial dilatation. Mild mitral regurgitation. Mild aortic regurgitation. Mild tricuspid regurgitation. No evidence of pulmonary hypertension. Mildly dilated proximal ascending aorta (tube). " Patient is saturating much better this morning, and lactic acid and arterial blood gas have normalized after IV lasix doses and high concentration O2. Allergies/Medications Allergies: Coded Allergies: amoxicillin (From AUGMENTIN) (THRUSH 04/30/18) clavulanic acid (From AUGMENTIN) (THRUSH 04/30/18) Home Med List: Acetaminophen (Tylenol Extra Strength) 500 MG TABLET 2 TAB PO TID PAIN ( Reported) Apixaban (Eliquis) 5 MG TABLET 1 TAB PO BID BLOOD THINNER (Reported) Atorvastatin Calcium 40 MG TABLET 1 TAB PO QPM CHOLESTEROL (Reported) Clopidogrel Bisulfate (Plavix) 75 MG TABLET 75 MG PO DAILY HEART HEALTH Fluticasone/Vilanterol (Breo Ellipta 100-25 Mcg INH) 100 MCG-25 MCG/DOSE BLST.W.DEV 1 INHA PO DAILY COPD (Reported) Furosemide (Lasix) 40 MG TABLET 40 MG PO BID heart failure Gabapentin (Neurontin) 100 MG CAPSULE 1 CAP PO Q8H (Reported) Lactobacillus Acidophilus (Acidophilus) 1 EACH CAPSULE 1 CAP PO BID GI ( Reported) Lisinopril 2.5 MG TABLET 1 TAB PO DAILY HEART (Reported) Metoprolol Succ XL (Toprol XL) 25 MG TAB 1 TAB PO DAILY CAD Omeprazole 20 MG CAPSULE.DR 1 CAP PO DAILY BOWEL ULCER (Reported) Paroxetine HCl 40 MG TABLET 1 TAB PO DAILY MOOD (Reported) Sennosides (Senna) 8.6 MG TABLET 2 TAB PO BID CONSTIPATION (Reported) Tramadol HCl 50 MG TABLET 1 TAB PO QPM (Reported) Current Medications: Current Medications Sig/Sergey Start time Last Medication Dose Route Stop Time Status Admin Azithromycin 500 MG ONCE ONE 04/30 645 DC 04/30 Sodium Chloride 250 ML IV 04/30 0744 0659 Ceftazidime 1,000 MG ONCE ONE 04/30 645 DC 04/30 IV 04/30 0646 0659 Furosemide 40 MG ONCE ONE 04/30 0645 DC 04/30 IV 04/30 0646 0648 Furosemide 0 .STK-MED ONE 04/30 0639 DC IV Morphine Sulfate 2 MG ONCE ONE 04/30 0645 DC 04/30 IV 04/30 0646 0648 Morphine Sulfate 0 .STK-MED ONE 04/30 0640 DC .ROUTE Past History Travel History Traveled to [place] past 21 day No Medical History Blood Transfusion Hx: No Neurological: NONE EENT: NONE Cardiovascular: CAD, CHF, hypertension, hyperlipidemia, NSTEMI, CARDIAC STENT NOVEMBER 2017 Respiratory: COPD Gastrointestinal: DUODONAL ULCER Hepatic: NONE Renal: NONE Musculoskeletal: osteoarthritis Psychiatric: depression Endocrine: NONE Blood Disorders: NONE Cancer(s): NONE 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 [facility] Who Do You Live With? alone Primary Language: Divehi Smoking Status: Never Smoked Living Will? yes Power of Seismograph Recorder/HCP? yes Name of POA/HCP: Sinan Rossi Functional Ability ADLs Independent: toileting. Needs Assist: eating, bathing. Ambulation: walker IADLs Independent: finances, medication admin. Needs Assist: shopping, food prep, transportation. Exam & Diagnostic Data Vital Signs and I&O Vital Signs Date Time Temp Pulse Resp B/P B/P Pulse O2 O2 Flow FiO2 Mean Ox Delivery Rate 04/30 0932 98 Nasal 3.0L Cannula 04/30 09 97.1 77 17 98/60 98 Nasal 3.0L Cannula 04/30 0748 97.0 79 20 90/42 95 BIPAP 30% 04/30 0630 89 97 04/30 0550 75 97 04/30 0542 99 Part 100% ReBreather 04/30 05 97.2 87 28 139/68 98 Non 100% ReBreather Intake & Output 04/30 0804/30 0000 04/29 0804/29 0000 Intake Total Output Total 100 Balance -100 Output, Urine 100 Patient 134 lb Weight Weight Bed scale Measurement Method Physical Exam: General Appearance Alert, Oriented X3, Mild Distress HEENT Atraumatic, PERRLA, dry mucous membranes Neck No JVD, trachea midline Cardiovascular Regular Rate, Normal S1, Normal S2 Lungs quiet respiration, crackles bases bilaterally Abdomen Normal Bowel Sounds, Soft, No Tenderness Extremities No Edema Labs/Ilya Results: Laboratory Tests 04/30 04/30 04/30 0910 0635 0530 Blood Gas pH (7.35 - 7.45 PH) 7.39 pCO2 (35 - 45 TORR) 35 pO2 (80 - 100 TORR) 85 HCO3 (21 - 28 MEQ/L) 21 Bicarbonate Actual (22 - 26 MEQ/L) 16 L ABG O2 Sat (Measured) (>96.0 %) 96.0 Mixed VBG pH (7.31 - 7.41 PH) 7.22 L Mixed VBG pCO2 (41 - 51 TORR) 36 L Mixed VBG O2 Saturation (35 - 45 TORR) 31 L P-50 (Temp Corrected) Y Y Carboxyhemoglobin (1.5 - 5.0 %) 0.4 L 0.1 L O2 Concentration % 30% 60% Temperature (97.0 - 100.0 FARH) 97.2 97.2 Respiration Rate (BPM) 18 O2 Delivery Method VISION-FFM PRB Vent Mode ST Expiratory Pressure (CM H2O P) 6 Inspiratory Pressure (CM H2O P) 16 Chemistry Lactic Acid (0.7 - 2.1 mmol/L) 1.6 Miscellaneous Phlebotomy Draw Site RIGHT BRACHIAL RIGHT BRACHIAL 04/30 04/30 0528 0528 Chemistry Sodium (137 - 145 mmol/L) 136 L Potassium (3.5 - 5.1 mmol/L) 4.5 Chloride (98 - 107 mmol/L) 102 Carbon Dioxide (22 - 30 mmol/L) 18 L Anion Gap (5 - 16) 15 BUN (7 - 17 mg/dL) 18 H Creatinine (0.5 - 1.0 mg/dL) 1.0 Estimated GFR (>60 ml/min) 54 L BUN/Creatinine Ratio (7 - 25 %) 18.0 Glucose (65 - 99 mg/dL) 214 H Lactic Acid (0.7 - 2.1 mmol/L) 5.4 H Calcium (8.4 - 10.2 mg/dL) 8.6 Magnesium (1.6 - 2.3 mg/dL) 2.4 H Total Bilirubin (0.2 - 1.3 mg/dL) 0.2 AST (14 - 36 U/L) 26 ALT (9 - 52 U/L) 17 Alkaline Phosphatase (<127 U/L) 87 Troponin I (< 0.11 ng/ml) 0.03 Ckn-A-Syenzrwtdkh Pept (<125 pg/mL) 5830 H Total Protein (6.3 - 8.2 g/dL) 6.3 Albumin (3.5 - 5.0 g/dL) 3.5 Globulin (1.9 - 4.2 gm/dL) 2.8 Albumin/Globulin Ratio (1.1 - 2.2 %) 1.3 Coagulation PT (9.4 - 12.5 SEC) 13.9 H INR (0.90 - 1.19) 1.27 H APTT (25 - 37 SEC) 28 Hematology CBC w Diff NO MAN DIFF REQ WBC (4.8 - 10.8 /CUMM) 4.5 L RBC (4.20 - 5.40 /CUMM) 3.77 L Hgb (12.0 - 16.0 G/DL) 9.8 L Hct (37 - 47 %) 31.0 L MCV (81.0 - 99.0 FL) 82.2 MCH (27.0 - 31.0 PG) 26.1 L MCHC (33.0 - 37.0 G/DL) 31.7 L RDW (11.5 - 14.5 %) 17.4 H Plt Count (130 - 400 /CUMM) 386 MPV (7.4 - 10.4 FL) 7.8 Gran % (42.2 - 75.2 %) 46.5 Lymphocytes % (20.5 - 51.1 %) 42.8 Monocytes % (1.7 - 9.3 %) 7.5 Eosinophils % (0 - 5 %) 2.8 Basophils % (0.0 - 2.0 %) 0.4 Absolute Granulocytes (1.4 - 6.5 /CUMM) 2.1 Absolute Lymphocytes (1.2 - 3.4 /CUMM) 1.9 Absolute Monocytes (0.10 - 0.60 /CUMM) 0.3 Absolute Eosinophils (0.0 - 0.7 /CUMM) 0.1 Absolute Basophils (0.0 - 0.2 /CUMM) 0 Assessment/Plan Assessment/Plan CHF exacerbation in patient with history of ischemic CMP, 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 Context of lower respiratory tract infection. No evidence of myocardial ischemia at this time. Lisinopril could be withheld is BP remains < 100 systolic. Lasix to be adjusted according to BP , which is relatively low at the moment. 40 iv bid would be a good dose is tolerated, aiming for net fluid loss 1-1.5L/24h. Repeat CXR thursday. Consult Acknowledgment - Thank you for your consult request.
[2018-04-30 11:57] VITALS: BP 100/56
--- NOTE | 2018-04-30 15:47 | Event Note ---
Event Note Event Note: Patient came from [facility], advanced directive indicates full code. Patient changed her CODE STATUS to DNR/DNI. On exam she is alert oriented 3 and seemed to have the capacity to make her decision. I contacted the case management/social worker health services at the facility who confirmed that patient able to make her own decision.
[2018-04-30 16:00] VITALS: BP 102/58
--- NOTE | 2018-04-30 18:59 | RADIOLOGY REPORT ---
EXAMINATION: XR CHEST CLINICAL INFORMATION: Shortness of breath. COMPARISON: Chest x-ray 04/30/2018, 03/01/2018 TECHNIQUE: 2 views of the chest were obtained. FINDINGS: Heart size is enlarged. There are calcifications of the aortic arch. There is mild central pulmonary vascular congestion with increased interstitial lung markings, interstitial edema. There is ixmzl-ce-yvjixjph volume left pleural effusion posteriorly. There is degenerative joint disease of the left shoulder with joint narrowing and spurring of the left humeral head and glenoid. IMPRESSION: Cardiomegaly. Mild pulmonary vascular congestion. Left pleural effusion.
[2018-05-01] VITALS: BP 100/80
[2018-05-01 05:57] LABS: ABSOLUTE BASOPHIL COUNT 0 /CUMM (0.0-0.2); ABSOLUTE EOSINOPHIL COUNT 0.1 /CUMM (0.0-0.7)
[2018-05-01 06:09] LABS: ABSOLUTE GRANULOCYTE CT 2.8 /CUMM (1.4-6.5); ABSOLUTE LYMPH COUNT 1.4 /CUMM (1.2-3.4); ABSOLUTE MONOCYTE COUNT 0.9 /CUMM (0.10-0.60); BASOPHIL % 0.8 % (0.0-2.0); EOSINOPHIL % 2.5 % (0-5); GRANULOCYTE % 52.8 % (42.2-75.2); MEAN CORPUSCULAR HGB 26.3 PG (27.0-31.0); MEAN CORPUSCULAR HGB CONC 32.5 G/DL (33.0-37.0); MEAN CORPUSCULAR VOLUME 80.9 FL (81.0-99.0); MEAN PLATELET VOLUME 7.8 FL (7.4-10.4); PLATELET COUNT 297 /CUMM (130-400); RBC DISTRIBUTION WIDTH 17.3 % (11.5-14.5); RED BLOOD CELL CT 2.96 /CUMM (4.20-5.40); WHITE BLOOD CELL COUNT 5.3 /CUMM (4.8-10.8)
--- NOTE | 2018-05-01 07:55 | PN- CRCU ---
Subjective HPI/Critical Care Issues: The patient is feeling improved overall with respect to her breathing. She complains of back pain. There were no overnight events reported. Objective Current Medications: Current Medications Sig/Sergey Start time Last Medication Dose Route Stop Time Status Admin Acetaminophen 1,000 MG Q8 PRN 04/30 2145 AC 04/30 PO 2151 Acetaminophen 1,000 MG TID 04/30 1400 AC 04/30 PO 1541 Apixaban 5 MG BID 04/30 1247 AC 04/30 PO 2041 Atorvastatin Calcium 40 MG QPM 04/30 2100 AC 04/30 PO 2041 Budesonide/ 2 PUF BID 04/30 2100 AC 04/30 Formoterol Fumarate INH 2041 Clopidogrel Bisulfate 75 MG DAILY 04/30 1248 AC 04/30 PO 1337 Diclofenac Sodium 1 SHE 4 TIMES/DAY PRN 04/30 1900 AC 04/30 TOP 2044 Furosemide 20 MG ONCE ONE 05/01 1015 DC IV 05/01 1016 Gabapentin 100 MG Q8H 04/30 1300 AC 05/01 PO 0432 Lisinopril 2.5 MG DAILY 05/01 0900 AC PO Melatonin 5 MG AT BEDTIME PRN 04/30 1915 AC 04/30 PO 2041 Metoprolol Succinate 25 MG DAILY 05/01 0900 AC PO Omeprazole 20 MG DAILY 05/01 0900 AC PO Paroxetine HCl 40 MG DAILY 04/30 1253 AC 04/30 PO 1337 Senna/Docusate Sodium 1 TAB BID PRN 04/30 1300 AC PO Tramadol HCl 50 MG ONCE ONE 05/01 0230 DC 05/01 PO 05/01 0231 0235 Tramadol HCl 50 MG QPM 04/30 2100 AC 04/30 PO 2041 Vital Signs & I&O Last 24 Hrs of Vitals and I&O: Vital Signs Date Time Temp Pulse Resp B/P B/P Pulse O2 O2 Flow FiO2 Mean Ox Delivery Rate 05/01 0400 95 Nasal 2.0L Cannula 05/01 0000 97 Nasal 2.0L Cannula 05/01 0000 98.5 70 25 100/80 97 Nasal 2.0L Cannula 04/30 2000 97 Nasal 2.0L Cannula 04/30 1600 97 Nasal 3.0L Cannula 04/30 1600 97.1 74 22 102/58 97 Nasal 3.0L Cannula 04/30 1200 96 Nasal 3.0L Cannula 04/30 1157 98.2 70 20 100/56 96 Nasal 3.0L Cannula Intake & Output 05/01 1600 05/01 0800 05/01 0000 Intake Total 240 750 Output Total 550 250 Balance -310 500 Intake, Oral 240 750 Output, Urine 550 250 Exam General Appearance: no apparent distress, alert, awake, comfortable Head: atraumatic Neck: supple Respiratory: normal breath sounds Cardiovascular: irregularly irregular Abdomen: normal bowel sounds, soft, non-tender Extremities: no edema Results Last 24 Hrs of Lab Results: Laboratory Tests 05/01/18 0426: Anion Gap 10, Estimated GFR > 60, Glucose 84, Calcium 8.3 L, Phosphorus 4.3, Magnesium 2.2, Total Bilirubin 0.1 L, AST 28, ALT 29, Troponin I 0.07, Albumin 2.8 L, CBC w Diff NO MAN DIFF REQ, RBC 2.96 L, MCV 80.9 L, MCH 26.3 L, MCHC 32.5 L, RDW 17.3 H, MPV 7.8, Gran % 52.8, Lymphocytes % 26.6, Monocytes % 17.3 H, Eosinophils % 2.5, Basophils % 0.8, Absolute Granulocytes 2.8, Absolute Lymphocytes 1.4, Absolute Monocytes 0.9 H, Absolute Eosinophils 0.1, Absolute Basophils 0 04/30/18 1910: Troponin I 0.11 *H 04/30/18 1150: Troponin I 0.10 Impression/Plan Impression/Plan Impression/Plan: 1. Acute on chronic systolic heart failure. 2. CAD with recent stenting and elevated troponins. 3. Paroxysmal atrial fibrillation, on metoprolol and Eliquis. 4. History of hypertension, on lisinopril and metoprolol. 5. COPD, on Brio at home, Symbicort started. Hyperlipidemia, on atorvastatin. Recommendations: * Continue with IV diuresis, negative fluid balance, monitoring of I's and O's. * Continue metoprolol, lisinopril and Eliquis. * Atorvastatin for hyperlipidemia to continue. * Monitor oxygen saturations, O2 for sats greater than 92%. * Continue Eliquis. * Will continue to follow-up cardiology recommendations. * DVT prophylaxis at all times. * Increase activity, out of bed to chair. * Downgrade to telemetry.
[2018-05-01 08:00] VITALS: BP 106/70
--- NOTE | 2018-05-01 08:44 | PN- Resident CRCU ---
Subjective HPI/CRCU Issues: Seen and examined patient this morning, complains of back pain. 24 Hour Events: no overnight events reported Objective Vital Signs & I&O Last 8 Hrs of Vitals and I&O: Intake & Output 05/01 1600 05/01 0800 05/01 0000 Intake Total 240 750 Output Total 550 250 Balance -310 500 Intake, Oral 240 750 Output, Urine 550 250 Laboratory Tests 05/01 04/30 04/30 0426 1910 1150 Chemistry Sodium (137 - 145 mmol/L) 134 L Potassium (3.5 - 5.1 mmol/L) 4.4 Chloride (98 - 107 mmol/L) 101 Carbon Dioxide (22 - 30 mmol/L) 23 Anion Gap (5 - 16) 10 BUN (7 - 17 mg/dL) 20 H Creatinine (0.5 - 1.0 mg/dL) 0.9 Estimated GFR (>60 ml/min) > 60 Glucose (65 - 99 mg/dL) 84 Calcium (8.4 - 10.2 mg/dL) 8.3 L Phosphorus (2.5 - 4.5 mg/dL) 4.3 Magnesium (1.6 - 2.3 mg/dL) 2.2 Total Bilirubin (0.2 - 1.3 mg/dL) 0.1 L AST (14 - 36 U/L) 28 ALT (9 - 52 U/L) 29 Troponin I (< 0.11 ng/ml) 0.07 0.11 *H 0.10 Albumin (3.5 - 5.0 g/dL) 2.8 L Hematology CBC w Diff NO MAN DIFF REQ WBC (4.8 - 10.8 /CUMM) 5.3 RBC (4.20 - 5.40 /CUMM) 2.96 L Hgb (12.0 - 16.0 G/DL) 7.8 L Hct (37 - 47 %) 24.0 L MCV (81.0 - 99.0 FL) 80.9 L MCH (27.0 - 31.0 PG) 26.3 L MCHC (33.0 - 37.0 G/DL) 32.5 L RDW (11.5 - 14.5 %) 17.3 H Plt Count (130 - 400 /CUMM) 297 MPV (7.4 - 10.4 FL) 7.8 Gran % (42.2 - 75.2 %) 52.8 Lymphocytes % (20.5 - 51.1 %) 26.6 Monocytes % (1.7 - 9.3 %) 17.3 H Eosinophils % (0 - 5 %) 2.5 Basophils % (0.0 - 2.0 %) 0.8 Absolute Granulocytes (1.4 - 6.5 /CUMM) 2.8 Absolute Lymphocytes (1.2 - 3.4 /CUMM) 1.4 Absolute Monocytes (0.10 - 0.60 /CUMM) 0.9 H Absolute Eosinophils (0.0 - 0.7 /CUMM) 0.1 Absolute Basophils (0.0 - 0.2 /CUMM) 0 Exam General Appearance: alert, awake Respiratory: normal breath sounds Cardiovascular: irregularly irregular Gastrointestinal: normal bowel sounds, soft Extremities: no edema Current Medications: Current Medications Sig/Sergey Start time Last Medication Dose Route Stop Time Status Admin Acetaminophen 1,000 MG Q8 PRN 04/30 2145 AC 04/30 PO 2151 Acetaminophen 1,000 MG TID 04/30 1400 AC 04/30 PO 1541 Apixaban 5 MG BID 04/30 1247 AC 04/30 PO 2041 Atorvastatin Calcium 40 MG QPM 04/30 2100 AC 04/30 PO 2041 Budesonide/ 2 PUF BID 04/30 2100 AC 04/30 Formoterol Fumarate INH 2041 Clopidogrel Bisulfate 75 MG DAILY 04/30 1248 AC 04/30 PO 1337 Diclofenac Sodium 1 SHE 4 TIMES/DAY PRN 04/30 1900 AC 04/30 TOP 2044 Furosemide 20 MG ONCE ONE 05/01 1015 UNVr IV 05/01 1016 Gabapentin 100 MG Q8H 04/30 1300 AC 05/01 PO 0432 Lisinopril 2.5 MG DAILY 05/01 0900 AC PO Melatonin 5 MG AT BEDTIME PRN 04/30 1915 AC 04/30 PO 2041 Metoprolol Succinate 25 MG DAILY 05/01 09 AC PO Omeprazole 20 MG DAILY 05/01 0900 AC PO Paroxetine HCl 40 MG DAILY 04/30 1253 AC 04/30 PO 1337 Senna/Docusate Sodium 1 TAB BID PRN 04/30 1300 AC PO Tramadol HCl 50 MG ONCE ONE 05/01 0230 DC 05/01 PO 05/01 0231 0235 Tramadol HCl 50 MG QPM 04/30 2100 AC 04/30 PO 2041 Impression/Plan Impression/Problem List Impression: 77-year-old woman from [facility], with past medical history significant for, CAD s/p TN recent stenting (s/p remote TN w/ culprit PCI/BMS x1 to LAD; and follow-up PCI/BMS 1 for non-culpret LCx stenosis; PCI/LANE [[facility]] of an 80% LCx AV groove artery stenosis on 11/19/2017; in stent restenosis of LCx AV groove artery s/p POBA on 12/03/2017, COPD not on oxygen, HFrEF, HTN, HLD, OA, depression, SBO s/p repair admitted to [facility] for sudden onset of diaphoresis, dyspneic and desaturation of 78% on 6L NC. CXR : Central vascular and interstitial prominence, suspicious for congestion and interstitial edema Placed on BiPap in the ED and given IV 40mg of lasix assessment and plan: Acute hypoxic respiratory failure: stable to be on NC Acute on chronic systolic heart failure Last echocardiogram in 12/2017: Markedly hypokinetic to akinetic inferior and lateral castro. Moderately abnormal left ventricular ejection fraction estimated at 25-30%. Mildly increased resting left ventricular outflow tract velocity ( 1.35 m/s). Cardiology consultED -300cc balance, will give IV 40 lasix BID, repeat cxr in am strict I/Os CAD with recent stenting and elevated troponins: continue plavix trop trend up to 0.11, no acute EKG changes Paroxysmal Atrial fibrillation: Continue Metroprolol and eliquis. HTN: Continued metoprolol and lisinopril HLD: Continued atorvastatin COPD: On Breo at home Started on symbicort heart healthy diet dvt ppx eliquis DNR/DNI downgrade to tele Problem List: 1. Acute respiratory failure with hypoxia 2. CHF (congestive heart failure) Pain Ratin Tomorrow's Labs & Rationales: bep Plan DVT/Prophylaxis: pharmacological
--- NOTE | 2018-05-01 15:06 | PN- Cardiology ---
Subjective Subjective: Feeling better. Shortness of breath improving. No chest pain. No palpitations. No diaphoresis Objective Vital Signs and I&Os Vital Signs Date Time Temp Pulse Resp B/P B/P Pulse O2 O2 Flow FiO2 Mean Ox Delivery Rate 05/01 1106 62 127/60 05/01 1106 62 127/60 05/01 0800 99 Nasal 2.0L Cannula 05/01 0800 98.5 78 18 106/70 99 Nasal 2.0L Cannula 05/01 0400 95 Nasal 2.0L Cannula 05/01 0000 97 Nasal 2.0L Cannula 05/01 0000 98.5 70 25 100/80 97 Nasal 2.0L Cannula 04/30 2000 97 Nasal 2.0L Cannula 04/30 1600 97 Nasal 3.0L Cannula 04/30 1600 97.1 74 22 102/58 97 Nasal 3.0L Cannula Intake & Output 05/01 1600 05/01 0800 05/01 0000 04/30 1600 04/30 0800 04/30 0000 Intake Total 250 240 750 690 Output Total 650 550 250 850 100 Balance -400 -310 500 -160 -100 Intake, IV 10 250 Intake, Oral 240 240 750 440 Output, Urine 650 550 250 850 100 Patient 134 lb Weight Weight Bed scale Measurement Method Physical Exam: Gen: NAD HEENT: normal Lungs: Bilateral rales, normal resp. effort Heart: S1, S2, no murmurs Abdomen: Soft, nontender, no masses Extremities: 1+ edema Neuro: Alert and oriented x 3, cranial nerves intact Current Medications: Current Medications Sig/Sergey Start time Last Medication Dose Route Stop Time Status Admin Acetaminophen 1,000 MG Q8 PRN 04/30 2145 AC 04/30 PO 2151 Acetaminophen 1,000 MG TID 04/30 1400 AC 05/01 PO 1106 Apixaban 5 MG BID 04/30 1247 AC 05/01 PO 1105 Atorvastatin Calcium 40 MG QPM 04/30 2100 AC 04/30 PO 2041 Budesonide/ 2 PUF BID 04/30 2100 AC 05/01 Formoterol Fumarate INH 1106 Clopidogrel Bisulfate 75 MG DAILY 04/30 1248 AC 05/01 PO 1105 Diclofenac Sodium 1 SHE 4 TIMES/DAY PRN 04/30 1900 AC 04/30 TOP 2044 Furosemide 40 MG 7:30 AM, & 4:30 PM 05/01 1630 UNVr IV Furosemide 20 MG ONCE ONE 05/01 1015 DC 05/01 IV 05/01 1016 1105 Gabapentin 100 MG Q8H 04/30 1300 AC 05/01 PO 1409 Lisinopril 2.5 MG DAILY 05/01 0900 AC 05/01 PO 1106 Melatonin 5 MG AT BEDTIME PRN 04/30 1915 AC 04/30 PO 204 Metoprolol Succinate 25 MG DAILY 05/01 0900 AC 05/01 PO 1106 Omeprazole 20 MG DAILY 05/01 0900 AC 05/01 PO 1105 Paroxetine HCl 40 MG DAILY 04/30 1253 AC 05/01 PO 1105 Senna/Docusate Sodium 1 TAB BID PRN 04/30 1300 AC PO Tramadol HCl 50 MG ONCE ONE 05/01 0230 DC 05/01 PO 05/01 023 0235 Tramadol HCl 50 MG QPM 04/30 2100 AC 04/30 PO 2040 Results Last 48 Hrs of Labs/Mics: Laboratory Tests 05/01/18 0426: Anion Gap 10, Estimated GFR > 60, Glucose 84, Calcium 8.3 L, Phosphorus 4.3, Magnesium 2.2, Total Bilirubin 0.1 L, AST 28, ALT 29, Troponin I 0.07, Albumin 2.8 L, CBC w Diff NO MAN DIFF REQ, RBC 2.96 L, MCV 80.9 L, MCH 26.3 L, MCHC 32.5 L, RDW 17.3 H, MPV 7.8, Gran % 52.8, Lymphocytes % 26.6, Monocytes % 17.3 H, Eosinophils % 2.5, Basophils % 0.8, Absolute Granulocytes 2.8, Absolute Lymphocytes 1.4, Absolute Monocytes 0.9 H, Absolute Eosinophils 0.1, Absolute Basophils 0 04/30/18 1910: Troponin I 0.11 *H 04/30/18 1150: Troponin I 0.10 04/30/18 0910: Lactic Acid 1.6 04/30/18 0635: pH 7.39, pCO2 35, pO2 85, HCO3 21, ABG O2 Sat (Measured) 96.0, P-50 (Temp Corrected) Y, Carboxyhemoglobin 0.4 L, O2 Concentration % 30%, Temperature 97.2 , Respiration Rate 18, O2 Delivery Method VISION-FFM, Vent Mode ST, Expiratory Pressure 6, Inspiratory Pressure 16, Phlebotomy Draw Site RIGHT BRACHIAL 04/30/18 0530: Bicarbonate Actual 16 L, Mixed VBG pH 7.22 L, Mixed VBG pCO2 36 L, Mixed VBG O2 Saturation 31 L, P-50 (Temp Corrected) Y, Carboxyhemoglobin 0.1 L, O2 Concentration % 60%, Temperature 97.2, O2 Delivery Method PRB, Phlebotomy Draw Site RIGHT BRACHIAL 04/30/18 0528: Lactic Acid 5.4 H 04/30/18 0528: Anion Gap 15, Estimated GFR 54 L, BUN/Creatinine Ratio 18.0, Glucose 214 H, Calcium 8.6, Magnesium 2.4 H, Total Bilirubin 0.2, AST 26, ALT 17, Alkaline Phosphatase 87, Troponin I 0.03, Xwg-W-Vutwuojwgec Pept 5830 H, Total Protein 6.3, Albumin 3.5, Globulin 2.8, Albumin/Globulin Ratio 1.3, PT 13.9 H, INR 1.27 H, APTT 28, CBC w Diff NO MAN DIFF REQ, RBC 3.77 L, MCV 82.2, MCH 26.1 L, MCHC 31.7 L, RDW 17.4 H, MPV 7.8, Gran % 46.5, Lymphocytes % 42.8, Monocytes % 7.5, Eosinophils % 2.8, Basophils % 0.4, Absolute Granulocytes 2.1, Absolute Lymphocytes 1.9, Absolute Monocytes 0.3, Absolute Eosinophils 0.1, Absolute Basophils 0 04/30/18 0500: Sodium Cancelled, Potassium Cancelled, Chloride Cancelled, Carbon Dioxide Cancelled, Anion Gap Cancelled, BUN Cancelled, Creatinine Cancelled, Glucose Cancelled, Calcium Cancelled, Phosphorus Cancelled, Magnesium Cancelled, Total Bilirubin Cancelled, AST Cancelled, ALT Cancelled, Albumin Cancelled, CBC w Diff Cancelled, WBC Cancelled, RBC Cancelled, Hgb Cancelled, Hct Cancelled, MCV Cancelled, MCH Cancelled, MCHC Cancelled, RDW Cancelled, Plt Count Cancelled, MPV Cancelled Microbiology 04/30 900 UPPER RESP: Surveillance Culture - COMP METH RESIST STAPH AUREUS 04/30 900 GI: Surveillance Culture - COMP Recent Imaging Studies: Chest x-ray: Central vascular and interstitial prominence, suspicious for congestion and interstitial edema. Possible developing superimposed left perihilar consolidation. Assessment/Plan Assessment/Plan Assessment: 1. CAD, status post AK with PCI 2. Acute on chronic systolic heart failure 3. Hypertension Plan: * Lasix 40 mg's IV every 12 hours * Monitor input and output with daily weights * Check basic metabolic profile normal * Consider changing Lasix to p.o. tomorrow if stable * Continue other cardiac medication Continue telemetry? Yes
[2018-05-01 16:25] VITALS: BP 110/50
--- NOTE | 2018-05-01 22:32 | RADIOLOGY REPORT ---
EXAMINATION: XR PORTABLE CHEST CLINICAL INFORMATION: Pulmonary edema COMPARISON: Multiple prior chest x-rays, the most recent dated 04/30/2018 at 5:40 PM TECHNIQUE: Portable AP semiupright view of the chest was obtained. FINDINGS: There is stable moderate enlargement of the cardiac silhouette. The mediastinal silhouette is normal. There is mild prominence of the pulmonary vasculature, fairly similar to the most recent comparison chest x-ray. No pulmonary edema. No sizable pleural effusion. No pneumothorax. No pulmonary consolidation. Degenerative changes of shoulder joints noted. IMPRESSION: Stable cardiomegaly. Mild pulmonary venous congestion. No overt pulmonary edema.
[2018-05-01 23:52] VITALS: BP 98/50
[2018-05-02 04:47] LABS: ABSOLUTE BASOPHIL COUNT 0 /CUMM (0.0-0.2); ABSOLUTE EOSINOPHIL COUNT 0.2 /CUMM (0.0-0.7); ABSOLUTE GRANULOCYTE CT 2.6 /CUMM (1.4-6.5); ABSOLUTE LYMPH COUNT 1.3 /CUMM (1.2-3.4); ABSOLUTE MONOCYTE COUNT 0.8 /CUMM (0.10-0.60); BASOPHIL % 0 % (0.0-2.0); EOSINOPHIL % 3.9 % (0-5); HEMATOCRIT 24.3 % (37-47); MEAN CORPUSCULAR HGB CONC 31.7 G/DL (33.0-37.0); MEAN CORPUSCULAR VOLUME 81.9 FL (81.0-99.0); MEAN PLATELET VOLUME 7.8 FL (7.4-10.4); PLATELET COUNT 295 /CUMM (130-400); RED BLOOD CELL CT 2.97 /CUMM (4.20-5.40); WHITE BLOOD CELL COUNT 4.9 /CUMM (4.8-10.8)
[2018-05-02 08:00] VITALS: BP 108/70
--- NOTE | 2018-05-02 08:53 | PN- Resident CRCU ---
Subjective HPI/CRCU Issues: CHF exacerbation s/p bipap, on room air with good saturations now 24 Hour Events: No acute events overnight. Patient complains of bilateral knee pain. Patient states that she feels better overall. Denies fevers/chills/night sweats/chest pain/abdominal pain/urinary symptoms/lower extremity edema Objective Vital Signs & I&O Last 8 Hrs of Vitals and I&O: Intake & Output 05/02 1600 Intake Total Output Total 900 Balance -900 Output, Urine 900 Patient 130 lb Weight Weight Bed scale Measurement Method Exam General Appearance: no apparent distress, alert, awake, comfortable Head: atraumatic Respiratory: normal breath sounds, chest non-tender, no respiratory distress, lungs clear Cardiovascular: regular rate/rhythm, normal peripheral pulses Gastrointestinal: soft, non-tender Extremities: normal inspection, no edema Skin: intact, warm/dry Skin Temp/Moisture Exam: Warm/Dry Current Medications: Current Medications Sig/Sergey Start time Last Medication Dose Route Stop Time Status Admin Acetaminophen 1,000 MG Q8 PRN 04/30 2145 DC 04/30 PO 2151 Acetaminophen 1,000 MG TID 04/30 1400 AC 05/02 PO 0844 Apixaban 5 MG BID 04/30 1247 AC 05/02 PO 0844 Atorvastatin Calcium 40 MG QPM 04/30 2100 AC 05/01 PO 2112 Budesonide/ 2 PUF BID 04/30 2100 AC 05/02 Formoterol Fumarate INH 0844 Clopidogrel Bisulfate 75 MG DAILY 04/30 1248 AC 05/02 PO 0844 Diclofenac Sodium 1 SHE 4 TIMES/DAY PRN 04/30 1900 AC 04/30 TOP 2044 Furosemide 40 MG 7:30 AM, & 4:30 PM 05/01 1630 AC 05/02 IV 0608 Gabapentin 100 MG Q8H 04/30 1300 AC 05/02 PO 0408 Lidocaine 2 PAT ONCE ONE 05/02 1030 DC EXT 05/02 1031 Lisinopril 2.5 MG DAILY 05/01 09 AC 05/02 PO 0844 Melatonin 5 MG AT BEDTIME PRN 04/30 1915 AC 04/30 PO 2041 Metoprolol Succinate 25 MG DAILY 05/01 0900 AC 05/02 PO 0844 Omeprazole 20 MG DAILY 05/01 0900 AC 05/02 PO 0844 Paroxetine HCl 40 MG DAILY 04/30 1253 AC 05/02 PO 0844 Senna/Docusate Sodium 1 TAB BID PRN 04/30 1300 AC PO Tramadol HCl 50 MG QPM 04/30 2100 AC 05/01 PO 2111 Impression/Plan Impression/Problem List Impression: 77-year-old woman from [facility], with past medical history significant for, CAD s/p TN recent stenting (s/p remote TN w/ culprit PCI/BMS x1 to LAD; and follow-up PCI/BMS 1 for non-culpret LCx stenosis; PCI/LANE [Resolute] of an 80% LCx AV groove artery stenosis on 11/19/2017; in stent restenosis of LCx AV groove artery s/p POBA on 12/03/2017, COPD not on oxygen, HFrEF, HTN, HLD, OA, depression, SBO s/p repair admitted to [facility] for sudden onset of diaphoresis, dyspneic and desaturation of 78% on 6L NC. CXR : Central vascular and interstitial prominence, suspicious for congestion and interstitial edema Placed on BiPap in the ED and given IV 40mg of lasix assessment and plan: Acute hypoxic respiratory failure: stable on room air good saturations Acute on chronic systolic heart failure Last echocardiogram in 12/2017: Markedly hypokinetic to akinetic inferior and lateral castro. Moderately abnormal left ventricular ejection fraction estimated at 25-30%. Mildly increased resting left ventricular outflow tract velocity ( 1.35 m/s). Appreciate cardio recs On lasix 40mg IV BID, with potential to change to PO today/tomorrow Will monitor BEP Maintain negative fluid balance strict I/Os CAD with recent stenting and elevated troponins: continue plavix trop trend up to 0.11, now at 0.07 no acute EKG changes Paroxysmal Atrial fibrillation: Continue Metroprolol and eliquis. HTN: Continued metoprolol and lisinopril HLD: Continued atorvastatin COPD: On Breo at home Started on symbicort Anemia: will guaiac stools follow up CBC at 3pm Chronic Pain: lidocaine patches to knees PRN on tramadol in the evenings diclofenac gel PRN heart healthy diet dvt ppx eliquis DNR/DNI downgrade to tele Problem List: 1. Anemia 2. History of CHF (congestive heart failure) 3. Acute respiratory failure with hypoxia Pain Ratin Tomorrow's Labs & Rationales: cbc bep Plan DVT/Prophylaxis: pharmacological
--- NOTE | 2018-05-02 11:13 | ECHOCARDIOGRAM REPORT ---
MEGHAN MA Age: 77 : 1940 Gender: F Exam Date: 04/30/2018 11:22 Exam Location: [facility] Ht (in): 60 Wt (lb): 131 BSA: 1.60 BP: 109 / 57 Ordering Physician: Vamsi Anderson MD Referring Physician: Vamsi Anderson MD Technologist: Jose E Navarro [facility] Room Number: 109 Indications: Heart failure, unspecified Rhythm: Sinus Technical Quality: good FINDINGS Left Ventricle Akinesis of the LV inferior and inferolateral castro with LVEF estimated at 40-45%. Grade 1 diastolic dysfunction. Mild concentric LVH. Right Ventricle Normal size and function of RV. Right Atrium Left Atrium Mildly enlarged LA. Interatrial septum appears intact. Mitral Valve Moderate posterior MAC and trace mitral regurgitation. Aortic Valve Structurally normal tricuspid aortic valve without sclerosis or stenosis. Trace central aortic insufficiency. Tricuspid Valve Trace TR. Pulmonary artery systolic pressure could not be estimated. Pulmonic Valve No pulmonary regurgitation. Pericardium Normal pericardium without effusion. Great Vessels Not visualized. CONCLUSIONS Akinesis of the LV inferior and inferolateral castro with LVEF estimated at 40-45%. Grade 1 diastolic dysfunction. Mild concentric LVH. Mildly enlarged LA. Moderate posterior MAC and trace mitral regurgitation. Structurally normal tricuspid aortic valve without sclerosis or stenosis. Trace central aortic insufficiency. Trace TR. Normal pericardium without effusion. Alexus Terrazas M.D. (Electronically Signed) Final Date: 02 May 2018 11:11 MEASUREMENTS (Male / Female) Normal Values 2D ECHO LV Diastolic Diameter PLAX 5.6 cm 4.2 - 5.9 / 3.9 - 5.3 cm LV Systolic Diameter PLAX 5.3 cm 2.1 - 4.0 cm LV Fractional Shortening PLAX 5.4 % 25 - 46 % LV Ejection Fraction 2D Teich 11.9 % IVS Diastolic Thickness 1.0 cm LVPW Diastolic Thickness 1.1 cm LV Relative Wall Thickness 0.4 RV Internal Dim ED PLAX 3.0 cm 1.9 - 3.8 cm LVOT Diameter 1.9 cm Aortic Root Diameter 3.4 cm LA Systolic Diameter LX 4.4 cm 3.0 - 4.0 / 2.7 - 3.8 cm LV Diastolic Length 4C 7.9 cm 6.9 - 10.3 cm LV Diastolic Area 4C 32.5 cm LV Diastolic Volume MOD 4C 108.0 cm LV Ejection Fraction MOD 4C 47.2 % LV Stroke Volume MOD 4C 51.0 cm LV Systolic Length 4C 7.2 cm LV Systolic Area 4C 22.7 cm LV Systolic Volume MOD 4C 57.0 cm LV Diastolic Volume 4C AL 113.2 cm 85 - 139 / 69 - 109 cm LV Systolic Volume 4C AL 61.0 cm LV Ejection Fraction 4C AL 46.1 % LV Stroke Volume 4C AL 52.2 cm Ascending Aorta Diameter 3.0 cm DOPPLER AV Peak Velocity 139.0 cm/s AV Peak Gradient 7.7 mmHg AV Mean Velocity 88.6 cm/s AV Mean Gradient 4.0 mmHg AV Velocity Time Integral 30.1 cm AI Deceleration Williams 171.0 cm/s AI Peak Velocity 343.5 cm/s AI Pressure Half Time 621.0 ms AI Peak Gradient 47.2 mmHg LVOT Peak Velocity 111.0 cm/s LVOT Peak Gradient 4.9 mmHg LVOT Mean Velocity 68.6 cm/s LVOT Mean Gradient 2.0 mmHg LVOT Velocity Time Integral 25.7 cm LVOT Stroke Volume 72.9 cm AV Area Cont Eq vti 2.4 cm AV Area Cont Eq pk 2.3 cm MV Peak Velocity 116.0 cm/s MV Peak Gradient 5.4 mmHg MV Mean Velocity 62.0 cm/s MV Mean Gradient 2.0 mmHg Mitral E Point Velocity 98.2 cm/s Mitral A Point Velocity 123.0 cm/s Mitral E to A Ratio 0.8 MV PHT Velocity 90.9 cm/s MV Deceleration Williams 424.0 cm/s MV Pressure Half Time 64.3 ms MV Area PHT 3.4 cm MV Deceleration Time 254.0 ms MR Peak Velocity 418.0 cm/s MR Peak Gradient 69.9 mmHg PV Peak Velocity 148.0 cm/s PV Peak Gradient 8.8 mmHg PV Mean Velocity 87.7 cm/s PV Mean Gradient 4.0 mmHg PV Velocity Time Integral 33.8 cm
--- NOTE | 2018-05-02 11:58 | PN- Pulmonary ---
Subjective HPI/Critical Care Issues: The patient is awake and alert. She reports feeling improved. There is no report of chest pain, palpitations, shortness of breath, fever or chills. There were no overnight events reported Objective Current Medications: Current Medications Sig/Sergey Start time Last Medication Dose Route Stop Time Status Admin Acetaminophen 1,000 MG Q8 PRN 04/30 2145 DC 04/30 PO 2151 Acetaminophen 1,000 MG TID 04/30 1400 AC 05/02 PO 0844 Apixaban 5 MG BID 04/30 1247 AC 05/02 PO 0844 Atorvastatin Calcium 40 MG QPM 04/30 2100 AC 05/01 PO 2112 Budesonide/ 2 PUF BID 04/30 2100 AC 05/02 Formoterol Fumarate INH 0844 Clopidogrel Bisulfate 75 MG DAILY 04/30 1248 AC 05/02 PO 0844 Diclofenac Sodium 1 SHE 4 TIMES/DAY PRN 04/30 1900 AC 04/30 TOP 2044 Furosemide 40 MG 7:30 AM, & 4:30 PM 05/01 1630 AC 05/02 IV 0608 Gabapentin 100 MG Q8H 04/30 1300 AC 05/02 PO 0408 Lidocaine 2 PAT ONCE ONE 05/02 1030 DC EXT 05/02 1031 Lisinopril 2.5 MG DAILY 05/01 0900 AC 05/02 PO 0844 Melatonin 5 MG AT BEDTIME PRN 04/30 1915 AC 04/30 PO 2041 Metoprolol Succinate 25 MG DAILY 05/01 0900 AC 05/02 PO 0844 Omeprazole 20 MG DAILY 05/01 0900 AC 05/02 PO 0844 Paroxetine HCl 40 MG DAILY 04/30 1253 AC 05/02 PO 0844 Senna/Docusate Sodium 1 TAB BID PRN 04/30 1300 AC PO Tramadol HCl 50 MG QPM 04/30 2100 AC 05/01 PO 2112 Vital Signs & I&O Last 24 Hrs of Vitals and I&O: Vital Signs Date Time Temp Pulse Resp B/P B/P Pulse O2 O2 Flow FiO2 Mean Ox Delivery Rate 05/02 08 98.2 68 20 108/70 95 Room Air 05/02 0800 99 Nasal 2.0L Cannula 05/02 0000 98 Nasal 2.0L Cannula 05/01 2352 98.2 60 27 98/50 98 Nasal 2.0L Cannula 05/01 1625 98.0 65 30 110/50 99 Nasal 2.0L Cannula 05/01 1600 95 Nasal 2.0L Cannula Intake & Output 05/02 1600 05/02 0800 05/02 0000 Intake Total 240 480 Output Total 099 571 1362 Balance -900 -110 -770 Intake, Oral 240 480 Number 0 0 Bowel Movements Output, Urine 548 366 1615 Patient 130 lb Weight Weight Bed scale Measurement Method Exam General Appearance: no apparent distress, alert, awake, comfortable Head: atraumatic Neck: supple Respiratory: normal breath sounds Cardiovascular: irregularly irregular Abdomen: normal bowel sounds, soft, non-tender Extremities: no edema Results Last 24 Hrs of Lab Results: Laboratory Tests 05/02/18 0331: Anion Gap 9, Estimated GFR > 60, BUN/Creatinine Ratio 30.0 H, Magnesium 2.0, CBC w Diff NO MAN DIFF REQ, RBC 2.97 L, MCV 81.9, MCH 26.0 L, MCHC 31.7 L, RDW 17.0 H, MPV 7.8, Gran % 53.0, Lymphocytes % 26.3, Monocytes % 16.8 H, Eosinophils % 3.9, Basophils % 0, Absolute Granulocytes 2.6, Absolute Lymphocytes 1.3, Absolute Monocytes 0.8 H, Absolute Eosinophils 0.2, Absolute Basophils 0 Impression/Plan Impression/Plan Impression/Plan: 1. Acute on chronic systolic heart failure. 2. CAD with recent stenting and elevated troponins. Cardiology following. 3. Paroxysmal atrial fibrillation, on metoprolol and Eliquis. 4. History of hypertension, on lisinopril and metoprolol. 5. COPD, on Breo at home, Symbicort started. 6. Hyperlipidemia, on atorvastatin. 7. Anemia, without any report of bleeding or issue with hemodynamics. Recommendations: * Guaic all stools, monitor for any evidence for bleeding. * Check a follow up CBC at 3 pm. * Continue with diuresis, negative fluid balance, monitoring of I's and O's. * Continue metoprolol, lisinopril and Eliquis. * Will need to hold Eliquis if the patient has evidence of bleeding or continued decrease in H&H. * Atorvastatin for hyperlipidemia to continue. * Monitor oxygen saturations, O2 for sats greater than 92%. * Will continue to follow-up cardiology recommendations. * DVT prophylaxis at all times. * Increase activity, out of bed to chair. * Downgrade to telemetry.
--- NOTE | 2018-05-02 12:21 | Transfer of Care Summary ---
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 CXR : Central vascular and interstitial prominence, suspicious for congestion and interstitial edema Placed on BiPap in the ED and given IV 40mg of lasix. Admitted to the ICU for first time bipap usage, was stable on NC by time she arrived to the unit. Cardio was consulted who recommended 40mg IV lasix BID, repeat CXR and negative net fluid balance. Linder was placed, pt was kept in negative fluid balance. She was continued on her home medications and ambulated as appropriately. She was stabilized from the ICU and was downgraded to telemetry. 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 CXR : Central vascular and interstitial prominence, suspicious for congestion and interstitial edema Placed on BiPap in the ED and given IV 40mg of lasix assessment and plan: Acute hypoxic respiratory failure: stable on room air good saturations Acute on chronic systolic heart failure Last echocardiogram in 12/2017: Markedly hypokinetic to akinetic inferior and lateral castro. Moderately abnormal left ventricular ejection fraction estimated at 25-30%. Mildly increased resting left ventricular outflow tract velocity ( 1.35 m/s). Appreciate cardio recs On lasix 40mg IV BID, with potential to change to PO today/tomorrow Will monitor BEP Maintain negative fluid balance strict I/Os CAD with recent stenting and elevated troponins: continue plavix trop trend up to 0.11, now at 0.07 no acute EKG changes Paroxysmal Atrial fibrillation: Continue Metroprolol and eliquis. HTN: Continued metoprolol and lisinopril HLD: Continued atorvastatin COPD: On Breo at home Started on symbicort Anemia: will guaiac stools follow up CBC at 3pm Chronic Pain: lidocaine patches to knees PRN on tramadol in the evenings diclofenac gel PRN heart healthy diet dvt ppx eliquis DNR/DNI downgrade to tele
[2018-05-02 14:21] VITALS: BP 110/60
--- NOTE | 2018-05-02 16:10 | PN- Cardiology ---
Subjective Subjective: Shortness of breath improving. No chest pain. No palpitations. No lightheadedness or dizziness. No nausea vomiting Objective Vital Signs and I&Os Vital Signs Date Time Temp Pulse Resp B/P B/P Pulse O2 O2 Flow FiO2 Mean Ox Delivery Rate 05/02 1421 98.9 56 20 110/60 95 05/02 0800 98.2 68 20 108/70 95 Room Air 05/02 0800 99 Nasal 2.0L Cannula 05/02 0000 98 Nasal 2.0L Cannula 05/01 2352 98.2 60 27 98/50 98 Nasal 2.0L Cannula 05/01 1625 98.0 65 30 110/50 99 Nasal 2.0L Cannula Intake & Output 05/02 1600 05/02 0800 05/02 0000 05/01 1600 05/01 0800 05/01 0000 Intake Total 250 240 480 250 240 750 Output Total 5103 251 9848 650 550 250 Balance -800 -110 -770 -400 -310 500 Intake, IV 10 Intake, Oral 250 240 480 240 240 750 Number 0 0 Bowel Movements Output, Urine 8396 556 9646 650 550 250 Patient 130 lb Weight Weight Bed scale Measurement Method Physical Exam: Gen: NAD HEENT: normal Lungs: Bilateral rales, normal resp. effort Heart: S1, S2, no murmurs Abdomen: Soft, nontender, no masses Extremities: 1+ edema Neuro: Alert and oriented x 3, cranial nerves intact Current Medications: Current Medications Sig/Sergey Start time Last Medication Dose Route Stop Time Status Admin Acetaminophen 1,000 MG Q8 PRN 04/30 2145 DC 04/30 PO 2151 Acetaminophen 1,000 MG TID 04/30 1400 AC 05/02 PO 1416 Apixaban 5 MG BID 04/30 1247 AC 05/02 PO 0844 Atorvastatin Calcium 40 MG QPM 04/30 2100 AC 05/01 PO 2112 Budesonide/ 2 PUF BID 04/30 2100 AC 05/02 Formoterol Fumarate INH 0844 Clopidogrel Bisulfate 75 MG DAILY 04/30 1248 AC 05/02 PO 0844 Diclofenac Sodium 1 SHE 4 TIMES/DAY PRN 04/30 1900 AC 04/30 TOP 2044 Furosemide 40 MG 7:30 AM, & 4:30 PM 05/01 1630 AC 05/02 IV 0608 Gabapentin 100 MG Q8H 04/30 1300 AC 05/02 PO 1416 Lidocaine 2 PAT ONCE ONE 05/02 1030 DC 05/02 EXT 05/02 1031 1417 Lisinopril 2.5 MG DAILY 05/01 0900 AC 05/02 PO 0844 Melatonin 5 MG AT BEDTIME PRN 04/30 1915 AC 04/30 PO 204 Metoprolol Succinate 25 MG DAILY 05/01 09 AC 05/02 PO 0844 Omeprazole 20 MG DAILY 05/01 09 AC 05/02 PO 0844 Paroxetine HCl 40 MG DAILY 04/30 1253 AC 05/02 PO 0844 Senna/Docusate Sodium 1 TAB BID PRN 04/30 1300 AC PO Tramadol HCl 50 MG QPM 04/30 2100 AC 05/01 PO 2111 Results Last 48 Hrs of Labs/Mics: Laboratory Tests 05/02/18 1450: CBC w Diff Pending, WBC Pending, RBC Pending, Hgb Pending, Hct Pending, MCV Pending, MCH Pending, MCHC Pending, RDW Pending, Plt Count Pending, MPV Pending 05/02/18 0331: Anion Gap 9, Estimated GFR > 60, BUN/Creatinine Ratio 30.0 H, Magnesium 2.0, CBC w Diff NO MAN DIFF REQ, RBC 2.97 L, MCV 81.9, MCH 26.0 L, MCHC 31.7 L, RDW 17.0 H, MPV 7.8, Gran % 53.0, Lymphocytes % 26.3, Monocytes % 16.8 H, Eosinophils % 3.9, Basophils % 0, Absolute Granulocytes 2.6, Absolute Lymphocytes 1.3, Absolute Monocytes 0.8 H, Absolute Eosinophils 0.2, Absolute Basophils 0 05/01/18 0426: Anion Gap 10, Estimated GFR > 60, Glucose 84, Calcium 8.3 L, Phosphorus 4.3, Magnesium 2.2, Total Bilirubin 0.1 L, AST 28, ALT 29, Troponin I 0.07, Albumin 2.8 L, CBC w Diff NO MAN DIFF REQ, RBC 2.96 L, MCV 80.9 L, MCH 26.3 L, MCHC 32.5 L, RDW 17.3 H, MPV 7.8, Gran % 52.8, Lymphocytes % 26.6, Monocytes % 17.3 H, Eosinophils % 2.5, Basophils % 0.8, Absolute Granulocytes 2.8, Absolute Lymphocytes 1.4, Absolute Monocytes 0.9 H, Absolute Eosinophils 0.1, Absolute Basophils 0 04/30/181909: Troponin I 0.11 *H Assessment/Plan Assessment/Plan Assessment: 1. CAD, status post MO with PCI 2. Acute on chronic systolic heart failure 3. Hypertension Plan: * Lasix 40 mg's IV every 12 hours * Monitor input and output with daily weights * Check basic metabolic profile normal * Consider changing Lasix to p.o. tomorrow if stable * Continue other cardiac medication Continue telemetry? Yes
[2018-05-02 16:50] LABS: ABSOLUTE BASOPHIL COUNT 0 /CUMM (0.0-0.2); ABSOLUTE EOSINOPHIL COUNT 0.2 /CUMM (0.0-0.7); ABSOLUTE GRANULOCYTE CT 3.2 /CUMM (1.4-6.5); ABSOLUTE LYMPH COUNT 0.9 /CUMM (1.2-3.4); ABSOLUTE MONOCYTE COUNT 0.8 /CUMM (0.10-0.60); BASOPHIL % 0.3 % (0.0-2.0); EOSINOPHIL % 3.1 % (0-5); GRANULOCYTE % 63.4 % (42.2-75.2); HEMATOCRIT 23.9 % (37-47); MEAN CORPUSCULAR HGB CONC 32.4 G/DL (33.0-37.0); MEAN CORPUSCULAR VOLUME 80.1 FL (81.0-99.0); MEAN PLATELET VOLUME 8.1 FL (7.4-10.4); PLATELET COUNT 299 /CUMM (130-400); RBC DISTRIBUTION WIDTH 17.5 % (11.5-14.5); RED BLOOD CELL CT 2.98 /CUMM (4.20-5.40)
[2018-05-02 23:06] VITALS: BP 122/78
[2018-05-03 06:37] VITALS: BP 120/54
--- NOTE | 2018-05-03 06:53 | PN- Housestaff ---
Eric Lewis 05/03/18 0653: Subjective Follow-up For: CHF exacerbation status post BiPAP, on room air with good saturation Subjective: Patient seen and examined at the bedside. Patient complains of bilateral knee pain, and back pain. Overall feels better. Has not had a bowel movement in several days, started on bowel regimen. Linder DC'd. Otherwise denies any headache, fever, chills, blurred/double vision, lightheadedness/dizziness, current chest pain at rest, palpitations, heartburn, shortness breath, cough, vomiting, abdominal pain, or urinary symptoms. Review of Systems Constitutional: Reports: see HPI. Objective Last 24 Hrs of Vital Signs/I&O Vital Signs Date Time Temp Pulse Resp B/P B/P Pulse O2 O2 Flow FiO2 Mean Ox Delivery Rate 05/03 0807 51 120/54 05/03 0807 51 120/54 05/03 0800 Room Air 05/03 0637 98.2 51 20 120/54 96 Room Air 05/02 2306 98.9 60 16 122/78 91 Nasal Cannula 05/02 1421 98.9 56 20 110/60 95 Intake & Output 05/03 1600 05/03 0800 05/03 0000 Intake Total 100 100 Output Total 350 700 Balance -250 -600 Intake, Oral 100 100 Output, Urine 350 700 Physical Exam General Appearance: Alert, Oriented X3, Cooperative, No Acute Distress Skin: No Rashes, No Breakdown, No Significant Lesion Skin Temp/Moisture Exam: Warm/Dry HEENT: Atraumatic, Mucous Membr. moist/pink Cardiovascular: Regular Rate, Normal S1, Normal S2, No Murmurs, Gallops, Rubs Lungs: Clear to Auscultation, Normal Air Movement Abdomen: Soft, No Tenderness Neurological: Normal Speech Current Medications: Current Medications Sig/Sergey Start time Last Medication Dose Route Stop Time Status Admin Acetaminophen 1,000 MG TID 04/30 1400 AC 05/03 PO 08 Apixaban 5 MG BID 04/30 1247 AC 05/03 PO 805 Atorvastatin Calcium 40 MG QPM 04/30 2100 AC 05/02 PO 2014 Budesonide/ 2 PUF BID 04/30 2100 AC 05/03 Formoterol Fumarate INH 0817 Clopidogrel Bisulfate 75 MG DAILY 04/30 1248 AC 05/03 PO 805 Diclofenac Sodium 1 SHE 4 TIMES/DAY PRN 04/30 1900 AC 04/30 TOP 4 Furosemide 20 MG 7:30 AM, & 4:30 PM 05/03 1630 AC PO Furosemide 40 MG 7:30 AM, & 4:30 PM 05/01 1630 DC 05/03 IV 0805 Gabapentin 100 MG Q8H 04/30 1300 AC 05/03 PO 0545 Lisinopril 2.5 MG DAILY 05/01 0900 AC 05/03 PO 806 Melatonin 5 MG AT BEDTIME PRN 04/30 1915 AC 05/02 PO 2015 Metoprolol Succinate 25 MG DAILY 05/01 0900 AC 05/03 PO 806 Omeprazole 20 MG DAILY 05/01 0900 AC 05/03 PO 807 Paroxetine HCl 40 MG DAILY 04/30 1253 AC 05/03 PO 808 Polyethylene Glycol 17 GM DAILY 05/03 0900 AC PO Senna/Docusate Sodium 1 TAB BID 05/03 0914 AC PO Senna/Docusate Sodium 1 TAB BID PRN 04/30 1300 DC 05/03 PO 807 Tramadol HCl 50 MG QPM 04/30 2100 AC 05/02 PO 2015 Last 24 Hrs of Lab/Ilya Results Last 24 Hrs of Labs/Mics: Laboratory Tests 05/03/18 0845: CBC w Diff NO MAN DIFF REQ, RBC 3.33 L, MCV 80.4 L, MCH 25.9 L, MCHC 32.2 L, RDW 17.5 H, MPV 7.6, Gran % 69.3, Lymphocytes % 19.6 L, Monocytes % 9.8 H, Eosinophils % 1.3, Basophils % 0, Absolute Granulocytes 5.4, Absolute Lymphocytes 1.5, Absolute Monocytes 0.8 H, Absolute Eosinophils 0.1, Absolute Basophils 0 05/02/18 1450: CBC w Diff NO MAN DIFF REQ, RBC 2.98 L, MCV 80.1 L, MCH 26.0 L, MCHC 32.4 L, RDW 17.5 H, MPV 8.1, Gran % 63.4, Lymphocytes % 17.8 L, Monocytes % 15.4 H, Eosinophils % 3.1, Basophils % 0.3, Absolute Granulocytes 3.2, Absolute Lymphocytes 0.9 L, Absolute Monocytes 0.8 H, Absolute Eosinophils 0.2, Absolute Basophils 0 Assessment/Plan Assessment: 77-year-old woman from [facility] with past medical history significant for, CAD s/p KS recent stenting (s/p remote KS w/ culprit PCI/BMS x1 to LAD; and follow-up PCI/BMS 1 for non-culpret LCx stenosis; PCI/LANE [Resolute] of an 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 CXR : Central vascular and interstitial prominence, suspicious for congestion and interstitial edema. Plan is to return [facility] to [facility] at this point. Problem list/plan: Acute hypoxic respiratory failure: stable on room air good saturations Acute on chronic systolic heart failure Last echocardiogram in 12/2017: Markedly hypokinetic to akinetic inferior and lateral castro. Moderately abnormal left ventricular ejection fraction estimated at 25-30%. Mildly increased resting left ventricular outflow tract velocity ( 1.35 m/s). Appreciate cardio recs On lasix 40mg IV oral, changed from IV today Will monitor BEP Maintain negative fluid balance strict I/Os CAD with recent stenting and elevated troponins: continue plavix trop trend up to 0.11, now at 0.07 no acute EKG changes Paroxysmal Atrial fibrillation: Continue Metroprolol and eliquis. HTN: Continued metoprolol and lisinopril HLD: Continued atorvastatin COPD: On Breo at home Started on symbicort Anemia: will guaiac stools follow up CBC at 3pm Chronic Pain: lidocaine patches to knees PRN on tramadol in the evenings diclofenac gel PRN heart healthy diet dvt ppx eliquis DNR/DNI Problem List: 1. Anemia 2. History of CHF (congestive heart failure) 3. Acute respiratory failure with hypoxia Pain Ratin Pain Location: back, knees Pain Goal: Pain 4 or less Pain Plan: Acetaminophen and Tramadol Tomorrow's Labs & Rationales: none; planned discharge today Jackeline Bojorquez MD 05/03/18 1051: Attending MD Review Statement Attending Statement Attending MD Statement: examined this patient, discuss w/resident/PA/STAINED GLASS WINDOW DESIGNER, agreed w/resident/PA/STAINED GLASS WINDOW DESIGNER, reviewed EMR data (avail), discussed with nursing, discussed with case mgmt, reviewed images Attending Assessment/Plan: 77-year-old female past medical history of coronary artery disease, chronic systolic heart failure A. fib on Eliquis. She was admitted to the ICU with acute hypoxemic respiratory failure and was treated for acute on chronic systolic heart failure. We have been watching her hemoglobin she is chronically anemic and is on the Eliquis. So far the stool guaiac is negative and the hematocrit is stable. We will discharge her to the shelter with close outpatient follow-up with cardiology and GI.
[2018-05-03 09:03] LABS: ABSOLUTE BASOPHIL COUNT 0 /CUMM (0.0-0.2); ABSOLUTE EOSINOPHIL COUNT 0.1 /CUMM (0.0-0.7); ABSOLUTE MONOCYTE COUNT 0.8 /CUMM (0.10-0.60); BASOPHIL % 0 % (0.0-2.0); MEAN PLATELET VOLUME 7.6 FL (7.4-10.4); RBC DISTRIBUTION WIDTH 17.5 % (11.5-14.5)
[2018-05-03 09:13] LABS: ABSOLUTE GRANULOCYTE CT 5.4 /CUMM (1.4-6.5); ABSOLUTE LYMPH COUNT 1.5 /CUMM (1.2-3.4); EOSINOPHIL % 1.3 % (0-5); GRANULOCYTE % 69.3 % (42.2-75.2); HEMATOCRIT 26.8 % (37-47); MEAN CORPUSCULAR HGB 25.9 PG (27.0-31.0); MEAN CORPUSCULAR HGB CONC 32.2 G/DL (33.0-37.0); MEAN CORPUSCULAR VOLUME 80.4 FL (81.0-99.0); PLATELET COUNT 303 /CUMM (130-400); RED BLOOD CELL CT 3.33 /CUMM (4.20-5.40)
[2018-05-03 09:15] LABS: WHITE BLOOD CELL COUNT 7.8 /CUMM (4.8-10.8)
[2018-05-03] MEDS ORDERED: FUROSEMIDE20 M1 PO (10:38)
--- NOTE | 2018-05-03 10:40 | Patient Discharge Instructions ---
See Addendum Discharge Instructions General Discharge Information Special Instructions: - Please follow up with your primary care physician within 1-2 weeks of discharge. Inform your primary care physician of this admission to [facility]. - Continue your current medications per discharge instructions. Please call and make a follow-up with ict security specialist Dr. Melara after discharge for workup of your chronic anemia - Please watch for these problems: Fever, Chills, Nausea, Vomiting, Shortness of Breath, Productive Cough, Chest Pain/Discomfort, Abdominal Pain, Active Bleeding or Bloody urine/stool. Acute Coronary Syndrome Inclusion Criteria At DC or during hospital stay patient has or had the following: ACS DIAGNOSIS No Discharge Core Measures Meds if any: Prescribed or Continued at Discharge Meds if any: NOT Prescribed or Continued at Discharge Congestive Heart Failure Inclusion Criteria At DC or during hospital stay patient has or had the following: CHF DIAGNOSIS Yes Discharge Core Measures Meds if any: Prescribed or Continued at Discharge Meds if any: NOT Prescribed or Continued at Discharge Cerebrovascular accident Inclusion Criteria At DC or during hospital stay patient has or had the following: CVA/TIA Diagnosis No Discharge Core Measures Meds if any: Prescribed or Continued at Discharge Meds if any: NOT Prescribed or Continued at Discharge Venous thromboembolism Inclusion Criteria VTE Diagnosis No VTE Type NONE VTE Confirmed by (Test) NONE Discharge Core Measures - Per Current guidelines, there needs to be overlap - treatment for the first 5 days of Warfarin therapy. - If discharged on Warfarin prior to 5 days of - overlap therapy, the patient will need to be - assessed for post discharge needs including - *Post discharge parental anticoagulation - *Warfarin and/or parental anticoagulation education - *Follow up date to check INR post discharge At least 5 days overlap therapy as Inpatient No Meds if any: Prescribed or Continued at Discharge Note: Overlap Therapy is Warfarin and Anticoagulant Meds if any: NOT Prescribed or Continued at Discharge
--- NOTE | 2018-05-03 11:23 | Discharge Summary ---
Visit Information Visit Dates Admission Date: 04/30/18 Discharge Date: May 05, 2018 Hospital Course Course Attending Physician: Reno MITCHELL,Jackeline Cross Primary Care Physician: Lowell MITCHELL,Manuel Louie Consulting Request: Consulting Specialty: Cardiology Consulting Physician: Dr. 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 CXR : Central vascular and interstitial prominence, suspicious for congestion and interstitial edema Placed on BiPap in the ED and given IV 40mg of lasix. Admitted to the ICU for first time bipap usage, was stable on NC by time she arrived to the unit. Cardio was consulted who recommended 40mg IV lasix BID, repeat CXR and negative net fluid balance. Linder was placed, pt was kept in negative fluid balance. She was continued on her home medications and ambulated as appropriately. She was stabilized from the ICU and was downgraded to telemetry. Acute hypoxic respiratory failure Patient was hypoxic to saturation of 78% on 6 L of oxygen and required BiPAP with aggressive do diuresis using IV Lasix. Patient respiratory function improved and was transitioned to oral Lasix 40 mg twice a day which was her home medications. Acute on chronic systolic heart failure Patient has reduced ejection fraction estimated 25-30% per echo done in December 2017. She has hypokinetic inferior and lateral castro. Patient was started on IV Lasix initially and transitioned to oral Lasix. She maintained a good negative fluid balance and improved symptomatically. Is being discharged home to continue her with her home medication regimen. Coronary artery disease with recent stenting and elevated troponin Patient has extensive cardiac history and on presentation had normal troponin but during the course of the stay there was slight elevation of troponin to 0.11. Patient take Plavix as home medication for heart CAD which was maintained during the course of the stay and is discharged home to continue with medication at the same dose. Atrial fibrillation Patient has history of atrial fibrillation and is on metoprolol for rate control and also on blood thinner Eliquis to reduce risk of stroke. Continue to be kept on the medication during the course of the stay and is being discharged home to continue with the medications. Chronic anemia Patient has chronic anemia hemoglobin consistently around 10 on this presentation the patient had a hemoglobin of 9.8 and decreased steadily to 7.7 before her last value showing 8.6. She never received transfusion during the course of the stay. Patient needs to follow with hematology oncologist as an outpatient to address the chronic anemia. Chronic conditions HTN/HLD/COPD These conditions remained stable during the course of the stay the patient was continued on her BP medication lisinopril. She was given low-fat diet and kept on atorvastatin for cholesterol control and also patient received TRC nebs and kept on Symbicort the formulation we have here in the hospital and just will be discharged home to continue with Brio which she uses at home. Patient's discharge was held as she was constipated. Please make sure she is on a good bowel regimen and follow-up. Complications: None Allergies: Coded Allergies: amoxicillin (From AUGMENTIN) (THRUSH 04/30/18) clavulanic acid (From AUGMENTIN) (THRUSH 04/30/18) Significant Procedures: None Pertinent Lab Results: Laboratory Tests 05/03 05/02 0845 1450 Hematology CBC w Diff NO MAN DIFF REQ NO MAN DIFF REQ WBC (4.8 - 10.8 /CUMM) 7.8 5.0 RBC (4.20 - 5.40 /CUMM) 3.33 L 2.98 L Hgb (12.0 - 16.0 G/DL) 8.6 L 7.7 L Hct (37 - 47 %) 26.8 L 23.9 L MCV (81.0 - 99.0 FL) 80.4 L 80.1 L MCH (27.0 - 31.0 PG) 25.9 L 26.0 L MCHC (33.0 - 37.0 G/DL) 32.2 L 32.4 L RDW (11.5 - 14.5 %) 17.5 H 17.5 H Plt Count (130 - 400 /CUMM) 303 299 MPV (7.4 - 10.4 FL) 7.6 8.1 Gran % (42.2 - 75.2 %) 69.3 63.4 Lymphocytes % (20.5 - 51.1 %) 19.6 L 17.8 L Monocytes % (1.7 - 9.3 %) 9.8 H 15.4 H Eosinophils % (0 - 5 %) 1.3 3.1 Basophils % (0.0 - 2.0 %) 0 0.3 Absolute Granulocytes (1.4 - 6.5 /CUMM) 5.4 3.2 Absolute Lymphocytes (1.2 - 3.4 /CUMM) 1.5 0.9 L Absolute Monocytes (0.10 - 0.60 /CUMM) 0.8 H 0.8 H Absolute Eosinophils (0.0 - 0.7 /CUMM) 0.1 0.2 Absolute Basophils (0.0 - 0.2 /CUMM) 0 0 09/23 0331 Chemistry Sodium (137 - 145 mmol/L) 132 L Potassium (3.5 - 5.1 mmol/L) 4.3 Chloride (98 - 107 mmol/L) 99 Carbon Dioxide (22 - 30 mmol/L) 23 Anion Gap (5 - 16) 9 BUN (7 - 17 mg/dL) 21 H Creatinine (0.5 - 1.0 mg/dL) 0.7 Estimated GFR (>60 ml/min) > 60 BUN/Creatinine Ratio (7 - 25 %) 30.0 H Magnesium (1.6 - 2.3 mg/dL) 2.0 Hematology CBC w Diff NO MAN DIFF REQ WBC (4.8 - 10.8 /CUMM) 4.9 RBC (4.20 - 5.40 /CUMM) 2.97 L Hgb (12.0 - 16.0 G/DL) 7.7 L Hct (37 - 47 %) 24.3 L MCV (81.0 - 99.0 FL) 81.9 MCH (27.0 - 31.0 PG) 26.0 L MCHC (33.0 - 37.0 G/DL) 31.7 L RDW (11.5 - 14.5 %) 17.0 H Plt Count (130 - 400 /CUMM) 295 MPV (7.4 - 10.4 FL) 7.8 Gran % (42.2 - 75.2 %) 53.0 Lymphocytes % (20.5 - 51.1 %) 26.3 Monocytes % (1.7 - 9.3 %) 16.8 H Eosinophils % (0 - 5 %) 3.9 Basophils % (0.0 - 2.0 %) 0 Absolute Granulocytes (1.4 - 6.5 /CUMM) 2.6 Absolute Lymphocytes (1.2 - 3.4 /CUMM) 1.3 Absolute Monocytes (0.10 - 0.60 /CUMM) 0.8 H Absolute Eosinophils (0.0 - 0.7 /CUMM) 0.2 Absolute Basophils (0.0 - 0.2 /CUMM) 0 Disposition Summary Disposition Principal Diagnosis: Acute hypoxic respiratory failure Exacerbation of systolic heart failure Additional Diagnosis: Hypertension Hyperlipidemia Chronic pain Anemia Discharge Disposition: SNF Discharge Instructions General Discharge Information Code Status: Do Not Resucitate/Intubat Patient's Diet: Kromatid diet Patient's Activity: As tolerated Follow-Up Instructions/Appts: Please call and make a follow-up with your primary care physician within 1 week after discharge Please call and make a follow-up with hematology oncologist to follow-up on your chronic anemia contact provided Medications at Discharge Discharge Medications: Continue taking these medications: Atorvastatin Calcium (Atorvastatin Calcium) 40 MG TABLET 1 Tablet ORAL Every night Qty = 14 Comments: Last Taken: 03/01/18 Time: 10:00 PM Omeprazole (Omeprazole) 20 MG CAPSULE.DR 1 Capsule ORAL DAILY Comments: DID NOT RECEIVE IN HOSPITAL Fluticasone/Vilanterol (Breo Ellipta 100-25 Mcg INH) 100 MCG-25 MCG/DOSE BLST.W.DEV 1 Inhalant ORAL DAILY Comments: DID NOT RECEIVE IN HOSPITAL Paroxetine HCl (Paroxetine HCl) 40 MG TABLET 1 Tablet ORAL DAILY Qty = 30 Comments: Last Taken: 03/02/18 Time: 9:40 AM Sennosides (Senna) 8.6 MG TABLET 2 Tablet ORAL TWICE DAILY Comments: DID NOT RECEIVE IN HOSPITAL Acetaminophen (Tylenol Extra Strength) 500 MG TABLET 2 Tablet ORAL THREE TIMES DAILY Comments: Last Taken: 03/02/18 Time: 11:45 AM Clopidogrel Bisulfate (Plavix) 75 MG TABLET 75 Milligram ORAL DAILY Qty = 30 Comments: Last Taken: 03/02/18 Time: 9:40 AM Apixaban (Eliquis) 5 MG TABLET 1 Tablet ORAL TWICE DAILY Comments: Last Taken: 03/02/18 Time: 9:40 AM Lisinopril (Lisinopril) 2.5 MG TABLET 1 Tablet ORAL DAILY Comments: Last Taken: 03/02/18 Time: 9:40 AM Lactobacillus Acidophilus (Acidophilus) 1 EACH CAPSULE 1 Capsule ORAL TWICE DAILY Comments: Last Taken: 03/02/18 Time: 9:40 AM Metoprolol Succ XL (Toprol XL) 25 MG TAB 1 Tablet ORAL DAILY Qty = 30 Comments: Last Taken: 03/02/18 Time: 9:40 AM Furosemide (Lasix) 40 MG TABLET 40 Milligram ORAL TWICE DAILY Qty = 60 Comments: Last Taken: 03/02/18 Time: 9:40 AM Gabapentin (Neurontin) 100 MG CAPSULE 1 Capsule ORAL Q8H Tramadol HCl (Tramadol HCl) 50 MG TABLET 1 Tablet ORAL Every night Copies To: Saritha MITCHELL,Herbert; Lowell MITCHELL,Manuel Louie
--- NOTE | 2018-05-03 14:14 | PN- Cardiology ---
Subjective Subjective: No acute events. SOB improved. Denies chest pains. Net fluid loss > 3L/48hrs. Objective Vital Signs and I&Os Vital Signs Date Time Temp Pulse Resp B/P B/P Pulse O2 O2 Flow FiO2 Mean Ox Delivery Rate 05/03 0807 51 120/54 05/03 0807 51 120/54 05/03 0800 Room Air 05/03 0637 98.2 51 20 120/54 96 Room Air 05/02 2306 98.9 60 16 122/78 91 Nasal Cannula 05/02 1421 98.9 56 20 110/60 95 Intake & Output 05/03 1600 05/03 0800 05/03 0000 05/02 1600 05/02 0800 05/02 0000 Intake Total 100 100 250 240 480 Output Total 756 783 0369 350 1250 Balance -250 -600 -800 -110 -770 Intake, Oral 100 100 250 240 480 Number 0 0 Bowel Movements Output, Urine 259 537 6693 350 1250 Patient 130 lb Weight Weight Bed scale Measurement Method Physical Exam: Gen: NAD HEENT: normal Lungs: Bilateral rales, normal resp. effort Heart: S1, S2, no murmurs Abdomen: Soft, nontender, no masses Extremities: 1+ edema Neuro: Alert and oriented x 3, cranial nerves intact Current Medications: Current Medications Sig/Sergey Start time Last Medication Dose Route Stop Time Status Admin Acetaminophen 1,000 MG TID 04/30 1400 AC 05/03 PO 0813 Apixaban 5 MG BID 04/30 1247 AC 05/03 PO 08 Atorvastatin Calcium 40 MG QPM 04/30 2100 AC 05/02 PO 2014 Bisacodyl 10 MG ONCE ONE 05/03 1315 DC [place] 05/03 1316 Budesonide/ 2 PUF BID 04/30 2100 AC 05/03 Formoterol Fumarate INH 0817 Clopidogrel Bisulfate 75 MG DAILY 04/30 1248 AC 05/03 PO 0806 Diclofenac Sodium 1 SHE 4 TIMES/DAY PRN 04/30 1900 AC 04/30 TOP 2044 Furosemide 20 MG 7:30 AM, & 4:30 PM 05/03 1630 DC PO Furosemide 40 MG 7:30 AM, & 4:30 PM 05/03 1630 PO Furosemide 40 MG 7:30 AM, & 4:30 PM 05/01 1630 DC 05/03 IV 0805 Gabapentin 100 MG Q8H 04/30 1300 AC 05/03 PO 1320 Lisinopril 2.5 MG DAILY 05/01 900 AC 05/03 PO 0807 Melatonin 5 MG AT BEDTIME PRN 04/30 1915 AC 05/02 PO 2015 Metoprolol Succinate 25 MG DAILY 05/01 900 AC 05/03 PO 0807 Omeprazole 20 MG DAILY 05/01 900 AC 05/03 PO 0808 Paroxetine HCl 40 MG DAILY 04/30 1253 AC 05/03 PO 0809 Polyethylene Glycol 17 GM DAILY 05/03 900 AC 05/03 PO 1320 Senna/Docusate Sodium 1 TAB BID 05/03 0914 AC 05/03 PO 1320 Senna/Docusate Sodium 1 TAB BID PRN 04/30 1300 DC 05/03 PO 0808 Tramadol HCl 50 MG Q6P PRN 05/03 1100 AC 05/03 PO 132 Tramadol HCl 50 MG QPM 04/30 2100 DC 05/02 PO 2015 Results Last 48 Hrs of Labs/Mics: Laboratory Tests 05/03/18 0845: CBC w Diff NO MAN DIFF REQ, RBC 3.33 L, MCV 80.4 L, MCH 25.9 L, MCHC 32.2 L, RDW 17.5 H, MPV 7.6, Gran % 69.3, Lymphocytes % 19.6 L, Monocytes % 9.8 H, Eosinophils % 1.3, Basophils % 0, Absolute Granulocytes 5.4, Absolute Lymphocytes 1.5, Absolute Monocytes 0.8 H, Absolute Eosinophils 0.1, Absolute Basophils 0 05/02/18 1450: CBC w Diff NO MAN DIFF REQ, RBC 2.98 L, MCV 80.1 L, MCH 26.0 L, MCHC 32.4 L, RDW 17.5 H, MPV 8.1, Gran % 63.4, Lymphocytes % 17.8 L, Monocytes % 15.4 H, Eosinophils % 3.1, Basophils % 0.3, Absolute Granulocytes 3.2, Absolute Lymphocytes 0.9 L, Absolute Monocytes 0.8 H, Absolute Eosinophils 0.2, Absolute Basophils 0 05/02/18 0331: Anion Gap 9, Estimated GFR > 60, BUN/Creatinine Ratio 30.0 H, Magnesium 2.0, CBC w Diff NO MAN DIFF REQ, RBC 2.97 L, MCV 81.9, MCH 26.0 L, MCHC 31.7 L, RDW 17.0 H, MPV 7.8, Gran % 53.0, Lymphocytes % 26.3, Monocytes % 16.8 H, Eosinophils % 3.9, Basophils % 0, Absolute Granulocytes 2.6, Absolute Lymphocytes 1.3, Absolute Monocytes 0.8 H, Absolute Eosinophils 0.2, Absolute Basophils 0 Assessment/Plan Assessment/Plan CHF exacerbation in patient with history of ischemic CMP, 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 Context of lower respiratory tract infection. No evidence of myocardial ischemia at this time. Lasix 40 mg PO daily. Near euvolemia. Continue telemetry? Yes
[2018-05-03 14:21] VITALS: BP 132/70
[2018-05-03 22:08] VITALS: BP 116/72
[2018-05-04 06:00] VITALS: BP 120/84
--- NOTE | 2018-05-04 06:59 | PN- Housestaff ---
Eric Lewis 05/04/18 0659: Subjective Follow-up For: CHF exacerbation post BiPap Resolved acute hypoxic respiratory failure Complaints: back/knee pain from osteoarthritis and stenosis Tele-Events Since Last Visit: scattered PVCs Subjective: Patient seen and examined at the bedside. Patient complains of bilateral knee pain and back pain. Patient's discharge is dependent on her having a bowel movement otherwise no major complaints, just fatigue. Otherwise denies any headache, fever, chills, blurred/double vision, lightheadedness/dizziness, current chest pain at rest, palpitations, heartburn, shortness breath, cough, vomiting, abdominal pain, or urinary symptoms. Review of Systems Constitutional: Reports: see HPI. Objective Last 24 Hrs of Vital Signs/I&O Vital Signs Date Time Temp Pulse Resp B/P B/P Pulse O2 O2 Flow FiO2 Mean Ox Delivery Rate 05/04 06 98.4 64 20 120/84 96 Room Air 05/04 0000 Room Air 05/03 2208 97.5 54 18 116/72 94 05/03 1421 97.8 54 22 132/70 96 Room Air 05/03 0807 51 120/54 05/03 0807 51 120/54 05/03 0800 Room Air Intake & Output 05/04 0800 05/04 0000 05/03 1600 Intake Total 120 120 Output Total 300 300 Balance 120 -180 -300 Intake, Oral 120 120 Output, Urine 300 300 Patient 133 lb Weight Physical Exam General Appearance: Alert, Oriented X3, Cooperative, Mild Distress Skin: No Rashes, No Breakdown, No Significant Lesion Skin Temp/Moisture Exam: Warm/Dry HEENT: Atraumatic, Mucous Membr. moist/pink Cardiovascular: Regular Rate, Normal S1, Normal S2, No Murmurs, Gallops, Rubs Lungs: Clear to Auscultation, Normal Air Movement Abdomen: Soft, No Tenderness Neurological: Normal Speech Extremities: No Clubbing, No Cyanosis, No Edema Current Medications: Current Medications Sig/Sergey Start time Last Medication Dose Route Stop Time Status Admin Acetaminophen 1,000 MG TID 04/30 1400 AC 05/03 PO 2044 Apixaban 5 MG BID 04/30 1247 AC 05/03 PO 2043 Atorvastatin Calcium 40 MG QPM 04/30 2100 AC 05/03 PO 2043 Bisacodyl 10 MG ONCE ONE 05/04 0730 DC MD 05/04 0731 Bisacodyl 10 MG ONCE ONE 05/03 1315 DC MD 05/03 1316 Budesonide/ 2 PUF BID 04/30 2100 AC 05/03 Formoterol Fumarate INH 2046 Clopidogrel Bisulfate 75 MG DAILY 04/30 1248 AC 05/03 PO 0806 Diclofenac Sodium 1 SHE 4 TIMES/DAY PRN 04/30 1900 AC 04/30 TOP 2044 Furosemide 20 MG 7:30 AM, & 4:30 PM 05/03 1630 DC PO Furosemide 40 MG 7:30 AM, & 4:30 PM 05/03 1630 AC 05/03 PO 1728 Furosemide 40 MG 7:30 AM, & 4:30 PM 05/01 1630 DC 05/03 IV 0805 Gabapentin 100 MG Q8H 04/30 1300 AC 05/04 PO 0551 Lisinopril 2.5 MG DAILY 05/01 0900 AC 05/03 PO 0807 Melatonin 5 MG AT BEDTIME PRN 04/30 1915 AC 05/02 PO 2016 Metoprolol Succinate 25 MG DAILY 05/01 0900 AC 05/03 PO 0807 Omeprazole 20 MG DAILY 05/01 0900 AC 05/03 PO 0808 Paroxetine HCl 40 MG DAILY 04/30 1253 AC 05/03 PO 0809 Polyethylene Glycol 17 GM DAILY 05/03 0900 AC 05/03 PO 1320 Senna/Docusate Sodium 1 TAB BID 05/03 0914 AC 05/03 PO 204 Senna/Docusate Sodium 1 TAB BID PRN 04/30 1300 DC 05/03 PO 0808 Tramadol HCl 50 MG Q6P PRN 05/03 1100 AC 05/03 PO 1320 Tramadol HCl 50 MG QPM 04/30 2100 [place] 05/02 PO 2016 Last 24 Hrs of Lab/Ilya Results Last 24 Hrs of Labs/Mics: Laboratory Tests 05/03/18 0845: CBC w Diff NO MAN DIFF REQ, RBC 3.33 L, MCV 80.4 L, MCH 25.9 L, MCHC 32.2 L, RDW 17.5 H, MPV 7.6, Gran % 69.3, Lymphocytes % 19.6 L, Monocytes % 9.8 H, Eosinophils % 1.3, Basophils % 0, Absolute Granulocytes 5.4, Absolute Lymphocytes 1.5, Absolute Monocytes 0.8 H, Absolute Eosinophils 0.1, Absolute Basophils 0 Assessment/Plan Assessment: 77-year-old woman from [facility], with past medical history significant for, CAD s/p NE recent stenting (s/p remote NE w/ culprit PCI/BMS x1 to LAD; and follow-up PCI/BMS 1 for non-culpret LCx stenosis; PCI/LANE [Resolute] of an 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 CXR : Central vascular and interstitial prominence, suspicious for congestion and interstitial edema. Plan is to return her to [facility]; Problem list/plan: Acute hypoxic respiratory failure: stable on room air good saturations Acute on chronic systolic heart failure Last echocardiogram in 12/2017: Markedly hypokinetic to akinetic inferior and lateral castro. Moderately abnormal left ventricular ejection fraction estimated at 25-30%. Mildly increased resting left ventricular outflow tract velocity ( 1.35 m/s). Appreciate cardio recs On lasix 40mg IV oral, changed from IV today Will monitor BEP Maintain negative fluid balance strict I/Os CAD with recent stenting and elevated troponins: continue plavix trop trend up to 0.11, now at 0.07 no acute EKG changes Paroxysmal Atrial fibrillation: Continue Metroprolol and eliquis. HTN: Continued metoprolol and lisinopril HLD: Continued atorvastatin COPD: On Breo at home Started on symbicort Anemia: will guaiac stools follow up CBC at 3pm Chronic Pain: lidocaine patches to knees PRN on tramadol in the evenings diclofenac gel PRN heart healthy diet dvt ppx eliquis DNR/DNI Problem List: 1. Anemia 2. History of CHF (congestive heart failure) 3. Acute respiratory failure with hypoxia Pain Ratin Pain Location: back, knees Pain Goal: Pain 4 or less Pain Plan: Acetaminophen and tramadol Tomorrow's Labs & Rationales: none; anticipated dc today Consulting Request: Consulting Specialty: Cardiology Consulting Physician: Dr. Myers Reason for Consult: Systolic heart failure Discharge Plan Discharge Disposition: STR/NH Stable for Discharge? No (needs bowel movement) Anticipated Discharge (Day): today If Discharged Today/In 24 Hrs: W-10/discharge paper done, DC summary done Jackeline Bojorquez MD 05/04/18 0953: Attending MD Review Statement Attending Statement Attending MD Statement: examined this patient, discuss w/resident/PA/CASINO MANAGER, agreed w/resident/PA/CASINO MANAGER, reviewed EMR data (avail), discussed with nursing, discussed with case mgmt, reviewed images Attending Assessment/Plan: Patient did not leave yesterday as she was constipated and did not have a bowel movement. She feels tired today and has not gone yet. We have her on a bowel regimen with MiraLAX Colace and senna. She refused at suppository and will try oral Dulcolax today. She is chronically anemic but her hemoglobin is stable if her labs are stable and she has a bowel movement and the plan will be discharged today with close outpatient follow-up.
[2018-05-04 09:32] LABS: ABSOLUTE BASOPHIL COUNT 0 /CUMM (0.0-0.2); ABSOLUTE EOSINOPHIL COUNT 0.2 /CUMM (0.0-0.7); ABSOLUTE GRANULOCYTE CT 2.8 /CUMM (1.4-6.5); ABSOLUTE MONOCYTE COUNT 0.6 /CUMM (0.10-0.60); BASOPHIL % 0.5 % (0.0-2.0); EOSINOPHIL % 4.1 % (0-5); GRANULOCYTE % 61.7 % (42.2-75.2); HEMATOCRIT 27.3 % (37-47); MEAN CORPUSCULAR HGB 26.1 PG (27.0-31.0); MEAN CORPUSCULAR HGB CONC 32.7 G/DL (33.0-37.0); MEAN CORPUSCULAR VOLUME 79.9 FL (81.0-99.0); PLATELET COUNT 339 /CUMM (130-400); RBC DISTRIBUTION WIDTH 17.6 % (11.5-14.5); RED BLOOD CELL CT 3.42 /CUMM (4.20-5.40); WHITE BLOOD CELL COUNT 4.5 /CUMM (4.8-10.8)
[2018-05-04 14:28] VITALS: BP 114/60
--- NOTE | 2018-05-04 19:54 | PN- Cardiology ---
Subjective Subjective: Patient denies chest pains, no SOB at rest. She is constipated. Objective Vital Signs and I&Os Vital Signs Date Time Temp Pulse Resp B/P B/P Pulse O2 O2 Flow FiO2 Mean Ox Delivery Rate 05/04 1428 98.1 64 20 114/60 95 Room Air 05/04 0946 66 124/58 05/04 0946 66 124/58 05/04 0600 98.4 64 20 120/84 96 Room Air 05/04 0000 Room Air 05/03 2208 97.5 54 18 116/72 94 Intake & Output 05/04 1600 05/04 0800 05/04 0000 05/03 1600 05/03 0805/03 0000 Intake Total 800 120 120 100 100 Output Total 850 300 300 350 700 Balance -50 120 -180 -300 -250 -600 Intake, Oral 800 120 120 100 100 Output, Urine 850 300 300 350 700 Patient 133 lb Weight Physical Exam: Gen: NAD HEENT: normal Lungs: Bilateral rales, normal resp. effort Heart: S1, S2, no murmurs Abdomen: Soft, nontender, no masses Extremities: 1+ edema Neuro: Alert and oriented x 3, cranial nerves intact Current Medications: Current Medications Sig/Sergey Start time Last Medication Dose Route Stop Time Status Admin Acetaminophen 1,000 MG TID 04/30 1400 AC 05/04 PO 1950 Apixaban 5 MG BID 04/30 1247 AC 05/04 PO 1950 Atorvastatin Calcium 40 MG QPM 04/30 2100 AC 05/04 PO 1950 Bisacodyl 5 MG ONE ONE 05/04 0915 DC 05/04 PO 05/04 0916 1352 Bisacodyl 10 MG ONCE ONE 05/04 0730 DC [place] 05/04 0731 Budesonide/ 2 PUF BID 04/30 2100 AC 05/04 Formoterol Fumarate INH 1951 Clopidogrel Bisulfate 75 MG DAILY 04/30 1248 AC 05/04 PO 943 Diclofenac Sodium 1 SHE 4 TIMES/DAY PRN 04/30 1900 AC 04/30 TOP 2043 Docusate Sodium 100 MG BID 05/04 0900 AC 05/04 PO 1950 Furosemide 40 MG 7:30 AM, & 4:30 PM 05/03 1630 AC 05/04 PO 175 Gabapentin 100 MG Q8H 04/30 1300 AC 05/04 PO 1950 Lisinopril 2.5 MG DAILY 05/01 09 AC 05/04 PO 945 Melatonin 5 MG AT BEDTIME PRN 04/30 1915 AC 05/02 PO 2015 Metoprolol Succinate 25 MG DAILY 05/01 900 AC 05/04 PO 945 Omeprazole 20 MG DAILY 05/01 900 AC 05/04 PO 943 Paroxetine HCl 40 MG DAILY 04/30 1253 AC 05/04 PO 943 Polyethylene Glycol 17 GM DAILY 05/03 900 AC 05/04 PO 941 Senna/Docusate Sodium 1 TAB BID 05/03 914 AC 05/04 PO 195 Tramadol HCl 50 MG Q6P PRN 05/03 1100 AC 05/03 PO 1320 Results Last 48 Hrs of Labs/Mics: Laboratory Tests 05/04/18 09: Anion Gap 8, Estimated GFR > 60, BUN/Creatinine Ratio 33.3 H, CBC w Diff NO MAN DIFF REQ, RBC 3.42 L, MCV 79.9 L, MCH 26.1 L, MCHC 32.7 L, RDW 17.6 H, MPV 8.0, Gran % 61.7, Lymphocytes % 21.5, Monocytes % 12.2 H, Eosinophils % 4.1, Basophils % 0.5, Absolute Granulocytes 2.8, Absolute Lymphocytes 1.0 L, Absolute Monocytes 0.6, Absolute Eosinophils 0.2, Absolute Basophils 0 05/03/18 0845: CBC w Diff NO MAN DIFF REQ, RBC 3.33 L, MCV 80.4 L, MCH 25.9 L, MCHC 32.2 L, RDW 17.5 H, MPV 7.6, Gran % 69.3, Lymphocytes % 19.6 L, Monocytes % 9.8 H, Eosinophils % 1.3, Basophils % 0, Absolute Granulocytes 5.4, Absolute Lymphocytes 1.5, Absolute Monocytes 0.8 H, Absolute Eosinophils 0.1, Absolute Basophils 0 Assessment/Plan Assessment/Plan CHF exacerbation in patient with ischemic CMP and EF 35%. Afib on eliquis. No evidence of acute ischemia at the moment. No objection to discharge from a cardiology standpoint. Please have the patient f/u with me in 2 weeks and at the CHF clinic on thursday following discharge. Continue telemetry? No
[2018-05-04 23:03] VITALS: BP 106/48
[2018-05-05 06:41] VITALS: BP 134/70
--- NOTE | 2018-05-05 06:59 | PN- Housestaff ---
Eric Lewis 05/05/18 0659: Subjective Follow-up For: Resolved acute hypoxic respiratory failure CHF exacerbation post BiPAP Complaints: no complaints Tele-Events Since Last Visit: Normal sinus with some sinus bradycardia Subjective: Patient seen and examined at the bedside. Patient voices no complaints. Did have a bowel movement early this morning, plan is to return to [facility] today. States that increased frequency of tramadol may be helping her back and knee pain, but she is only been taking as needed so unsure. Otherwise denies any pain, headache, fever, chills, blurred/double vision, lightheadedness/ dizziness, current chest pain at rest, palpitations, heartburn, shortness breath , cough, vomiting, abdominal pain, or urinary symptoms. Review of Systems Constitutional: Reports: see HPI. Objective Last 24 Hrs of Vital Signs/I&O Vital Signs Date Time Temp Pulse Resp B/P B/P Pulse O2 O2 Flow FiO2 Mean Ox Delivery Rate 05/05 0641 98.1 59 23 134/70 94 05/04 2303 98.3 46 16 106/48 97 Room Air 05/04 2103 Room Air 05/04 1428 98.1 64 20 114/60 95 Room Air 05/04 0946 66 124/58 05/04 0946 66 124/58 Intake & Output 05/05 0800 05/05 0000 05/04 1600 Intake Total 800 Output Total 300 850 Balance -300 -50 Intake, Oral 800 Number 1 1 Bowel Movements Output, Urine 300 850 Patient 135 lb Weight Physical Exam General Appearance: Alert, Oriented X3, Cooperative, No Acute Distress Skin: No Rashes, No Breakdown, No Significant Lesion Skin Temp/Moisture Exam: Warm/Dry HEENT: Atraumatic, Mucous Membr. moist/pink Cardiovascular: Regular Rate, Normal S1, Normal S2, No Murmurs, Gallops, Rubs Lungs: Clear to Auscultation, Normal Air Movement Abdomen: Soft, No Tenderness Neurological: Normal Speech, Strength at 5/5 X4 Ext, Normal Tone, Sensation Intact Extremities: No Clubbing, No Cyanosis, No Edema Current Medications: Current Medications Sig/Sergey Start time Last Medication Dose Route Stop Time Status Admin Acetaminophen 1,000 MG TID 04/30 1400 AC 05/04 PO 1950 Apixaban 5 MG BID 04/30 1247 AC 05/04 PO 1950 Atorvastatin Calcium 40 MG QPM 04/30 2100 AC 05/04 PO 1950 Bisacodyl 5 MG ONE ONE 05/04 0915 DC 05/04 PO 05/04 0916 1352 Budesonide/ 2 PUF BID 04/30 2100 AC 05/04 Formoterol Fumarate INH 1951 Clopidogrel Bisulfate 75 MG DAILY 04/30 1248 AC 05/04 PO 44 Diclofenac Sodium 1 SHE 4 TIMES/DAY PRN 04/30 1900 AC 04/30 TOP 4 Docusate Sodium 100 MG BID 05/04 0900 AC 05/04 PO 1950 Furosemide 40 MG 7:30 AM, & 4:30 PM 05/03 1630 AC 05/05 PO 0640 Gabapentin 100 MG Q8H 04/30 1300 AC 05/05 PO 0518 Lisinopril 2.5 MG DAILY 05/01 09 AC 05/04 PO 0946 Melatonin 5 MG AT BEDTIME PRN 04/30 1915 AC 05/02 PO 2016 Metoprolol Succinate 25 MG DAILY 05/01 09 AC 05/04 PO 46 Omeprazole 20 MG DAILY 05/01 0900 AC 05/04 PO 44 Paroxetine HCl 40 MG DAILY 04/30 1253 AC 05/04 PO 44 Polyethylene Glycol 17 GM DAILY 05/03 0900 AC 05/04 PO 0942 Senna/Docusate Sodium 1 TAB BID 05/03 0914 AC 05/04 PO 1950 Tramadol HCl 50 MG Q6P PRN 05/03 1100 AC 05/03 PO 1320 Last 24 Hrs of Lab/Ilya Results Last 24 Hrs of Labs/Mics: Laboratory Tests 05/04/18 0900: Anion Gap 8, Estimated GFR > 60, BUN/Creatinine Ratio 33.3 H, CBC w Diff NO MAN DIFF REQ, RBC 3.42 L, MCV 79.9 L, MCH 26.1 L, MCHC 32.7 L, RDW 17.6 H, MPV 8.0, Gran % 61.7, Lymphocytes % 21.5, Monocytes % 12.2 H, Eosinophils % 4.1, Basophils % 0.5, Absolute Granulocytes 2.8, Absolute Lymphocytes 1.0 L, Absolute Monocytes 0.6, Absolute Eosinophils 0.2, Absolute Basophils 0 Assessment/Plan Assessment: 77-year-old woman from [facility], [place], operated by [facility], with past medical history significant for, CAD s/p [place] recent stenting (s/p remote DE w/ culprit PCI/BMS x1 to LAD; and follow-up PCI/BMS 1 for non-culpret LCx stenosis; PCI/LANE [Resolute] of an 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 CXR : Central vascular and interstitial prominence, suspicious for congestion and interstitial edema. Plan is to return her to [facility]; patient has had bowel movement this morning and is ready for discharge. Problem list/plan: Acute hypoxic respiratory failure: stable on room air good saturations Acute on chronic systolic heart failure Last echocardiogram in 12/2017: Markedly hypokinetic to akinetic inferior and lateral castro. Moderately abnormal left ventricular ejection fraction estimated at 25-30%. Mildly increased resting left ventricular outflow tract velocity ( 1.35 m/s). Appreciate cardio recs On lasix 40mg IV oral, changed from IV today Will monitor BEP Maintain negative fluid balance strict I/Os CAD with recent stenting and elevated troponins: continue plavix trop trend up to 0.11, went down below threshold for normal; no longer followed Paroxysmal Atrial fibrillation: Continue Metroprolol and eliquis. HTN: Continued metoprolol and lisinopril HLD: Continued atorvastatin COPD: On Breo at home Started on symbicort Anemia: will guaiac stools follow up CBC at 3pm Chronic Pain: lidocaine patches to knees PRN on tramadol in the evenings diclofenac gel PRN heart healthy diet dvt ppx eliquis DNR/DNI Problem List: 1. Anemia 2. Acute respiratory failure with hypoxia 3. History of CHF (congestive heart failure) Pain Ratin Pain Location: back/bilateral knees Pain Goal: Pain 4 or less Pain Plan: Acetaminophen and Tramadol Tomorrow's Labs & Rationales: none; anticipated dc today Consulting Request: Consulting Specialty: Cardiology Consulting Physician: Dr. Myers Reason for Consult: Systolic heart failure Discharge Plan Discharge Disposition: STR/NH Stable for Discharge? Yes Anticipated Discharge (Day): today If Discharged Today/In 24 Hrs: W-10/discharge paper done, CMR done [place] MITCHELLJackeline 05/05/18 0944: Attending MD Review Statement Attending Statement Attending MD Statement: examined this patient, discuss w/resident/PA/INSTITUTIONAL RESEARCH COORDINATOR, agreed w/resident/PA/INSTITUTIONAL RESEARCH COORDINATOR, reviewed EMR data (avail), discussed with nursing, discussed with case mgmt, reviewed images Attending Assessment/Plan: Patient had a bowel movement today and can be discharged. Of note she refused a suppository yesterday and refused an enema. She did require a lot of coaxing to take her MiraLAX. She does have multiple medical problems and was treated for acute diastolic heart failure, chronic anemia with atrial fibrillation and is stable to leave with close outpatient follow-up.
[2018-05-05 08:17] VITALS: BP 134/70
--- NOTE | 2018-05-05 08:45 | PN- Cardiology ---
Subjective Subjective: * No chest pain or shortness of breath today. * sinus rhythm Objective Vital Signs and I&Os Vital Signs Date Time Temp Pulse Resp B/P B/P Pulse O2 O2 Flow FiO2 Mean Ox Delivery Rate 05/05 0817 59 134/70 05/05 0817 59 134/70 05/05 0641 98.1 59 23 134/70 94 05/04 2303 98.3 46 16 106/48 97 Room Air 05/04 2103 Room Air 05/04 1428 98.1 64 20 114/60 95 Room Air 05/04 0946 66 124/58 05/04 0946 66 124/58 Intake & Output 05/05 1600 05/05 0800 05/05 0000 05/04 1600 05/04 0800 05/04 0000 Intake Total 800 120 120 Output Total 300 850 300 Balance -300 -50 120 -180 Intake, Oral 800 120 120 Number 1 1 Bowel Movements Output, Urine 300 850 300 Patient 135 lb 133 lb Weight Physical Exam: General: WD/WN female in NAD; alert and oriented x 3 Neck: no JVD Heart: RRR Lungs: scant crackles at right base Extremities: no edema Assessment/Plan Assessment/Plan * Increase lisinopril to a therapeutic dose of 5mg daily. Continue other medications. * Follow up in my office in one week. Continue telemetry? No
[2018-05-05] MEDS ORDERED: LISINOPRIL2.5 M1 PO (11:31)
[2018-05-05] MEDS ORDERED: LISINOPRIL5 M1 PO (11:32)
== END 2018-05-05 12:40 | DRG 291 ==
LOC: ERH 05:15 → 1NO 06:39 → ERHI 06:39 → ENRESERV 07:29 → ENTRNSPT 08:20 → EDTRNSPT 08:37 → EDTRNSPTSTS 08:37 → CRI 08:40 → CMPTRNSPT 08:56 → ENTRNSPT 05-02 10:05 → 1NO 05-02 11:07 → CMPTRNSPT 05-02 11:17 → 1NO 05-02 12:44 → ENPENDDIS 05-05 08:29 → 1NO 05-05 12:40
PROVIDERS: Emergency Medicine; General Practice; Internal Medicine Adolescent Medicine; Physical Medicine & Rehabilitation; Preventive Medicine Public Health & General Preventive Medicine; Student in an Organized Health Care Education/Training Program
DX: I11.0 Hypertensive heart disease with heart failure (principal); J96.01 Acute respiratory failure with hypoxia; E87.2 Acidosis; I50.23 Acute on chronic systolic (congestive) heart failure; E78.5 Hyperlipidemia, unspecified; I25.10 Atherosclerotic heart disease of native coronary artery without angina pectoris; Z95.5 Presence of coronary angioplasty implant and graft; I25.2 Old myocardial infarction; F32.9 Major depressive disorder, single episode, unspecified; M19.90 Unspecified osteoarthritis, unspecified site; Z79.01 Long term (current) use of anticoagulants; I44.7 Left bundle-branch block, unspecified; I48.0 Paroxysmal atrial fibrillation; J44.9 Chronic obstructive pulmonary disease, unspecified; Z66 Do not resuscitate; G89.29 Other chronic pain; M25.569 Pain in unspecified knee; M54.9 Dorsalgia, unspecified; D64.9 Anemia, unspecified; Z88.1 Allergy status to other antibiotic agents; Z79.51 Long term (current) use of inhaled steroids; Z90.49 Acquired absence of other specified parts of digestive tract; K59.00 Constipation, unspecified
CPT/HCPCS: 1NP; CCU; 36415; 36592; 71045; 71046; 82436; 87040; 87086; 93005; 93010; 93306; 97161-GP; 97530-GO; 99291; J1940; J3490